=== PATIENT | male | born 1975 | race Two or more races ===

== ENCOUNTER 2021-02-21 12:30 | Inpatient (IN) | payer SELFPAY ==
[~2021-02-21] VITALS: Ht 165.1 cm; Wt 80.8 kg
--- NOTE | 2021-02-21 13:19 | PHYS DOC ---
Past Medical History Past Surgical History: No Surgical History General Adult EDM: Chief Complaint: COUGH HPI: HPI: Patient is a 46-year-old male presenting via POV for shortness of breath. States he has had generalized upper respiratory symptoms for past 15 days witho ut any known inciting event, trauma, ingestion, exposure or recent travel. Patient has taken Tylenol and other NSAIDs intermittently with minimal relief in symptoms, physical exertion and laying down makes coughing worse otherwise no obvious exacerbating factors. Patient denies any pain, just ongoing nasal congestion, rhinorrhea, postnasal drip and a dry nonproductive cough with inability to take deep breaths. Denies any diagnosed medical conditions or other immunocompromising issues, takes no medications on a daily basis, he is not vaccinated against COVID-19 Review of Systems: Review of Systems: Fourteen body systems of review of systems have been reviewed. See HPI for pertinent positives and negative responses, other macias all other systems are negative, non-pertinent or non-contributory Heart Score: C/O Chest Pain: No HEART Score for Chest Pain: HEART Score for Chest Pain Response (Comments) Value History Slighlty/Non-Suspicious 0 ECG Normal 0 Age >45 - < 65 1 Risk Factors No Risk Factors 0 Troponin < Normal Limit 0 Total 1 Risk Factors: Risk Factors: DM, Current or recent (<one month) smoker, HTN, HLP, family history of CAD, obesity. Risk Scores: Score 0 - 3: 2.5% MACE over next 6 weeks - Discharge Home Score 4 - 6: 20.3% MACE over next 6 weeks - Admit for Clinical Observation Score 7 - 10: 72.7% MACE over next 6 weeks - Early Invasive Strategies Physical Exam: PE: Constitutional: Well developed, well nourished, no acute distress, non-toxic appearance. HENT: Normocephalic, atraumatic, bilateral external ears normal, oropharynx moist with postnasal drip present, no oral exudates, boggy bilateral nasal turbinates with moderate amount of anterior rhinorrhea present, tolerating secretions without any phonation changes Eyes: PERRLA, EOMI, conjunctiva normal, no discharge. Neck: Normal range of motion, no tenderness, supple, no stridor. Cardiovascular: Heart rate regular, sinus rhythm, no murmurs rubs or gallops Lungs & Thorax: Tachypneic and hypoxic without any obvious accessory muscle use, speaking in full sentences without any obvious distress, crackles and wheezing most notable during expiratory phases of respiration Abdomen: Bowel sounds normal, soft, no tenderness, no masses, no pulsatile masses. Nonsurgical abdomen, no peritoneal signs Skin: Warm, dry, no erythema, no rash. Back: No tenderness, no CVA tenderness. Extremities: No tenderness, no cyanosis, no clubbing, ROM intact, no edema. Neurologic: Alert and oriented X 3, grossly normal motor & sensory function, no focal deficits noted. Psychologic: Affect normal, judgement normal, mood normal. Current Patient Data: Labs: Laboratory Tests Test 02/21/21 13:10 02/21/21 13:25 02/21/21 14:10 White Blood Count 8.3 x10^3/uL Red Blood Count 4.69 x10^6/uL Hemoglobin 14.8 g/dL Hematocrit 43.2 % Mean Corpuscular Volume 92 fL Mean Corpuscular Hemoglobin 32 pg Mean Corpuscular Hemoglobin Concent 34 g/dL Red Cell Distribution Width 13.9 % Platelet Count 225 x10^3/uL Neutrophils (%) (Auto) 87 % Lymphocytes (%) (Auto) 9 % Monocytes (%) (Auto) 4 % Eosinophils (%) (Auto) 0 % Basophils (%) (Auto) 0 % Neutrophils # (Auto) 7.2 x10^3/uL Lymphocytes # (Auto) 0.8 x10^3/uL Monocytes # (Auto) 0.3 x10^3/uL Eosinophils # (Auto) 0.0 x10^3/uL Basophils # (Auto) 0.0 x10^3/uL Prothrombin Time 13.3 SEC Prothromb Time International Ratio 1.0 Activated Partial Thromboplast Time 33 SEC Sodium Level 134 mmol/L Potassium Level 3.4 mmol/L Chloride Level 96 mmol/L Carbon Dioxide Level 24 mmol/L Anion Gap 14 Blood Urea Nitrogen 17 mg/dL Creatinine 1.2 mg/dL Estimated GFR (Cockcroft-Gault) 64.9 Glucose Level 202 mg/dL Lactic Acid Level 3.4 mmol/L Calcium Level 8.4 mg/dL Troponin I High Sensitivity 8 ng/L NG-Edp-S-Type Natriuretic Peptide 36 pg/mL Influenza Type A Antigen Negative Influenza Type B Antigen Negative SARS-CoV-2 Antigen (Rapid) Negative O2 Saturation 90 % Arterial Blood pH 7.53 Arterial Blood pCO2 at Patient Temp 31 mmHg Arterial Blood pO2 at Patient Temp 54 mmHg Arterial Blood HCO3 25 mmol/L Arterial Blood Base Excess 3 mmol/L Oxyhemoglobin 89.1 % Methemoglobin 0.2 % Carbon Monoxide, Quantitative 0.2 % FiO2 44 Current Medications Medications (Trade) Dose Ordered Sig/Kalina Route PRN Reason Start Time Stop Time Status Last Admin Dose Admin Iohexol (Omnipaque 350 Mg/ml) 100 ml 1X ONCE IV 02/21/21 13:30 02/21/21 13:32 DC 02/21/21 14:35 Info (CONTRAST GIVEN -- Rx MONITORING) 1 each PRN DAILY PRN MC SEE COMMENTS 02/21/21 13:45 02/23/21 13:44 Sodium Chloride 1,000 ml @ 1,000 mls/hr 1X ONCE IV 02/21/21 14:00 02/21/21 14:59 02/21/21 14:00 Iohexol (Omnipaque 350 Mg/ml) 100 ml 1X ONCE IV 02/21/21 14:15 02/21/21 14:16 DC Sterile Water (WATER for RESP) 2,000 ml CONT PRN INH VIA VAPOTHERM DEVICE 02/21/21 14:30 Vital Signs: Vital Signs Date Time Temp Pulse Resp B/P (MAP) Pulse Ox O2 Delivery O2 Flow Rate FiO2 02/21/21 13:00 99.4 103 14 128/81 (97) 74 Room Air 99.4 EKG: EKG: EKG ordered and interpreted by myself 1310 hrs. as sinus rhythm at 98 bpm, unremarkable intervals, no axis deviation, no obvious ischemic findings, no STEMI Radiology/Procedures: Radiology/Procedures: XR CHEST 1V Clinical Indication: Shortness of breath. Comparison: None. Findings: The cardiomediastinal silhouette is normal. There are moderate bilateral patchy airspace opacities. There are low lung volumes. There is no pneumothorax. No pleural effusion is appreciated. No acute bone abnormality. IMPRESSION: There are moderate bilateral patchy airspace opacities suggestive of atypical pneumonia. Electronically signed by: Perry Armstrong MD (02/21/2021 2:20 PM) [id number] ////////////////// CTA CHEST History: Short of breath. Rule out PE. Comparison: None. Technique: CTA of the pulmonary arteries with intravenous contrast. 3-D postprocessing was performed. Findings: Pulmonary arteries: No pulmonary embolism. Aorta and great vessels: No aneurysm or dissection of the aortic arch or thoracic aorta. Thyroid: Prominent size without focal abnormality. Mediastinum and josafat: Enlarged mediastinal lymph nodes, likely reactive. Esophagus: The visualized esophagus is normal. Heart: The heart is normal in size. There is no pericardial effusion. Airways, Lungs, Pleura: Airways are patent. Diffuse bilateral groundglass airspace opacification. No pleural effusion or pneumothorax. Upper abdomen: Limited evaluation of the upper abdomen is unremarkable. Osseous structures and soft tissues: Within normal limits for age. Impression: 1. No pulmonary embolism, aortic aneurysm or aortic dissection. 2. Diffuse bilateral airspace opacification likely represent multifocal infection or alternatively pulmonary edema/ARDS. Course & Med Decision Making: Course & Med Decision Making Airway patent, breathing unlabored, IV access and vitals obtained concerning for tachycardia and hypoxia on room air which is not his normal HPI physical exam and comprehensive ER work-up obtained concerning for bilateral pneumonia/infectious respiratory process in an unvaccinated individual. Rapid COVID-19 negative with PCR pending, I have great concern for this Nasal cannula and subsequent high flow nasal cannula applied with improvement in O2 saturations.. Antibiotics administered. I discussed need for hospitalization with Dr. Pérez who ultimately accepted patient for admission I have updated patient on entirety of ER visit and proposed plan of care that includes hospitalization for which she was amenable, all questions and concerns addressed prior to hospital admission [place] Disclaimer: Praveena Disclaimer: This electronic medical record was generated, in whole or in part, using a voice recognition dictation system. Departure Departure Impression: Primary Impression: Sepsis due to pneumonia Additional Impression: Acute respiratory failure with hypoxia Disposition: ADMITTED INPATIENT Admitting Physician: FRANKY (dr pérez) Condition: STABLE Referrals: NO PCP (PCP) CHAES MONTAÑO DO Feb 21, 2021 13:19
[2021-02-21 13:26] LABS: BASO % 0 % (0-3); EOS % 0 % (0-3); HEMATOCRIT 43.2 % (39.0-53.0); HEMOGLOBIN 14.8 g/dL (13.0-17.5); LYMPH # 0.8 x10^3/uL (1.0-4.8); LYMPH % 9 % (24-48); MEAN CORPUSCULAR HEMOGLOBIN 32 pg (25-35); MEAN CORPUSCULAR HGB CONC 34 g/dL (31-37); MEAN CORPUSCULAR VOLUME 92 fL (79-100); MONO # 0.3 x10^3/uL (0.0-1.1); MONO % 4 % (0-9); NEUT # 7.2 x10^3/uL (1.8-7.7); NEUT % 87 % (31-73); PLATELET COUNT 225 x10^3/uL (140-400); RED BLOOD COUNT 4.69 x10^6/uL (4.30-5.70); RED CELL DISTRIBUTION WIDTH 13.9 % (11.5-14.5); WHITE BLOOD COUNT 8.3 x10^3/uL (4.0-11.0)
[2021-02-21] MEDS ORDERED: IOHEXOL 350 MG/ML 100 ML VIAL. IV ONE ×2 (13:30→14:15)
[2021-02-21 13:37] LABS: CALCIUM 8.4 mg/dL (8.5-10.1); CREATININE 1.2 mg/dL (0.7-1.3); GFR 64.9; POTASSIUM 3.4 mmol/L (3.5-5.1)
[2021-02-21] MEDS ORDERED: CONTRAST GIVEN. MC PRN (13:45)
[2021-02-21] MEDS ORDERED: IV NORMAL SALINE 1000ML BAG 1,000 ML IV ONE ×2 (14:00→15:00)
[2021-02-21 14:07] LABS: INFLUENZA A PATIENT NEGATIVE (NEGATIVE); INFLUENZA B PATIENT NEGATIVE (NEGATIVE)
[2021-02-21 14:15] LABS: BASE EXCESS COOX 3 mmol/L (-3-3); HCO3 COOX 25 mmol/L (21-28); METHEMOGLOBIN 0.2 % (0.0-1.9); OXYHEMOGLOBIN 89.1 %; PCO2 COOX 31 mmHg (35-46); PO2 COOX 54 mmHg (75-108); SAT O2 COOX 90 % (92-99)
--- NOTE | 2021-02-21 14:22 | RAD ---
XR CHEST 1V Clinical Indication: Shortness of breath. Comparison: None. Findings: The cardiomediastinal silhouette is normal. There are moderate bilateral patchy airspace opacities. T here are low lung volumes. There is no pneumothorax. No pleural effusion is appreciated. No acute bon e abnormality. IMPRESSION: There are moderate bilateral patchy airspace opacities suggestive of atypical pneumonia. Electronically signed by: Perry Armstrong MD (02/21/2021 2:20 PM) [id number]
[2021-02-21 14:27] LABS: PROTHROMBIN TIME PATIENT 13.3 SEC (11.7-14.0)
[2021-02-21] MEDS: STERILE WATER for RESP 2,000 ML BAG. INH PRN (14:40)
--- NOTE | 2021-02-21 14:50 | RAD ---
CTA CHEST History: Short of breath. Rule out PE. Comparison: None. Technique: CTA of the pulmonary arteries with intravenous contrast. 3-D postprocessing was performed. Findings: Pulmonary arteries: No pulmonary embolism. Aorta and great vessels: No aneurysm or dissection of the aortic arch or thoracic aorta. Thyroid: Prominent size without focal abnormality. Mediastinum and josafat: Enlarged mediastinal lymph nodes, likely reactive. Esophagus: The visualized esophagus is normal. Heart: The heart is normal in size. There is no pericardial effusion. Airways, Lungs, Pleura: Airways are patent. Diffuse bilateral groundglass airspace opacification. No pleural effusion or pneumothorax. Upper abdomen: Limited evaluation of the upper abdomen is unremarkable. Osseous structures and soft tissues: Within normal limits for age. Impression: 1. No pulmonary embolism, aortic aneurysm or aortic dissection. 2. Diffuse bilateral airspace opacification likely represent multifocal infection or alternatively p ulmonary edema/ARDS. ------ Exposure: One or more of the following individualized dose reduction techniques were utilized for thi s examination: 1. Automated exposure control 2. Adjustment of the mA and/or kV according to patient size 3. Use of iterative reconstruction technique. Electronically signed by: Zain Jones MD (02/21/2021 2:48 PM) [facility]
[2021-02-21] MEDS ORDERED: cefTRIAXone IV Push 1 GM VIAL. IVP ONE (15:00)
[2021-02-21] MEDS ORDERED: AZITHRMYCN 500MG IVPB FOR OMNI 250 ML IV ONE (15:00)
[2021-02-21] MEDS ORDERED: NITROGLYCERIN SUBLINGUAL 0.4 MG BOTTLE OF 25. SL PRN (16:00)
[2021-02-21] MEDS ORDERED: ACETAMINOPHEN 325 MG TABLET. PO PRN (16:00)
--- NOTE | 2021-02-21 16:49 | EKG ---
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
[2021-02-21 19:35] VITALS: BP 129/87
--- NOTE | 2021-02-21 20:07 | HP ---
DATE OF SERVICE: 02/21/2021 ADMIT DATE: 02/21/2021 CHIEF COMPLAINT: Shortness of breath and cough. HISTORY OF PRESENT ILLNESS: The patient is a pleasant 46-year-old healthy male who has been at home with respiratory symptoms for about 10-15 days. His girlfriend also has the same symptoms. They are short of breath. They are coughing. They are not vaccinated. Surprisingly, his COVID testing is negative, but clinically he seems to have COVID-19. We are awaiting the PCR test. His chest x-ray does show atypical pneumonia. I discussed the case with ER physician. We are going to start the patient on COVID protocol. PAST MEDICAL HISTORY: Benign. ALLERGIES: None. FAMILY HISTORY: Diabetes. SOCIAL HISTORY: Does not drink, smoke or take drugs. MEDICATIONS: Reviewed, please refer to the MRAD. REVIEW OF SYSTEMS: GENERAL: No history of weight change, weakness or fevers. SKIN: No bruising, hair changes or rashes. EYES: No blurred, double or loss of vision. NOSE AND THROAT: No history of nosebleeds, hoarseness or sore throat. HEART: No history of palpitations, chest pain or shortness of breath on exertion. LUNGS: He complains of shortness of breath and cough. GASTROINTESTINAL: Denies changes in appetite, nausea, vomiting, diarrhea or constipation. GENITOURINARY: No history of frequency, urgency, hesitancy or nocturia. NEUROLOGIC: Denies history of numbness, tingling, tremor or weakness. PSYCHIATRIC: No history of panic, anxiety or depression. ENDOCRINE: No history of heat or cold intolerance, polyuria or polydipsia. EXTREMITIES: Denies muscle weakness, joint pain, pain on walking or stiffness. PHYSICAL EXAMINATION: VITALS: Within normal limits and are stable. GENERAL: No apparent distress. Alert and oriented. HEENT: Normal cephalic atraumatic, external auditory canals are patent. EYES: Extraocular muscles are intact, pupils are equally round and reactive to light and accommodation. MUSCULOSKELETAL: Well developed, well nourished, good range of motion. ENDOCRINE: No thyromegaly was palpated. LYMPHATICS: No cervical chain or axillary nodes were noted. HEMATOPOIETIC: No bruising. NECK: Supple, no JVD, no thyromegaly was noted. LUNGS: He has bibasilar crackles. HEART: RRR, S1, S2 present. Peripheral pulses intact, no obvious murmurs were noted. ABDOMEN: Soft, nontender. Positive bowel sounds no organomegaly, normal bowel sounds. EXTREMITIES: Without any cyanosis, clubbing, or edema. Pedal pulses intact, Homans sign is negative. NEUROLOGIC: Normal speech, normal tone. A and O x3, moves all extremities, no obvious focal deficits. PSYCHIATRIC: Normal affect, normal mood. Stable. SKIN: No ulcerations or rashes, good skin turgor, no jaundice. VASCULAR: Good capillary refill, neurovascular bundle appears to be intact. LABORATORY DATA: White count is 8. Sodium is 134. Lactic acid 3.4. INR is 1. ABG shows a pH of 7.53, pCO2 of 31, pO2 of 54, bicarbonate 25 with 90% saturation that was on 44% FiO2. Chest x-ray shows pneumonia. ASSESSMENT AND PLAN: Respiratory failure, suspect probable COVID-19. As previously stated, the COVID-19 testing so far is negative, but we are awaiting the PCR. I am going to go and start the rest of the protocol other than remdesivir including Solu-Medrol, IV antibiotics, vitamins and minerals and beta agonist, oxygen, codeine cough syrup, aspirin, Lovenox, home meds. DVT prophylaxis. Full code. Prognosis guarded. Respiratory isolation. DAVID DR: CHARLES/nelida TID: [id number]
[2021-02-21] MEDS: methylPREDNISolone SOD SUCC PF 40 MG/ML VIAL. IV SCH (20:46)
[2021-02-21] MEDS: ENOXAPARIN 40 MG/0.4 ML SYRINGE. SQ SCH (20:47)
[2021-02-21] MEDS: cefTRIAXone IV Push 1 GM VIAL. IVP SCH (20:47)
[2021-02-21] MEDS: DOXYCYCLINE HYCLATE 100 MG in IV DEXTROSE 5% 100ML 100 ML IV SCH (20:48)
[2021-02-21 23:12] VITALS: BP 163/94
[2021-02-21] MEDS ORDERED: no home meds (23:52)
[2021-02-22 03:17] VITALS: BP 131/96
[2021-02-22 05:14] LABS: BASO % 1 % (0-3); EOS % 0 % (0-3); HEMOGLOBIN 14.1 g/dL (13.0-17.5); LYMPH # 0.6 x10^3/uL (1.0-4.8); LYMPH % 8 % (24-48); MEAN CORPUSCULAR HEMOGLOBIN 31 pg (25-35); MEAN CORPUSCULAR HGB CONC 34 g/dL (31-37); MEAN CORPUSCULAR VOLUME 93 fL (79-100); MONO # 0.3 x10^3/uL (0.0-1.1); MONO % 4 % (0-9); NEUT # 6.7 x10^3/uL (1.8-7.7); NEUT % 87 % (31-73); PLATELET COUNT 230 x10^3/uL (140-400); RED BLOOD COUNT 4.53 x10^6/uL (4.30-5.70); RED CELL DISTRIBUTION WIDTH 13.9 % (11.5-14.5); WHITE BLOOD COUNT 7.7 x10^3/uL (4.0-11.0)
[2021-02-22 05:32] LABS: CALCIUM 8.1 mg/dL (8.5-10.1); CREATININE 0.9 mg/dL (0.7-1.3); GFR 90.4; POTASSIUM 3.9 mmol/L (3.5-5.1)
[2021-02-22 07:00] VITALS: BP 142/97
[2021-02-22] MEDS: methylPREDNISolone SOD SUCC PF 40 MG/ML VIAL. IV SCH ×2 (08:47→21:28)
[2021-02-22] MEDS: ASPIRIN CHEWABLE 81 MG TABLET. PO SCH (08:47)
[2021-02-22] MEDS: DOXYCYCLINE HYCLATE 100 MG in IV DEXTROSE 5% 100ML 100 ML IV SCH ×2 (08:47→21:29)
[2021-02-22] MEDS: guaiFENesin/CODEINE 100mg/10mg 5 ML LIQUID PO PRN (08:47)
[2021-02-22] MEDS: MULTIVITAMIN with MINERAL TABLET. PO SCH (08:48)
[2021-02-22 11:00] VITALS: BP 134/87
--- NOTE | 2021-02-22 11:27 | PDOC ---
[employer] PROGRESS NOTE Date of Service DOS: DATE: 02/22/21 TIME: 11:25 Chief Complaint Chief Complaint Respiratory failure Atypical pneumonia noted on chest x-ray (Covid testing negative) History of Present Illness History of Present Illness 02/22/2021 Patient seen and examined He is on Vapotherm 40 L with 100% FiO2 plus nonrebreather Discussed with RN Chart reviewed His Covid testing by PCR is surprisingly negative Vitals/I&O Vitals/I&O: Vital Signs Date Time Temp Pulse Resp B/P (MAP) Pulse Ox O2 Delivery O2 Flow Rate FiO2 02/22/21 07:29 94 Vapotherm 35.0 02/22/21 07:00 97.5 80 22 142/97 (112) 97.5 I & O 02/21/21 02/21/21 02/22/21 15:00 23:00 07:00 Intake Total 50 ml 100 ml Output Total 300 ml 400 ml Balance -250 ml -300 ml Physical Exam General: Alert, Oriented X3, Cooperative Heart: Regular rate Lungs: Crackles Abdomen: Normal bowel sounds Extremities: No clubbing Skin: No rashes Labs Labs: Laboratory Tests Test 02/21/21 13:10 02/21/21 13:25 02/21/21 14:10 02/21/21 18:00 White Blood Count 8.3 x10^3/uL (4.0-11.0) Red Blood Count 4.69 x10^6/uL (4.30-5.70) Hemoglobin 14.8 g/dL (13.0-17.5) Hematocrit 43.2 % (39.0-53.0) Mean Corpuscular Volume 92 fL (79-100) Mean Corpuscular Hemoglobin 32 pg (25-35) Mean Corpuscular Hemoglobin Concent 34 g/dL (31-37) Red Cell Distribution Width 13.9 % (11.5-14.5) Platelet Count 225 x10^3/uL (140-400) Neutrophils (%) (Auto) 87 % (31-73) Lymphocytes (%) (Auto) 9 % (24-48) Monocytes (%) (Auto) 4 % (0-9) Eosinophils (%) (Auto) 0 % (0-3) Basophils (%) (Auto) 0 % (0-3) Neutrophils # (Auto) 7.2 x10^3/uL (1.8-7.7) Lymphocytes # (Auto) 0.8 x10^3/uL (1.0-4.8) Monocytes # (Auto) 0.3 x10^3/uL (0.0-1.1) Eosinophils # (Auto) 0.0 x10^3/uL (0.0-0.7) Basophils # (Auto) 0.0 x10^3/uL (0.0-0.2) Prothrombin Time 13.3 SEC (11.7-14.0) Prothromb Time International Ratio 1.0 (0.8-1.1) Activated Partial Thromboplast Time 33 SEC (24-38) Sodium Level 134 mmol/L (136-145) Potassium Level 3.4 mmol/L (3.5-5.1) Chloride Level 96 mmol/L (98-107) Carbon Dioxide Level 24 mmol/L (21-32) Anion Gap 14 (6-14) Blood Urea Nitrogen 17 mg/dL (8-26) Creatinine 1.2 mg/dL (0.7-1.3) Estimated GFR (Cockcroft-Gault) 64.9 Glucose Level 202 mg/dL (70-99) Lactic Acid Level 3.4 mmol/L (0.4-2.0) < 0.3 mmol/L (0.4-2.0) Calcium Level 8.4 mg/dL (8.5-10.1) Troponin I High Sensitivity 8 ng/L (4-75) IN-Mcy-D-Type Natriuretic Peptide 36 pg/mL (0-124) Influenza Type A Antigen Negative (NEGATIVE) Influenza Type B Antigen Negative (NEGATIVE) SARS-CoV-2 RNA (JYOTI) Negative (Negative) SARS-CoV-2 Antigen (Rapid) Negative (NEGATIVE) O2 Saturation 90 % (92-99) Arterial Blood pH 7.53 (7.35-7.45) Arterial Blood pCO2 at Patient Temp 31 mmHg (35-46) Arterial Blood pO2 at Patient Temp 54 mmHg (75-108) Arterial Blood HCO3 25 mmol/L (21-28) Arterial Blood Base Excess 3 mmol/L (-3-3) Oxyhemoglobin 89.1 % Methemoglobin 0.2 % (0.0-1.9) Carbon Monoxide, Quantitative 0.2 % (0.0-1.9) FiO2 44 Test 02/22/21 04:30 White Blood Count 7.7 x10^3/uL (4.0-11.0) Red Blood Count 4.53 x10^6/uL (4.30-5.70) Hemoglobin 14.1 g/dL (13.0-17.5) Hematocrit 42.0 % (39.0-53.0) Mean Corpuscular Volume 93 fL (79-100) Mean Corpuscular Hemoglobin 31 pg (25-35) Mean Corpuscular Hemoglobin Concent 34 g/dL (31-37) Red Cell Distribution Width 13.9 % (11.5-14.5) Platelet Count 230 x10^3/uL (140-400) Neutrophils (%) (Auto) 87 % (31-73) Lymphocytes (%) (Auto) 8 % (24-48) Monocytes (%) (Auto) 4 % (0-9) Eosinophils (%) (Auto) 0 % (0-3) Basophils (%) (Auto) 1 % (0-3) Neutrophils # (Auto) 6.7 x10^3/uL (1.8-7.7) Lymphocytes # (Auto) 0.6 x10^3/uL (1.0-4.8) Monocytes # (Auto) 0.3 x10^3/uL (0.0-1.1) Eosinophils # (Auto) 0.0 x10^3/uL (0.0-0.7) Basophils # (Auto) 0.0 x10^3/uL (0.0-0.2) Sodium Level 136 mmol/L (136-145) Potassium Level 3.9 mmol/L (3.5-5.1) Chloride Level 99 mmol/L (98-107) Carbon Dioxide Level 26 mmol/L (21-32) Anion Gap 11 (6-14) Blood Urea Nitrogen 15 mg/dL (8-26) Creatinine 0.9 mg/dL (0.7-1.3) Estimated GFR (Cockcroft-Gault) 90.4 Glucose Level 171 mg/dL (70-99) Calcium Level 8.1 mg/dL (8.5-10.1) Assessment and Plan Assessmemt and Plan Problems Medical Problems: (1) Acute respiratory failure with hypoxia Status: Acute (2) Sepsis due to pneumonia Status: Acute Respiratory failure Atypical pneumonia noted on chest x-ray (Covid testing negative) Plan Continue antibiotics Beta agonist IV steroids Beta agonist O2 Codeine cough syrup Aspirin Lovenox Vitamins and minerals Home meds DVT prophylaxis Full code Comment Review of Relevant I have reviewed the following items elmer (where applicable) has been applied. Medications: Current Medications Medications (Trade) Dose Ordered Sig/Kalina Route PRN Reason Start Time Stop Time Status Last Admin Dose Admin Iohexol (Omnipaque 350 Mg/ml) 100 ml 1X ONCE IV 02/21/21 13:30 02/21/21 13:32 DC 02/21/21 14:35 Sodium Chloride 1,000 ml @ 1,000 mls/hr 1X ONCE IV 02/21/21 14:00 02/21/21 14:59 DC 02/21/21 14:00 Sterile Water (WATER for RESP) 2,000 ml CONT PRN INH VIA VAPOTHERM DEVICE 02/21/21 14:30 02/21/21 14:40 Sodium Chloride 1,000 ml @ 1,000 mls/hr 1X ONCE IV 02/21/21 15:00 02/21/21 15:59 DC 02/21/21 15:00 Ceftriaxone Sodium (Rocephin) 1 gm 1X ONCE IVP 02/21/21 15:00 02/21/21 15:01 DC 02/21/21 15:00 Azithromycin 250 ml @ 250 mls/hr 1X ONCE IV 02/21/21 15:00 02/21/21 15:59 DC 02/21/21 15:00 Acetaminophen (Tylenol) 650 mg PRN Q4HRS PRN PO FEVER > 100.3'F 02/21/21 16:00 02/22/21 15:59 02/21/21 23:00 Ceftriaxone Sodium (Rocephin) 1 gm Q24H IVP 02/21/21 20:00 02/21/21 20:47 Doxycycline Hyclate 100 mg/ Dextrose 100 ml @ 50 mls/hr Q12HR IV 02/21/21 20:00 02/22/21 08:47 Methylprednisolone Sodium Succinate (SOLU-Medrol 40MG VIAL) 40 mg BID IV 02/21/21 20:00 02/22/21 08:47 Multivitamins (Thera M Plus) 1 tab DAILY PO 02/22/21 09:00 02/22/21 08:48 Guaifenesin/ Codeine Phosphate (Robitussin Ac) 5 ml PRN Q6HRS PRN PO COUGH 02/21/21 19:45 02/22/21 08:47 Aspirin (Aspirin Chewable) 81 mg [id number] PO 02/22/21 08:00 02/22/21 08:47 Enoxaparin Sodium (Lovenox 40mg Syringe) 40 mg Q24H SQ 02/21/21 20:00 02/21/21 20:47 Justifications for Admission Other Justification LILA RODRIGUEZ III DO Feb 22, 2021 11:27
[2021-02-22 15:00] VITALS: BP 134/89
[2021-02-22 19:00] VITALS: BP 131/81
[2021-02-22] MEDS: LACTOBACILLUS RHAMNOSUS GG 1 CAPSULE. PO SCH (21:26)
[2021-02-22] MEDS: cefTRIAXone IV Push 1 GM VIAL. IVP SCH (21:28)
[2021-02-22] MEDS: ENOXAPARIN 40 MG/0.4 ML SYRINGE. SQ SCH (21:28)
[2021-02-22 23:00] VITALS: BP 134/88
[2021-02-23 03:00] VITALS: BP 126/85
[2021-02-23 07:00] VITALS: BP 127/81
[2021-02-23] MEDS: guaiFENesin/CODEINE 100mg/10mg 5 ML LIQUID PO PRN (08:51)
[2021-02-23] MEDS: LACTOBACILLUS RHAMNOSUS GG 1 CAPSULE. PO SCH ×2 (08:51→21:16)
[2021-02-23] MEDS: methylPREDNISolone SOD SUCC PF 40 MG/ML VIAL. IV SCH ×2 (08:51→21:17)
[2021-02-23] MEDS: ASPIRIN CHEWABLE 81 MG TABLET. PO SCH (08:51)
[2021-02-23] MEDS: MULTIVITAMIN with MINERAL TABLET. PO SCH (08:51)
[2021-02-23] MEDS: DOXYCYCLINE HYCLATE 100 MG in IV DEXTROSE 5% 100ML 100 ML IV SCH ×2 (08:52→21:17)
[2021-02-23 11:00] VITALS: BP 145/83
--- NOTE | 2021-02-23 12:53 | PDOC ---
[employer] PROGRESS NOTE Date of Service DOS: DATE: 02/23/21 TIME: 12:51 Chief Complaint Chief Complaint Respiratory failure Atypical pneumonia noted on chest x-ray (Covid testing negative) History of Present Illness History of Present Illness 02/23/2021 Patient seen and examined He is still on Vapotherm 40 L and 100% nonrebreather His third Covid test finally came back positive I spoke with pharmacy he is still not a candidate for remdesivir because he has had the disease for more than 10 days I do have him on full Covid protocol other than remdesivir Chart reviewed Discussed with RN 02/22/2021 Patient seen and examined He is on Vapotherm 40 L with 100% FiO2 plus nonrebreather Discussed with RN Chart reviewed His Covid testing by PCR is surprisingly negative Vitals/I&O Vitals/I&O: Vital Signs Date Time Temp Pulse Resp B/P (MAP) Pulse Ox O2 Delivery O2 Flow Rate FiO2 02/23/21 11:28 93 Vapotherm 35.0 02/23/21 11:00 97.3 71 26 145/83 (103) 97.3 I & O 02/22/21 02/22/21 02/23/21 15:00 23:00 07:00 Intake Total 280 ml 168 ml 100 ml Output Total 600 ml 400 ml Balance 280 ml -432 ml -300 ml Physical Exam General: Alert, Oriented X3, Cooperative Heart: Regular rate Lungs: Wheezing, Crackles Abdomen: Normal bowel sounds Extremities: No clubbing Skin: No rashes Assessment and Plan Assessmemt and Plan Problems Medical Problems: (1) Acute respiratory failure with hypoxia Status: Acute (2) Sepsis due to pneumonia Status: Acu Covid-19 respiratory failure Pneumonia Hypoxia Plan He is not a candidate for remdesivir as he is out of the 10-day window For now continue the following; IV antibiotics Beta agonist IV steroids O2 Cardiac monitoring Codeine cough syrup Aspirin Lovenox Vitamins and minerals Home meds Encourage p.o. intake Trend labs DVT prophylaxis Full code Prognosis extremely guarded Comment Review of Relevant I have reviewed the following items elmer (where applicable) has been applied. Medications: Current Medications Medications (Trade) Dose Ordered Sig/Kalina Route PRN Reason Start Time Stop Time Status Last Admin Dose Admin Lactobacillus Rhamnosus (Culturelle) 1 cap BID PO 02/22/21 21:00 02/23/21 08:51 Justifications for Admission Other Justification LILA RODRIGUEZ III DO Feb 23, 2021 12:53
[2021-02-23 15:00] VITALS: BP 119/88
[2021-02-23 19:47] VITALS: BP 138/91
[2021-02-23] MEDS: ENOXAPARIN 40 MG/0.4 ML SYRINGE. SQ SCH (21:16)
[2021-02-23] MEDS: cefTRIAXone IV Push 1 GM VIAL. IVP SCH (21:16)
[2021-02-23 22:33] VITALS: BP 131/83
[2021-02-24 03:52] VITALS: BP 117/78
[2021-02-24 06:22] LABS: BASO % 0 % (0-3); EOS % 0 % (0-3); HEMATOCRIT 40.7 % (39.0-53.0); HEMOGLOBIN 13.9 g/dL (13.0-17.5); LYMPH # 0.7 x10^3/uL (1.0-4.8); LYMPH % 7 % (24-48); MEAN CORPUSCULAR HEMOGLOBIN 32 pg (25-35); MEAN CORPUSCULAR HGB CONC 34 g/dL (31-37); MEAN CORPUSCULAR VOLUME 93 fL (79-100); MONO # 0.8 x10^3/uL (0.0-1.1); MONO % 7 % (0-9); NEUT # 9.3 x10^3/uL (1.8-7.7); NEUT % 86 % (31-73); PLATELET COUNT 380 x10^3/uL (140-400); RED BLOOD COUNT 4.38 x10^6/uL (4.30-5.70); RED CELL DISTRIBUTION WIDTH 14.1 % (11.5-14.5); WHITE BLOOD COUNT 10.9 x10^3/uL (4.0-11.0)
[2021-02-24 06:28] LABS: CALCIUM 8.3 mg/dL (8.5-10.1); CREATININE 0.9 mg/dL (0.7-1.3); GFR 90.4; POTASSIUM 4.1 mmol/L (3.5-5.1)
[2021-02-24 07:00] VITALS: BP 116/74
[2021-02-24] MEDS: MULTIVITAMIN with MINERAL TABLET. PO SCH (10:28)
[2021-02-24] MEDS: LACTOBACILLUS RHAMNOSUS GG 1 CAPSULE. PO SCH ×2 (10:28→20:51)
[2021-02-24] MEDS: ASPIRIN CHEWABLE 81 MG TABLET. PO SCH (10:28)
[2021-02-24] MEDS: methylPREDNISolone SOD SUCC PF 40 MG/ML VIAL. IV SCH ×2 (10:29→20:51)
[2021-02-24] MEDS: DOXYCYCLINE HYCLATE 100 MG in IV DEXTROSE 5% 100ML 100 ML IV SCH ×2 (10:32→20:52)
[2021-02-24 11:00] VITALS: BP 130/86
--- NOTE | 2021-02-24 13:12 | PDOC ---
[facility] PROGRESS NOTE Date of Service DOS: DATE: 02/24/21 TIME: 13:10 Chief Complaint Chief Complaint Respiratory failure Atypical pneumonia noted on chest x-ray (Covid testing negative) History of Present Illness History of Present Illness 02/24/21 No acute events overnight. Patient seen examined bedside. Patient saturating 93 to 95% on Vapotherm at 40 L. Not dyspneic at this time. Patient's chart, labs, images were reviewed and discussed with RN 02/23/2021 Patient seen and examined He is still on Vapotherm 40 L and 100% nonrebreather His third Covid test finally came back positive I spoke with pharmacy he is still not a candidate for remdesivir because he has had the disease for more than 10 days I do have him on full Covid protocol other than remdesivir Chart reviewed Discussed with RN 02/22/2021 Patient seen and examined He is on Vapotherm 40 L with 100% FiO2 plus nonrebreather Discussed with RN Chart reviewed His Covid testing by PCR is surprisingly negative Vitals/I&O Vitals/I&O: Vital Signs Date Time Temp Pulse Resp B/P (MAP) Pulse Ox O2 Delivery O2 Flow Rate FiO2 02/24/21 12:04 96 Vapotherm 40.0 02/24/21 11:00 97.1 56 20 130/86 (101) 97.1 I & O 02/23/21 02/23/21 02/24/21 15:00 23:00 07:00 Intake Total 540 ml 100 ml 150 ml Output Total 500 ml 600 ml 500 ml Balance 40 ml -500 ml -350 ml Physical Exam General: Alert, Oriented X3, Cooperative Heart: Regular rate Lungs: Wheezing, Crackles Abdomen: Normal bowel sounds Extremities: No clubbing Skin: No rashes Labs Labs: Laboratory Tests Test 02/24/21 06:00 White Blood Count 10.9 x10^3/uL (4.0-11.0) Red Blood Count 4.38 x10^6/uL (4.30-5.70) Hemoglobin 13.9 g/dL (13.0-17.5) Hematocrit 40.7 % (39.0-53.0) Mean Corpuscular Volume 93 fL (79-100) Mean Corpuscular Hemoglobin 32 pg (25-35) Mean Corpuscular Hemoglobin Concent 34 g/dL (31-37) Red Cell Distribution Width 14.1 % (11.5-14.5) Platelet Count 380 x10^3/uL (140-400) Neutrophils (%) (Auto) 86 % (31-73) Lymphocytes (%) (Auto) 7 % (24-48) Monocytes (%) (Auto) 7 % (0-9) Eosinophils (%) (Auto) 0 % (0-3) Basophils (%) (Auto) 0 % (0-3) Neutrophils # (Auto) 9.3 x10^3/uL (1.8-7.7) Lymphocytes # (Auto) 0.7 x10^3/uL (1.0-4.8) Monocytes # (Auto) 0.8 x10^3/uL (0.0-1.1) Eosinophils # (Auto) 0.0 x10^3/uL (0.0-0.7) Basophils # (Auto) 0.0 x10^3/uL (0.0-0.2) Sodium Level 138 mmol/L (136-145) Potassium Level 4.1 mmol/L (3.5-5.1) Chloride Level 102 mmol/L (98-107) Carbon Dioxide Level 27 mmol/L (21-32) Anion Gap 9 (6-14) Blood Urea Nitrogen 29 mg/dL (8-26) Creatinine 0.9 mg/dL (0.7-1.3) Estimated GFR (Cockcroft-Gault) 90.4 Glucose Level 199 mg/dL (70-99) Calcium Level 8.3 mg/dL (8.5-10.1) Assessment and Plan Assessmemt and Plan Problems Medical Problems: (1) Acute respiratory failure with hypoxia Status: Acute (2) Sepsis due to pneumonia Status: Acute Comment Review of Relevant I have reviewed the following items elmer (where applicable) has been applied. Justifications for Admission Other Justification KRISTI JOLLEY MD Feb 24, 2021 13:12
--- NOTE | 2021-02-24 13:34 | NUR ---
SS following for discharge planning. SS reviewed pt chart and discussed with pt RN. Pt is from home and is currently on Vapotherm and Non-Rebreather at 100%. COVID19 positive. Pt on IV Solu-Medrol, IV Doxycycline, and IV Rocephin. Self pay. Med Assist following. Not ready. SS will continue to follow for discharge planning.
[2021-02-24 15:00] VITALS: BP 117/75
[2021-02-24 19:42] VITALS: BP 109/71
[2021-02-24] MEDS: ENOXAPARIN 40 MG/0.4 ML SYRINGE. SQ SCH (20:51)
[2021-02-24] MEDS: cefTRIAXone IV Push 1 GM VIAL. IVP SCH (20:52)
[2021-02-24 23:03] VITALS: BP 111/80
[2021-02-25] MEDS: guaiFENesin/CODEINE 100mg/10mg 5 ML LIQUID PO PRN (00:54)
[2021-02-25 02:47] VITALS: BP 114/74
[2021-02-25 06:30] LABS: BASO % 0 % (0-3); EOS % 0 % (0-3); HEMATOCRIT 43.5 % (39.0-53.0); HEMOGLOBIN 14.6 g/dL (13.0-17.5); LYMPH # 0.5 x10^3/uL (1.0-4.8); LYMPH % 5 % (24-48); MEAN CORPUSCULAR HEMOGLOBIN 31 pg (25-35); MEAN CORPUSCULAR HGB CONC 34 g/dL (31-37); MEAN CORPUSCULAR VOLUME 93 fL (79-100); MONO # 0.6 x10^3/uL (0.0-1.1); MONO % 7 % (0-9); NEUT # 8.6 x10^3/uL (1.8-7.7); NEUT % 88 % (31-73); PLATELET COUNT 438 x10^3/uL (140-400); RED BLOOD COUNT 4.66 x10^6/uL (4.30-5.70); RED CELL DISTRIBUTION WIDTH 14.3 % (11.5-14.5); WHITE BLOOD COUNT 9.8 x10^3/uL (4.0-11.0)
[2021-02-25 06:45] LABS: CALCIUM 8.6 mg/dL (8.5-10.1); CREATININE 0.9 mg/dL (0.7-1.3); GFR 90.4; POTASSIUM 4.4 mmol/L (3.5-5.1)
[2021-02-25 07:00] VITALS: BP 119/80
[2021-02-25] MEDS: MULTIVITAMIN with MINERAL TABLET. PO SCH (10:19)
[2021-02-25] MEDS: ASPIRIN CHEWABLE 81 MG TABLET. PO SCH (10:19)
[2021-02-25] MEDS: LACTOBACILLUS RHAMNOSUS GG 1 CAPSULE. PO SCH ×2 (10:19→21:14)
[2021-02-25] MEDS: DOXYCYCLINE HYCLATE 100 MG in IV DEXTROSE 5% 100ML 100 ML IV SCH ×2 (10:20→21:14)
[2021-02-25] MEDS: methylPREDNISolone SOD SUCC PF 40 MG/ML VIAL. IV SCH ×2 (10:20→21:14)
--- NOTE | 2021-02-25 10:50 | NUR ---
SS following up with discharge planning. SS reviewed pt chart and discussed with pt RN. Pt is currently on Vapotherm and Non-Rebreather at 100%. COVID19 positive. Pt on IV Solu-Medrol, IV Doxycycline, and IV Rocephin. Not ready. Self pay. Med Assist following. SS will continue to follow for discharge planning.
[2021-02-25 11:00] VITALS: BP 126/72
--- NOTE | 2021-02-25 14:16 | PDOC ---
[facility] PROGRESS NOTE Date of Service DOS: DATE: 02/25/21 TIME: 14:14 Chief Complaint Chief Complaint Acute hypoxic respiratory failure secondary to Covid pneumonia History of Present Illness History of Present Illness 02/25/2021 No acute events overnight. Patient seen examined bedside. Patient saturating 91% on 4 L Vapotherm. Continue with IV steroids and IV antibiotics. Patient's chart, labs, images were reviewed and discussed with RN 02/24/21 No acute events overnight. Patient seen examined bedside. Patient saturating 93 to 95% on Vapotherm at 40 L. Not dyspneic at this time. Patient's chart, labs, images were reviewed and discussed with RN 02/23/2021 Patient seen and examined He is still on Vapotherm 40 L and 100% nonrebreather His third Covid test finally came back positive I spoke with pharmacy he is still not a candidate for remdesivir because he has had the disease for more than 10 days I do have him on full Covid protocol other than remdesivir Chart reviewed Discussed with RN 02/22/2021 Patient seen and examined He is on Vapotherm 40 L with 100% FiO2 plus nonrebreather Discussed with RN Chart reviewed His Covid testing by PCR is surprisingly negative Vitals/I&O Vitals/I&O: Vital Signs Date Time Temp Pulse Resp B/P (MAP) Pulse Ox O2 Delivery O2 Flow Rate FiO2 02/25/21 11:35 93 Vapotherm 40.0 02/25/21 11:00 97.1 70 19 126/72 (90) 97.1 I & O 02/24/21 02/24/21 02/25/21 15:00 23:00 07:00 Intake Total 298 ml 298 ml 0 ml Output Total 750 ml 600 ml Balance 298 ml -452 ml -600 ml Physical Exam General: Alert, Oriented X3, Cooperative Heart: Regular rate Lungs: Wheezing, Crackles Abdomen: Normal bowel sounds Extremities: No clubbing Skin: No rashes Labs Labs: Laboratory Tests Test 02/25/21 05:25 White Blood Count 9.8 x10^3/uL (4.0-11.0) Red Blood Count 4.66 x10^6/uL (4.30-5.70) Hemoglobin 14.6 g/dL (13.0-17.5) Hematocrit 43.5 % (39.0-53.0) Mean Corpuscular Volume 93 fL (79-100) Mean Corpuscular Hemoglobin 31 pg (25-35) Mean Corpuscular Hemoglobin Concent 34 g/dL (31-37) Red Cell Distribution Width 14.3 % (11.5-14.5) Platelet Count 438 x10^3/uL (140-400) Neutrophils (%) (Auto) 88 % (31-73) Lymphocytes (%) (Auto) 5 % (24-48) Monocytes (%) (Auto) 7 % (0-9) Eosinophils (%) (Auto) 0 % (0-3) Basophils (%) (Auto) 0 % (0-3) Neutrophils # (Auto) 8.6 x10^3/uL (1.8-7.7) Lymphocytes # (Auto) 0.5 x10^3/uL (1.0-4.8) Monocytes # (Auto) 0.6 x10^3/uL (0.0-1.1) Eosinophils # (Auto) 0.0 x10^3/uL (0.0-0.7) Basophils # (Auto) 0.0 x10^3/uL (0.0-0.2) Sodium Level 139 mmol/L (136-145) Potassium Level 4.4 mmol/L (3.5-5.1) Chloride Level 103 mmol/L (98-107) Carbon Dioxide Level 28 mmol/L (21-32) Anion Gap 8 (6-14) Blood Urea Nitrogen 26 mg/dL (8-26) Creatinine 0.9 mg/dL (0.7-1.3) Estimated GFR (Cockcroft-Gault) 90.4 Glucose Level 197 mg/dL (70-99) Calcium Level 8.6 mg/dL (8.5-10.1) Assessment and Plan Assessmemt and Plan Problems Medical Problems: (1) Acute respiratory failure with hypoxia Status: Acute (2) Sepsis due to pneumonia Status: Acute Comment Review of Relevant I have reviewed the following items elmer (where applicable) has been applied. Justifications for Admission Other Justification KRISTI JOLLEY MD Feb 25, 2021 14:16
[2021-02-25 15:00] VITALS: BP 132/82
[2021-02-25] MEDS ORDERED: DEXTROSE 50% 25 GM / 50ML DISP.SYRIN. IV PRN (15:30)
[2021-02-25] MEDS: INSULIN LISPRO 300 UNITS/3 ML VIAL. SQ SCH (18:00)
[2021-02-25 19:58] VITALS: BP 129/85
[2021-02-25] MEDS: cefTRIAXone IV Push 1 GM VIAL. IVP SCH (21:13)
[2021-02-25] MEDS: ENOXAPARIN 40 MG/0.4 ML SYRINGE. SQ SCH (21:13)
[2021-02-25 23:45] VITALS: BP 127/87
[2021-02-26 03:43] VITALS: BP 123/83
[2021-02-26 04:43] LABS: BASO % 0 % (0-3); EOS % 0 % (0-3); HEMATOCRIT 42.9 % (39.0-53.0); HEMOGLOBIN 14.4 g/dL (13.0-17.5); LYMPH # 0.8 x10^3/uL (1.0-4.8); LYMPH % 7 % (24-48); MEAN CORPUSCULAR HEMOGLOBIN 31 pg (25-35); MEAN CORPUSCULAR HGB CONC 34 g/dL (31-37); MEAN CORPUSCULAR VOLUME 93 fL (79-100); MONO # 0.7 x10^3/uL (0.0-1.1); MONO % 6 % (0-9); NEUT # 10.5 x10^3/uL (1.8-7.7); NEUT % 87 % (31-73); PLATELET COUNT 481 x10^3/uL (140-400); RED BLOOD COUNT 4.64 x10^6/uL (4.30-5.70); RED CELL DISTRIBUTION WIDTH 13.7 % (11.5-14.5)
[2021-02-26 05:03] LABS: CALCIUM 8.2 mg/dL (8.5-10.1); CREATININE 0.8 mg/dL (0.7-1.3); GFR 103.6
[2021-02-26 05:16] LABS: POTASSIUM 5.2 mmol/L (3.5-5.1)
[2021-02-26 07:31] VITALS: BP 123/88
[2021-02-26] MEDS: LACTOBACILLUS RHAMNOSUS GG 1 CAPSULE. PO SCH ×2 (07:58→19:51)
[2021-02-26] MEDS: MULTIVITAMIN with MINERAL TABLET. PO SCH (07:58)
[2021-02-26] MEDS: methylPREDNISolone SOD SUCC PF 40 MG/ML VIAL. IV SCH ×2 (07:58→19:50)
[2021-02-26] MEDS: ASPIRIN CHEWABLE 81 MG TABLET. PO SCH (07:58)
[2021-02-26] MEDS: DOXYCYCLINE HYCLATE 100 MG in IV DEXTROSE 5% 100ML 100 ML IV SCH ×2 (07:59→19:50)
[2021-02-26] MEDS: INSULIN LISPRO 300 UNITS/3 ML VIAL. SQ SCH ×3 (08:00→16:46)
[2021-02-26 11:00] VITALS: BP 123/65
[2021-02-26 15:00] VITALS: BP 141/82
--- NOTE | 2021-02-26 15:00 | PDOC ---
[facility] PROGRESS NOTE Date of Service DOS: DATE: 02/26/21 TIME: 14:58 Chief Complaint Chief Complaint Acute hypoxic respiratory failure secondary to Covid pneumonia History of diabetes mellitus type 2 Continued IV steroids and O2 supplementation Continue with empiric IV antibiotics Pending pro calcitonin History of Present Illness History of Present Illness 02/26/2021 Patient seen and examined bedside. Saturating 89% on Vapotherm and 15 L nonrebreather. Continue with IV steroids and IV antibiotics. Patient's chart, labs, images were reviewed and discussed with RN 02/25/2021 No acute events overnight. Patient seen examined bedside. Patient saturating 91% on 4 L Vapotherm. Continue with IV steroids and IV antibiotics. Patient's chart, labs, images were reviewed and discussed with RN 02/24/21 No acute events overnight. Patient seen examined bedside. Patient saturating 93 to 95% on Vapotherm at 40 L. Not dyspneic at this time. Patient's chart, labs, images were reviewed and discussed with RN 02/23/2021 Patient seen and examined He is still on Vapotherm 40 L and 100% nonrebreather His third Covid test finally came back positive I spoke with pharmacy he is still not a candidate for remdesivir because he has had the disease for more than 10 days I do have him on full Covid protocol other than remdesivir Chart reviewed Discussed with RN 02/22/2021 Patient seen and examined He is on Vapotherm 40 L with 100% FiO2 plus nonrebreather Discussed with RN Chart reviewed His Covid testing by PCR is surprisingly negative Vitals/I&O Vitals/I&O: Vital Signs Date Time Temp Pulse Resp B/P (MAP) Pulse Ox O2 Delivery O2 Flow Rate FiO2 02/26/21 11:55 88 Vapotherm 40.0 02/26/21 11:00 98.0 90 18 123/65 (84) 98.0 I & O 02/25/21 02/25/21 02/26/21 15:00 23:00 07:00 Intake Total 240 ml 100 ml 50 ml Output Total 900 ml 750 ml Balance 240 ml -800 ml -700 ml Physical Exam General: Alert, Oriented X3, Cooperative Heart: Regular rate Lungs: Wheezing, Crackles Abdomen: Normal bowel sounds Extremities: No clubbing Skin: No rashes Labs Labs: Laboratory Tests Test 02/25/21 17:49 02/25/21 20:44 02/26/21 03:50 02/26/21 07:29 Glucose (Fingerstick) 256 mg/dL (70-99) 241 mg/dL (70-99) 181 mg/dL (70-99) White Blood Count 12.0 x10^3/uL (4.0-11.0) Red Blood Count 4.64 x10^6/uL (4.30-5.70) Hemoglobin 14.4 g/dL (13.0-17.5) Hematocrit 42.9 % (39.0-53.0) Mean Corpuscular Volume 93 fL (79-100) Mean Corpuscular Hemoglobin 31 pg (25-35) Mean Corpuscular Hemoglobin Concent 34 g/dL (31-37) Red Cell Distribution Width 13.7 % (11.5-14.5) Platelet Count 481 x10^3/uL (140-400) Neutrophils (%) (Auto) 87 % (31-73) Lymphocytes (%) (Auto) 7 % (24-48) Monocytes (%) (Auto) 6 % (0-9) Eosinophils (%) (Auto) 0 % (0-3) Basophils (%) (Auto) 0 % (0-3) Neutrophils # (Auto) 10.5 x10^3/uL (1.8-7.7) Lymphocytes # (Auto) 0.8 x10^3/uL (1.0-4.8) Monocytes # (Auto) 0.7 x10^3/uL (0.0-1.1) Eosinophils # (Auto) 0.0 x10^3/uL (0.0-0.7) Basophils # (Auto) 0.0 x10^3/uL (0.0-0.2) Sodium Level 139 mmol/L (136-145) Potassium Level 5.2 mmol/L (3.5-5.1) Chloride Level 102 mmol/L (98-107) Carbon Dioxide Level 23 mmol/L (21-32) Anion Gap 14 (6-14) Blood Urea Nitrogen 24 mg/dL (8-26) Creatinine 0.8 mg/dL (0.7-1.3) Estimated GFR (Cockcroft-Gault) 103.6 Glucose Level 199 mg/dL (70-99) Calcium Level 8.2 mg/dL (8.5-10.1) Test 02/26/21 11:35 Glucose (Fingerstick) 196 mg/dL (70-99) Assessment and Plan Assessmemt and Plan Problems Medical Problems: (1) Acute respiratory failure with hypoxia Status: Acute (2) Sepsis due to pneumonia Status: Acute Comment Review of Relevant I have reviewed the following items elmer (where applicable) has been applied. Medications: Current Medications Medications (Trade) Dose Ordered Sig/Kalina Route PRN Reason Start Time Stop Time Status Last Admin Dose Admin Insulin Human Lispro (HumaLOG) 0-7 UNITS TIDWMEALS SQ 02/25/21 17:00 02/26/21 08:00 Justifications for Admission Other Justification RKISTI JOLLEY MD Feb 26, 2021 15:00
[2021-02-26 19:44] VITALS: BP 127/83
[2021-02-26] MEDS: ENOXAPARIN 40 MG/0.4 ML SYRINGE. SQ SCH (19:50)
[2021-02-26] MEDS: cefTRIAXone IV Push 1 GM VIAL. IVP SCH (19:50)
[2021-02-26] MEDS: STERILE WATER for RESP 2,000 ML BAG. INH PRN (19:54)
[2021-02-26 22:07] VITALS: BP 141/89
--- NOTE | 2021-02-26 22:52 | NUR ---
Dr. Velez notified of new consult and patients condition. OK to continue bipap and vapotherm. Continue to monitor.
--- NOTE | 2021-02-26 23:40 | NUR ---
Patient not tolerating bipap well. Ativan was given but patient still c/o trouble breathing and too much pressure from bipap. Patient placed back on nonrebreather with vapotherm at 2315. Patient more comfortable and no c/o trouble with breathing. Patients O2 sats staying between 85%-90%. Will continue to monitor.
[2021-02-27 03:42] VITALS: BP 113/82
[2021-02-27 05:38] LABS: BASO % 0 % (0-3); EOS % 0 % (0-3); HEMATOCRIT 43.5 % (39.0-53.0); HEMOGLOBIN 14.7 g/dL (13.0-17.5); LYMPH # 0.8 x10^3/uL (1.0-4.8); LYMPH % 7 % (24-48); MEAN CORPUSCULAR HEMOGLOBIN 31 pg (25-35); MEAN CORPUSCULAR HGB CONC 34 g/dL (31-37); MEAN CORPUSCULAR VOLUME 92 fL (79-100); MONO # 0.5 x10^3/uL (0.0-1.1); MONO % 5 % (0-9); NEUT # 10.2 x10^3/uL (1.8-7.7); NEUT % 88 % (31-73); PLATELET COUNT 565 x10^3/uL (140-400); RED BLOOD COUNT 4.71 x10^6/uL (4.30-5.70); RED CELL DISTRIBUTION WIDTH 13.9 % (11.5-14.5); WHITE BLOOD COUNT 11.5 x10^3/uL (4.0-11.0)
[2021-02-27 06:05] LABS: CALCIUM 8.3 mg/dL (8.5-10.1); CREATININE 0.8 mg/dL (0.7-1.3); GFR 103.6; POTASSIUM 4.8 mmol/L (3.5-5.1)
[2021-02-27 07:00] VITALS: BP 133/80
[2021-02-27] MEDS: LACTOBACILLUS RHAMNOSUS GG 1 CAPSULE. PO SCH ×2 (08:46→20:37)
[2021-02-27] MEDS: ASPIRIN CHEWABLE 81 MG TABLET. PO SCH (08:46)
[2021-02-27] MEDS: methylPREDNISolone SOD SUCC PF 40 MG/ML VIAL. IV SCH ×2 (08:46→20:38)
[2021-02-27] MEDS: MULTIVITAMIN with MINERAL TABLET. PO SCH (08:46)
[2021-02-27] MEDS: DOXYCYCLINE HYCLATE 100 MG in IV DEXTROSE 5% 100ML 100 ML IV SCH ×2 (08:47→20:56)
[2021-02-27] MEDS: INSULIN GLARGINE SYRINGE. SQ SCH ×2 (08:48→20:56)
[2021-02-27] MEDS: INSULIN LISPRO 300 UNITS/3 ML VIAL. SQ SCH ×3 (08:49→17:08)
--- NOTE | 2021-02-27 09:50 | RAD ---
EXAM: Chest, single view. HISTORY: Covid 19. COMPARISON: 02/21/2021 FINDINGS: A frontal view of the chest is obtained. There has been slight interval increase in diffuse lower lobe predominant interstitial infiltrate. No pleural effusion or pneumothorax is seen. There i s a stable cardiac silhouette. IMPRESSION: Increase in diffuse lower lobe predominant interstitial infiltrate. Electronically signed by: Jacklyn Maciel MD (02/27/2021 9:48 AM) [id number]
[2021-02-27 11:00] VITALS: BP 116/83
[2021-02-27 15:00] VITALS: BP 126/83
--- NOTE | 2021-02-27 15:07 | PDOC ---
[facility] PROGRESS NOTE Date of Service DOS: DATE: 02/27/21 TIME: 15:05 Chief Complaint Chief Complaint Acute hypoxic respiratory failure secondary to Covid pneumonia History of diabetes mellitus type 2 Continued IV steroids and O2 supplementation Continue with empiric IV antibiotics Pending pro calcitonin History of Present Illness History of Present Illness 02/27/21 Pt seen and examined bedside. Saturating 86% on Vapotherm and required BiPAP overnight. Pulmonology consulted and to continue with current managmenet for COVID. Pending ICU transfer when possible 02/26/2021 Patient seen and examined bedside. Saturating 89% on Vapotherm and 15 L nonrebreather. Continue with IV steroids and IV antibiotics. Patient's chart, labs, images were reviewed and discussed with RN 02/25/2021 No acute events overnight. Patient seen examined bedside. Patient saturating 91% on 4 L Vapotherm. Continue with IV steroids and IV antibiotics. Patient's chart, labs, images were reviewed and discussed with RN 02/24/21 No acute events overnight. Patient seen examined bedside. Patient saturating 93 to 95% on Vapotherm at 40 L. Not dyspneic at this time. Patient's chart, labs, images were reviewed and discussed with RN 02/23/2021 Patient seen and examined He is still on Vapotherm 40 L and 100% nonrebreather His third Covid test finally came back positive I spoke with pharmacy he is still not a candidate for remdesivir because he has had the disease for more than 10 days I do have him on full Covid protocol other than remdesivir Chart reviewed Discussed with RN 02/22/2021 Patient seen and examined He is on Vapotherm 40 L with 100% FiO2 plus nonrebreather Discussed with RN Chart reviewed His Covid testing by PCR is surprisingly negative Vitals/I&O Vitals/I&O: Vital Signs Date Time Temp Pulse Resp B/P (MAP) Pulse Ox O2 Delivery O2 Flow Rate FiO2 02/27/21 12:39 86 Vapotherm 40.0 02/27/21 11:00 97.0 91 30 116/83 (94) 97.0 I & O 02/26/21 02/26/21 02/27/21 15:00 23:00 07:00 Intake Total 200 ml 240 ml 0 ml Output Total 600 ml 725 ml Balance 200 ml -360 ml -725 ml Physical Exam General: Alert, Oriented X3, Cooperative Heart: Regular rate Lungs: Wheezing, Crackles Abdomen: Normal bowel sounds Extremities: No clubbing Skin: No rashes Labs Labs: Laboratory Tests Test 02/26/21 16:25 02/26/21 20:12 02/27/21 04:50 02/27/21 08:08 Glucose (Fingerstick) 203 mg/dL (70-99) 164 mg/dL (70-99) 155 mg/dL (70-99) White Blood Count 11.5 x10^3/uL (4.0-11.0) Red Blood Count 4.71 x10^6/uL (4.30-5.70) Hemoglobin 14.7 g/dL (13.0-17.5) Hematocrit 43.5 % (39.0-53.0) Mean Corpuscular Volume 92 fL (79-100) Mean Corpuscular Hemoglobin 31 pg (25-35) Mean Corpuscular Hemoglobin Concent 34 g/dL (31-37) Red Cell Distribution Width 13.9 % (11.5-14.5) Platelet Count 565 x10^3/uL (140-400) Neutrophils (%) (Auto) 88 % (31-73) Lymphocytes (%) (Auto) 7 % (24-48) Monocytes (%) (Auto) 5 % (0-9) Eosinophils (%) (Auto) 0 % (0-3) Basophils (%) (Auto) 0 % (0-3) Neutrophils # (Auto) 10.2 x10^3/uL (1.8-7.7) Lymphocytes # (Auto) 0.8 x10^3/uL (1.0-4.8) Monocytes # (Auto) 0.5 x10^3/uL (0.0-1.1) Eosinophils # (Auto) 0.0 x10^3/uL (0.0-0.7) Basophils # (Auto) 0.0 x10^3/uL (0.0-0.2) Sodium Level 137 mmol/L (136-145) Potassium Level 4.8 mmol/L (3.5-5.1) Chloride Level 101 mmol/L (98-107) Carbon Dioxide Level 22 mmol/L (21-32) Anion Gap 14 (6-14) Blood Urea Nitrogen 24 mg/dL (8-26) Creatinine 0.8 mg/dL (0.7-1.3) Estimated GFR (Cockcroft-Gault) 103.6 Glucose Level 183 mg/dL (70-99) Calcium Level 8.3 mg/dL (8.5-10.1) Test 02/27/21 11:54 Glucose (Fingerstick) 156 mg/dL (70-99) Assessment and Plan Assessmemt and Plan Problems Medical Problems: (1) Acute respiratory failure with hypoxia Status: Acute (2) Sepsis due to pneumonia Status: Acute Comment Review of Relevant I have reviewed the following items elmer (where applicable) has been applied. Medications: Current Medications Medications (Trade) Dose Ordered Sig/Kalina Route PRN Reason Start Time Stop Time Status Last Admin Dose Admin Lorazepam (Ativan Inj) 0.25 mg PRN Q6HRS PRN IVP ANXIETY / AGITATION 02/26/21 22:15 02/26/21 22:11 Insulin Glargine (Lantus Syringe) 5 unit BID SQ 02/27/21 09:00 02/27/21 08:48 Justifications for Admission Other Justification KRISTI JOLLEY MD Feb 27, 2021 15:07
--- NOTE | 2021-02-27 16:29 | PDOC ---
PULMONARY PROGRESS NOTES DATE: 02/27/21 TIME: 16:28 Vitals Vital Signs Date Time Temp Pulse Resp B/P (MAP) Pulse Ox O2 Delivery O2 Flow Rate FiO2 02/27/21 16:26 88 Vapotherm 40.0 02/27/21 11:00 97.0 91 30 116/83 (94) 97.0 Lungs: Wheezing, Crackles Labs Laboratory Tests Test 02/25/21 17:49 02/25/21 20:44 02/26/21 03:50 02/26/21 07:29 Glucose (Fingerstick) 256 mg/dL (70-99) 241 mg/dL (70-99) 181 mg/dL (70-99) White Blood Count 12.0 x10^3/uL (4.0-11.0) Red Blood Count 4.64 x10^6/uL (4.30-5.70) Hemoglobin 14.4 g/dL (13.0-17.5) Hematocrit 42.9 % (39.0-53.0) Mean Corpuscular Volume 93 fL (79-100) Mean Corpuscular Hemoglobin 31 pg (25-35) Mean Corpuscular Hemoglobin Concent 34 g/dL (31-37) Red Cell Distribution Width 13.7 % (11.5-14.5) Platelet Count 481 x10^3/uL (140-400) Neutrophils (%) (Auto) 87 % (31-73) Lymphocytes (%) (Auto) 7 % (24-48) Monocytes (%) (Auto) 6 % (0-9) Eosinophils (%) (Auto) 0 % (0-3) Basophils (%) (Auto) 0 % (0-3) Neutrophils # (Auto) 10.5 x10^3/uL (1.8-7.7) Lymphocytes # (Auto) 0.8 x10^3/uL (1.0-4.8) Monocytes # (Auto) 0.7 x10^3/uL (0.0-1.1) Eosinophils # (Auto) 0.0 x10^3/uL (0.0-0.7) Basophils # (Auto) 0.0 x10^3/uL (0.0-0.2) Sodium Level 139 mmol/L (136-145) Potassium Level 5.2 mmol/L (3.5-5.1) Chloride Level 102 mmol/L (98-107) Carbon Dioxide Level 23 mmol/L (21-32) Anion Gap 14 (6-14) Blood Urea Nitrogen 24 mg/dL (8-26) Creatinine 0.8 mg/dL (0.7-1.3) Estimated GFR (Cockcroft-Gault) 103.6 Glucose Level 199 mg/dL (70-99) Calcium Level 8.2 mg/dL (8.5-10.1) Procalcitonin < 0.10 ng/mL (0.00-0.10) Test 02/26/21 11:35 02/26/21 16:25 02/26/21 20:12 02/27/21 04:50 Glucose (Fingerstick) 196 mg/dL (70-99) 203 mg/dL (70-99) 164 mg/dL (70-99) White Blood Count 11.5 x10^3/uL (4.0-11.0) Red Blood Count 4.71 x10^6/uL (4.30-5.70) Hemoglobin 14.7 g/dL (13.0-17.5) Hematocrit 43.5 % (39.0-53.0) Mean Corpuscular Volume 92 fL (79-100) Mean Corpuscular Hemoglobin 31 pg (25-35) Mean Corpuscular Hemoglobin Concent 34 g/dL (31-37) Red Cell Distribution Width 13.9 % (11.5-14.5) Platelet Count 565 x10^3/uL (140-400) Neutrophils (%) (Auto) 88 % (31-73) Lymphocytes (%) (Auto) 7 % (24-48) Monocytes (%) (Auto) 5 % (0-9) Eosinophils (%) (Auto) 0 % (0-3) Basophils (%) (Auto) 0 % (0-3) Neutrophils # (Auto) 10.2 x10^3/uL (1.8-7.7) Lymphocytes # (Auto) 0.8 x10^3/uL (1.0-4.8) Monocytes # (Auto) 0.5 x10^3/uL (0.0-1.1) Eosinophils # (Auto) 0.0 x10^3/uL (0.0-0.7) Basophils # (Auto) 0.0 x10^3/uL (0.0-0.2) Sodium Level 137 mmol/L (136-145) Potassium Level 4.8 mmol/L (3.5-5.1) Chloride Level 101 mmol/L (98-107) Carbon Dioxide Level 22 mmol/L (21-32) Anion Gap 14 (6-14) Blood Urea Nitrogen 24 mg/dL (8-26) Creatinine 0.8 mg/dL (0.7-1.3) Estimated GFR (Cockcroft-Gault) 103.6 Glucose Level 183 mg/dL (70-99) Calcium Level 8.3 mg/dL (8.5-10.1) Test 02/27/21 08:08 02/27/21 11:54 Glucose (Fingerstick) 155 mg/dL (70-99) 156 mg/dL (70-99) Laboratory Tests Test 02/26/21 20:12 02/27/21 04:50 02/27/21 08:08 02/27/21 11:54 Glucose (Fingerstick) 164 mg/dL (70-99) 155 mg/dL (70-99) 156 mg/dL (70-99) White Blood Count 11.5 x10^3/uL (4.0-11.0) Red Blood Count 4.71 x10^6/uL (4.30-5.70) Hemoglobin 14.7 g/dL (13.0-17.5) Hematocrit 43.5 % (39.0-53.0) Mean Corpuscular Volume 92 fL (79-100) Mean Corpuscular Hemoglobin 31 pg (25-35) Mean Corpuscular Hemoglobin Concent 34 g/dL (31-37) Red Cell Distribution Width 13.9 % (11.5-14.5) Platelet Count 565 x10^3/uL (140-400) Neutrophils (%) (Auto) 88 % (31-73) Lymphocytes (%) (Auto) 7 % (24-48) Monocytes (%) (Auto) 5 % (0-9) Eosinophils (%) (Auto) 0 % (0-3) Basophils (%) (Auto) 0 % (0-3) Neutrophils # (Auto) 10.2 x10^3/uL (1.8-7.7) Lymphocytes # (Auto) 0.8 x10^3/uL (1.0-4.8) Monocytes # (Auto) 0.5 x10^3/uL (0.0-1.1) Eosinophils # (Auto) 0.0 x10^3/uL (0.0-0.7) Basophils # (Auto) 0.0 x10^3/uL (0.0-0.2) Sodium Level 137 mmol/L (136-145) Potassium Level 4.8 mmol/L (3.5-5.1) Chloride Level 101 mmol/L (98-107) Carbon Dioxide Level 22 mmol/L (21-32) Anion Gap 14 (6-14) Blood Urea Nitrogen 24 mg/dL (8-26) Creatinine 0.8 mg/dL (0.7-1.3) Estimated GFR (Cockcroft-Gault) 103.6 Glucose Level 183 mg/dL (70-99) Calcium Level 8.3 mg/dL (8.5-10.1) Medications Active Scripts Medications Dose Route/Sig Max Daily Dose Days Date Category [no home meds] 02/21/21 Reported Impression . Full consult dictated Progressive respiratory failure related to COVID-19 viral pneumonia TAYLOR LEACH MD Feb 27, 2021 16:29
[2021-02-27 19:20] VITALS: BP 129/76
[2021-02-27] MEDS: cefTRIAXone IV Push 1 GM VIAL. IVP SCH (20:00)
--- NOTE | 2021-02-27 20:20 | CONS ---
DATE OF CONSULTATION: 02/27/2021 REASON FOR CONSULTATION: The patient is seen in pulmonary consultation at the request of Dr. Sykes for progressive oxygen requirement, COVID-19 positivity. HISTORY OF PRESENT ILLNESS: The patient is a 46-year-old male, unvaccinated, presented on the with symptoms of 10-15 days prior to admission of shortness of breath. His COVID-19 was negative. Rapid test was negative. He then underwent a PCR test, which was positive. The patient has been more short of breath for the last several days. He is currently on BiPAP and intermittently with Vapotherm. I was asked to see him in consultation. PAST MEDICAL HISTORY: Otherwise, unremarkable. ALLERGIES: No known drug allergies. FAMILY HISTORY: Diabetes. SOCIAL HISTORY: He denies any alcohol. REVIEW OF SYSTEMS: Unobtainable secondary to patient's condition. CURRENT MEDICATIONS: List was reviewed. He is currently on doxycycline, ceftriaxone, enoxaparin, insulin, Solu-Medrol, multivitamin. PHYSICAL EXAMINATION: GENERAL: The patient was on 40 liters flow Vapotherm on 100% saturation, greater than 92%. HEENT: Eyes: The sclerae were nonicteric. NECK: Jugular venous distention was not elevated. No lymphadenopathy. CHEST: Full expansion. LUNGS: Rales throughout both lung reddy. CARDIOVASCULAR: Regular rate and rhythm with S1, S2, no S3. ABDOMEN: Soft. EXTREMITIES: No clubbing, cyanosis or edema. LABORATORY DATA: Reviewed as indicated above. Chest x-ray reviewed. Arterial blood gas as indicated above, pH 7.53, PaCO2 of 31, pO2 of 54. IMPRESSION: 1. Acute on chronic hypoxemic respiratory failure. 2. COVID-19 viral pneumonia/acute respiratory distress syndrome. 3. Abnormal x-ray. 4. Possible bacterial pneumonia. PLAN: 1. Continue current support, if the patient deteriorates, he may require ICU transfer and intubation. We will avoid that as much as possible. 2. Continue steroids. 3. Continue antibiotics. 4. Deep venous thrombosis prophylaxis. I do appreciate the privilege in sharing the patient's care. YUE WHALEY: Nelly TID: [id number]
[2021-02-27] MEDS: ENOXAPARIN 40 MG/0.4 ML SYRINGE. SQ SCH (20:37)
[2021-02-27] MEDS: STERILE WATER for RESP 2,000 ML BAG. INH PRN (20:51)
[2021-02-27 22:14] VITALS: BP 117/72
[2021-02-28 02:44] VITALS: BP 119/82
[2021-02-28 05:24] LABS: BASO % 0 % (0-3); EOS % 0 % (0-3); HEMATOCRIT 44.8 % (39.0-53.0); HEMOGLOBIN 14.6 g/dL (13.0-17.5); LYMPH # 0.6 x10^3/uL (1.0-4.8); LYMPH % 6 % (24-48); MEAN CORPUSCULAR HEMOGLOBIN 30 pg (25-35); MEAN CORPUSCULAR HGB CONC 33 g/dL (31-37); MEAN CORPUSCULAR VOLUME 93 fL (79-100); MONO # 0.4 x10^3/uL (0.0-1.1); MONO % 4 % (0-9); NEUT # 10.3 x10^3/uL (1.8-7.7); NEUT % 91 % (31-73); PLATELET COUNT 548 x10^3/uL (140-400); RED BLOOD COUNT 4.83 x10^6/uL (4.30-5.70); RED CELL DISTRIBUTION WIDTH 13.9 % (11.5-14.5); WHITE BLOOD COUNT 11.3 x10^3/uL (4.0-11.0)
[2021-02-28 05:58] LABS: CALCIUM 8.4 mg/dL (8.5-10.1); CREATININE 0.7 mg/dL (0.7-1.3); GFR 120.9
[2021-02-28 06:01] LABS: POTASSIUM 5.4 mmol/L (3.5-5.1)
[2021-02-28 07:00] VITALS: BP 116/76
--- NOTE | 2021-02-28 07:42 | PDOC ---
PULMONARY PROGRESS NOTES DATE: 02/28/21 TIME: 07:42 Subjective Still short of air, Vapotherm and BiPAP Vitals Vital Signs Date Time Temp Pulse Resp B/P (MAP) Pulse Ox O2 Delivery O2 Flow Rate FiO2 02/28/21 07:00 96.1 72 40 116/76 (89) 96 vaportherm 40.0 96.1 Lungs: Wheezing, Crackles Cardiovascular: S1, S2 Abdomen: Soft Neuro Exam: Alert Extremities: No Edema Skin: Warm Labs Laboratory Tests Test 02/26/21 11:35 02/26/21 16:25 02/26/21 20:12 02/27/21 04:50 Glucose (Fingerstick) 196 mg/dL (70-99) 203 mg/dL (70-99) 164 mg/dL (70-99) White Blood Count 11.5 x10^3/uL (4.0-11.0) Red Blood Count 4.71 x10^6/uL (4.30-5.70) Hemoglobin 14.7 g/dL (13.0-17.5) Hematocrit 43.5 % (39.0-53.0) Mean Corpuscular Volume 92 fL (79-100) Mean Corpuscular Hemoglobin 31 pg (25-35) Mean Corpuscular Hemoglobin Concent 34 g/dL (31-37) Red Cell Distribution Width 13.9 % (11.5-14.5) Platelet Count 565 x10^3/uL (140-400) Neutrophils (%) (Auto) 88 % (31-73) Lymphocytes (%) (Auto) 7 % (24-48) Monocytes (%) (Auto) 5 % (0-9) Eosinophils (%) (Auto) 0 % (0-3) Basophils (%) (Auto) 0 % (0-3) Neutrophils # (Auto) 10.2 x10^3/uL (1.8-7.7) Lymphocytes # (Auto) 0.8 x10^3/uL (1.0-4.8) Monocytes # (Auto) 0.5 x10^3/uL (0.0-1.1) Eosinophils # (Auto) 0.0 x10^3/uL (0.0-0.7) Basophils # (Auto) 0.0 x10^3/uL (0.0-0.2) Sodium Level 137 mmol/L (136-145) Potassium Level 4.8 mmol/L (3.5-5.1) Chloride Level 101 mmol/L (98-107) Carbon Dioxide Level 22 mmol/L (21-32) Anion Gap 14 (6-14) Blood Urea Nitrogen 24 mg/dL (8-26) Creatinine 0.8 mg/dL (0.7-1.3) Estimated GFR (Cockcroft-Gault) 103.6 Glucose Level 183 mg/dL (70-99) Calcium Level 8.3 mg/dL (8.5-10.1) Test 02/27/21 08:08 02/27/21 11:54 02/27/21 17:02 02/27/21 20:42 Glucose (Fingerstick) 155 mg/dL (70-99) 156 mg/dL (70-99) 174 mg/dL (70-99) 151 mg/dL (70-99) Test 02/28/21 04:30 02/28/21 07:01 White Blood Count 11.3 x10^3/uL (4.0-11.0) Red Blood Count 4.83 x10^6/uL (4.30-5.70) Hemoglobin 14.6 g/dL (13.0-17.5) Hematocrit 44.8 % (39.0-53.0) Mean Corpuscular Volume 93 fL (79-100) Mean Corpuscular Hemoglobin 30 pg (25-35) Mean Corpuscular Hemoglobin Concent 33 g/dL (31-37) Red Cell Distribution Width 13.9 % (11.5-14.5) Platelet Count 548 x10^3/uL (140-400) Neutrophils (%) (Auto) 91 % (31-73) Lymphocytes (%) (Auto) 6 % (24-48) Monocytes (%) (Auto) 4 % (0-9) Eosinophils (%) (Auto) 0 % (0-3) Basophils (%) (Auto) 0 % (0-3) Neutrophils # (Auto) 10.3 x10^3/uL (1.8-7.7) Lymphocytes # (Auto) 0.6 x10^3/uL (1.0-4.8) Monocytes # (Auto) 0.4 x10^3/uL (0.0-1.1) Eosinophils # (Auto) 0.0 x10^3/uL (0.0-0.7) Basophils # (Auto) 0.0 x10^3/uL (0.0-0.2) Sodium Level 135 mmol/L (136-145) Potassium Level 5.4 mmol/L (3.5-5.1) Chloride Level 101 mmol/L (98-107) Carbon Dioxide Level 24 mmol/L (21-32) Anion Gap 10 (6-14) Blood Urea Nitrogen 24 mg/dL (8-26) Creatinine 0.7 mg/dL (0.7-1.3) Estimated GFR (Cockcroft-Gault) 120.9 Glucose Level 225 mg/dL (70-99) Calcium Level 8.4 mg/dL (8.5-10.1) Glucose (Fingerstick) 182 mg/dL (70-99) Laboratory Tests Test 02/27/21 08:08 02/27/21 11:54 02/27/21 17:02 02/27/21 20:42 Glucose (Fingerstick) 155 mg/dL (70-99) 156 mg/dL (70-99) 174 mg/dL (70-99) 151 mg/dL (70-99) Test 02/28/21 04:30 02/28/21 07:01 White Blood Count 11.3 x10^3/uL (4.0-11.0) Red Blood Count 4.83 x10^6/uL (4.30-5.70) Hemoglobin 14.6 g/dL (13.0-17.5) Hematocrit 44.8 % (39.0-53.0) Mean Corpuscular Volume 93 fL (79-100) Mean Corpuscular Hemoglobin 30 pg (25-35) Mean Corpuscular Hemoglobin Concent 33 g/dL (31-37) Red Cell Distribution Width 13.9 % (11.5-14.5) Platelet Count 548 x10^3/uL (140-400) Neutrophils (%) (Auto) 91 % (31-73) Lymphocytes (%) (Auto) 6 % (24-48) Monocytes (%) (Auto) 4 % (0-9) Eosinophils (%) (Auto) 0 % (0-3) Basophils (%) (Auto) 0 % (0-3) Neutrophils # (Auto) 10.3 x10^3/uL (1.8-7.7) Lymphocytes # (Auto) 0.6 x10^3/uL (1.0-4.8) Monocytes # (Auto) 0.4 x10^3/uL (0.0-1.1) Eosinophils # (Auto) 0.0 x10^3/uL (0.0-0.7) Basophils # (Auto) 0.0 x10^3/uL (0.0-0.2) Sodium Level 135 mmol/L (136-145) Potassium Level 5.4 mmol/L (3.5-5.1) Chloride Level 101 mmol/L (98-107) Carbon Dioxide Level 24 mmol/L (21-32) Anion Gap 10 (6-14) Blood Urea Nitrogen 24 mg/dL (8-26) Creatinine 0.7 mg/dL (0.7-1.3) Estimated GFR (Cockcroft-Gault) 120.9 Glucose Level 225 mg/dL (70-99) Calcium Level 8.4 mg/dL (8.5-10.1) Glucose (Fingerstick) 182 mg/dL (70-99) Medications Active Scripts Medications Dose Route/Sig Max Daily Dose Days Date Category [no home meds] 02/21/21 Reported Impression . IMPRESSION: 1. Acute on chronic hypoxemic respiratory failure. 2. COVID-19 viral pneumonia/acute respiratory distress syndrome. 3. Abnormal x-ray. 4. Possible bacterial pneumonia. Plan . Updated 02/[address] Sykes Continue current support Steroids Antibiotics 02/27 PLAN: 1. Continue current support, if the patient deteriorates, he may require ICU transfer and intubation. We will avoid that as much as possible. 2. Continue steroids. 3. Continue antibiotics. 4. Deep venous thrombosis prophylaxis. I do appreciate the privilege in sharing the patient's care. TAYLOR LEACH MD Feb 28, 2021 07:42
[2021-02-28] MEDS: MULTIVITAMIN with MINERAL TABLET. PO SCH (09:05)
[2021-02-28] MEDS: methylPREDNISolone SOD SUCC PF 40 MG/ML VIAL. IV SCH ×2 (09:05→21:25)
[2021-02-28] MEDS: ASPIRIN CHEWABLE 81 MG TABLET. PO SCH (09:05)
[2021-02-28] MEDS: LACTOBACILLUS RHAMNOSUS GG 1 CAPSULE. PO SCH ×2 (09:05→21:25)
[2021-02-28] MEDS: DOXYCYCLINE HYCLATE 100 MG in IV DEXTROSE 5% 100ML 100 ML IV SCH ×2 (09:06→21:25)
[2021-02-28] MEDS: INSULIN LISPRO 300 UNITS/3 ML VIAL. SQ SCH ×3 (09:08→18:07)
[2021-02-28] MEDS: INSULIN GLARGINE SYRINGE. SQ SCH ×2 (09:09→21:26)
[2021-02-28 11:00] VITALS: BP 121/79
--- NOTE | 2021-02-28 12:03 | PDOC ---
[facility] PROGRESS NOTE Date of Service DOS: DATE: 02/28/21 TIME: 12:02 Chief Complaint Chief Complaint Acute hypoxic respiratory failure secondary to Covid pneumonia History of diabetes mellitus type 2 Continued IV steroids and O2 supplementation Continue with empiric IV antibiotics Pending pro calcitonin History of Present Illness History of Present Illness 02/28/2021 Patient seen and examined bedside. Still on Vapotherm 40 L and saturating 96%. Not more short of breath than usual. Feels actually better today. Speaking full sentences. Given nystatin due to some white buildup in the oral cavity. Likely due to steroids. Patient's chart, labs, images were reviewed and discussed with RN 02/27/21 Pt seen and examined bedside. Saturating 86% on Vapotherm and required BiPAP overnight. Pulmonology consulted and to continue with current managmenet for COVID. Pending ICU transfer when possible 02/26/2021 Patient seen and examined bedside. Saturating 89% on Vapotherm and 15 L nonrebreather. Continue with IV steroids and IV antibiotics. Patient's chart, labs, images were reviewed and discussed with RN 02/25/2021 No acute events overnight. Patient seen examined bedside. Patient saturating 91% on 4 L Vapotherm. Continue with IV steroids and IV antibiotics. Patient's chart, labs, images were reviewed and discussed with RN 02/24/21 No acute events overnight. Patient seen examined bedside. Patient saturating 93 to 95% on Vapotherm at 40 L. Not dyspneic at this time. Patient's chart, labs, images were reviewed and discussed with RN 02/23/2021 Patient seen and examined He is still on Vapotherm 40 L and 100% nonrebreather His third Covid test finally came back positive I spoke with pharmacy he is still not a candidate for remdesivir because he has had the disease for more than 10 days I do have him on full Covid protocol other than remdesivir Chart reviewed Discussed with RN 02/22/2021 Patient seen and examined He is on Vapotherm 40 L with 100% FiO2 plus nonrebreather Discussed with RN Chart reviewed His Covid testing by PCR is surprisingly negative Vitals/I&O Vitals/I&O: Vital Signs Date Time Temp Pulse Resp B/P (MAP) Pulse Ox O2 Delivery O2 Flow Rate FiO2 02/28/21 08:00 Vapotherm 40.0 02/28/21 07:00 96.1 72 40 116/76 (65) 96 96.1 I & O 02/27/21 02/27/21 02/28/21 15:00 23:00 07:00 Intake Total 280 ml 0 ml 120 ml Output Total 525 ml Balance 280 ml 0 ml -405 ml Physical Exam General: Alert, Oriented X3, Cooperative Heart: Regular rate Lungs: Wheezing, Crackles Abdomen: Normal bowel sounds Extremities: No clubbing Skin: No rashes Labs Labs: Laboratory Tests Test 02/27/21 17:02 02/27/21 20:42 02/28/21 04:30 02/28/21 07:01 Glucose (Fingerstick) 174 mg/dL (70-99) 151 mg/dL (70-99) 182 mg/dL (70-99) White Blood Count 11.3 x10^3/uL (4.0-11.0) Red Blood Count 4.83 x10^6/uL (4.30-5.70) Hemoglobin 14.6 g/dL (13.0-17.5) Hematocrit 44.8 % (39.0-53.0) Mean Corpuscular Volume 93 fL (79-100) Mean Corpuscular Hemoglobin 30 pg (25-35) Mean Corpuscular Hemoglobin Concent 33 g/dL (31-37) Red Cell Distribution Width 13.9 % (11.5-14.5) Platelet Count 548 x10^3/uL (140-400) Neutrophils (%) (Auto) 91 % (31-73) Lymphocytes (%) (Auto) 6 % (24-48) Monocytes (%) (Auto) 4 % (0-9) Eosinophils (%) (Auto) 0 % (0-3) Basophils (%) (Auto) 0 % (0-3) Neutrophils # (Auto) 10.3 x10^3/uL (1.8-7.7) Lymphocytes # (Auto) 0.6 x10^3/uL (1.0-4.8) Monocytes # (Auto) 0.4 x10^3/uL (0.0-1.1) Eosinophils # (Auto) 0.0 x10^3/uL (0.0-0.7) Basophils # (Auto) 0.0 x10^3/uL (0.0-0.2) Sodium Level 135 mmol/L (136-145) Potassium Level 5.4 mmol/L (3.5-5.1) Chloride Level 101 mmol/L (98-107) Carbon Dioxide Level 24 mmol/L (21-32) Anion Gap 10 (6-14) Blood Urea Nitrogen 24 mg/dL (8-26) Creatinine 0.7 mg/dL (0.7-1.3) Estimated GFR (Cockcroft-Gault) 120.9 Glucose Level 225 mg/dL (70-99) Calcium Level 8.4 mg/dL (8.5-10.1) Assessment and Plan Assessmemt and Plan Problems Medical Problems: (1) Acute respiratory failure with hypoxia Status: Acute (2) Sepsis due to pneumonia Status: Acute Comment Review of Relevant I have reviewed the following items elmer (where applicable) has been applied. Justifications for Admission Other Justification KRISTI JOLLEY MD Feb 28, 2021 12:03
[2021-02-28] MEDS: NYSTATIN 100,000 UNITS/ML 5 ML ORAL.SUSP. SWSW SCH ×3 (12:44→21:25)
[2021-02-28 15:00] VITALS: BP 128/84
[2021-02-28 19:40] VITALS: BP 113/80
[2021-02-28] MEDS: ENOXAPARIN 40 MG/0.4 ML SYRINGE. SQ SCH (21:24)
[2021-02-28] MEDS: cefTRIAXone IV Push 1 GM VIAL. IVP SCH (21:24)
[2021-02-28 22:55] VITALS: BP 149/92
[2021-03-01 03:20] VITALS: BP 139/86
[2021-03-01 05:02] LABS: BASO % 0 % (0-3); EOS % 0 % (0-3); HEMATOCRIT 44.9 % (39.0-53.0); HEMOGLOBIN 14.9 g/dL (13.0-17.5); LYMPH # 0.4 x10^3/uL (1.0-4.8); LYMPH % 3 % (24-48); MEAN CORPUSCULAR HEMOGLOBIN 31 pg (25-35); MEAN CORPUSCULAR HGB CONC 33 g/dL (31-37); MEAN CORPUSCULAR VOLUME 93 fL (79-100); MONO # 0.5 x10^3/uL (0.0-1.1); MONO % 4 % (0-9); NEUT # 12.5 x10^3/uL (1.8-7.7); NEUT % 93 % (31-73); PLATELET COUNT 517 x10^3/uL (140-400); RED BLOOD COUNT 4.83 x10^6/uL (4.30-5.70); RED CELL DISTRIBUTION WIDTH 13.7 % (11.5-14.5); WHITE BLOOD COUNT 13.5 x10^3/uL (4.0-11.0)
[2021-03-01 05:22] LABS: CALCIUM 8.5 mg/dL (8.5-10.1); CREATININE 0.8 mg/dL (0.7-1.3); GFR 103.6; POTASSIUM 5.3 mmol/L (3.5-5.1)
[2021-03-01 07:00] VITALS: BP 121/83
[2021-03-01] MEDS: INSULIN LISPRO 300 UNITS/3 ML VIAL. SQ SCH ×3 (08:00→17:11)
[2021-03-01] MEDS: NYSTATIN 100,000 UNITS/ML 5 ML ORAL.SUSP. SWSW SCH ×4 (08:40→20:55)
[2021-03-01] MEDS: LACTOBACILLUS RHAMNOSUS GG 1 CAPSULE. PO SCH ×2 (08:40→20:54)
[2021-03-01] MEDS: DOXYCYCLINE HYCLATE 100 MG TABLET PO SCH ×2 (08:40→20:54)
[2021-03-01] MEDS: MULTIVITAMIN with MINERAL TABLET. PO SCH (08:40)
[2021-03-01] MEDS: ASPIRIN CHEWABLE 81 MG TABLET. PO SCH (08:40)
[2021-03-01] MEDS: methylPREDNISolone SOD SUCC PF 40 MG/ML VIAL. IV SCH ×2 (08:41→20:54)
[2021-03-01] MEDS: INSULIN GLARGINE SYRINGE. SQ SCH ×2 (08:41→20:55)
--- NOTE | 2021-03-01 08:46 | PDOC ---
PULMONARY PROGRESS NOTES DATE: 03/01/21 TIME: 08:45 Subjective Not worse today, still short of air, Vapotherm and BiPAP Vitals Vital Signs Date Time Temp Pulse Resp B/P (MAP) Pulse Ox O2 Delivery O2 Flow Rate FiO2 03/01/21 07:18 96 Vapotherm 40.0 03/01/21 03:20 99.0 73 24 139/86 (103) 99.0 Lungs: Wheezing, Crackles Cardiovascular: S1, S2 Abdomen: Soft Neuro Exam: Alert Extremities: No Edema Skin: Warm Labs Laboratory Tests Test 02/27/21 11:54 02/27/21 17:02 02/27/21 20:42 02/28/21 04:30 Glucose (Fingerstick) 156 mg/dL (70-99) 174 mg/dL (70-99) 151 mg/dL (70-99) White Blood Count 11.3 x10^3/uL (4.0-11.0) Red Blood Count 4.83 x10^6/uL (4.30-5.70) Hemoglobin 14.6 g/dL (13.0-17.5) Hematocrit 44.8 % (39.0-53.0) Mean Corpuscular Volume 93 fL (79-100) Mean Corpuscular Hemoglobin 30 pg (25-35) Mean Corpuscular Hemoglobin Concent 33 g/dL (31-37) Red Cell Distribution Width 13.9 % (11.5-14.5) Platelet Count 548 x10^3/uL (140-400) Neutrophils (%) (Auto) 91 % (31-73) Lymphocytes (%) (Auto) 6 % (24-48) Monocytes (%) (Auto) 4 % (0-9) Eosinophils (%) (Auto) 0 % (0-3) Basophils (%) (Auto) 0 % (0-3) Neutrophils # (Auto) 10.3 x10^3/uL (1.8-7.7) Lymphocytes # (Auto) 0.6 x10^3/uL (1.0-4.8) Monocytes # (Auto) 0.4 x10^3/uL (0.0-1.1) Eosinophils # (Auto) 0.0 x10^3/uL (0.0-0.7) Basophils # (Auto) 0.0 x10^3/uL (0.0-0.2) Sodium Level 135 mmol/L (136-145) Potassium Level 5.4 mmol/L (3.5-5.1) Chloride Level 101 mmol/L (98-107) Carbon Dioxide Level 24 mmol/L (21-32) Anion Gap 10 (6-14) Blood Urea Nitrogen 24 mg/dL (8-26) Creatinine 0.7 mg/dL (0.7-1.3) Estimated GFR (Cockcroft-Gault) 120.9 Glucose Level 225 mg/dL (70-99) Calcium Level 8.4 mg/dL (8.5-10.1) Test 02/28/21 07:01 02/28/21 12:13 02/28/21 17:16 02/28/21 21:07 Glucose (Fingerstick) 182 mg/dL (70-99) 260 mg/dL (70-99) 242 mg/dL (70-99) 185 mg/dL (70-99) Test 03/01/21 04:00 03/01/21 07:51 White Blood Count 13.5 x10^3/uL (4.0-11.0) Red Blood Count 4.83 x10^6/uL (4.30-5.70) Hemoglobin 14.9 g/dL (13.0-17.5) Hematocrit 44.9 % (39.0-53.0) Mean Corpuscular Volume 93 fL (79-100) Mean Corpuscular Hemoglobin 31 pg (25-35) Mean Corpuscular Hemoglobin Concent 33 g/dL (31-37) Red Cell Distribution Width 13.7 % (11.5-14.5) Platelet Count 517 x10^3/uL (140-400) Neutrophils (%) (Auto) 93 % (31-73) Lymphocytes (%) (Auto) 3 % (24-48) Monocytes (%) (Auto) 4 % (0-9) Eosinophils (%) (Auto) 0 % (0-3) Basophils (%) (Auto) 0 % (0-3) Neutrophils # (Auto) 12.5 x10^3/uL (1.8-7.7) Lymphocytes # (Auto) 0.4 x10^3/uL (1.0-4.8) Monocytes # (Auto) 0.5 x10^3/uL (0.0-1.1) Eosinophils # (Auto) 0.0 x10^3/uL (0.0-0.7) Basophils # (Auto) 0.0 x10^3/uL (0.0-0.2) Sodium Level 134 mmol/L (136-145) Potassium Level 5.3 mmol/L (3.5-5.1) Chloride Level 100 mmol/L (98-107) Carbon Dioxide Level 24 mmol/L (21-32) Anion Gap 10 (6-14) Blood Urea Nitrogen 22 mg/dL (8-26) Creatinine 0.8 mg/dL (0.7-1.3) Estimated GFR (Cockcroft-Gault) 103.6 Glucose Level 218 mg/dL (70-99) Calcium Level 8.5 mg/dL (8.5-10.1) Glucose (Fingerstick) 143 mg/dL (70-99) Laboratory Tests Test 02/28/21 12:13 02/28/21 17:16 02/28/21 21:07 03/01/21 04:00 Glucose (Fingerstick) 260 mg/dL (70-99) 242 mg/dL (70-99) 185 mg/dL (70-99) White Blood Count 13.5 x10^3/uL (4.0-11.0) Red Blood Count 4.83 x10^6/uL (4.30-5.70) Hemoglobin 14.9 g/dL (13.0-17.5) Hematocrit 44.9 % (39.0-53.0) Mean Corpuscular Volume 93 fL (79-100) Mean Corpuscular Hemoglobin 31 pg (25-35) Mean Corpuscular Hemoglobin Concent 33 g/dL (31-37) Red Cell Distribution Width 13.7 % (11.5-14.5) Platelet Count 517 x10^3/uL (140-400) Neutrophils (%) (Auto) 93 % (31-73) Lymphocytes (%) (Auto) 3 % (24-48) Monocytes (%) (Auto) 4 % (0-9) Eosinophils (%) (Auto) 0 % (0-3) Basophils (%) (Auto) 0 % (0-3) Neutrophils # (Auto) 12.5 x10^3/uL (1.8-7.7) Lymphocytes # (Auto) 0.4 x10^3/uL (1.0-4.8) Monocytes # (Auto) 0.5 x10^3/uL (0.0-1.1) Eosinophils # (Auto) 0.0 x10^3/uL (0.0-0.7) Basophils # (Auto) 0.0 x10^3/uL (0.0-0.2) Sodium Level 134 mmol/L (136-145) Potassium Level 5.3 mmol/L (3.5-5.1) Chloride Level 100 mmol/L (98-107) Carbon Dioxide Level 24 mmol/L (21-32) Anion Gap 10 (6-14) Blood Urea Nitrogen 22 mg/dL (8-26) Creatinine 0.8 mg/dL (0.7-1.3) Estimated GFR (Cockcroft-Gault) 103.6 Glucose Level 218 mg/dL (70-99) Calcium Level 8.5 mg/dL (8.5-10.1) Test 03/01/21 07:51 Glucose (Fingerstick) 143 mg/dL (70-99) Medications Active Scripts Medications Dose Route/Sig Max Daily Dose Days Date Category [no home meds] 02/21/21 Reported Impression . IMPRESSION: 1. Acute on chronic hypoxemic respiratory failure. 2. COVID-19 viral pneumonia/acute respiratory distress syndrome. 3. Abnormal x-ray. 4. Possible bacterial pneumonia. Plan . Updated 03/01 Continue Vapotherm 40 L flow 100% FiO2 Steroids Empiric antibiotics DVT prophylaxis updated 02/[address] Sykes Continue current support Steroids Antibiotics TAYLOR LEACH MD Mar 01, 2021 08:46
[2021-03-01 11:00] VITALS: BP_SYST 104; BP_SYST 125; BP_DIAS 79; BP_DIAS 88
--- NOTE | 2021-03-01 14:01 | PDOC ---
[facility] [facility] PROGRESS NOTE Date of Service DOS: DATE: 03/01/21 TIME: 14:00 Chief Complaint Chief Complaint Acute hypoxic respiratory failure secondary to Covid pneumonia History of diabetes mellitus type 2 Continued IV steroids and O2 supplementation Continue with empiric IV antibiotics A total of 32 minutes of critical care time was spent in reviewing chart, labs, and images. Discussed with RN and SW. History of Present Illness History of Present Illness 02/28/2021 Patient seen and examined bedside. Still on Vapotherm 40 L and saturating 96%. Not more short of breath than usual. Feels actually better today. Speaking full sentences. Given nystatin due to some white buildup in the oral cavity. Likely due to steroids. Patient's chart, labs, images were reviewed and discussed with RN 02/27/21 Pt seen and examined bedside. Saturating 86% on Vapotherm and required BiPAP overnight. Pulmonology consulted and to continue with current managmenet for COVID. Pending ICU transfer when possible 02/26/2021 Patient seen and examined bedside. Saturating 89% on Vapotherm and 15 L nonrebreather. Continue with IV steroids and IV antibiotics. Patient's chart, labs, images were reviewed and discussed with RN 02/25/2021 No acute events overnight. Patient seen examined bedside. Patient saturating 91% on 4 L Vapotherm. Continue with IV steroids and IV antibiotics. Patient's chart, labs, images were reviewed and discussed with RN 02/24/21 No acute events overnight. Patient seen examined bedside. Patient saturating 93 to 95% on Vapotherm at 40 L. Not dyspneic at this time. Patient's chart, labs, images were reviewed and discussed with RN 02/23/2021 Patient seen and examined He is still on Vapotherm 40 L and 100% nonrebreather His third Covid test finally came back positive I spoke with pharmacy he is still not a candidate for remdesivir because he has had the disease for more than 10 days I do have him on full Covid protocol other than remdesivir Chart reviewed Discussed with RN 02/22/2021 Patient seen and examined He is on Vapotherm 40 L with 100% FiO2 plus nonrebreather Discussed with RN Chart reviewed His Covid testing by PCR is surprisingly negative Vitals/I&O Vitals/I&O: Vital Signs Date Time Temp Pulse Resp B/P (MAP) Pulse Ox O2 Delivery O2 Flow Rate FiO2 1/1/22 10:43 97 Vapotherm 40.0 03/01/21 07:00 95.2 82 20 121/83 (96) 95.2 I & O 02/28/21 02/28/21 03/01/21 15:00 23:00 07:00 Intake Total 400 ml Output Total 425 ml 400 ml 650 ml Balance -25 ml -400 ml -650 ml Physical Exam General: Alert, Oriented X3, Cooperative Heart: Regular rate Lungs: Wheezing, Crackles Abdomen: Normal bowel sounds Extremities: No clubbing Skin: No rashes Labs Labs: Laboratory Tests Test 02/28/21 17:16 02/28/21 21:07 03/01/21 04:00 03/01/21 07:51 Glucose (Fingerstick) 242 mg/dL (70-99) 185 mg/dL (70-99) 143 mg/dL (70-99) White Blood Count 13.5 x10^3/uL (4.0-11.0) Red Blood Count 4.83 x10^6/uL (4.30-5.70) Hemoglobin 14.9 g/dL (13.0-17.5) Hematocrit 44.9 % (39.0-53.0) Mean Corpuscular Volume 93 fL (79-100) Mean Corpuscular Hemoglobin 31 pg (25-35) Mean Corpuscular Hemoglobin Concent 33 g/dL (31-37) Red Cell Distribution Width 13.7 % (11.5-14.5) Platelet Count 517 x10^3/uL (140-400) Neutrophils (%) (Auto) 93 % (31-73) Lymphocytes (%) (Auto) 3 % (24-48) Monocytes (%) (Auto) 4 % (0-9) Eosinophils (%) (Auto) 0 % (0-3) Basophils (%) (Auto) 0 % (0-3) Neutrophils # (Auto) 12.5 x10^3/uL (1.8-7.7) Lymphocytes # (Auto) 0.4 x10^3/uL (1.0-4.8) Monocytes # (Auto) 0.5 x10^3/uL (0.0-1.1) Eosinophils # (Auto) 0.0 x10^3/uL (0.0-0.7) Basophils # (Auto) 0.0 x10^3/uL (0.0-0.2) Sodium Level 134 mmol/L (136-145) Potassium Level 5.3 mmol/L (3.5-5.1) Chloride Level 100 mmol/L (98-107) Carbon Dioxide Level 24 mmol/L (21-32) Anion Gap 10 (6-14) Blood Urea Nitrogen 22 mg/dL (8-26) Creatinine 0.8 mg/dL (0.7-1.3) Estimated GFR (Cockcroft-Gault) 103.6 Glucose Level 218 mg/dL (70-99) Calcium Level 8.5 mg/dL (8.5-10.1) Test 03/01/21 12:13 Glucose (Fingerstick) 108 mg/dL (70-99) Assessment and Plan Assessmemt and Plan Problems Medical Problems: (1) Acute respiratory failure with hypoxia Status: Acute (2) Sepsis due to pneumonia Status: Acute Comment Review of Relevant I have reviewed the following items elmer (where applicable) has been applied. Medications: Current Medications Medications (Trade) Dose Ordered Sig/Kalina Route PRN Reason Start Time Stop Time Status Last Admin Dose Admin Doxycycline Hyclate (Vibra-Tab) 100 mg BID PO 03/01/21 09:00 03/01/21 08:40 Justifications for Admission Other Justification KRISTI JOLLEY MD Mar 01, 2021 14:01
[2021-03-01] MEDS: STERILE WATER for RESP 2,000 ML BAG. INH PRN (14:57)
[2021-03-01 15:00] VITALS: BP 125/88
[2021-03-01 19:25] VITALS: BP 118/86
[2021-03-01] MEDS: cefTRIAXone IV Push 1 GM VIAL. IVP SCH (20:54)
[2021-03-01] MEDS: ENOXAPARIN 40 MG/0.4 ML SYRINGE. SQ SCH (20:54)
[2021-03-01 23:15] VITALS: BP 114/84
[2021-03-02 03:25] VITALS: BP 112/68
[2021-03-02 05:05] LABS: BASO % 0 % (0-3); EOS % 0 % (0-3); LYMPH # 0.5 x10^3/uL (1.0-4.8); LYMPH % 5 % (24-48); MEAN CORPUSCULAR HEMOGLOBIN 31 pg (25-35); MEAN CORPUSCULAR HGB CONC 34 g/dL (31-37); MEAN CORPUSCULAR VOLUME 92 fL (79-100); MONO # 0.6 x10^3/uL (0.0-1.1); MONO % 5 % (0-9); NEUT # 10.4 x10^3/uL (1.8-7.7); NEUT % 90 % (31-73); PLATELET COUNT 461 x10^3/uL (140-400); RED CELL DISTRIBUTION WIDTH 13.6 % (11.5-14.5); WHITE BLOOD COUNT 11.5 x10^3/uL (4.0-11.0)
[2021-03-02 05:52] LABS: CALCIUM 8.2 mg/dL (8.5-10.1); CREATININE 0.7 mg/dL (0.7-1.3); GFR 120.9; POTASSIUM 5.3 mmol/L (3.5-5.1)
[2021-03-02 07:00] VITALS: BP 140/94
[2021-03-02] MEDS: INSULIN LISPRO 300 UNITS/3 ML VIAL. SQ SCH ×3 (08:00→18:09)
[2021-03-02] MEDS: NYSTATIN 100,000 UNITS/ML 5 ML ORAL.SUSP. SWSW SCH ×4 (10:00→21:24)
[2021-03-02] MEDS: DOXYCYCLINE HYCLATE 100 MG TABLET PO SCH ×2 (10:00→21:24)
[2021-03-02] MEDS: methylPREDNISolone SOD SUCC PF 40 MG/ML VIAL. IV SCH ×2 (10:00→21:25)
[2021-03-02] MEDS: LACTOBACILLUS RHAMNOSUS GG 1 CAPSULE. PO SCH ×2 (10:00→21:25)
[2021-03-02] MEDS: ASPIRIN CHEWABLE 81 MG TABLET. PO SCH (10:00)
[2021-03-02] MEDS: MULTIVITAMIN with MINERAL TABLET. PO SCH (10:00)
[2021-03-02] MEDS: INSULIN GLARGINE SYRINGE. SQ SCH ×2 (10:01→21:28)
[2021-03-02 11:00] VITALS: BP 136/83
--- NOTE | 2021-03-02 11:37 | PDOC ---
PULMONARY PROGRESS NOTES DATE: 03/02/21 TIME: 11:37 Subjective Not worse today, still short of air, Vapotherm and BiPAP Vitals Vital Signs Date Time Temp Pulse Resp B/P (MAP) Pulse Ox O2 Delivery O2 Flow Rate FiO2 03/02/21 07:00 96.6 82 40 140/94 (109) 94 vapotherm and nrb 40.0 96.6 Lungs: Wheezing, Crackles Cardiovascular: S1, S2 Abdomen: Soft Neuro Exam: Alert Extremities: No Edema Skin: Warm Labs Laboratory Tests Test 02/28/21 12:13 02/28/21 17:16 02/28/21 21:07 03/01/21 04:00 Glucose (Fingerstick) 260 mg/dL (70-99) 242 mg/dL (70-99) 185 mg/dL (70-99) White Blood Count 13.5 x10^3/uL (4.0-11.0) Red Blood Count 4.83 x10^6/uL (4.30-5.70) Hemoglobin 14.9 g/dL (13.0-17.5) Hematocrit 44.9 % (39.0-53.0) Mean Corpuscular Volume 93 fL (79-100) Mean Corpuscular Hemoglobin 31 pg (25-35) Mean Corpuscular Hemoglobin Concent 33 g/dL (31-37) Red Cell Distribution Width 13.7 % (11.5-14.5) Platelet Count 517 x10^3/uL (140-400) Neutrophils (%) (Auto) 93 % (31-73) Lymphocytes (%) (Auto) 3 % (24-48) Monocytes (%) (Auto) 4 % (0-9) Eosinophils (%) (Auto) 0 % (0-3) Basophils (%) (Auto) 0 % (0-3) Neutrophils # (Auto) 12.5 x10^3/uL (1.8-7.7) Lymphocytes # (Auto) 0.4 x10^3/uL (1.0-4.8) Monocytes # (Auto) 0.5 x10^3/uL (0.0-1.1) Eosinophils # (Auto) 0.0 x10^3/uL (0.0-0.7) Basophils # (Auto) 0.0 x10^3/uL (0.0-0.2) Sodium Level 134 mmol/L (136-145) Potassium Level 5.3 mmol/L (3.5-5.1) Chloride Level 100 mmol/L (98-107) Carbon Dioxide Level 24 mmol/L (21-32) Anion Gap 10 (6-14) Blood Urea Nitrogen 22 mg/dL (8-26) Creatinine 0.8 mg/dL (0.7-1.3) Estimated GFR (Cockcroft-Gault) 103.6 Glucose Level 218 mg/dL (70-99) Calcium Level 8.5 mg/dL (8.5-10.1) Test 03/01/21 07:51 03/01/21 12:13 03/01/21 17:08 03/01/21 20:42 Glucose (Fingerstick) 143 mg/dL (70-99) 108 mg/dL (70-99) 174 mg/dL (70-99) 193 mg/dL (70-99) Test 03/02/21 04:15 03/02/21 08:11 White Blood Count 11.5 x10^3/uL (4.0-11.0) Red Blood Count 4.80 x10^6/uL (4.30-5.70) Hemoglobin 15.0 g/dL (13.0-17.5) Hematocrit 44.0 % (39.0-53.0) Mean Corpuscular Volume 92 fL (79-100) Mean Corpuscular Hemoglobin 31 pg (25-35) Mean Corpuscular Hemoglobin Concent 34 g/dL (31-37) Red Cell Distribution Width 13.6 % (11.5-14.5) Platelet Count 461 x10^3/uL (140-400) Neutrophils (%) (Auto) 90 % (31-73) Lymphocytes (%) (Auto) 5 % (24-48) Monocytes (%) (Auto) 5 % (0-9) Eosinophils (%) (Auto) 0 % (0-3) Basophils (%) (Auto) 0 % (0-3) Neutrophils # (Auto) 10.4 x10^3/uL (1.8-7.7) Lymphocytes # (Auto) 0.5 x10^3/uL (1.0-4.8) Monocytes # (Auto) 0.6 x10^3/uL (0.0-1.1) Eosinophils # (Auto) 0.0 x10^3/uL (0.0-0.7) Basophils # (Auto) 0.0 x10^3/uL (0.0-0.2) Sodium Level 136 mmol/L (136-145) Potassium Level 5.3 mmol/L (3.5-5.1) Chloride Level 100 mmol/L (98-107) Carbon Dioxide Level 24 mmol/L (21-32) Anion Gap 12 (6-14) Blood Urea Nitrogen 23 mg/dL (8-26) Creatinine 0.7 mg/dL (0.7-1.3) Estimated GFR (Cockcroft-Gault) 120.9 Glucose Level 165 mg/dL (70-99) Calcium Level 8.2 mg/dL (8.5-10.1) Glucose (Fingerstick) 128 mg/dL (70-99) Laboratory Tests Test 03/01/21 12:13 03/01/21 17:08 03/01/21 20:42 03/02/21 04:15 Glucose (Fingerstick) 108 mg/dL (70-99) 174 mg/dL (70-99) 193 mg/dL (70-99) White Blood Count 11.5 x10^3/uL (4.0-11.0) Red Blood Count 4.80 x10^6/uL (4.30-5.70) Hemoglobin 15.0 g/dL (13.0-17.5) Hematocrit 44.0 % (39.0-53.0) Mean Corpuscular Volume 92 fL (79-100) Mean Corpuscular Hemoglobin 31 pg (25-35) Mean Corpuscular Hemoglobin Concent 34 g/dL (31-37) Red Cell Distribution Width 13.6 % (11.5-14.5) Platelet Count 461 x10^3/uL (140-400) Neutrophils (%) (Auto) 90 % (31-73) Lymphocytes (%) (Auto) 5 % (24-48) Monocytes (%) (Auto) 5 % (0-9) Eosinophils (%) (Auto) 0 % (0-3) Basophils (%) (Auto) 0 % (0-3) Neutrophils # (Auto) 10.4 x10^3/uL (1.8-7.7) Lymphocytes # (Auto) 0.5 x10^3/uL (1.0-4.8) Monocytes # (Auto) 0.6 x10^3/uL (0.0-1.1) Eosinophils # (Auto) 0.0 x10^3/uL (0.0-0.7) Basophils # (Auto) 0.0 x10^3/uL (0.0-0.2) Sodium Level 136 mmol/L (136-145) Potassium Level 5.3 mmol/L (3.5-5.1) Chloride Level 100 mmol/L (98-107) Carbon Dioxide Level 24 mmol/L (21-32) Anion Gap 12 (6-14) Blood Urea Nitrogen 23 mg/dL (8-26) Creatinine 0.7 mg/dL (0.7-1.3) Estimated GFR (Cockcroft-Gault) 120.9 Glucose Level 165 mg/dL (70-99) Calcium Level 8.2 mg/dL (8.5-10.1) Test 03/02/21 08:11 Glucose (Fingerstick) 128 mg/dL (70-99) Medications Active Scripts Medications Dose Route/Sig Max Daily Dose Days Date Category [no home meds] 02/21/21 Reported Impression . IMPRESSION: 1. Acute on chronic hypoxemic respiratory failure. 2. COVID-19 viral pneumonia/acute respiratory distress syndrome. 3. Abnormal x-ray. 4. Possible bacterial pneumonia. Plan . Updated 03/02 No change continue the same Continue Vapotherm 40 L flow 100% FiO2 Steroids Empiric antibiotics DVT prophylaxis TAYLOR LEACH MD Mar 02, 2021 11:37
[2021-03-02] MEDS: STERILE WATER for RESP 2,000 ML BAG. INH PRN (11:43)
--- NOTE | 2021-03-02 11:57 | PDOC ---
[facility] [facility] PROGRESS NOTE Date of Service DOS: DATE: 03/02/21 TIME: 11:56 Chief Complaint Chief Complaint Acute hypoxic respiratory failure secondary to Covid pneumonia History of diabetes mellitus type 2 Continued IV steroids for total of 10 days and O2 supplementation Continue with empiric IV antibiotics A total of 31 minutes of critical care time was spent in reviewing chart, labs, and images. Discussed with RN and SW. History of Present Illness History of Present Illness 03/02/2021 No acute events overnight. Patient seen and examined bedside. Increased work of breathing. But still saturating 90% on 40 L Vapotherm. Patient's chart, labs, images were reviewed and discussed with RN 02/28/2021 Patient seen and examined bedside. Still on Vapotherm 40 L and saturating 96%. Not more short of breath than usual. Feels actually better today. Speaking full sentences. Given nystatin due to some white buildup in the oral cavity. Likely due to steroids. Patient's chart, labs, images were reviewed and discussed with RN 02/27/21 Pt seen and examined bedside. Saturating 86% on Vapotherm and required BiPAP overnight. Pulmonology consulted and to continue with current managmenet for COVID. Pending ICU transfer when possible 02/26/2021 Patient seen and examined bedside. Saturating 89% on Vapotherm and 15 L nonrebreather. Continue with IV steroids and IV antibiotics. Patient's chart, labs, images were reviewed and discussed with RN 02/25/2021 No acute events overnight. Patient seen examined bedside. Patient saturating 91% on 4 L Vapotherm. Continue with IV steroids and IV antibiotics. Patient's chart, labs, images were reviewed and discussed with RN 02/24/21 No acute events overnight. Patient seen examined bedside. Patient saturating 93 to 95% on Vapotherm at 40 L. Not dyspneic at this time. Patient's chart, labs, images were reviewed and discussed with RN 02/23/2021 Patient seen and examined He is still on Vapotherm 40 L and 100% nonrebreather His third Covid test finally came back positive I spoke with pharmacy he is still not a candidate for remdesivir because he has had the disease for more than 10 days I do have him on full Covid protocol other than remdesivir Chart reviewed Discussed with RN 02/22/2021 Patient seen and examined He is on Vapotherm 40 L with 100% FiO2 plus nonrebreather Discussed with RN Chart reviewed His Covid testing by PCR is surprisingly negative Vitals/I&O Vitals/I&O: Vital Signs Date Time Temp Pulse Resp B/P (MAP) Pulse Ox O2 Delivery O2 Flow Rate FiO2 03/02/21 11:42 92 Vapotherm 40.0 03/02/21 07:00 96.6 82 40 140/94 (109) 96.6 I & O 03/01/21 03/01/21 03/02/21 15:00 23:00 07:00 Intake Total 360 ml 100 ml 0 ml Output Total 450 ml Balance 360 ml 100 ml -450 ml Physical Exam General: Alert, Oriented X3, Cooperative Heart: Regular rate Lungs: Wheezing, Crackles Abdomen: Normal bowel sounds Extremities: No clubbing Skin: No rashes Labs Labs: Laboratory Tests Test 03/01/21 12:13 03/01/21 17:08 03/01/21 20:42 03/02/21 04:15 Glucose (Fingerstick) 108 mg/dL (70-99) 174 mg/dL (70-99) 193 mg/dL (70-99) White Blood Count 11.5 x10^3/uL (4.0-11.0) Red Blood Count 4.80 x10^6/uL (4.30-5.70) Hemoglobin 15.0 g/dL (13.0-17.5) Hematocrit 44.0 % (39.0-53.0) Mean Corpuscular Volume 92 fL (79-100) Mean Corpuscular Hemoglobin 31 pg (25-35) Mean Corpuscular Hemoglobin Concent 34 g/dL (31-37) Red Cell Distribution Width 13.6 % (11.5-14.5) Platelet Count 461 x10^3/uL (140-400) Neutrophils (%) (Auto) 90 % (31-73) Lymphocytes (%) (Auto) 5 % (24-48) Monocytes (%) (Auto) 5 % (0-9) Eosinophils (%) (Auto) 0 % (0-3) Basophils (%) (Auto) 0 % (0-3) Neutrophils # (Auto) 10.4 x10^3/uL (1.8-7.7) Lymphocytes # (Auto) 0.5 x10^3/uL (1.0-4.8) Monocytes # (Auto) 0.6 x10^3/uL (0.0-1.1) Eosinophils # (Auto) 0.0 x10^3/uL (0.0-0.7) Basophils # (Auto) 0.0 x10^3/uL (0.0-0.2) Sodium Level 136 mmol/L (136-145) Potassium Level 5.3 mmol/L (3.5-5.1) Chloride Level 100 mmol/L (98-107) Carbon Dioxide Level 24 mmol/L (21-32) Anion Gap 12 (6-14) Blood Urea Nitrogen 23 mg/dL (8-26) Creatinine 0.7 mg/dL (0.7-1.3) Estimated GFR (Cockcroft-Gault) 120.9 Glucose Level 165 mg/dL (70-99) Calcium Level 8.2 mg/dL (8.5-10.1) Test 03/02/21 08:11 Glucose (Fingerstick) 128 mg/dL (70-99) Assessment and Plan Assessmemt and Plan Problems Medical Problems: (1) Acute respiratory failure with hypoxia Status: Acute (2) Sepsis due to pneumonia Status: Acute Comment Review of Relevant I have reviewed the following items elmer (where applicable) has been applied. Justifications for Admission Other Justification KRISTI JOLLEY MD Mar 02, 2021 11:57
[2021-03-02 15:00] VITALS: BP 129/88
[2021-03-02 19:00] VITALS: BP 123/77
[2021-03-02] MEDS: cefTRIAXone IV Push 1 GM VIAL. IVP SCH (21:25)
[2021-03-02] MEDS: ENOXAPARIN 40 MG/0.4 ML SYRINGE. SQ SCH (21:25)
--- NOTE | 2021-03-02 22:50 | NUR ---
RECEIVED A CALL TO ASSESS PATIENT FOR HYPOXIA. UPON ARRIVING TO PT ROOM, PT IS 85% ON VAPOTHERM 40L AND 100% WELL 15L NRB. TURNED NRB FLOW HIGHER WITH NO RESPONSE. CHANGED THE NASAL CANNULA ON VAPOTHERM IT HAD SOMETHING THAT LOOKED LIKE FOOD CAKED ON IT. PT HAD APPARENTLY CHOCKED WHILE EATING AND O2 NEVER DID RECOVER. NONE OF MY INTERVENTIONS HELPED INCREASE SPO2. PT IS COMFORTABLE IN SEMI ARCE'S POSITION. WE WILL CONTINUE TO MOITOR SPO2 AND IF IT DOES GET WORSE OR PT GETS UNCOMFORTABLE, WILL PERFORM AN ABG AND FOLLOW DR'S ORDERS. I DID ASK PT TO REFRAIN FROM EATING FOR THE REMAINDER OF THE NIGHT UNTIL THE DOCTOR SEES HIM IN THE MORNING. I RECOMMENDED THAT RN CALL PHYSICIAN AND INFORM THEM OF THE CHOKING EPISODE THAT PRECIPITATED ALL THIS.
[2021-03-02 23:00] VITALS: BP 119/80
[2021-03-03] VITALS (11 sets, daily range): BP systolic 11–124; BP diastolic 73–91
[2021-03-03] MEDS: INSULIN LISPRO 300 UNITS/3 ML VIAL. SQ SCH ×3 (07:49→18:28)
--- NOTE | 2021-03-03 09:06 | PDOC ---
PULMONARY PROGRESS NOTES DATE: 03/03/21 TIME: 09:06 Subjective Patient started to desaturate last evening after eating, he had difficulty eating a grape. Continues to desaturate Continues to require Vapotherm and BiPAP saturations 85-90 Vitals Vital Signs Date Time Temp Pulse Resp B/P (MAP) Pulse Ox O2 Delivery O2 Flow Rate FiO2 03/03/21 08:34 88 Vapotherm 40.0 03/03/21 07:00 96.5 94 40 123/90 (101) 96.5 Lungs: Wheezing, Crackles Cardiovascular: S1, S2 Abdomen: Soft Neuro Exam: Alert Extremities: No Edema Skin: Warm Labs Laboratory Tests Test 03/01/21 12:13 03/01/21 17:08 03/01/21 20:42 03/02/21 04:15 Glucose (Fingerstick) 108 mg/dL (70-99) 174 mg/dL (70-99) 193 mg/dL (70-99) White Blood Count 11.5 x10^3/uL (4.0-11.0) Red Blood Count 4.80 x10^6/uL (4.30-5.70) Hemoglobin 15.0 g/dL (13.0-17.5) Hematocrit 44.0 % (39.0-53.0) Mean Corpuscular Volume 92 fL (79-100) Mean Corpuscular Hemoglobin 31 pg (25-35) Mean Corpuscular Hemoglobin Concent 34 g/dL (31-37) Red Cell Distribution Width 13.6 % (11.5-14.5) Platelet Count 461 x10^3/uL (140-400) Neutrophils (%) (Auto) 90 % (31-73) Lymphocytes (%) (Auto) 5 % (24-48) Monocytes (%) (Auto) 5 % (0-9) Eosinophils (%) (Auto) 0 % (0-3) Basophils (%) (Auto) 0 % (0-3) Neutrophils # (Auto) 10.4 x10^3/uL (1.8-7.7) Lymphocytes # (Auto) 0.5 x10^3/uL (1.0-4.8) Monocytes # (Auto) 0.6 x10^3/uL (0.0-1.1) Eosinophils # (Auto) 0.0 x10^3/uL (0.0-0.7) Basophils # (Auto) 0.0 x10^3/uL (0.0-0.2) Sodium Level 136 mmol/L (136-145) Potassium Level 5.3 mmol/L (3.5-5.1) Chloride Level 100 mmol/L (98-107) Carbon Dioxide Level 24 mmol/L (21-32) Anion Gap 12 (6-14) Blood Urea Nitrogen 23 mg/dL (8-26) Creatinine 0.7 mg/dL (0.7-1.3) Estimated GFR (Cockcroft-Gault) 120.9 Glucose Level 165 mg/dL (70-99) Calcium Level 8.2 mg/dL (8.5-10.1) Test 03/02/21 08:11 03/02/21 12:32 03/02/21 17:10 03/02/21 20:48 Glucose (Fingerstick) 128 mg/dL (70-99) 165 mg/dL (70-99) 258 mg/dL (70-99) 267 mg/dL (70-99) Test 03/03/21 07:42 Glucose (Fingerstick) 143 mg/dL (70-99) Laboratory Tests Test 03/02/21 12:32 03/02/21 17:10 03/02/21 20:48 03/03/21 07:42 Glucose (Fingerstick) 165 mg/dL (70-99) 258 mg/dL (70-99) 267 mg/dL (70-99) 143 mg/dL (70-99) Medications Active Scripts Medications Dose Route/Sig Max Daily Dose Days Date Category [no home meds] 02/21/21 Reported Impression . IMPRESSION: 1. Acute on chronic hypoxemic respiratory failure. 2. COVID-19 viral pneumonia/acute respiratory distress syndrome. 3. Abnormal x-ray. 4. Possible bacterial pneumonia. Plan . Updated 03/03 Patient clinical status worsen will transfer to ICU Continue Vapotherm and BiPAP Steroids Repeat chest x-ray DVT prophylaxis Discussed with RN, in ICU Updated 03/02 No change continue the same Continue Vapotherm 40 L flow 100% FiO2 Steroids Empiric antibiotics DVT prophylaxis TAYLOR LEACH MD Mar 03, 2021 09:06
[2021-03-03] MEDS: NYSTATIN 100,000 UNITS/ML 5 ML ORAL.SUSP. SWSW SCH ×4 (09:14→20:17)
[2021-03-03] MEDS: LACTOBACILLUS RHAMNOSUS GG 1 CAPSULE. PO SCH ×2 (09:14→20:17)
[2021-03-03] MEDS: MULTIVITAMIN with MINERAL TABLET. PO SCH (09:14)
[2021-03-03] MEDS: DOXYCYCLINE HYCLATE 100 MG TABLET PO SCH ×2 (09:15→20:16)
[2021-03-03] MEDS: ASPIRIN CHEWABLE 81 MG TABLET. PO SCH (09:15)
[2021-03-03] MEDS: methylPREDNISolone SOD SUCC PF 40 MG/ML VIAL. IV SCH ×2 (09:15→20:16)
[2021-03-03 09:16] LABS: CALCIUM 8.3 mg/dL (8.5-10.1); CREATININE 0.6 mg/dL (0.7-1.3); GFR 144.4; MAGNESIUM 2.4 mg/dL (1.8-2.4); POTASSIUM 5.2 mmol/L (3.5-5.1)
[2021-03-03] MEDS: INSULIN GLARGINE SYRINGE. SQ SCH ×2 (09:24→20:17)
--- NOTE | 2021-03-03 12:08 | PDOC ---
[facility] [facility] PROGRESS NOTE Date of Service DOS: DATE: 03/03/21 TIME: 12:06 Chief Complaint Chief Complaint Acute hypoxic respiratory failure secondary to Covid pneumonia History of diabetes mellitus type 2 Continued IV steroids for total of 10 days and O2 supplementation Continue with empiric IV antibiotics A total of 35 minutes of critical care time was spent in reviewing chart, labs, and images. Discussed with RN and SW. History of Present Illness History of Present Illness 03/03/21 No acute events overnight. Saturating 89-90% on Vapotherm and NRB 15L. Not dyspneic but doesnt feel better. Will DC chavez today and today will be his last day of steroids. Encouraged patient to get OOBTC ad pierre. 03/02/2021 No acute events overnight. Patient seen and examined bedside. Increased work of breathing. But still saturating 90% on 40 L Vapotherm. Patient's chart, labs, images were reviewed and discussed with RN 02/28/2021 Patient seen and examined bedside. Still on Vapotherm 40 L and saturating 96%. Not more short of breath than usual. Feels actually better today. Speaking full sentences. Given nystatin due to some white buildup in the oral cavity. Likely due to steroids. Patient's chart, labs, images were reviewed and discussed with RN 02/27/21 Pt seen and examined bedside. Saturating 86% on Vapotherm and required BiPAP overnight. Pulmonology consulted and to continue with current managmenet for COVID. Pending ICU transfer when possible 02/26/2021 Patient seen and examined bedside. Saturating 89% on Vapotherm and 15 L nonrebreather. Continue with IV steroids and IV antibiotics. Patient's chart, labs, images were reviewed and discussed with RN 02/25/2021 No acute events overnight. Patient seen examined bedside. Patient saturating 91% on 4 L Vapotherm. Continue with IV steroids and IV antibiotics. Patient's chart, labs, images were reviewed and discussed with RN 02/24/21 No acute events overnight. Patient seen examined bedside. Patient saturating 93 to 95% on Vapotherm at 40 L. Not dyspneic at this time. Patient's chart, labs, images were reviewed and discussed with RN 02/23/2021 Patient seen and examined He is still on Vapotherm 40 L and 100% nonrebreather His third Covid test finally came back positive I spoke with pharmacy he is still not a candidate for remdesivir because he has had the disease for more than 10 days I do have him on full Covid protocol other than remdesivir Chart reviewed Discussed with RN 02/22/2021 Patient seen and examined He is on Vapotherm 40 L with 100% FiO2 plus nonrebreather Discussed with RN Chart reviewed His Covid testing by PCR is surprisingly negative Vitals/I&O Vitals/I&O: Vital Signs Date Time Temp Pulse Resp B/P (MAP) Pulse Ox O2 Delivery O2 Flow Rate FiO2 03/03/21 10:05 89 Vapotherm 40.0 03/03/21 07:00 96.5 94 40 123/90 (101) 96.5 I & O 03/02/21 03/02/21 03/03/21 15:00 23:00 07:00 Intake Total 430 ml Output Total 750 ml Balance 430 ml -750 ml Physical Exam General: Alert, Oriented X3, Cooperative Heart: Regular rate Lungs: Wheezing, Crackles Abdomen: Normal bowel sounds Extremities: No clubbing Skin: No rashes Labs Labs: Laboratory Tests Test 03/02/21 12:32 03/02/21 17:10 03/02/21 20:48 03/03/21 07:42 Glucose (Fingerstick) 165 mg/dL (70-99) 258 mg/dL (70-99) 267 mg/dL (70-99) 143 mg/dL (70-99) Test 03/03/21 08:40 03/03/21 11:01 Sodium Level 136 mmol/L (136-145) Potassium Level 5.2 mmol/L (3.5-5.1) Chloride Level 101 mmol/L (98-107) Carbon Dioxide Level 24 mmol/L (21-32) Anion Gap 11 (6-14) Blood Urea Nitrogen 23 mg/dL (8-26) Creatinine 0.6 mg/dL (0.7-1.3) Estimated GFR (Cockcroft-Gault) 144.4 Glucose Level 118 mg/dL (70-99) Calcium Level 8.3 mg/dL (8.5-10.1) Magnesium Level 2.4 mg/dL (1.8-2.4) Glucose (Fingerstick) 177 mg/dL (70-99) Assessment and Plan Assessmemt and Plan Problems Medical Problems: (1) Acute respiratory failure with hypoxia Status: Acute (2) Sepsis due to pneumonia Status: Acute Comment Review of Relevant I have reviewed the following items elmer (where applicable) has been applied. Justifications for Admission Other Justification KRISTI JOLLEY MD Mar 03, 2021 12:08
--- NOTE | 2021-03-03 12:56 | NUR ---
SS following up with discharge planning. SS reviewed pt chart and discussed with pt RN. Pt is currently on Vapotherm and BIPAP at 100%. COVID19 positive. Pt on IV Solu-Medrol and IV Rocephin. Not stable. Per RN, will transfer to ICU. SS will continue to follow for discharge planning.
[2021-03-03] MEDS: STERILE WATER for RESP 2,000 ML BAG. INH PRN (14:00)
--- NOTE | 2021-03-03 14:37 | RAD ---
Single view of the chest. 03/03/2021 8:55 AM Indication: Reason: covid pna / Spl. Instructions: / History: Comparison: Chest radiograph February 27, 2021 Findings: Bilateral interstitial alveolar infiltrates, worse in the lung bases, similar to comparison study. No pneumothorax is identified. There is probable basilar atelectasis or small effusion. No ac sven osseous changes are identified. IMPRESSION: Overall similar radiographic appearance of the chest. Electronically signed by: Darek Woods MD (03/03/2021 2:34 PM) [id number]
--- NOTE | 2021-03-03 16:14 | NUR ---
Pt transferred to room 106 from 671. Pt transferred on NRB, sats in the low 70's upon arrival to ICU. Pt quickly placed on vapotherm and bipap per RT. Oxygen saturations slowly climbed to the low 90's. Pt resting in bed
[2021-03-03] MEDS: cefTRIAXone IV Push 1 GM VIAL. IVP SCH (20:16)
[2021-03-03] MEDS: ENOXAPARIN 40 MG/0.4 ML SYRINGE. SQ SCH (20:17)
[2021-03-04] VITALS (24 sets, daily range): BP systolic 89–134; BP diastolic 52–88
[2021-03-04] MEDS ORDERED: ATROPINE 0.5 MG/5 ML DISP.SYRINGE. IV PRN (03:45)
[2021-03-04] MEDS ORDERED: IV NORMAL SALINE 500ML BAG 500 ML IV PRN (03:45)
[2021-03-04] MEDS: DEXMEDETOMIDINE 400 MCG in IV NORMAL SALINE 100ML 96 ML IV PRN ×2 (04:14→08:50)
--- NOTE | 2021-03-04 04:35 | NUR ---
Pt with episode of anxiety this morning, ripping everything off, pulling mask off. 02 sat dropped to 60s, pt yelling. I went in room and explained to him the need for BIPAP mask to be worn, using vp purchasing he nodded that he agreed. Precedex gtt started for anxiety with improvement. Pt currently in room with precedex running, on BIPAP 100% with all VSS, resting peacefully.
[2021-03-04] MEDS: STERILE WATER for RESP 2,000 ML BAG. INH PRN (05:31)
[2021-03-04] MEDS: NYSTATIN 100,000 UNITS/ML 5 ML ORAL.SUSP. SWSW SCH ×4 (08:45→20:40)
[2021-03-04] MEDS: LACTOBACILLUS RHAMNOSUS GG 1 CAPSULE. PO SCH ×2 (08:45→20:40)
[2021-03-04] MEDS: ASPIRIN CHEWABLE 81 MG TABLET. PO SCH (08:46)
[2021-03-04] MEDS: methylPREDNISolone SOD SUCC PF 40 MG/ML VIAL. IV SCH ×2 (08:46→20:40)
[2021-03-04] MEDS: MULTIVITAMIN with MINERAL TABLET. PO SCH (08:46)
[2021-03-04] MEDS: INSULIN GLARGINE SYRINGE. SQ SCH ×2 (08:48→20:51)
[2021-03-04] MEDS: DOXYCYCLINE HYCLATE 100 MG TABLET PO SCH (08:59)
[2021-03-04] MEDS ORDERED: guaiFENesin DM 200MG/20MG 10 ML SYRUP PO PRN (09:15)
--- NOTE | 2021-03-04 09:18 | PDOC ---
[facility] [facility] PROGRESS NOTE Date of Service DOS: DATE: 03/04/21 TIME: 09:06 Chief Complaint Chief Complaint Acute hypoxic respiratory failure secondary to Covid pneumonia History of diabetes mellitus type 2 Continued IV steroids for total of 10 days and O2 supplementation Continue with empiric IV antibiotics A total of 35 minutes of critical care time was spent in reviewing chart, labs, and images. Discussed with RN and SW. History of Present Illness History of Present Illness 03/04: Transfer to ICU overnight for worsening hypoxia. On BiPAP 16/10 with supplemental Vapotherm 40 L/min 100% FiO2. Significant desaturation with attempted to eat and drink. cc time 32 min 03/03/21 No acute events overnight. Saturating 89-90% on Vapotherm and NRB 15L. Not dyspneic but doesnt feel better. Will DC chavez today and today will be his last day of steroids. Encouraged patient to get OOBTC ad pierre. 03/02/2021 No acute events overnight. Patient seen and examined bedside. Increased work of breathing. But still saturating 90% on 40 L Vapotherm. Patient's chart, labs, images were reviewed and discussed with RN 02/28/2021 Patient seen and examined bedside. Still on Vapotherm 40 L and saturating 96%. Not more short of breath than usual. Feels actually better today. Speaking full sentences. Given nystatin due to some white buildup in the oral cavity. Likely due to steroids. Patient's chart, labs, images were reviewed and discussed with RN 02/27/21 Pt seen and examined bedside. Saturating 86% on Vapotherm and required BiPAP overnight. Pulmonology consulted and to continue with current management for COVID. Pending ICU transfer when possible 02/26/2021 Patient seen and examined bedside. Saturating 89% on Vapotherm and 15 L nonrebreather. Continue with IV steroids and IV antibiotics. Patient's chart, labs, images were reviewed and discussed with RN 02/25/2021 No acute events overnight. Patient seen examined bedside. Patient saturating 91% on 4 L Vapotherm. Continue with IV steroids and IV antibiotics. Patient's chart, labs, images were reviewed and discussed with RN 02/24/21 No acute events overnight. Patient seen examined bedside. Patient saturating 93 to 95% on Vapotherm at 40 L. Not dyspneic at this time. Patient's chart, labs, images were reviewed and discussed with RN 02/23/2021 Patient seen and examined He is still on Vapotherm 40 L and 100% nonrebreather His third Covid test finally came back positive I spoke with pharmacy he is still not a candidate for remdesivir because he has had the disease for more than 10 days I do have him on full Covid protocol other than remdesivir Chart reviewed Discussed with RN 02/22/2021 Patient seen and examined He is on Vapotherm 40 L with 100% FiO2 plus nonrebreather Discussed with RN Chart reviewed His Covid testing by PCR is surprisingly negative Vitals/I&O Vitals/I&O: Vital Signs Date Time Temp Pulse Resp B/P (MAP) Pulse Ox O2 Delivery O2 Flow Rate FiO2 03/04/21 08:25 92 Vapotherm 40.0 03/04/21 06:00 75 25 90/69 03/04/21 04:00 97.6 97.6 I & O 03/03/21 03/03/21 03/04/21 15:00 23:00 07:00 Intake Total 339.6 ml Output Total 270 ml 385 ml Balance -270 ml -45.4 ml Physical Exam General: Alert, Oriented X3, Cooperative Heart: Regular rate Lungs: Wheezing, Crackles Abdomen: Normal bowel sounds Extremities: No clubbing Skin: No rashes Labs Labs: Laboratory Tests Test 03/03/21 11:01 03/03/21 18:25 Glucose (Fingerstick) 177 mg/dL (70-99) 168 mg/dL (70-99) Assessment and Plan Assessmemt and Plan Problems Medical Problems: (1) Acute respiratory failure with hypoxia Status: Acute (2) Sepsis due to pneumonia Status: Acute Comment Review of Relevant I have reviewed the following items elmer (where applicable) has been applied. Medications: Current Medications Medications (Trade) Dose Ordered Sig/Kalina Route PRN Reason Start Time Stop Time Status Last Admin Dose Admin Dexmedetomidine HCl 400 mcg/ Sodium Chloride 100 ml @ 3.655 mls/ hr CONT PRN IV PER PROTOCOL 03/04/21 03:45 03/04/21 08:50 Justifications for Admission Other Justification WALDO CHAIDEZ MD Mar 04, 2021 09:18
[2021-03-04] MEDS: INSULIN LISPRO 300 UNITS/3 ML VIAL. SQ SCH ×3 (09:35→17:35)
[2021-03-04 11:09] LABS: ALBUMIN 1.8 g/dL (3.4-5.0); ALBUMIN/GLOBULIN RATIO 0.4 (1.0-1.7); CALCIUM 8.1 mg/dL (8.5-10.1); CREATININE 0.7 mg/dL (0.7-1.3); GFR 120.9; POTASSIUM 4.8 mmol/L (3.5-5.1); TOTAL BILIRUBIN 0.5 mg/dL (0.2-1.0); TOTAL PROTEIN 6.2 g/dL (6.4-8.2)
[2021-03-04 11:13] LABS: BASO % 0 % (0-3); EOS # 0.1 x10^3/uL (0.0-0.7); EOS % 1 % (0-3); HEMATOCRIT 43.1 % (39.0-53.0); HEMOGLOBIN 14.2 g/dL (13.0-17.5); LYMPH # 0.9 x10^3/uL (1.0-4.8); LYMPH % 7 % (24-48); MEAN CORPUSCULAR HEMOGLOBIN 30 pg (25-35); MEAN CORPUSCULAR HGB CONC 33 g/dL (31-37); MEAN CORPUSCULAR VOLUME 92 fL (79-100); MONO # 0.7 x10^3/uL (0.0-1.1); MONO % 6 % (0-9); NEUT # 11.2 x10^3/uL (1.8-7.7); NEUT % 87 % (31-73); PLATELET COUNT 335 x10^3/uL (140-400); RED BLOOD COUNT 4.71 x10^6/uL (4.30-5.70); RED CELL DISTRIBUTION WIDTH 13.9 % (11.5-14.5); WHITE BLOOD COUNT 12.9 x10^3/uL (4.0-11.0)
--- NOTE | 2021-03-04 11:54 | PDOC ---
PULMONARY PROGRESS NOTES DATE: 03/04/21 TIME: 11:51 Subjective Patient remains on 100% FiO2 via Vapotherm and a nonrebreather mask. Vitals Vital Signs Date Time Temp Pulse Resp B/P (MAP) Pulse Ox O2 Delivery O2 Flow Rate FiO2 03/04/21 09:28 86 Vapotherm 40.0 03/04/21 06:00 75 25 90/69 03/04/21 04:00 97.6 97.6 General: Alert, No acute distress Lungs: Crackles Cardiovascular: S1, S2 Abdomen: Soft Neuro Exam: Alert Extremities: No Edema Skin: Warm Labs Laboratory Tests Test 03/02/21 12:32 03/02/21 17:10 03/02/21 20:48 03/03/21 07:42 Glucose (Fingerstick) 165 mg/dL (70-99) 258 mg/dL (70-99) 267 mg/dL (70-99) 143 mg/dL (70-99) Test 03/03/21 08:40 03/03/21 11:01 03/03/21 18:25 03/04/21 09:03 Sodium Level 136 mmol/L (136-145) Potassium Level 5.2 mmol/L (3.5-5.1) Chloride Level 101 mmol/L (98-107) Carbon Dioxide Level 24 mmol/L (21-32) Anion Gap 11 (6-14) Blood Urea Nitrogen 23 mg/dL (8-26) Creatinine 0.6 mg/dL (0.7-1.3) Estimated GFR (Cockcroft-Gault) 144.4 Glucose Level 118 mg/dL (70-99) Calcium Level 8.3 mg/dL (8.5-10.1) Magnesium Level 2.4 mg/dL (1.8-2.4) Glucose (Fingerstick) 177 mg/dL (70-99) 168 mg/dL (70-99) 178 mg/dL (70-99) Test 03/04/21 10:30 White Blood Count 12.9 x10^3/uL (4.0-11.0) Red Blood Count 4.71 x10^6/uL (4.30-5.70) Hemoglobin 14.2 g/dL (13.0-17.5) Hematocrit 43.1 % (39.0-53.0) Mean Corpuscular Volume 92 fL (79-100) Mean Corpuscular Hemoglobin 30 pg (25-35) Mean Corpuscular Hemoglobin Concent 33 g/dL (31-37) Red Cell Distribution Width 13.9 % (11.5-14.5) Platelet Count 335 x10^3/uL (140-400) Neutrophils (%) (Auto) 87 % (31-73) Lymphocytes (%) (Auto) 7 % (24-48) Monocytes (%) (Auto) 6 % (0-9) Eosinophils (%) (Auto) 1 % (0-3) Basophils (%) (Auto) 0 % (0-3) Neutrophils # (Auto) 11.2 x10^3/uL (1.8-7.7) Lymphocytes # (Auto) 0.9 x10^3/uL (1.0-4.8) Monocytes # (Auto) 0.7 x10^3/uL (0.0-1.1) Eosinophils # (Auto) 0.1 x10^3/uL (0.0-0.7) Basophils # (Auto) 0.0 x10^3/uL (0.0-0.2) Sodium Level 136 mmol/L (136-145) Potassium Level 4.8 mmol/L (3.5-5.1) Chloride Level 101 mmol/L (98-107) Carbon Dioxide Level 24 mmol/L (21-32) Anion Gap 11 (6-14) Blood Urea Nitrogen 26 mg/dL (8-26) Creatinine 0.7 mg/dL (0.7-1.3) Estimated GFR (Cockcroft-Gault) 120.9 BUN/Creatinine Ratio 37 (6-20) Glucose Level 165 mg/dL (70-99) Calcium Level 8.1 mg/dL (8.5-10.1) Total Bilirubin 0.5 mg/dL (0.2-1.0) Aspartate Amino Transf (AST/SGOT) 16 U/L (15-37) Alanine Aminotransferase (ALT/SGPT) 36 U/L (16-63) Alkaline Phosphatase 103 U/L (46-116) Total Protein 6.2 g/dL (6.4-8.2) Albumin 1.8 g/dL (3.4-5.0) Albumin/Globulin Ratio 0.4 (1.0-1.7) Laboratory Tests Test 03/03/21 18:25 03/04/21 09:03 03/04/21 10:30 Glucose (Fingerstick) 168 mg/dL (70-99) 178 mg/dL (70-99) White Blood Count 12.9 x10^3/uL (4.0-11.0) Red Blood Count 4.71 x10^6/uL (4.30-5.70) Hemoglobin 14.2 g/dL (13.0-17.5) Hematocrit 43.1 % (39.0-53.0) Mean Corpuscular Volume 92 fL (79-100) Mean Corpuscular Hemoglobin 30 pg (25-35) Mean Corpuscular Hemoglobin Concent 33 g/dL (31-37) Red Cell Distribution Width 13.9 % (11.5-14.5) Platelet Count 335 x10^3/uL (140-400) Neutrophils (%) (Auto) 87 % (31-73) Lymphocytes (%) (Auto) 7 % (24-48) Monocytes (%) (Auto) 6 % (0-9) Eosinophils (%) (Auto) 1 % (0-3) Basophils (%) (Auto) 0 % (0-3) Neutrophils # (Auto) 11.2 x10^3/uL (1.8-7.7) Lymphocytes # (Auto) 0.9 x10^3/uL (1.0-4.8) Monocytes # (Auto) 0.7 x10^3/uL (0.0-1.1) Eosinophils # (Auto) 0.1 x10^3/uL (0.0-0.7) Basophils # (Auto) 0.0 x10^3/uL (0.0-0.2) Sodium Level 136 mmol/L (136-145) Potassium Level 4.8 mmol/L (3.5-5.1) Chloride Level 101 mmol/L (98-107) Carbon Dioxide Level 24 mmol/L (21-32) Anion Gap 11 (6-14) Blood Urea Nitrogen 26 mg/dL (8-26) Creatinine 0.7 mg/dL (0.7-1.3) Estimated GFR (Cockcroft-Gault) 120.9 BUN/Creatinine Ratio 37 (6-20) Glucose Level 165 mg/dL (70-99) Calcium Level 8.1 mg/dL (8.5-10.1) Total Bilirubin 0.5 mg/dL (0.2-1.0) Aspartate Amino Transf (AST/SGOT) 16 U/L (15-37) Alanine Aminotransferase (ALT/SGPT) 36 U/L (16-63) Alkaline Phosphatase 103 U/L (46-116) Total Protein 6.2 g/dL (6.4-8.2) Albumin 1.8 g/dL (3.4-5.0) Albumin/Globulin Ratio 0.4 (1.0-1.7) Medications Active Scripts Medications Dose Route/Sig Max Daily Dose Days Date Category [no home meds] 02/21/21 Reported Impression . IMPRESSION: 1. Acute on chronic hypoxemic respiratory failure. 2. COVID-19 viral pneumonia/acute respiratory distress syndrome. 3. Abnormal x-ray. 4. Possible bacterial pneumonia. Plan . Updated 03/04 Remains critically ill. Currently now in ICU. Continue Vapotherm and BiPAP, 100% FiO2. Steroids Repeat chest x-ray 03/03/2021 reviewed. Bilateral diffuse interstitial infiltrate DVT prophylaxis Discussed with RN, Updated 03/03 Patient clinical status worsen will transfer to ICU Continue Vapotherm and BiPAP Steroids Repeat chest x-ray DVT prophylaxis Discussed with RN, in ICU FRANCES CONDE MD Mar 04, 2021 11:54
[2021-03-04] MEDS: ENOXAPARIN 40 MG/0.4 ML SYRINGE. SQ SCH (20:40)
[2021-03-04] MEDS: DOXYCYCLINE HYCLATE 100 MG in IV DEXTROSE 5% 100ML 100 ML IV SCH (20:40)
[2021-03-04] MEDS: cefTRIAXone IV Push 1 GM VIAL. IVP SCH (20:41)
[2021-03-05] VITALS (23 sets, daily range): BP systolic 80–116; BP diastolic 53–85
[2021-03-05] MEDS: STERILE WATER for RESP 2,000 ML BAG. INH PRN (00:39)
[2021-03-05] MEDS: DEXMEDETOMIDINE 400 MCG in IV NORMAL SALINE 100ML 96 ML IV PRN ×3 (01:33→20:05)
[2021-03-05] MEDS: NYSTATIN 100,000 UNITS/ML 5 ML ORAL.SUSP. SWSW SCH ×4 (07:37→21:23)
[2021-03-05] MEDS: MULTIVITAMIN with MINERAL TABLET. PO SCH (07:37)
[2021-03-05] MEDS: LACTOBACILLUS RHAMNOSUS GG 1 CAPSULE. PO SCH ×2 (07:37→21:23)
[2021-03-05] MEDS: ASPIRIN CHEWABLE 81 MG TABLET. PO SCH (07:38)
[2021-03-05] MEDS: methylPREDNISolone SOD SUCC PF 40 MG/ML VIAL. IV SCH ×2 (07:38→21:23)
[2021-03-05] MEDS: DOXYCYCLINE HYCLATE 100 MG in IV DEXTROSE 5% 100ML 100 ML IV SCH ×2 (07:39→21:24)
[2021-03-05] MEDS: INSULIN LISPRO 300 UNITS/3 ML VIAL. SQ SCH ×3 (08:00→15:34)
--- NOTE | 2021-03-05 10:11 | NUR ---
Allergies and reactions nkda INR 1.0 BUN 26 Cr 0.7 Platelets 335 Blood culture done 02-21-21 blood culture results no growth Order Verified yes Consent signed yes Previous PICC placement no Past Medical/Surgical history and current diagnosis reviewed yes Patient Medical /Surgical History Related to PICC line placement Diabetes Problems breathing lying flat Special considerations for PICC line placement Infections PICC placement indication Caustic medication class drug usage, care home antibiotic usage, Multiple/ Frequent blood draws, Poor peripheral intravenous access Aniya Willsno RN PICC Nurse Addendum: 03/05/21 at 1017 by ANIYA WILLSON RN Amended: Links added.
--- NOTE | 2021-03-05 10:15 | NUR ---
Procedure: Following complete explanation of the PICC procedure including the indications, risks, and potential complications, informed consent was obtained. The possibility for infection was discussed along with signs, symptoms, and prevention. All the questions were answered.yes Written and verbal patient education was provided. yes Hand hygiene performed. yes Standardized central line checklist was utilized. yes The patient was placed in the supine position, the arm was prepped with chlorhexidine and patient draped with maximum sterile barrier. 3 mL 1% lidocaine was infiltrated into the skin to provide local anesthesia. A thorough assessment of right upper extremity completed. Using real-time ultrasound guidance and standardized micro puncture set, the Basilic vein was punctured and a peel away sheath was placed using the modified Seldinger technique. A tip location device was used to ensure adequate catheter placement. The catheter was secured using a securement device and an antimicrobial patch was applied directly on the insertion site followed by a transparent dressing. All ports withdraw blood and flush without resistance. Patient tolerated the procedure without apparent complication(s). triple Lumen Power PICC placement successful and uncomplicated. Placement verified by EKG tip confirmation system and/or chest x-ray. Tip located in the CAJ Complications:none Addendum: 03/05/21 at 1017 by JAMEE MALDONADO RN Amended: Links added.
--- NOTE | 2021-03-05 10:51 | PDOC ---
PULMONARY PROGRESS NOTES DATE: 03/05/21 TIME: 10:49 Subjective Patient remains on 100% FiO2 via Vapotherm and BiPAP at 100% FiO2 as well. Patient appears to be comfortable. Vitals Vital Signs Date Time Temp Pulse Resp B/P (MAP) Pulse Ox O2 Delivery O2 Flow Rate FiO2 03/05/21 10:00 67 18 111/74 93 BiPAP/CPAP 40.0 03/05/21 08:00 97.3 97.3 General: Alert, No acute distress Lungs: Crackles Cardiovascular: S1, S2 Abdomen: Soft Neuro Exam: Alert Extremities: No Edema Skin: Warm Labs Laboratory Tests Test 03/03/21 11:01 03/03/21 18:25 03/04/21 09:03 03/04/21 10:30 Glucose (Fingerstick) 177 mg/dL (70-99) 168 mg/dL (70-99) 178 mg/dL (70-99) White Blood Count 12.9 x10^3/uL (4.0-11.0) Red Blood Count 4.71 x10^6/uL (4.30-5.70) Hemoglobin 14.2 g/dL (13.0-17.5) Hematocrit 43.1 % (39.0-53.0) Mean Corpuscular Volume 92 fL (79-100) Mean Corpuscular Hemoglobin 30 pg (25-35) Mean Corpuscular Hemoglobin Concent 33 g/dL (31-37) Red Cell Distribution Width 13.9 % (11.5-14.5) Platelet Count 335 x10^3/uL (140-400) Neutrophils (%) (Auto) 87 % (31-73) Lymphocytes (%) (Auto) 7 % (24-48) Monocytes (%) (Auto) 6 % (0-9) Eosinophils (%) (Auto) 1 % (0-3) Basophils (%) (Auto) 0 % (0-3) Neutrophils # (Auto) 11.2 x10^3/uL (1.8-7.7) Lymphocytes # (Auto) 0.9 x10^3/uL (1.0-4.8) Monocytes # (Auto) 0.7 x10^3/uL (0.0-1.1) Eosinophils # (Auto) 0.1 x10^3/uL (0.0-0.7) Basophils # (Auto) 0.0 x10^3/uL (0.0-0.2) Sodium Level 136 mmol/L (136-145) Potassium Level 4.8 mmol/L (3.5-5.1) Chloride Level 101 mmol/L (98-107) Carbon Dioxide Level 24 mmol/L (21-32) Anion Gap 11 (6-14) Blood Urea Nitrogen 26 mg/dL (8-26) Creatinine 0.7 mg/dL (0.7-1.3) Estimated GFR (Cockcroft-Gault) 120.9 BUN/Creatinine Ratio 37 (6-20) Glucose Level 165 mg/dL (70-99) Calcium Level 8.1 mg/dL (8.5-10.1) Total Bilirubin 0.5 mg/dL (0.2-1.0) Aspartate Amino Transf (AST/SGOT) 16 U/L (15-37) Alanine Aminotransferase (ALT/SGPT) 36 U/L (16-63) Alkaline Phosphatase 103 U/L (46-116) Total Protein 6.2 g/dL (6.4-8.2) Albumin 1.8 g/dL (3.4-5.0) Albumin/Globulin Ratio 0.4 (1.0-1.7) Test 03/04/21 12:57 03/04/21 16:54 03/05/21 08:13 Glucose (Fingerstick) 147 mg/dL (70-99) 263 mg/dL (70-99) 130 mg/dL (70-99) Laboratory Tests Test 03/04/21 12:57 03/04/21 16:54 03/05/21 08:13 Glucose (Fingerstick) 147 mg/dL (70-99) 263 mg/dL (70-99) 130 mg/dL (70-99) Medications Active Scripts Medications Dose Route/Sig Max Daily Dose Days Date Category [no home meds] 02/21/21 Reported Impression . IMPRESSION: 1. Acute on chronic hypoxemic respiratory failure. 2. COVID-19 viral pneumonia/acute respiratory distress syndrome. 3. Abnormal x-ray. 4. Possible bacterial pneumonia. Plan . Updated 03/05 Remains critically ill. Continue Vapotherm and BiPAP, 100% FiO2. Steroids Repeat chest x-ray 03/03/2021 reviewed. Bilateral diffuse interstitial infiltrate DVT prophylaxis Discussed with RN, Continue aggressive supportive care. Patient is full code. Updated 03/04 Remains critically ill. Currently now in ICU. Continue Vapotherm and BiPAP, 100% FiO2. Steroids Repeat chest x-ray 03/03/2021 reviewed. Bilateral diffuse interstitial infiltrate DVT prophylaxis Discussed with RN, FRANCES CONDE MD Mar 05, 2021 10:51
--- NOTE | 2021-03-05 14:06 | PDOC ---
[facility] PROGRESS NOTE Date of Service DOS: DATE: 03/05/21 TIME: 14:04 Chief Complaint Chief Complaint Acute hypoxic respiratory failure secondary to Covid pneumonia History of diabetes mellitus type 2 COVID-19 acute respiratory distress syndrome. Possible bacterial pneumonia - likely gram negative FEN - NPO PPX - lovenox FULL CODE Dispo - ICU, overall poor prognosis History of Present Illness History of Present Illness 03/05: In ICU. PICC placed. Requiring BiPAP 18/8 with supplemental Vapotherm 40 L/min 100% FiO2 significant saturations with removal of BiPAP unable to take p.o. CC time 31-minute start TPN tonight 03/04: Transfer to ICU overnight for worsening hypoxia. On BiPAP 18/8 with supplemental Vapotherm 40 L/min 100% FiO2. Significant desaturation with attempted to eat and drink. cc time 32 min 03/03/21 No acute events overnight. Saturating 89-90% on Vapotherm and NRB 15L. Not dyspneic but doesnt feel better. Will DC chavez today and today will be his last day of steroids. Encouraged patient to get OOBTC ad pierre. 03/02/2021 No acute events overnight. Patient seen and examined bedside. Increased work of breathing. But still saturating 90% on 40 L Vapotherm. Patient's chart, labs, images were reviewed and discussed with RN 02/28/2021 Patient seen and examined bedside. Still on Vapotherm 40 L and saturating 96%. Not more short of breath than usual. Feels actually better today. Speaking full sentences. Given nystatin due to some white buildup in the oral cavity. Likely due to steroids. Patient's chart, labs, images were reviewed and discussed with RN 02/27/21 Pt seen and examined bedside. Saturating 86% on Vapotherm and required BiPAP overnight. Pulmonology consulted and to continue with current management for COVID. Pending ICU transfer when possible 02/26/2021 Patient seen and examined bedside. Saturating 89% on Vapotherm and 15 L nonrebreather. Continue with IV steroids and IV antibiotics. Patient's chart, labs, images were reviewed and discussed with RN 02/25/2021 No acute events overnight. Patient seen examined bedside. Patient saturating 91% on 4 L Vapotherm. Continue with IV steroids and IV antibiotics. Patient's chart, labs, images were reviewed and discussed with RN 02/24/21 No acute events overnight. Patient seen examined bedside. Patient saturating 93 to 95% on Vapotherm at 40 L. Not dyspneic at this time. Patient's chart, labs, images were reviewed and discussed with RN 02/23/2021 Patient seen and examined He is still on Vapotherm 40 L and 100% nonrebreather His third Covid test finally came back positive I spoke with pharmacy he is still not a candidate for remdesivir because he has had the disease for more than 10 days I do have him on full Covid protocol other than remdesivir Chart reviewed Discussed with RN 02/22/2021 Patient seen and examined He is on Vapotherm 40 L with 100% FiO2 plus nonrebreather Discussed with RN Chart reviewed His Covid testing by PCR is surprisingly negative Vitals/I&O Vitals/I&O: Vital Signs Date Time Temp Pulse Resp B/P (MAP) Pulse Ox O2 Delivery O2 Flow Rate FiO2 03/05/21 13:50 95 VAPOTHERM 40.0 03/05/21 13:00 75 29 116/84 03/05/21 12:00 97.6 97.6 I & O 03/04/21 03/04/21 03/05/21 15:00 23:00 07:00 Intake Total 943 ml 200 ml Output Total 300 ml 300 ml 500 ml Balance -300 ml 643 ml -300 ml Physical Exam General: Alert, Oriented X3, Cooperative Heart: Regular rate Lungs: Crackles Abdomen: Normal bowel sounds Extremities: No clubbing Skin: No rashes Labs Labs: Laboratory Tests Test 03/04/21 16:54 03/05/21 08:13 03/05/21 11:44 Glucose (Fingerstick) 263 mg/dL (70-99) 130 mg/dL (70-99) 153 mg/dL (70-99) Assessment and Plan Assessmemt and Plan Problems Medical Problems: (1) Acute respiratory failure with hypoxia Status: Acute (2) Sepsis due to pneumonia Status: Acute Comment Review of Relevant I have reviewed the following items elmer (where applicable) has been applied. Medications: Current Medications Medications (Trade) Dose Ordered Sig/Kalina Route PRN Reason Start Time Stop Time Status Last Admin Dose Admin Insulin Glargine (Lantus Syringe) 8 unit QHS SQ 03/04/21 21:00 03/04/21 20:51 Doxycycline Hyclate 100 mg/ Dextrose 100 ml @ 50 mls/hr Q12HR IV 03/04/21 21:00 03/07/21 22:59 03/05/21 07:39 Justifications for Admission Other Justification WALDO CHAIDEZ MD Mar 05, 2021 14:06
[2021-03-05] MEDS: TPN PER PHARMACY MC PRN (14:19)
[2021-03-05 15:18] LABS: PHOSPHORUS 3.4 mg/dL (2.6-4.7)
--- NOTE | 2021-03-05 16:21 | NUR ---
SS following up with discharge planning. SS reviewed pt chart and discussed with pt RN. Pt is currently on Vapotherm and BIPAP at 100%. COVID19 positive. Pt on Precedex. Pt on TPN, IV Doxycycline, IV Solu-Medrol, and IV Rocephin. Self pay. Med Assist following. Not stable. SS will continue to follow for discharge planning.
[2021-03-05] MEDS: cefTRIAXone IV Push 1 GM VIAL. IVP SCH (20:09)
[2021-03-05] MEDS: ENOXAPARIN 40 MG/0.4 ML SYRINGE. SQ SCH (20:10)
[2021-03-05] MEDS: INSULIN GLARGINE SYRINGE. SQ SCH (21:46)
[2021-03-05] MEDS ORDERED: [UNRECOGNIZED DRUG - OTHER] IV SCH (22:00)
[2021-03-05] MEDS ORDERED: AMINO ACID IV SCH (22:00)
[2021-03-05] MEDS ORDERED: DEXTROSE 70% IV SCH (22:00)
[2021-03-05] MEDS ORDERED: TOTAL PARENTERAL NUTRITION IV SCH (22:00)
[2021-03-06] VITALS (25 sets, daily range): BP systolic 95–166; BP diastolic 74–111
[2021-03-06] MEDS: DEXMEDETOMIDINE 400 MCG in IV NORMAL SALINE 100ML 96 ML IV PRN ×3 (06:25→22:14)
--- NOTE | 2021-03-06 06:25 | RAD ---
EXAM: AP View of the chest DATE: 03/06/2021 4:57 AM INDICATION: Reason: COVID, PICC placed 106 / Spl. Instructions: / History: COMPARISON: 03/03/2021 FINDINGS/ IMPRESSION: Right upper extremity PICC tip projects over the right atrium. Cardiomediastinal silhouette is stable . Bilateral parenchymal airspace opacities and trace pleural effusions are stable. No pneumothorax. Electronically signed by: Rey Yi MD (03/06/2021 6:23 AM) DELTA
[2021-03-06 06:46] LABS: BASO # 0.1 x10^3/uL (0.0-0.2); BASO % 1 % (0-3); EOS % 0 % (0-3); HEMATOCRIT 41.6 % (39.0-53.0); HEMOGLOBIN 13.9 g/dL (13.0-17.5); LYMPH # 0.7 x10^3/uL (1.0-4.8); LYMPH % 6 % (24-48); MEAN CORPUSCULAR HEMOGLOBIN 31 pg (25-35); MEAN CORPUSCULAR HGB CONC 33 g/dL (31-37); MEAN CORPUSCULAR VOLUME 93 fL (79-100); MONO # 0.5 x10^3/uL (0.0-1.1); MONO % 5 % (0-9); NEUT # 10.8 x10^3/uL (1.8-7.7); NEUT % 89 % (31-73); PLATELET COUNT 245 x10^3/uL (140-400); RED BLOOD COUNT 4.49 x10^6/uL (4.30-5.70); RED CELL DISTRIBUTION WIDTH 13.6 % (11.5-14.5); WHITE BLOOD COUNT 12.2 x10^3/uL (4.0-11.0)
[2021-03-06 07:10] LABS: ALBUMIN 1.5 g/dL (3.4-5.0); ALBUMIN/GLOBULIN RATIO 0.4 (1.0-1.7); CALCIUM 7.4 mg/dL (8.5-10.1); CREATININE 0.6 mg/dL (0.7-1.3); GFR 144.4; MAGNESIUM 2.1 mg/dL (1.8-2.4); PHOSPHORUS 3.3 mg/dL (2.6-4.7); POTASSIUM 4.6 mmol/L (3.5-5.1); TOTAL BILIRUBIN 0.4 mg/dL (0.2-1.0); TOTAL PROTEIN 5.7 g/dL (6.4-8.2)
[2021-03-06] MEDS: NYSTATIN 100,000 UNITS/ML 5 ML ORAL.SUSP. SWSW SCH ×4 (09:20→20:24)
[2021-03-06] MEDS: LACTOBACILLUS RHAMNOSUS GG 1 CAPSULE. PO SCH ×2 (09:20→20:25)
[2021-03-06] MEDS: MULTIVITAMIN with MINERAL TABLET. PO SCH (09:20)
[2021-03-06] MEDS: methylPREDNISolone SOD SUCC PF 40 MG/ML VIAL. IV SCH ×2 (09:20→20:24)
[2021-03-06] MEDS: ASPIRIN CHEWABLE 81 MG TABLET. PO SCH (09:20)
[2021-03-06] MEDS: INSULIN LISPRO 300 UNITS/3 ML VIAL. SQ SCH ×3 (09:42→18:09)
[2021-03-06] MEDS: TPN PER PHARMACY MC PRN (10:20)
--- NOTE | 2021-03-06 10:25 | NUR ---
Pharmacy TPN Dosing Note S: ROWDY LOVE is a 46 year old M Currently receiving Central Continuous TPN started 03/05/21 B:Pertinent PMH: Poor PO intake Height: 5 feet, 5 inches Weight: 74.1 kg Current diet: regular LABS: Sodium: 134 Potassium: 4.6 Chloride: 103 Calcium: 7.4 Corrected Calcium: 9.40 Magnesium: 2.1 CO2: 24 SCr: 0.6 Glucose: 133-239 Albumin: 1.5 AST: 19 ALT: 28 TPN FORMULA: TPN TYPE: Central Continuous AMINO ACIDS: 75 gm DEXTROSE: 210 gm LIPIDS: 30 gm(MWF) SODIUM CHLORIDE: 90 mEq POTASSIUM CHLORIDE: 50 mEq POTASSIUM PHOSPHATE: 13.6 mmol MAGNESIUM: 10 mEq CALCIUM: 10 mEq MULTIPLE VITAMIN: 10 ml TRACE ELEMENTS: 1 ml(s) TPN PLAN: Continue same; lipids removed to follow MWF schedule R: Continue TPN Will monitor electrolytes, glucose, and tolerance to TPN. Tanya Campbell RPH, 03/06/21 [id number]
[2021-03-06] MEDS: DOXYCYCLINE HYCLATE 100 MG in IV DEXTROSE 5% 100ML 100 ML IV SCH ×2 (10:47→20:24)
--- NOTE | 2021-03-06 11:13 | PDOC ---
[facility] PROGRESS NOTE Date of Service DOS: DATE: 03/06/21 TIME: 11:04 Chief Complaint Chief Complaint Acute hypoxic respiratory failure secondary to Covid pneumonia History of diabetes mellitus type 2 COVID-19 acute respiratory distress syndrome. Possible bacterial pneumonia - likely gram negative FEN - NPO PPX - lovenox FULL CODE Dispo - ICU, overall poor prognosis History of Present Illness History of Present Illness 03/06: Chest radiograph unchanged taking good position, WBC 12.2 glucose in 200s. Tolerating TPN well. O2 saturations 92% on BiPAP 18/8 with supplemental Vapotherm 40 L/min 100% FiO2. CC time 33 minutes 03/05: In ICU. PICC placed. Requiring BiPAP 18/8 with supplemental Vapotherm 40 L/min 100% FiO2 significant saturations with removal of BiPAP unable to take p.o. CC time 31-minute start TPN tonight 03/04: Transfer to ICU overnight for worsening hypoxia. On BiPAP 18/8 with supple mental Vapotherm 40 L/min 100% FiO2. Significant desaturation with attempted to eat and drink. cc time 32 min 03/03: No acute events overnight. Saturating 89-90% on Vapotherm and NRB 15L. Not dyspneic but doesnt feel better. Will DC chavez today and today will be his last day of steroids. Encouraged patient to get OOBTC ad pierre. 03/02: No acute events overnight. Patient seen and examined bedside. Increased work of breathing. But still saturating 90% on 40 L Vapotherm. Patient's chart, labs, images were reviewed and discussed with RN 02/28: Patient seen and examined bedside. Still on Vapotherm 40 L and saturating 96%. Not more short of breath than usual. Feels actually better today. Speaking full sentences. Given nystatin due to some white buildup in the oral cavity. Likely due to steroids. 02/27: Pt seen and examined bedside. Saturating 86% on Vapotherm and required BiPAP overnight. Pulmonology consulted and to continue with current management for COVID. Pending ICU transfer when possible 02/26: Patient seen and examined bedside. Saturating 89% on Vapotherm and 15 L nonrebreather. Continue with IV steroids and IV antibiotics. Patient's chart, labs, images were reviewed and discussed with RN 02/25: No acute events overnight. Patient seen examined bedside. Patient saturating 91% on 4 L Vapotherm. Continue with IV steroids and IV antibiotics. Patient's chart, labs, images were reviewed and discussed with RN 02/24: No acute events overnight. Patient seen examined bedside. Patient saturating 93 to 95% on Vapotherm at 40 L. Not dyspneic at this time. Patient's chart, labs, images were reviewed and discussed with RN 02/23: Patient seen and examined. He is still on Vapotherm 40 L and 100% nonrebreather. His third Covid test finally came back positive. I spoke with pharmacy he is still not a candidate for remdesivir because he has had the disease for more than 10 days 02/22: Patient seen and examined. He is on Vapotherm 40 L with 100% FiO2 plus nonrebreather. His Covid testing by PCR is surprisingly negative Vitals/I&O Vitals/I&O: Vital Signs Date Time Temp Pulse Resp B/P (MAP) Pulse Ox O2 Delivery O2 Flow Rate FiO2 03/06/21 09:22 89 VAPOTHERM 40.0 03/06/21 06:00 58 23 101/75 03/06/21 03:00 94.4 94.4 I & O 03/05/21 03/05/21 03/06/21 15:00 23:00 07:00 Intake Total 150 ml 540 ml 639 ml Output Total 150 ml 300 ml 850 ml Balance 0 ml 240 ml -211 ml Physical Exam General: Alert, Oriented X3, Cooperative Heart: Regular rate Lungs: Crackles Abdomen: Normal bowel sounds Extremities: No clubbing Skin: No rashes Labs Labs: Laboratory Tests Test 03/05/21 11:44 03/05/21 14:40 03/05/21 15:34 03/05/21 21:36 Glucose (Fingerstick) 153 mg/dL (70-99) 144 mg/dL (70-99) 133 mg/dL (70-99) Phosphorus Level 3.4 mg/dL (2.6-4.7) Magnesium Level 2.0 mg/dL (1.8-2.4) Test 03/06/21 06:30 03/06/21 09:24 White Blood Count 12.2 x10^3/uL (4.0-11.0) Red Blood Count 4.49 x10^6/uL (4.30-5.70) Hemoglobin 13.9 g/dL (13.0-17.5) Hematocrit 41.6 % (39.0-53.0) Mean Corpuscular Volume 93 fL (79-100) Mean Corpuscular Hemoglobin 31 pg (25-35) Mean Corpuscular Hemoglobin Concent 33 g/dL (31-37) Red Cell Distribution Width 13.6 % (11.5-14.5) Platelet Count 245 x10^3/uL (140-400) Neutrophils (%) (Auto) 89 % (31-73) Lymphocytes (%) (Auto) 6 % (24-48) Monocytes (%) (Auto) 5 % (0-9) Eosinophils (%) (Auto) 0 % (0-3) Basophils (%) (Auto) 1 % (0-3) Neutrophils # (Auto) 10.8 x10^3/uL (1.8-7.7) Lymphocytes # (Auto) 0.7 x10^3/uL (1.0-4.8) Monocytes # (Auto) 0.5 x10^3/uL (0.0-1.1) Eosinophils # (Auto) 0.0 x10^3/uL (0.0-0.7) Basophils # (Auto) 0.1 x10^3/uL (0.0-0.2) Sodium Level 134 mmol/L (136-145) Potassium Level 4.6 mmol/L (3.5-5.1) Chloride Level 103 mmol/L (98-107) Carbon Dioxide Level 24 mmol/L (21-32) Anion Gap 7 (6-14) Blood Urea Nitrogen 22 mg/dL (8-26) Creatinine 0.6 mg/dL (0.7-1.3) Estimated GFR (Cockcroft-Gault) 144.4 BUN/Creatinine Ratio 37 (6-20) Glucose Level 223 mg/dL (70-99) Calcium Level 7.4 mg/dL (8.5-10.1) Phosphorus Level 3.3 mg/dL (2.6-4.7) Magnesium Level 2.1 mg/dL (1.8-2.4) Total Bilirubin 0.4 mg/dL (0.2-1.0) Aspartate Amino Transf (AST/SGOT) 19 U/L (15-37) Alanine Aminotransferase (ALT/SGPT) 28 U/L (16-63) Alkaline Phosphatase 99 U/L (46-116) Total Protein 5.7 g/dL (6.4-8.2) Albumin 1.5 g/dL (3.4-5.0) Albumin/Globulin Ratio 0.4 (1.0-1.7) Triglycerides Level 198 mg/dL (0-150) Glucose (Fingerstick) 239 mg/dL (70-99) Assessment and Plan Assessmemt and Plan Problems Medical Problems: (1) Acute respiratory failure with hypoxia Status: Acute (2) Sepsis due to pneumonia Status: Acute Comment Review of Relevant I have reviewed the following items elmer (where applicable) has been applied. Medications: Current Medications Medications (Trade) Dose Ordered Sig/Kalina Route PRN Reason Start Time Stop Time Status Last Admin Dose Admin Info (Tpn Per Pharmacy) 1 each PRN DAILY PRN MC SEE COMMENTS 03/05/21 14:00 03/06/21 10:20 Sodium Chloride 90 meq/Potassium Chloride 50 meq/ Potassium Phosphate 13.6 mmol/Magnesium Sulfate 10 meq/ Calcium Gluconate 10 meq/ Multivitamins 10 ml/Zinc/Copper/ Manganese/ Selenium 1 ml/ Total Parenteral Nutrition/Amino Acids/Dextrose/ Fat Emulsion Intravenous 1,512 ml @ 63 mls/hr TPN CONT IV 03/05/21 22:00 03/06/21 21:59 03/05/21 21:35 Justifications for Admission Other Justification WALDO CHAIDEZ MD Mar 06, 2021 11:13
--- NOTE | 2021-03-06 11:27 | PDOC ---
PULMONARY PROGRESS NOTES DATE: 03/06/21 TIME: 11:27 Subjective Patient remains on 100% FiO2 via Vapotherm and BiPAP at 100% FiO2 as well. Patient appears to be comfortable. Vitals Vital Signs Date Time Temp Pulse Resp B/P (MAP) Pulse Ox O2 Delivery O2 Flow Rate FiO2 03/06/21 09:22 89 VAPOTHERM 40.0 03/06/21 06:00 58 23 101/75 03/06/21 03:00 94.4 94.4 General: Alert, No acute distress Lungs: Crackles Cardiovascular: S1, S2 Abdomen: Soft Neuro Exam: Alert Extremities: No Edema Skin: Warm Labs Laboratory Tests Test 03/04/21 12:57 03/04/21 16:54 03/05/21 08:13 03/05/21 11:44 Glucose (Fingerstick) 147 mg/dL (70-99) 263 mg/dL (70-99) 130 mg/dL (70-99) 153 mg/dL (70-99) Test 03/05/21 14:40 03/05/21 15:34 03/05/21 21:36 03/06/21 06:30 Phosphorus Level 3.4 mg/dL (2.6-4.7) 3.3 mg/dL (2.6-4.7) Magnesium Level 2.0 mg/dL (1.8-2.4) 2.1 mg/dL (1.8-2.4) Glucose (Fingerstick) 144 mg/dL (70-99) 133 mg/dL (70-99) White Blood Count 12.2 x10^3/uL (4.0-11.0) Red Blood Count 4.49 x10^6/uL (4.30-5.70) Hemoglobin 13.9 g/dL (13.0-17.5) Hematocrit 41.6 % (39.0-53.0) Mean Corpuscular Volume 93 fL (79-100) Mean Corpuscular Hemoglobin 31 pg (25-35) Mean Corpuscular Hemoglobin Concent 33 g/dL (31-37) Red Cell Distribution Width 13.6 % (11.5-14.5) Platelet Count 245 x10^3/uL (140-400) Neutrophils (%) (Auto) 89 % (31-73) Lymphocytes (%) (Auto) 6 % (24-48) Monocytes (%) (Auto) 5 % (0-9) Eosinophils (%) (Auto) 0 % (0-3) Basophils (%) (Auto) 1 % (0-3) Neutrophils # (Auto) 10.8 x10^3/uL (1.8-7.7) Lymphocytes # (Auto) 0.7 x10^3/uL (1.0-4.8) Monocytes # (Auto) 0.5 x10^3/uL (0.0-1.1) Eosinophils # (Auto) 0.0 x10^3/uL (0.0-0.7) Basophils # (Auto) 0.1 x10^3/uL (0.0-0.2) Sodium Level 134 mmol/L (136-145) Potassium Level 4.6 mmol/L (3.5-5.1) Chloride Level 103 mmol/L (98-107) Carbon Dioxide Level 24 mmol/L (21-32) Anion Gap 7 (6-14) Blood Urea Nitrogen 22 mg/dL (8-26) Creatinine 0.6 mg/dL (0.7-1.3) Estimated GFR (Cockcroft-Gault) 144.4 BUN/Creatinine Ratio 37 (6-20) Glucose Level 223 mg/dL (70-99) Calcium Level 7.4 mg/dL (8.5-10.1) Total Bilirubin 0.4 mg/dL (0.2-1.0) Aspartate Amino Transf (AST/SGOT) 19 U/L (15-37) Alanine Aminotransferase (ALT/SGPT) 28 U/L (16-63) Alkaline Phosphatase 99 U/L (46-116) Total Protein 5.7 g/dL (6.4-8.2) Albumin 1.5 g/dL (3.4-5.0) Albumin/Globulin Ratio 0.4 (1.0-1.7) Triglycerides Level 198 mg/dL (0-150) Test 03/06/21 09:24 Glucose (Fingerstick) 239 mg/dL (70-99) Laboratory Tests Test 03/05/21 11:44 03/05/21 14:40 03/05/21 15:34 03/05/21 21:36 Glucose (Fingerstick) 153 mg/dL (70-99) 144 mg/dL (70-99) 133 mg/dL (70-99) Phosphorus Level 3.4 mg/dL (2.6-4.7) Magnesium Level 2.0 mg/dL (1.8-2.4) Test 03/06/21 06:30 03/06/21 09:24 White Blood Count 12.2 x10^3/uL (4.0-11.0) Red Blood Count 4.49 x10^6/uL (4.30-5.70) Hemoglobin 13.9 g/dL (13.0-17.5) Hematocrit 41.6 % (39.0-53.0) Mean Corpuscular Volume 93 fL (79-100) Mean Corpuscular Hemoglobin 31 pg (25-35) Mean Corpuscular Hemoglobin Concent 33 g/dL (31-37) Red Cell Distribution Width 13.6 % (11.5-14.5) Platelet Count 245 x10^3/uL (140-400) Neutrophils (%) (Auto) 89 % (31-73) Lymphocytes (%) (Auto) 6 % (24-48) Monocytes (%) (Auto) 5 % (0-9) Eosinophils (%) (Auto) 0 % (0-3) Basophils (%) (Auto) 1 % (0-3) Neutrophils # (Auto) 10.8 x10^3/uL (1.8-7.7) Lymphocytes # (Auto) 0.7 x10^3/uL (1.0-4.8) Monocytes # (Auto) 0.5 x10^3/uL (0.0-1.1) Eosinophils # (Auto) 0.0 x10^3/uL (0.0-0.7) Basophils # (Auto) 0.1 x10^3/uL (0.0-0.2) Sodium Level 134 mmol/L (136-145) Potassium Level 4.6 mmol/L (3.5-5.1) Chloride Level 103 mmol/L (98-107) Carbon Dioxide Level 24 mmol/L (21-32) Anion Gap 7 (6-14) Blood Urea Nitrogen 22 mg/dL (8-26) Creatinine 0.6 mg/dL (0.7-1.3) Estimated GFR (Cockcroft-Gault) 144.4 BUN/Creatinine Ratio 37 (6-20) Glucose Level 223 mg/dL (70-99) Calcium Level 7.4 mg/dL (8.5-10.1) Phosphorus Level 3.3 mg/dL (2.6-4.7) Magnesium Level 2.1 mg/dL (1.8-2.4) Total Bilirubin 0.4 mg/dL (0.2-1.0) Aspartate Amino Transf (AST/SGOT) 19 U/L (15-37) Alanine Aminotransferase (ALT/SGPT) 28 U/L (16-63) Alkaline Phosphatase 99 U/L (46-116) Total Protein 5.7 g/dL (6.4-8.2) Albumin 1.5 g/dL (3.4-5.0) Albumin/Globulin Ratio 0.4 (1.0-1.7) Triglycerides Level 198 mg/dL (0-150) Glucose (Fingerstick) 239 mg/dL (70-99) Medications Active Scripts Medications Dose Route/Sig Max Daily Dose Days Date Category [no home meds] 02/21/21 Reported Impression . IMPRESSION: 1. Acute on chronic hypoxemic respiratory failure. 2. COVID-19 viral pneumonia/acute respiratory distress syndrome. 3. Abnormal x-ray. 4. Possible bacterial pneumonia. Plan . Updated 03/06 Remains critically ill. Continue Vapotherm and BiPAP, 100% FiO2. Steroids Repeat chest x-ray 03/03/2021 reviewed. Bilateral diffuse interstitial infiltrate DVT prophylaxis Discussed with RN, Continue aggressive supportive care. Patient is full code. Updated 03/05 Remains critically ill. Continue Vapotherm and BiPAP, 100% FiO2. Steroids Repeat chest x-ray 03/03/2021 reviewed. Bilateral diffuse interstitial infiltrate DVT prophylaxis Discussed with RN, Continue aggressive supportive care. Patient is full code. FRANCES CONDE MD Mar 06, 2021 11:27
[2021-03-06] MEDS: STERILE WATER for RESP 2,000 ML BAG. INH PRN (16:04)
[2021-03-06] MEDS: ENOXAPARIN 40 MG/0.4 ML SYRINGE. SQ SCH (20:23)
[2021-03-06] MEDS: cefTRIAXone IV Push 1 GM VIAL. IVP SCH (20:23)
[2021-03-06] MEDS: INSULIN GLARGINE SYRINGE. SQ SCH (20:25)
[2021-03-06] MEDS ORDERED: DEXTROSE 70% IV SCH (22:00)
[2021-03-06] MEDS ORDERED: AMINO ACID IV SCH (22:00)
[2021-03-06] MEDS ORDERED: TOTAL PARENTERAL NUTRITION IV SCH (22:00)
[2021-03-06] MEDS ORDERED: [UNRECOGNIZED DRUG - OTHER] IV SCH (22:00)
[2021-03-07] VITALS (24 sets, daily range): BP systolic 99–140; BP diastolic 75–95
[2021-03-07] MEDS: INSULIN LISPRO 300 UNITS/3 ML VIAL. SQ SCH ×4 (00:17→18:12)
[2021-03-07 05:52] LABS: ALBUMIN 1.7 g/dL (3.4-5.0); ALBUMIN/GLOBULIN RATIO 0.4 (1.0-1.7); CREATININE 0.6 mg/dL (0.7-1.3); GFR 144.4; POTASSIUM 4.6 mmol/L (3.5-5.1); TOTAL BILIRUBIN 0.3 mg/dL (0.2-1.0); TOTAL PROTEIN 6.2 g/dL (6.4-8.2)
[2021-03-07 05:57] LABS: MAGNESIUM 2.2 mg/dL (1.8-2.4)
[2021-03-07] MEDS: TPN PER PHARMACY MC PRN (08:42)
--- NOTE | 2021-03-07 08:46 | NUR ---
Pharmacy TPN Dosing Note S: ROWDY LOVE is a 46 year old M Currently receiving Central Continuous TPN started 03/05/21 B:Pertinent PMH: Poor PO intake Height: 5 feet, 5 inches Weight: 74.1 kg Current diet: regular LABS: Sodium: 135 Potassium: 4.6 Chloride: 103 Calcium: 8.0 Corrected Calcium: 9.84 Magnesium: 2.2 CO2: 24 SCr: 0.6 Glucose: 188-239 Albumin: 1.7 AST: 17 ALT: 27 TPN FORMULA: TPN TYPE: Central Continuous AMINO ACIDS: 75 gm DEXTROSE: 210 gm LIPIDS: 30 gm(MWF) SODIUM CHLORIDE: 90 mEq POTASSIUM CHLORIDE: 50 mEq POTASSIUM PHOSPHATE: 13.6 mmol MAGNESIUM: 10 mEq CALCIUM: 10 mEq MULTIPLE VITAMIN: 10 ml TRACE ELEMENTS: 1 ml ml(s) TPN PLAN: Lipids added per MWF schedule, rest same. R: Continue TPN per plan and ordered formula Will monitor electrolytes, glucose, and tolerance to TPN. Tanya Campbell RPH, 03/07/21 [id number]
[2021-03-07] MEDS: DEXMEDETOMIDINE 400 MCG in IV NORMAL SALINE 100ML 96 ML IV PRN ×2 (08:48→17:42)
[2021-03-07] MEDS: methylPREDNISolone SOD SUCC PF 40 MG/ML VIAL. IV SCH ×2 (09:57→20:50)
[2021-03-07] MEDS: NYSTATIN 100,000 UNITS/ML 5 ML ORAL.SUSP. SWSW SCH ×4 (09:57→20:49)
[2021-03-07] MEDS: LACTOBACILLUS RHAMNOSUS GG 1 CAPSULE. PO SCH (09:57)
[2021-03-07] MEDS: DOXYCYCLINE HYCLATE 100 MG in IV DEXTROSE 5% 100ML 100 ML IV SCH ×2 (09:57→21:00)
[2021-03-07] MEDS: ASPIRIN CHEWABLE 81 MG TABLET. PO SCH (09:57)
--- NOTE | 2021-03-07 10:39 | PDOC ---
PULMONARY PROGRESS NOTES DATE: 03/07/21 TIME: 10:36 Subjective Patient remains on 100% FiO2 via Vapotherm and BiPAP at 100% FiO2 as well. Patient appears to be comfortable. Vitals Vital Signs Date Time Temp Pulse Resp B/P (MAP) Pulse Ox O2 Delivery O2 Flow Rate FiO2 03/07/21 09:25 94 VAPOTHERM 40.0 03/07/21 07:00 57 23 118/81 03/07/21 04:00 95.4 95.4 General: Alert, No acute distress Lungs: Crackles Cardiovascular: S1, S2 Abdomen: Soft Neuro Exam: Alert Extremities: No Edema Skin: Warm Labs Laboratory Tests Test 03/05/21 11:44 03/05/21 14:40 03/05/21 15:34 03/05/21 21:36 Glucose (Fingerstick) 153 mg/dL (70-99) 144 mg/dL (70-99) 133 mg/dL (70-99) Phosphorus Level 3.4 mg/dL (2.6-4.7) Magnesium Level 2.0 mg/dL (1.8-2.4) Test 03/06/21 06:30 03/06/21 09:24 03/06/21 14:27 03/06/21 18:00 White Blood Count 12.2 x10^3/uL (4.0-11.0) Red Blood Count 4.49 x10^6/uL (4.30-5.70) Hemoglobin 13.9 g/dL (13.0-17.5) Hematocrit 41.6 % (39.0-53.0) Mean Corpuscular Volume 93 fL (79-100) Mean Corpuscular Hemoglobin 31 pg (25-35) Mean Corpuscular Hemoglobin Concent 33 g/dL (31-37) Red Cell Distribution Width 13.6 % (11.5-14.5) Platelet Count 245 x10^3/uL (140-400) Neutrophils (%) (Auto) 89 % (31-73) Lymphocytes (%) (Auto) 6 % (24-48) Monocytes (%) (Auto) 5 % (0-9) Eosinophils (%) (Auto) 0 % (0-3) Basophils (%) (Auto) 1 % (0-3) Neutrophils # (Auto) 10.8 x10^3/uL (1.8-7.7) Lymphocytes # (Auto) 0.7 x10^3/uL (1.0-4.8) Monocytes # (Auto) 0.5 x10^3/uL (0.0-1.1) Eosinophils # (Auto) 0.0 x10^3/uL (0.0-0.7) Basophils # (Auto) 0.1 x10^3/uL (0.0-0.2) Sodium Level 134 mmol/L (136-145) Potassium Level 4.6 mmol/L (3.5-5.1) Chloride Level 103 mmol/L (98-107) Carbon Dioxide Level 24 mmol/L (21-32) Anion Gap 7 (6-14) Blood Urea Nitrogen 22 mg/dL (8-26) Creatinine 0.6 mg/dL (0.7-1.3) Estimated GFR (Cockcroft-Gault) 144.4 BUN/Creatinine Ratio 37 (6-20) Glucose Level 223 mg/dL (70-99) Calcium Level 7.4 mg/dL (8.5-10.1) Phosphorus Level 3.3 mg/dL (2.6-4.7) Magnesium Level 2.1 mg/dL (1.8-2.4) Total Bilirubin 0.4 mg/dL (0.2-1.0) Aspartate Amino Transf (AST/SGOT) 19 U/L (15-37) Alanine Aminotransferase (ALT/SGPT) 28 U/L (16-63) Alkaline Phosphatase 99 U/L (46-116) Total Protein 5.7 g/dL (6.4-8.2) Albumin 1.5 g/dL (3.4-5.0) Albumin/Globulin Ratio 0.4 (1.0-1.7) Triglycerides Level 198 mg/dL (0-150) Glucose (Fingerstick) 239 mg/dL (70-99) 266 mg/dL (70-99) 239 mg/dL (70-99) Test 03/07/21 00:14 03/07/21 05:00 03/07/21 05:10 Glucose (Fingerstick) 210 mg/dL (70-99) 192 mg/dL (70-99) Sodium Level 135 mmol/L (136-145) Potassium Level 4.6 mmol/L (3.5-5.1) Chloride Level 103 mmol/L (98-107) Carbon Dioxide Level 24 mmol/L (21-32) Anion Gap 8 (6-14) Blood Urea Nitrogen 21 mg/dL (8-26) Creatinine 0.6 mg/dL (0.7-1.3) Estimated GFR (Cockcroft-Gault) 144.4 BUN/Creatinine Ratio 35 (6-20) Glucose Level 188 mg/dL (70-99) Calcium Level 8.0 mg/dL (8.5-10.1) Phosphorus Level 3.0 mg/dL (2.6-4.7) Magnesium Level 2.2 mg/dL (1.8-2.4) Total Bilirubin 0.3 mg/dL (0.2-1.0) Aspartate Amino Transf (AST/SGOT) 17 U/L (15-37) Alanine Aminotransferase (ALT/SGPT) 27 U/L (16-63) Alkaline Phosphatase 106 U/L (46-116) Total Protein 6.2 g/dL (6.4-8.2) Albumin 1.7 g/dL (3.4-5.0) Albumin/Globulin Ratio 0.4 (1.0-1.7) Laboratory Tests Test 03/06/21 14:27 03/06/21 18:00 03/07/21 00:14 03/07/21 05:00 Glucose (Fingerstick) 266 mg/dL (70-99) 239 mg/dL (70-99) 210 mg/dL (70-99) Sodium Level 135 mmol/L (136-145) Potassium Level 4.6 mmol/L (3.5-5.1) Chloride Level 103 mmol/L (98-107) Carbon Dioxide Level 24 mmol/L (21-32) Anion Gap 8 (6-14) Blood Urea Nitrogen 21 mg/dL (8-26) Creatinine 0.6 mg/dL (0.7-1.3) Estimated GFR (Cockcroft-Gault) 144.4 BUN/Creatinine Ratio 35 (6-20) Glucose Level 188 mg/dL (70-99) Calcium Level 8.0 mg/dL (8.5-10.1) Phosphorus Level 3.0 mg/dL (2.6-4.7) Magnesium Level 2.2 mg/dL (1.8-2.4) Total Bilirubin 0.3 mg/dL (0.2-1.0) Aspartate Amino Transf (AST/SGOT) 17 U/L (15-37) Alanine Aminotransferase (ALT/SGPT) 27 U/L (16-63) Alkaline Phosphatase 106 U/L (46-116) Total Protein 6.2 g/dL (6.4-8.2) Albumin 1.7 g/dL (3.4-5.0) Albumin/Globulin Ratio 0.4 (1.0-1.7) Test 03/07/21 05:10 Glucose (Fingerstick) 192 mg/dL (70-99) Medications Active Scripts Medications Dose Route/Sig Max Daily Dose Days Date Category [no home meds] 02/21/21 Reported Comments Chest x-ray reviewed 03/06/2021. Bilateral parenchymal opacities Impression . IMPRESSION: 1. Acute on chronic hypoxemic respiratory failure. 2. COVID-19 viral pneumonia/acute respiratory distress syndrome. 3. Abnormal x-ray. 4. Possible bacterial pneumonia. Plan . Updated 03/07 Remains critically ill. Continue Vapotherm and BiPAP, 100% FiO2. Steroids Repeat chest x-ray 03/06/2021 reviewed. Bilateral diffuse interstitial infiltrate DVT prophylaxis Discussed with RN, Continue aggressive supportive care. Patient is full code. Updated 03/06 Remains critically ill. Continue Vapotherm and BiPAP, 100% FiO2. Steroids Repeat chest x-ray 03/03/2021 reviewed. Bilateral diffuse interstitial infiltrate DVT prophylaxis Discussed with RN, Continue aggressive supportive care. Patient is full code. FRANCES CONDE MD Mar 07, 2021 10:39
--- NOTE | 2021-03-07 11:50 | PDOC ---
[employer] PROGRESS NOTE Date of Service DOS: DATE: 03/07/21 TIME: 11:40 Chief Complaint Chief Complaint Acute hypoxic respiratory failure secondary to Covid pneumonia History of diabetes mellitus type 2 COVID-19 acute respiratory distress syndrome. Possible bacterial pneumonia - likely gram negative FEN - NPO PPX - lovenox FULL CODE Dispo - ICU, overall poor prognosis History of Present Illness History of Present Illness 03/07: Seen in ICU BiPAP 18/8 with supplemental Vapotherm fluid 500% FiO2 saturations 93% to 96%. He is no complaints.CC time 31-minute 03/06: Chest radiograph unchanged taking good position, WBC 12.2 glucose in 200s. Tolerating TPN well. O2 saturations 92% on BiPAP 18/8 with supplemental Vapotherm 40 L/min 100% FiO2. 03/05: In ICU. PICC placed. Requiring BiPAP 18/8 with supplemental Vapotherm 40 L/min 100% FiO2 significant saturations with removal of BiPAP unable to take p.o. start TPN tonight 03/04: Transfer to ICU overnight for worsening hypoxia. On BiPAP 18/8 with supplemental Vapotherm 40 L/min 100% FiO2. Significant desaturation with attempted to eat and drink. cc time 32 min 03/03: No acute events overnight. Saturating 89-90% on Vapotherm and NRB 15L. Not dyspneic but doesnt feel better. Will DC chavez today and today will be his last day of steroids. Encouraged patient to get OOBTC ad pierre. 03/02: No acute events overnight. Patient seen and examined bedside. Increased w ork of breathing. But still saturating 90% on 40 L Vapotherm. Patient's chart, labs, images were reviewed and discussed with RN 02/28: Patient seen and examined bedside. Still on Vapotherm 40 L and saturating 96%. Not more short of breath than usual. Feels actually better today. Speaking full sentences. Given nystatin due to some white buildup in the oral cavity. Likely due to steroids. 02/27: Pt seen and examined bedside. Saturating 86% on Vapotherm and required BiPAP overnight. Pulmonology consulted and to continue with current management for COVID. Pending ICU transfer when possible 02/26: Patient seen and examined bedside. Saturating 89% on Vapotherm and 15 L nonrebreather. Continue with IV steroids and IV antibiotics. Patient's chart, labs, images were reviewed and discussed with RN 02/25: No acute events overnight. Patient seen examined bedside. Patient saturating 91% on 4 L Vapotherm. Continue with IV steroids and IV antibiotics. Patient's chart, labs, images were reviewed and discussed with RN 02/24: No acute events overnight. Patient seen examined bedside. Patient saturating 93 to 95% on Vapotherm at 40 L. Not dyspneic at this time. Patient's chart, labs, images were reviewed and discussed with RN 02/23: Patient seen and examined. He is still on Vapotherm 40 L and 100% nonrebreather. His third Covid test finally came back positive. I spoke with pharmacy he is still not a candidate for remdesivir because he has had the disease for more than 10 days 02/22: Patient seen and examined. He is on Vapotherm 40 L with 100% FiO2 plus nonrebreather. His Covid testing by PCR is surprisingly negative Vitals/I&O Vitals/I&O: Vital Signs Date Time Temp Pulse Resp B/P (MAP) Pulse Ox O2 Delivery O2 Flow Rate FiO2 03/07/21 10:00 58 26 120/87 95 Vapotherm/BIPAP 40.0 03/07/21 08:00 97.1 97.1 I & O 03/06/21 03/06/21 03/07/21 15:00 23:00 07:00 Intake Total 1895 ml 945 ml Output Total 750 ml 575 ml 475 ml Balance -750 ml 1320 ml 470 ml Physical Exam General: Alert, Oriented X3, Cooperative Heart: Regular rate Lungs: Crackles Abdomen: Normal bowel sounds Extremities: No clubbing Skin: No rashes Labs Labs: Laboratory Tests Test 03/06/21 14:27 03/06/21 18:00 03/07/21 00:14 03/07/21 05:00 Glucose (Fingerstick) 266 mg/dL (70-99) 239 mg/dL (70-99) 210 mg/dL (70-99) Sodium Level 135 mmol/L (136-145) Potassium Level 4.6 mmol/L (3.5-5.1) Chloride Level 103 mmol/L (98-107) Carbon Dioxide Level 24 mmol/L (21-32) Anion Gap 8 (6-14) Blood Urea Nitrogen 21 mg/dL (8-26) Creatinine 0.6 mg/dL (0.7-1.3) Estimated GFR (Cockcroft-Gault) 144.4 BUN/Creatinine Ratio 35 (6-20) Glucose Level 188 mg/dL (70-99) Calcium Level 8.0 mg/dL (8.5-10.1) Phosphorus Level 3.0 mg/dL (2.6-4.7) Magnesium Level 2.2 mg/dL (1.8-2.4) Total Bilirubin 0.3 mg/dL (0.2-1.0) Aspartate Amino Transf (AST/SGOT) 17 U/L (15-37) Alanine Aminotransferase (ALT/SGPT) 27 U/L (16-63) Alkaline Phosphatase 106 U/L (46-116) Total Protein 6.2 g/dL (6.4-8.2) Albumin 1.7 g/dL (3.4-5.0) Albumin/Globulin Ratio 0.4 (1.0-1.7) Test 03/07/21 05:10 Glucose (Fingerstick) 192 mg/dL (70-99) Assessment and Plan Assessmemt and Plan Problems Medical Problems: (1) Acute respiratory failure with hypoxia Status: Acute (2) Sepsis due to pneumonia Status: Acute Comment Review of Relevant I have reviewed the following items elmer (where applicable) has been applied. Medications: Current Medications Medications (Trade) Dose Ordered Sig/Kalina Route PRN Reason Start Time Stop Time Status Last Admin Dose Admin Sodium Chloride 90 meq/Potassium Chloride 50 meq/ Potassium Phosphate 13.6 mmol/Magnesium Sulfate 10 meq/ Calcium Gluconate 10 meq/ Multivitamins 10 ml/Zinc/Copper/ Manganese/ Selenium 1 ml/ Total Parenteral Nutrition/Amino Acids/Dextrose/ Fat Emulsion Intravenous 1,512 ml @ 63 mls/hr TPN CONT IV 03/06/21 22:00 03/07/21 21:59 03/06/21 22:15 Insulin Glargine (Lantus Syringe) 15 unit QHS SQ 03/06/21 21:00 03/06/21 20:25 Insulin Human Lispro (HumaLOG) 0-7 UNITS Q6HRS SQ 03/06/21 18:00 03/07/21 05:12 Justifications for Admission Other Justification WALDO CHAIDEZ MD Mar 07, 2021 11:49
[2021-03-07] MEDS: STERILE WATER for RESP 2,000 ML BAG. INH PRN (17:39)
[2021-03-07] MEDS: cefTRIAXone IV Push 1 GM VIAL. IVP SCH (19:58)
[2021-03-07] MEDS: ENOXAPARIN 40 MG/0.4 ML SYRINGE. SQ SCH (19:59)
[2021-03-07] MEDS: INSULIN GLARGINE SYRINGE. SQ SCH (20:50)
[2021-03-07] MEDS ORDERED: DEXTROSE 70% IV SCH (22:00)
[2021-03-07] MEDS ORDERED: AMINO ACID IV SCH (22:00)
[2021-03-07] MEDS ORDERED: [UNRECOGNIZED DRUG - OTHER] IV SCH (22:00)
[2021-03-07] MEDS ORDERED: TOTAL PARENTERAL NUTRITION IV SCH (22:00)
[2021-03-08] VITALS (24 sets, daily range): BP systolic 102–138; BP diastolic 73–95
[2021-03-08] MEDS: INSULIN LISPRO 300 UNITS/3 ML VIAL. SQ SCH ×4 (00:21→18:32)
[2021-03-08] MEDS: DEXMEDETOMIDINE 400 MCG in IV NORMAL SALINE 100ML 96 ML IV PRN ×3 (02:00→20:16)
--- NOTE | 2021-03-08 05:51 | PDOC ---
PULMONARY PROGRESS NOTES DATE: 03/08/21 TIME: 05:50 Subjective Patient remains on 100% FiO2 via Vapotherm and BiPAP 16/10 at 100% FiO2 as well. on precedex Patient appears to be comfortable. Vitals Vital Signs Date Time Temp Pulse Resp B/P (MAP) Pulse Ox O2 Delivery O2 Flow Rate FiO2 03/08/21 04:16 97 VAPOTHERM 40.0 03/08/21 03:00 59 24 115/80 03/07/21 23:59 97.6 97.6 General: No acute distress HEENT: Other (nc at ) Lungs: Crackles Cardiovascular: S1, S2 Abdomen: Soft Extremities: No Edema Skin: Warm Labs Laboratory Tests Test 03/06/21 06:30 03/06/21 09:24 03/06/21 14:27 03/06/21 18:00 White Blood Count 12.2 x10^3/uL (4.0-11.0) Red Blood Count 4.49 x10^6/uL (4.30-5.70) Hemoglobin 13.9 g/dL (13.0-17.5) Hematocrit 41.6 % (39.0-53.0) Mean Corpuscular Volume 93 fL (79-100) Mean Corpuscular Hemoglobin 31 pg (25-35) Mean Corpuscular Hemoglobin Concent 33 g/dL (31-37) Red Cell Distribution Width 13.6 % (11.5-14.5) Platelet Count 245 x10^3/uL (140-400) Neutrophils (%) (Auto) 89 % (31-73) Lymphocytes (%) (Auto) 6 % (24-48) Monocytes (%) (Auto) 5 % (0-9) Eosinophils (%) (Auto) 0 % (0-3) Basophils (%) (Auto) 1 % (0-3) Neutrophils # (Auto) 10.8 x10^3/uL (1.8-7.7) Lymphocytes # (Auto) 0.7 x10^3/uL (1.0-4.8) Monocytes # (Auto) 0.5 x10^3/uL (0.0-1.1) Eosinophils # (Auto) 0.0 x10^3/uL (0.0-0.7) Basophils # (Auto) 0.1 x10^3/uL (0.0-0.2) Sodium Level 134 mmol/L (136-145) Potassium Level 4.6 mmol/L (3.5-5.1) Chloride Level 103 mmol/L (98-107) Carbon Dioxide Level 24 mmol/L (21-32) Anion Gap 7 (6-14) Blood Urea Nitrogen 22 mg/dL (8-26) Creatinine 0.6 mg/dL (0.7-1.3) Estimated GFR (Cockcroft-Gault) 144.4 BUN/Creatinine Ratio 37 (6-20) Glucose Level 223 mg/dL (70-99) Calcium Level 7.4 mg/dL (8.5-10.1) Phosphorus Level 3.3 mg/dL (2.6-4.7) Magnesium Level 2.1 mg/dL (1.8-2.4) Total Bilirubin 0.4 mg/dL (0.2-1.0) Aspartate Amino Transf (AST/SGOT) 19 U/L (15-37) Alanine Aminotransferase (ALT/SGPT) 28 U/L (16-63) Alkaline Phosphatase 99 U/L (46-116) Total Protein 5.7 g/dL (6.4-8.2) Albumin 1.5 g/dL (3.4-5.0) Albumin/Globulin Ratio 0.4 (1.0-1.7) Triglycerides Level 198 mg/dL (0-150) Glucose (Fingerstick) 239 mg/dL (70-99) 266 mg/dL (70-99) 239 mg/dL (70-99) Test 03/07/21 00:14 03/07/21 05:00 03/07/21 05:10 03/07/21 12:57 Glucose (Fingerstick) 210 mg/dL (70-99) 192 mg/dL (70-99) 179 mg/dL (70-99) Sodium Level 135 mmol/L (136-145) Potassium Level 4.6 mmol/L (3.5-5.1) Chloride Level 103 mmol/L (98-107) Carbon Dioxide Level 24 mmol/L (21-32) Anion Gap 8 (6-14) Blood Urea Nitrogen 21 mg/dL (8-26) Creatinine 0.6 mg/dL (0.7-1.3) Estimated GFR (Cockcroft-Gault) 144.4 BUN/Creatinine Ratio 35 (6-20) Glucose Level 188 mg/dL (70-99) Calcium Level 8.0 mg/dL (8.5-10.1) Phosphorus Level 3.0 mg/dL (2.6-4.7) Magnesium Level 2.2 mg/dL (1.8-2.4) Total Bilirubin 0.3 mg/dL (0.2-1.0) Aspartate Amino Transf (AST/SGOT) 17 U/L (15-37) Alanine Aminotransferase (ALT/SGPT) 27 U/L (16-63) Alkaline Phosphatase 106 U/L (46-116) Total Protein 6.2 g/dL (6.4-8.2) Albumin 1.7 g/dL (3.4-5.0) Albumin/Globulin Ratio 0.4 (1.0-1.7) Test 03/07/21 18:02 03/08/21 00:19 Glucose (Fingerstick) 212 mg/dL (70-99) 212 mg/dL (70-99) Laboratory Tests Test 03/07/21 12:57 03/07/21 18:02 03/08/21 00:19 Glucose (Fingerstick) 179 mg/dL (70-99) 212 mg/dL (70-99) 212 mg/dL (70-99) Medications Active Scripts Medications Dose Route/Sig Max Daily Dose Days Date Category [no home meds] 02/21/21 Reported Comments Chest x-ray reviewed 03/06/2021. Bilateral parenchymal opacities Impression . IMPRESSION: 1. Acute on chronic hypoxemic respiratory failure. 2. COVID-19 viral pneumonia/acute respiratory distress syndrome. 3. Abnormal x-ray. 4. Possible bacterial pneumonia. Plan . Updated 03/08 titrate fio2 to keep sat 90% on precedex avoid oversedation Continue Vapotherm and BiPAP, 100% FiO2. Steroids Repeat chest x-ray 03/06/2021 reviewed. Bilateral diffuse interstitial infiltrate DVT prophylaxis Discussed with RN, rt Continue aggressive supportive care. Patient is full code. Updated 03/07 Remains critically ill. Continue Vapotherm and BiPAP, 100% FiO2. Steroids Repeat chest x-ray 03/06/2021 reviewed. Bilateral diffuse interstitial infiltrate DVT prophylaxis Discussed with RN, Continue aggressive supportive care. Patient is full code. Updated 03/06 Remains critically ill. Continue Vapotherm and BiPAP, 100% FiO2. Steroids Repeat chest x-ray 03/03/2021 reviewed. Bilateral diffuse interstitial infiltrate DVT prophylaxis Discussed with RN, Continue aggressive supportive care. Patient is full code. ROSA ROLLINS MD Mar 08, 2021 05:51
[2021-03-08 07:00] LABS: BASO # 0.1 x10^3/uL (0.0-0.2); BASO % 1 % (0-3); EOS % 0 % (0-3); HEMATOCRIT 41.8 % (39.0-53.0); LYMPH # 0.8 x10^3/uL (1.0-4.8); LYMPH % 6 % (24-48); MEAN CORPUSCULAR HEMOGLOBIN 31 pg (25-35); MEAN CORPUSCULAR HGB CONC 34 g/dL (31-37); MEAN CORPUSCULAR VOLUME 92 fL (79-100); MONO # 0.6 x10^3/uL (0.0-1.1); MONO % 5 % (0-9); NEUT # 11.4 x10^3/uL (1.8-7.7); NEUT % 88 % (31-73); PLATELET COUNT 217 x10^3/uL (140-400); RED BLOOD COUNT 4.54 x10^6/uL (4.30-5.70); RED CELL DISTRIBUTION WIDTH 13.7 % (11.5-14.5); WHITE BLOOD COUNT 12.9 x10^3/uL (4.0-11.0)
[2021-03-08 07:13] LABS: ALBUMIN 1.6 g/dL (3.4-5.0); ALBUMIN/GLOBULIN RATIO 0.3 (1.0-1.7); CALCIUM 7.9 mg/dL (8.5-10.1); CREATININE 0.6 mg/dL (0.7-1.3); GFR 144.4; POTASSIUM 4.5 mmol/L (3.5-5.1); TOTAL BILIRUBIN 0.4 mg/dL (0.2-1.0); TOTAL PROTEIN 6.2 g/dL (6.4-8.2)
[2021-03-08 07:14] LABS: MAGNESIUM 2.2 mg/dL (1.8-2.4); PHOSPHORUS 3.3 mg/dL (2.6-4.7)
[2021-03-08] MEDS: methylPREDNISolone SOD SUCC PF 40 MG/ML VIAL. IV SCH ×2 (08:46→20:32)
[2021-03-08] MEDS: NYSTATIN 100,000 UNITS/ML 5 ML ORAL.SUSP. SWSW SCH ×4 (08:46→20:43)
[2021-03-08] MEDS: ASPIRIN CHEWABLE 81 MG TABLET. PO SCH (08:46)
[2021-03-08] MEDS: STERILE WATER for RESP 2,000 ML BAG. INH PRN (08:48)
--- NOTE | 2021-03-08 11:08 | PDOC ---
[employer] PROGRESS NOTE Date of Service DOS: DATE: 03/08/21 TIME: 11:06 Chief Complaint Chief Complaint Acute hypoxic respiratory failure secondary to Covid pneumonia History of diabetes mellitus type 2 COVID-19 acute respiratory distress syndrome. Possible bacterial pneumonia - likely gram negative FEN - NPO PPX - lovenox FULL CODE Dispo - ICU, overall poor prognosis History of Present Illness History of Present Illness 03/08: Seen in ICU on BiPAP continue vent support on Vapotherm 100% FiO2 40 L/min. Saturations 94%. When BiPAP is removed desaturates to 84% despite Vapotherm. He prefers to avoid intubation. O2 sats improved with BiPAP. Glucose in the 200s. He has no complaints. He gives a thumbs up. CC time 31-minute 03/07: Seen in ICU BiPAP 18/8 with supplemental Vapotherm saturations 93% to 96%. He has no complaints. 03/06: Chest radiograph unchanged taking good position, WBC 12.2 glucose in 200s. Tolerating TPN well. O2 saturations 92% on BiPAP 18/8 with supplemental Vapotherm 40 L/min 100% FiO2. 03/05: In ICU. PICC placed. Requiring BiPAP 18/8 with supplemental Vapotherm 40 L/min 100% FiO2 significant saturations with removal of BiPAP unable to take p.o. start TPN tonight 03/04: Transfer to ICU overnight for worsening hypoxia. On BiPAP 18/8 with supplemental Vapotherm 40 L/min 100% FiO2. Significant desaturation with attempted to eat and drink. cc time 32 min 03/03: No acute events overnight. Saturating 89-90% on Vapotherm and NRB 15L. Not dyspneic but doesnt feel better. Will DC chavez today and today will be his last day of steroids. Encouraged patient to get OOBTC ad pierre. 03/02: No acute events overnight. Patient seen and examined bedside. Increased work of breathing. But still saturating 90% on 40 L Vapotherm. Patient's chart, labs, images were reviewed and discussed with RN 02/28: Patient seen and examined bedside. Still on Vapotherm 40 L and saturating 96%. Not more short of breath than usual. Feels actually better today. Speaking full sentences. Given nystatin due to some white buildup in the oral cavity. Likely due to steroids. 02/27: Pt seen and examined bedside. Saturating 86% on Vapotherm and required BiPAP overnight. Pulmonology consulted and to continue with current management for COVID. Pending ICU transfer when possible 02/26: Patient seen and examined bedside. Saturating 89% on Vapotherm and 15 L nonrebreather. Continue with IV steroids and IV antibiotics. Patient's chart, labs, images were reviewed and discussed with RN 02/25: No acute events overnight. Patient seen examined bedside. Patient saturating 91% on 4 L Vapotherm. Continue with IV steroids and IV antibiotics. Patient's chart, labs, images were reviewed and discussed with RN 02/24: No acute events overnight. Patient seen examined bedside. Patient saturating 93 to 95% on Vapotherm at 40 L. Not dyspneic at this time. Patient's chart, labs, images were reviewed and discussed with RN 02/23: Patient seen and examined. He is still on Vapotherm 40 L and 100% nonrebreather. His third Covid test finally came back positive. I spoke with pharmacy he is still not a candidate for remdesivir because he has had the disease for more than 10 days 02/22: Patient seen and examined. He is on Vapotherm 40 L with 100% FiO2 plus nonrebreather. His Covid testing by PCR is surprisingly negative Vitals/I&O Vitals/I&O: Vital Signs Date Time Temp Pulse Resp B/P (MAP) Pulse Ox O2 Delivery O2 Flow Rate FiO2 03/08/21 08:00 98 VAPOTHERM 40.0 03/08/21 07:00 55 21 105/73 03/08/21 04:00 97.6 97.6 I & O 03/07/21 03/07/21 03/08/21 15:00 23:00 07:00 Intake Total 100 ml 1029 ml 100 ml Output Total 575 ml 1000 ml 900 ml Balance -475 ml 29 ml -800 ml Physical Exam General: Alert, Oriented X3, Cooperative Heart: Regular rate Lungs: Crackles Abdomen: Normal bowel sounds Extremities: No clubbing Skin: No rashes Labs Labs: Laboratory Tests Test 03/07/21 12:57 03/07/21 18:02 03/08/21 00:19 03/08/21 05:45 Glucose (Fingerstick) 179 mg/dL (70-99) 212 mg/dL (70-99) 212 mg/dL (70-99) White Blood Count 12.9 x10^3/uL (4.0-11.0) Red Blood Count 4.54 x10^6/uL (4.30-5.70) Hemoglobin 14.0 g/dL (13.0-17.5) Hematocrit 41.8 % (39.0-53.0) Mean Corpuscular Volume 92 fL (79-100) Mean Corpuscular Hemoglobin 31 pg (25-35) Mean Corpuscular Hemoglobin Concent 34 g/dL (31-37) Red Cell Distribution Width 13.7 % (11.5-14.5) Platelet Count 217 x10^3/uL (140-400) Neutrophils (%) (Auto) 88 % (31-73) Lymphocytes (%) (Auto) 6 % (24-48) Monocytes (%) (Auto) 5 % (0-9) Eosinophils (%) (Auto) 0 % (0-3) Basophils (%) (Auto) 1 % (0-3) Neutrophils # (Auto) 11.4 x10^3/uL (1.8-7.7) Lymphocytes # (Auto) 0.8 x10^3/uL (1.0-4.8) Monocytes # (Auto) 0.6 x10^3/uL (0.0-1.1) Eosinophils # (Auto) 0.0 x10^3/uL (0.0-0.7) Basophils # (Auto) 0.1 x10^3/uL (0.0-0.2) Sodium Level 134 mmol/L (136-145) Potassium Level 4.5 mmol/L (3.5-5.1) Chloride Level 101 mmol/L (98-107) Carbon Dioxide Level 25 mmol/L (21-32) Anion Gap 8 (6-14) Blood Urea Nitrogen 19 mg/dL (8-26) Creatinine 0.6 mg/dL (0.7-1.3) Estimated GFR (Cockcroft-Gault) 144.4 BUN/Creatinine Ratio 32 (6-20) Glucose Level 213 mg/dL (70-99) Calcium Level 7.9 mg/dL (8.5-10.1) Phosphorus Level 3.3 mg/dL (2.6-4.7) Magnesium Level 2.2 mg/dL (1.8-2.4) Total Bilirubin 0.4 mg/dL (0.2-1.0) Aspartate Amino Transf (AST/SGOT) 22 U/L (15-37) Alanine Aminotransferase (ALT/SGPT) 31 U/L (16-63) Alkaline Phosphatase 111 U/L (46-116) Total Protein 6.2 g/dL (6.4-8.2) Albumin 1.6 g/dL (3.4-5.0) Albumin/Globulin Ratio 0.3 (1.0-1.7) Test 03/08/21 05:54 Glucose (Fingerstick) 227 mg/dL (70-99) Assessment and Plan Assessmemt and Plan Problems Medical Problems: (1) Acute respiratory failure with hypoxia Status: Acute (2) Sepsis due to pneumonia Status: Acute Comment Review of Relevant I have reviewed the following items elmer (where applicable) has been applied. Medications: Current Medications Medications (Trade) Dose Ordered Sig/Kalina Route PRN Reason Start Time Stop Time Status Last Admin Dose Admin Sodium Chloride 90 meq/Potassium Chloride 50 meq/ Potassium Phosphate 13.6 mmol/Magnesium Sulfate 10 meq/ Calcium Gluconate 10 meq/ Multivitamins 10 ml/Zinc/Copper/ Manganese/ Selenium 1 ml/ Total Parenteral Nutrition/Amino Acids/Dextrose/ Fat Emulsion Intravenous 1,512 ml @ 63 mls/hr TPN CONT IV 03/07/21 22:00 03/08/21 21:59 03/07/21 22:23 Justifications for Admission Other Justification WALDO CHAIDEZ MD Mar 08, 2021 11:08
[2021-03-08] MEDS: TPN PER PHARMACY MC PRN (11:21)
--- NOTE | 2021-03-08 11:21 | NUR ---
Pharmacy TPN Dosing Note S: ROWDY LOVE is a 46 year old M Currently receiving Central Continuous TPN started 03/05/21 B:Pertinent PMH: Poor PO intake Height: 5 feet, 5 inches Weight: 70.1 kg Current diet: NPO LABS: Sodium: 134 Potassium: 4.5 Chloride: 101 Calcium: 7.9 Corrected Calcium: 9.82 Magnesium: 2.2 CO2: 25 SCr: 0.6 Glucose: 212-227 Albumin: 1.6 AST: 22 ALT: 31 TPN FORMULA: TPN TYPE: Central Continuous AMINO ACIDS: 75 gm DEXTROSE: 210 gm SODIUM CHLORIDE: 90 mEq POTASSIUM CHLORIDE: 50 mEq POTASSIUM PHOSPHATE: 13.6 mmol MAGNESIUM: 10 mEq CALCIUM: 10 mEq MULTIPLE VITAMIN: 10 ml TRACE ELEMENTS: 1 ml ml(s) TPN PLAN: Remove lipids, dosing MWF d/t national shortage. Cont the rest the same. -CMP tomorrow per hospitalist R: Change TPN as noted above. Will monitor electrolytes, glucose, and tolerance to TPN. VERONICA TONEY [facility], 03/08/21 1120
[2021-03-08] MEDS: cefTRIAXone IV Push 1 GM VIAL. IVP SCH (20:30)
[2021-03-08] MEDS: ENOXAPARIN 40 MG/0.4 ML SYRINGE. SQ SCH (20:31)
[2021-03-08] MEDS: INSULIN GLARGINE SYRINGE. SQ SCH (20:32)
[2021-03-08] MEDS ORDERED: TOTAL PARENTERAL NUTRITION IV SCH (22:00)
[2021-03-08] MEDS ORDERED: DEXTROSE 70% IV SCH (22:00)
[2021-03-08] MEDS ORDERED: AMINO ACID IV SCH (22:00)
[2021-03-08] MEDS ORDERED: [UNRECOGNIZED DRUG - OTHER] IV SCH (22:00)
[2021-03-09] VITALS (24 sets, daily range): BP systolic 99–125; BP diastolic 69–93
[2021-03-09] MEDS: INSULIN LISPRO 300 UNITS/3 ML VIAL. SQ SCH ×6 (00:28→19:40)
--- NOTE | 2021-03-09 05:21 | PDOC ---
PULMONARY PROGRESS NOTES DATE: 03/09/21 TIME: 05:20 Subjective Patient remains on 100% FiO2 via Vapotherm and BiPAP 16/10 at 100% FiO2 as well. on precedex Patient appears to be comfortable. Vitals Vital Signs Date Time Temp Pulse Resp B/P (MAP) Pulse Ox O2 Delivery O2 Flow Rate FiO2 03/09/21 02:00 59 26 112/85 95 Vapotherm/BIPAP 40.0 03/08/21 23:59 97.4 97.4 General: No acute distress HEENT: Other (nc at ) Lungs: Crackles Cardiovascular: S1, S2 Abdomen: Soft Extremities: No Edema Skin: Warm Labs Laboratory Tests Test 03/07/21 12:57 03/07/21 18:02 03/08/21 00:19 03/08/21 05:45 Glucose (Fingerstick) 179 mg/dL (70-99) 212 mg/dL (70-99) 212 mg/dL (70-99) White Blood Count 12.9 x10^3/uL (4.0-11.0) Red Blood Count 4.54 x10^6/uL (4.30-5.70) Hemoglobin 14.0 g/dL (13.0-17.5) Hematocrit 41.8 % (39.0-53.0) Mean Corpuscular Volume 92 fL (79-100) Mean Corpuscular Hemoglobin 31 pg (25-35) Mean Corpuscular Hemoglobin Concent 34 g/dL (31-37) Red Cell Distribution Width 13.7 % (11.5-14.5) Platelet Count 217 x10^3/uL (140-400) Neutrophils (%) (Auto) 88 % (31-73) Lymphocytes (%) (Auto) 6 % (24-48) Monocytes (%) (Auto) 5 % (0-9) Eosinophils (%) (Auto) 0 % (0-3) Basophils (%) (Auto) 1 % (0-3) Neutrophils # (Auto) 11.4 x10^3/uL (1.8-7.7) Lymphocytes # (Auto) 0.8 x10^3/uL (1.0-4.8) Monocytes # (Auto) 0.6 x10^3/uL (0.0-1.1) Eosinophils # (Auto) 0.0 x10^3/uL (0.0-0.7) Basophils # (Auto) 0.1 x10^3/uL (0.0-0.2) Sodium Level 134 mmol/L (136-145) Potassium Level 4.5 mmol/L (3.5-5.1) Chloride Level 101 mmol/L (98-107) Carbon Dioxide Level 25 mmol/L (21-32) Anion Gap 8 (6-14) Blood Urea Nitrogen 19 mg/dL (8-26) Creatinine 0.6 mg/dL (0.7-1.3) Estimated GFR (Cockcroft-Gault) 144.4 BUN/Creatinine Ratio 32 (6-20) Glucose Level 213 mg/dL (70-99) Calcium Level 7.9 mg/dL (8.5-10.1) Phosphorus Level 3.3 mg/dL (2.6-4.7) Magnesium Level 2.2 mg/dL (1.8-2.4) Total Bilirubin 0.4 mg/dL (0.2-1.0) Aspartate Amino Transf (AST/SGOT) 22 U/L (15-37) Alanine Aminotransferase (ALT/SGPT) 31 U/L (16-63) Alkaline Phosphatase 111 U/L (46-116) Total Protein 6.2 g/dL (6.4-8.2) Albumin 1.6 g/dL (3.4-5.0) Albumin/Globulin Ratio 0.3 (1.0-1.7) Test 03/08/21 05:54 03/08/21 12:15 03/08/21 18:28 03/09/21 00:21 Glucose (Fingerstick) 227 mg/dL (70-99) 220 mg/dL (70-99) 268 mg/dL (70-99) 200 mg/dL (70-99) Laboratory Tests Test 03/08/21 05:45 03/08/21 05:54 03/08/21 12:15 03/08/21 18:28 White Blood Count 12.9 x10^3/uL (4.0-11.0) Red Blood Count 4.54 x10^6/uL (4.30-5.70) Hemoglobin 14.0 g/dL (13.0-17.5) Hematocrit 41.8 % (39.0-53.0) Mean Corpuscular Volume 92 fL (79-100) Mean Corpuscular Hemoglobin 31 pg (25-35) Mean Corpuscular Hemoglobin Concent 34 g/dL (31-37) Red Cell Distribution Width 13.7 % (11.5-14.5) Platelet Count 217 x10^3/uL (140-400) Neutrophils (%) (Auto) 88 % (31-73) Lymphocytes (%) (Auto) 6 % (24-48) Monocytes (%) (Auto) 5 % (0-9) Eosinophils (%) (Auto) 0 % (0-3) Basophils (%) (Auto) 1 % (0-3) Neutrophils # (Auto) 11.4 x10^3/uL (1.8-7.7) Lymphocytes # (Auto) 0.8 x10^3/uL (1.0-4.8) Monocytes # (Auto) 0.6 x10^3/uL (0.0-1.1) Eosinophils # (Auto) 0.0 x10^3/uL (0.0-0.7) Basophils # (Auto) 0.1 x10^3/uL (0.0-0.2) Sodium Level 134 mmol/L (136-145) Potassium Level 4.5 mmol/L (3.5-5.1) Chloride Level 101 mmol/L (98-107) Carbon Dioxide Level 25 mmol/L (21-32) Anion Gap 8 (6-14) Blood Urea Nitrogen 19 mg/dL (8-26) Creatinine 0.6 mg/dL (0.7-1.3) Estimated GFR (Cockcroft-Gault) 144.4 BUN/Creatinine Ratio 32 (6-20) Glucose Level 213 mg/dL (70-99) Calcium Level 7.9 mg/dL (8.5-10.1) Phosphorus Level 3.3 mg/dL (2.6-4.7) Magnesium Level 2.2 mg/dL (1.8-2.4) Total Bilirubin 0.4 mg/dL (0.2-1.0) Aspartate Amino Transf (AST/SGOT) 22 U/L (15-37) Alanine Aminotransferase (ALT/SGPT) 31 U/L (16-63) Alkaline Phosphatase 111 U/L (46-116) Total Protein 6.2 g/dL (6.4-8.2) Albumin 1.6 g/dL (3.4-5.0) Albumin/Globulin Ratio 0.3 (1.0-1.7) Glucose (Fingerstick) 227 mg/dL (70-99) 220 mg/dL (70-99) 268 mg/dL (70-99) Test 03/09/21 00:21 Glucose (Fingerstick) 200 mg/dL (70-99) Medications Active Scripts Medications Dose Route/Sig Max Daily Dose Days Date Category [no home meds] 02/21/21 Reported Comments Chest x-ray reviewed 03/06/2021. Bilateral parenchymal opacities Impression . IMPRESSION: 1. Acute on chronic hypoxemic respiratory failure. 2. COVID-19 viral pneumonia/acute respiratory distress syndrome. 3. Abnormal x-ray. 4. Possible bacterial pneumonia. Plan . Updated 03/09 titrate fio2 to keep sat 90% on precedex avoid oversedation Continue Vapotherm and BiPAP, 100% FiO2. Steroids Repeat chest x-ray 03/06/2021 reviewed. Bilateral diffuse interstitial infiltrate DVT prophylaxis Discussed with RN, rt Continue aggressive supportive care. Patient is full code. Updated 03/08 titrate fio2 to keep sat 90% on precedex avoid oversedation Continue Vapotherm and BiPAP, 100% FiO2. Steroids Repeat chest x-ray 03/06/2021 reviewed. Bilateral diffuse interstitial infiltrate DVT prophylaxis Discussed with RN, rt Continue aggressive supportive care. Patient is full code. Updated 03/07 Remains critically ill. Continue Vapotherm and BiPAP, 100% FiO2. Steroids Repeat chest x-ray 03/06/2021 reviewed. Bilateral diffuse interstitial infiltrate DVT prophylaxis Discussed with RN, Continue aggressive supportive care. Patient is full code. Updated 03/06 Remains critically ill. Continue Vapotherm and BiPAP, 100% FiO2. Steroids Repeat chest x-ray 03/03/2021 reviewed. Bilateral diffuse interstitial infiltrate DVT prophylaxis Discussed with RN, Continue aggressive supportive care. Patient is full code. ROSA ROLLINS MD Mar 09, 2021 05:21
[2021-03-09 06:53] LABS: ALBUMIN 1.7 g/dL (3.4-5.0); ALBUMIN/GLOBULIN RATIO 0.4 (1.0-1.7); CALCIUM 8.1 mg/dL (8.5-10.1); CREATININE 0.5 mg/dL (0.7-1.3); GFR 178.2; POTASSIUM 4.8 mmol/L (3.5-5.1); TOTAL BILIRUBIN 0.4 mg/dL (0.2-1.0); TOTAL PROTEIN 6.4 g/dL (6.4-8.2)
--- NOTE | 2021-03-09 10:34 | PDOC ---
[facility] PROGRESS NOTE Date of Service DOS: DATE: 03/09/21 TIME: 10:33 Chief Complaint Chief Complaint Acute hypoxic respiratory failure secondary to Covid pneumonia History of diabetes mellitus type 2 COVID-19 acute respiratory distress syndrome. Possible bacterial pneumonia - likely gram negative FEN - NPO PPX - lovenox FULL CODE Dispo - ICU, overall poor prognosis History of Present Illness History of Present Illness 03/09: In ICU on BiPAP with Vapotherm 100% FiO2 40 L/min with saturations 93%. Still tolerating removal of BiPAP without desaturations into the 80s. Glucose minimally improved will increase schedule. He has no complaints. CC time 31- minute 03/08: Seen in ICU on BiPAP continue vent support on Vapotherm 100% FiO2 40 L/min. Saturations 94%. When BiPAP is removed desaturates to 84% despite Vapotherm. He prefers to avoid intubation. O2 sats improved with BiPAP. Glucose in the 200s. D/w family and friend over the phone. 03/07: Seen in ICU BiPAP 18/8 with supplemental Vapotherm saturations 93% to 96%. He has no complaints. 03/06: Chest radiograph unchanged taking good position, WBC 12.2 glucose in 200s. Tolerating TPN well. O2 saturations 92% on BiPAP 18/8 with supplemental Vapotherm 40 L/min 100% FiO2. 03/05: In ICU. PICC placed. Requiring BiPAP 18/8 with supplemental Vapotherm 40 L/min 100% FiO2 significant saturations with removal of BiPAP unable to take p.o. start TPN tonight 03/04: Transfer to ICU overnight for worsening hypoxia. On BiPAP 18/8 with supplemental Vapotherm 40 L/min 100% FiO2. Significant desaturation with attempted to eat and drink. cc time 32 min 03/03: No acute events overnight. Saturating 89-90% on Vapotherm and NRB 15L. Not dyspneic but doesnt feel better. Will DC chavez today and today will be his last day of steroids. Encouraged patient to get OOBTC ad pierre. 03/02: No acute events overnight. Patient seen and examined bedside. Increased work of breathing. But still saturating 90% on 40 L Vapotherm. Patient's chart, labs, images were reviewed and discussed with RN 02/28: Patient seen and examined bedside. Still on Vapotherm 40 L and saturating 96%. Not more short of breath than usual. Feels actually better today. Speaking full sentences. Given nystatin due to some white buildup in the oral cavity. Likely due to steroids. 02/27: Pt seen and examined bedside. Saturating 86% on Vapotherm and required BiPAP overnight. Pulmonology consulted and to continue with current management for COVID. Pending ICU transfer when possible 02/26: Patient seen and examined bedside. Saturating 89% on Vapotherm and 15 L nonrebreather. Continue with IV steroids and IV antibiotics. Patient's chart, labs, images were reviewed and discussed with RN 02/25: No acute events overnight. Patient seen examined bedside. Patient saturating 91% on 4 L Vapotherm. Continue with IV steroids and IV antibiotics. Patient's chart, labs, images were reviewed and discussed with RN 02/24: No acute events overnight. Patient seen examined bedside. Patient saturating 93 to 95% on Vapotherm at 40 L. Not dyspneic at this time. Patient's chart, labs, images were reviewed and discussed with RN 02/23: Patient seen and examined. He is still on Vapotherm 40 L and 100% nonrebreather. His third Covid test finally came back positive. I spoke with pharmacy he is still not a candidate for remdesivir because he has had the disease for more than 10 days 02/22: Patient seen and examined. He is on Vapotherm 40 L with 100% FiO2 plus nonrebreather. His Covid testing by PCR is surprisingly negative Vitals/I&O Vitals/I&O: Vital Signs Date Time Temp Pulse Resp B/P (MAP) Pulse Ox O2 Delivery O2 Flow Rate FiO2 03/09/21 08:27 96 VAPOTHERM 40.0 03/09/21 06:00 59 26 105/74 03/09/21 04:00 97.6 97.6 I & O 03/08/21 03/08/21 03/09/21 15:00 23:00 07:00 Intake Total 30 ml 1256 ml 801 ml Output Total 600 ml 850 ml 600 ml Balance -570 ml 406 ml 201 ml Physical Exam General: Alert, Oriented X3, Cooperative Heart: Regular rate Lungs: Crackles Abdomen: Normal bowel sounds Extremities: No clubbing Skin: No rashes Labs Labs: Laboratory Tests Test 03/08/21 12:15 03/08/21 18:28 03/09/21 00:21 03/09/21 05:48 Glucose (Fingerstick) 220 mg/dL (70-99) 268 mg/dL (70-99) 200 mg/dL (70-99) 234 mg/dL (70-99) Test 03/09/21 05:50 Sodium Level 134 mmol/L (136-145) Potassium Level 4.8 mmol/L (3.5-5.1) Chloride Level 101 mmol/L (98-107) Carbon Dioxide Level 25 mmol/L (21-32) Anion Gap 8 (6-14) Blood Urea Nitrogen 20 mg/dL (8-26) Creatinine 0.5 mg/dL (0.7-1.3) Estimated GFR (Cockcroft-Gault) 178.2 BUN/Creatinine Ratio 40 (6-20) Glucose Level 219 mg/dL (70-99) Calcium Level 8.1 mg/dL (8.5-10.1) Total Bilirubin 0.4 mg/dL (0.2-1.0) Aspartate Amino Transf (AST/SGOT) 24 U/L (15-37) Alanine Aminotransferase (ALT/SGPT) 41 U/L (16-63) Alkaline Phosphatase 117 U/L (46-116) Total Protein 6.4 g/dL (6.4-8.2) Albumin 1.7 g/dL (3.4-5.0) Albumin/Globulin Ratio 0.4 (1.0-1.7) Assessment and Plan Assessmemt and Plan Problems Medical Problems: (1) Acute respiratory failure with hypoxia Status: Acute (2) Sepsis due to pneumonia Status: Acute Comment Review of Relevant I have reviewed the following items elmer (where applicable) has been applied. Medications: Current Medications Medications (Trade) Dose Ordered Sig/Kalina Route PRN Reason Start Time Stop Time Status Last Admin Dose Admin Insulin Glargine (Lantus Syringe) 20 unit QHS SQ 03/08/21 21:00 03/08/21 20:32 Sodium Chloride 90 meq/Potassium Chloride 50 meq/ Potassium Phosphate 13.6 mmol/Magnesium Sulfate 10 meq/ Calcium Gluconate 10 meq/ Multivitamins 10 ml/Zinc/Copper/ Manganese/ Selenium 1 ml/ Total Parenteral Nutrition/Amino Acids/Dextrose/ Fat Emulsion Intravenous 1,512 ml @ 63 mls/hr TPN CONT IV 03/08/21 22:00 03/09/21 21:59 03/08/21 22:07 Lorazepam (Ativan Inj) 0.5 mg PRN Q6HRS PRN IVP ANXIETY / AGITATION 03/08/21 16:30 03/08/21 17:23 Justifications for Admission Other Justification WALDO CHAIDEZ MD Mar 09, 2021 10:34
[2021-03-09] MEDS: ASPIRIN CHEWABLE 81 MG TABLET. PO SCH (11:36)
[2021-03-09] MEDS: NYSTATIN 100,000 UNITS/ML 5 ML ORAL.SUSP. SWSW SCH ×4 (11:36→20:32)
[2021-03-09] MEDS: methylPREDNISolone SOD SUCC PF 40 MG/ML VIAL. IV SCH ×2 (11:37→20:30)
[2021-03-09] MEDS: DEXMEDETOMIDINE 400 MCG in IV NORMAL SALINE 100ML 96 ML IV PRN ×2 (11:37→20:35)
[2021-03-09] MEDS: TPN PER PHARMACY MC PRN (11:44)
--- NOTE | 2021-03-09 11:45 | NUR ---
Pharmacy TPN Dosing Note S: ROWDY LOVE is a 46 year old M Currently receiving Central Continuous TPN started 03/05/21 B:Pertinent PMH: Poor PO intake Height: 5 feet, 5 inches Weight: 69.3 kg Current diet: NPO LABS: Sodium: 134 Potassium: 4.8 Chloride: 101 Calcium: 8.1 Corrected Calcium: 9.94 Magnesium: 2.2 CO2: 25 SCr: 0.5 Glucose: 200-219 Albumin: 1.7 AST: 24 ALT: 41 TPN FORMULA: TPN TYPE: Central Continuous AMINO ACIDS: 75 gm DEXTROSE: 210 gm SODIUM CHLORIDE: 90 mEq POTASSIUM CHLORIDE: 50 mEq POTASSIUM PHOSPHATE: 13.6 mmol MAGNESIUM: 10 mEq CALCIUM: 10 mEq MULTIPLE VITAMIN: 10 ml TRACE ELEMENTS: 1 ml ml(s) TPN PLAN: Cont current TPN, electrolytes WNL. -BMP, Mag, Phos in AM R: Continue same TPN formula. Will monitor electrolytes, glucose, and tolerance to TPN. VERONICA TONEY [facility], 03/09/21 [id number]
[2021-03-09] MEDS: STERILE WATER for RESP 2,000 ML BAG. INH PRN (15:59)
[2021-03-09] MEDS: cefTRIAXone IV Push 1 GM VIAL. IVP SCH (20:24)
[2021-03-09] MEDS: ENOXAPARIN 40 MG/0.4 ML SYRINGE. SQ SCH (20:25)
[2021-03-09] MEDS: INSULIN GLARGINE SYRINGE. SQ SCH (20:31)
[2021-03-09] MEDS ORDERED: TOTAL PARENTERAL NUTRITION IV SCH (22:00)
[2021-03-09] MEDS ORDERED: [UNRECOGNIZED DRUG - OTHER] IV SCH (22:00)
[2021-03-09] MEDS ORDERED: AMINO ACID IV SCH (22:00)
[2021-03-09] MEDS ORDERED: DEXTROSE 70% IV SCH (22:00)
[2021-03-10] VITALS (23 sets, daily range): BP systolic 92–129; BP diastolic 50–88
[2021-03-10] MEDS: INSULIN LISPRO 300 UNITS/3 ML VIAL. SQ SCH ×8 (00:30→18:00)
[2021-03-10] MEDS: DEXMEDETOMIDINE 400 MCG in IV NORMAL SALINE 100ML 96 ML IV PRN ×2 (04:37→12:31)
[2021-03-10 06:49] LABS: BASO % 0 % (0-3); EOS % 0 % (0-3); HEMATOCRIT 41.6 % (39.0-53.0); HEMOGLOBIN 14.1 g/dL (13.0-17.5); LYMPH # 0.8 x10^3/uL (1.0-4.8); LYMPH % 8 % (24-48); MEAN CORPUSCULAR HEMOGLOBIN 31 pg (25-35); MEAN CORPUSCULAR HGB CONC 34 g/dL (31-37); MEAN CORPUSCULAR VOLUME 92 fL (79-100); MONO # 0.6 x10^3/uL (0.0-1.1); MONO % 6 % (0-9); NEUT % 86 % (31-73); PLATELET COUNT 177 x10^3/uL (140-400); RED BLOOD COUNT 4.53 x10^6/uL (4.30-5.70); RED CELL DISTRIBUTION WIDTH 13.9 % (11.5-14.5); WHITE BLOOD COUNT 10.5 x10^3/uL (4.0-11.0)
[2021-03-10 06:56] LABS: CALCIUM 7.6 mg/dL (8.5-10.1); CREATININE 0.7 mg/dL (0.7-1.3); GFR 120.9; PHOSPHORUS 3.1 mg/dL (2.6-4.7); POTASSIUM 4.2 mmol/L (3.5-5.1)
--- NOTE | 2021-03-10 08:09 | PDOC ---
PULMONARY PROGRESS NOTES DATE: 03/10/21 TIME: 08:09 Subjective Patient remains on Vapotherm 100%, BiPAP 100%. Awake alert following commands No increasing shortness of breath Vitals Vital Signs Date Time Temp Pulse Resp B/P (MAP) Pulse Ox O2 Delivery O2 Flow Rate FiO2 03/10/21 04:10 99 VAPOTHERM 40.0 03/10/21 03:00 59 24 114/81 03/09/21 23:59 97.6 97.6 General: No acute distress HEENT: Other (nc at ) Lungs: Crackles Cardiovascular: S1, S2 Abdomen: Soft Extremities: No Edema Skin: Warm Labs Laboratory Tests Test 03/08/21 12:15 03/08/21 18:28 03/09/21 00:21 03/09/21 05:48 Glucose (Fingerstick) 220 mg/dL (70-99) 268 mg/dL (70-99) 200 mg/dL (70-99) 234 mg/dL (70-99) Test 03/09/21 05:50 03/09/21 12:46 03/09/21 18:59 03/10/21 00:28 Sodium Level 134 mmol/L (136-145) Potassium Level 4.8 mmol/L (3.5-5.1) Chloride Level 101 mmol/L (98-107) Carbon Dioxide Level 25 mmol/L (21-32) Anion Gap 8 (6-14) Blood Urea Nitrogen 20 mg/dL (8-26) Creatinine 0.5 mg/dL (0.7-1.3) Estimated GFR (Cockcroft-Gault) 178.2 BUN/Creatinine Ratio 40 (6-20) Glucose Level 219 mg/dL (70-99) Calcium Level 8.1 mg/dL (8.5-10.1) Total Bilirubin 0.4 mg/dL (0.2-1.0) Aspartate Amino Transf (AST/SGOT) 24 U/L (15-37) Alanine Aminotransferase (ALT/SGPT) 41 U/L (16-63) Alkaline Phosphatase 117 U/L (46-116) Total Protein 6.4 g/dL (6.4-8.2) Albumin 1.7 g/dL (3.4-5.0) Albumin/Globulin Ratio 0.4 (1.0-1.7) Glucose (Fingerstick) 189 mg/dL (70-99) 248 mg/dL (70-99) 329 mg/dL (70-99) Test 03/10/21 06:14 03/10/21 06:15 Glucose (Fingerstick) 236 mg/dL (70-99) White Blood Count 10.5 x10^3/uL (4.0-11.0) Red Blood Count 4.53 x10^6/uL (4.30-5.70) Hemoglobin 14.1 g/dL (13.0-17.5) Hematocrit 41.6 % (39.0-53.0) Mean Corpuscular Volume 92 fL (79-100) Mean Corpuscular Hemoglobin 31 pg (25-35) Mean Corpuscular Hemoglobin Concent 34 g/dL (31-37) Red Cell Distribution Width 13.9 % (11.5-14.5) Platelet Count 177 x10^3/uL (140-400) Neutrophils (%) (Auto) 86 % (31-73) Lymphocytes (%) (Auto) 8 % (24-48) Monocytes (%) (Auto) 6 % (0-9) Eosinophils (%) (Auto) 0 % (0-3) Basophils (%) (Auto) 0 % (0-3) Neutrophils # (Auto) 9.0 x10^3/uL (1.8-7.7) Lymphocytes # (Auto) 0.8 x10^3/uL (1.0-4.8) Monocytes # (Auto) 0.6 x10^3/uL (0.0-1.1) Eosinophils # (Auto) 0.0 x10^3/uL (0.0-0.7) Basophils # (Auto) 0.0 x10^3/uL (0.0-0.2) Sodium Level 133 mmol/L (136-145) Potassium Level 4.2 mmol/L (3.5-5.1) Chloride Level 101 mmol/L (98-107) Carbon Dioxide Level 24 mmol/L (21-32) Anion Gap 8 (6-14) Blood Urea Nitrogen 22 mg/dL (8-26) Creatinine 0.7 mg/dL (0.7-1.3) Estimated GFR (Cockcroft-Gault) 120.9 Glucose Level 243 mg/dL (70-99) Calcium Level 7.6 mg/dL (8.5-10.1) Phosphorus Level 3.1 mg/dL (2.6-4.7) Magnesium Level 2.0 mg/dL (1.8-2.4) Laboratory Tests Test 03/09/21 12:46 03/09/21 18:59 03/10/21 00:28 03/10/21 06:14 Glucose (Fingerstick) 189 mg/dL (70-99) 248 mg/dL (70-99) 329 mg/dL (70-99) 236 mg/dL (70-99) Test 03/10/21 06:15 White Blood Count 10.5 x10^3/uL (4.0-11.0) Red Blood Count 4.53 x10^6/uL (4.30-5.70) Hemoglobin 14.1 g/dL (13.0-17.5) Hematocrit 41.6 % (39.0-53.0) Mean Corpuscular Volume 92 fL (79-100) Mean Corpuscular Hemoglobin 31 pg (25-35) Mean Corpuscular Hemoglobin Concent 34 g/dL (31-37) Red Cell Distribution Width 13.9 % (11.5-14.5) Platelet Count 177 x10^3/uL (140-400) Neutrophils (%) (Auto) 86 % (31-73) Lymphocytes (%) (Auto) 8 % (24-48) Monocytes (%) (Auto) 6 % (0-9) Eosinophils (%) (Auto) 0 % (0-3) Basophils (%) (Auto) 0 % (0-3) Neutrophils # (Auto) 9.0 x10^3/uL (1.8-7.7) Lymphocytes # (Auto) 0.8 x10^3/uL (1.0-4.8) Monocytes # (Auto) 0.6 x10^3/uL (0.0-1.1) Eosinophils # (Auto) 0.0 x10^3/uL (0.0-0.7) Basophils # (Auto) 0.0 x10^3/uL (0.0-0.2) Sodium Level 133 mmol/L (136-145) Potassium Level 4.2 mmol/L (3.5-5.1) Chloride Level 101 mmol/L (98-107) Carbon Dioxide Level 24 mmol/L (21-32) Anion Gap 8 (6-14) Blood Urea Nitrogen 22 mg/dL (8-26) Creatinine 0.7 mg/dL (0.7-1.3) Estimated GFR (Cockcroft-Gault) 120.9 Glucose Level 243 mg/dL (70-99) Calcium Level 7.6 mg/dL (8.5-10.1) Phosphorus Level 3.1 mg/dL (2.6-4.7) Magnesium Level 2.0 mg/dL (1.8-2.4) Medications Active Scripts Medications Dose Route/Sig Max Daily Dose Days Date Category [no home meds] 02/21/21 Reported Impression . IMPRESSION: 1. Acute on chronic hypoxemic respiratory failure. 2. COVID-19 viral pneumonia/acute respiratory distress syndrome. 3. Abnormal x-ray. 4. Possible bacterial pneumonia. Plan . Updated 03/10 Continue Vapotherm and BiPAP Nutritional support DVT prophylaxis Precedex Patient full code, will avoid intubation as much as possible. Updated 03/09 titrate fio2 to keep sat 90% on precedex avoid oversedation Continue Vapotherm and BiPAP, 100% FiO2. Steroids Repeat chest x-ray 03/06/2021 reviewed. Bilateral diffuse interstitial infiltrate DVT prophylaxis Discussed with RN, rt Continue aggressive supportive care. Patient is full code. TAYLOR LEACH MD Mar 10, 2021 08:09
[2021-03-10] MEDS: methylPREDNISolone SOD SUCC PF 40 MG/ML VIAL. IV SCH (08:59)
[2021-03-10] MEDS: NYSTATIN 100,000 UNITS/ML 5 ML ORAL.SUSP. SWSW SCH ×3 (09:00→17:00)
[2021-03-10] MEDS: ASPIRIN CHEWABLE 81 MG TABLET. PO SCH (09:00)
[2021-03-10] MEDS: TPN PER PHARMACY MC PRN (09:32)
--- NOTE | 2021-03-10 09:58 | NUR ---
Pharmacy TPN Dosing Note S: ROWDY LOVE is a 46 year old M Currently receiving Central Continuous TPN started 03/05/21 B:Pertinent PMH: Poor PO intake Height: 5 feet, 5 inches Weight: 69.3 kg Current diet: NPO LABS: Sodium: 133 Potassium: 4.2 Chloride: 101 Calcium: 7.6 Corrected Calcium: 9.44 Magnesium: 2 CO2: 24 SCr: 0.7 Glucose: 189-329 Albumin: 1.7 AST: 24 ALT: 41 TPN FORMULA: TPN TYPE: Central Continuous AMINO ACIDS: 75 gm DEXTROSE: 210 gm LIPIDS: 30 (MWF) gm SODIUM CHLORIDE: 90 mEq POTASSIUM CHLORIDE: 50 mEq POTASSIUM PHOSPHATE: 13.6 mmol MAGNESIUM: 10 mEq CALCIUM: 10 mEq MULTIPLE VITAMIN: 10 ml TRACE ELEMENTS: 1 ml TPN PLAN: -Sodium increased to 120mEq -Lipids added per MWF schedule R: Continue TPN with lipids Will monitor electrolytes, glucose, and tolerance to TPN. Tanya Campbell Fabio, 03/10/21 [id number]
--- NOTE | 2021-03-10 10:57 | NUR ---
SS following up with discharge planning. SS reviewed pt chart and discussed with pt RN. Pt is currently on Vapotherm and BIPAP at 100%. COVID19 positive. Pt on Precedex. Pt on TPN, IV Solu-Medrol, and IV Rocephin. Self pay. Med Assist following. Not stable. SS will continue to follow for discharge planning.
--- NOTE | 2021-03-10 12:58 | PDOC ---
[facility] PROGRESS NOTE Date of Service DOS: DATE: 03/10/21 TIME: 12:55 Chief Complaint Chief Complaint Acute hypoxic respiratory failure secondary to Covid pneumonia History of diabetes mellitus type 2 COVID-19 acute respiratory distress syndrome. Possible bacterial pneumonia - likely gram negative History of Present Illness History of Present Illness 03/10/2021 Patient seen and examined in the [place] [id number] ICU Discussed with RN Chart reviewed He remains on Vapotherm 40 L 100% FiO2 plus BiPAP with 100% FiO2 Has TPN hanging Sedated with Dex Remains extremely critically ill 03/09: In ICU on BiPAP with Vapotherm 100% FiO2 40 L/min with saturations 93%. Still tolerating removal of BiPAP without desaturations into the 80s. Glucose minimally improved will increase schedule. He has no complaints. CC time 31- minute 03/08: Seen in ICU on BiPAP continue vent support on Vapotherm 100% FiO2 40 L/min. Saturations 94%. When BiPAP is removed desaturates to 84% despite Vapotherm. He prefers to avoid intubation. O2 sats improved with BiPAP. Glucose in the 200s. D/w family and friend over the phone. 03/07: Seen in ICU BiPAP 18/8 with supplemental Vapotherm saturations 93% to 96%. He has no complaints. 03/06: Chest radiograph unchanged taking good position, WBC 12.2 glucose in 200s. Tolerating TPN well. O2 saturations 92% on BiPAP 18/8 with supplemental Vapotherm 40 L/min 100% FiO2. 03/05: In ICU. PICC placed. Requiring BiPAP 18/8 with supplemental Vapotherm 40 L/min 100% FiO2 significant saturations with removal of BiPAP unable to take p.o. start TPN tonight 03/04: Transfer to ICU overnight for worsening hypoxia. On BiPAP 18/8 with supplemental Vapotherm 40 L/min 100% FiO2. Significant desaturation with attempted to eat and drink. cc time 32 min 03/03: No acute events overnight. Saturating 89-90% on Vapotherm and NRB 15L. Not dyspneic but doesnt feel better. Will DC chavez today and today will be his last day of steroids. Encouraged patient to get OOBTC ad pierre. 03/02: No acute events overnight. Patient seen and examined bedside. Increased work of breathing. But still saturating 90% on 40 L Vapotherm. Patient's chart, labs, images were reviewed and discussed with RN 02/28: Patient seen and examined bedside. Still on Vapotherm 40 L and saturating 96%. Not more short of breath than usual. Feels actually better today. Speaking full sentences. Given nystatin due to some white buildup in the oral cavity. Likely due to steroids. 02/27: Pt seen and examined bedside. Saturating 86% on Vapotherm and required BiPAP overnight. Pulmonology consulted and to continue with current management for COVID. Pending ICU transfer when possible 02/26: Patient seen and examined bedside. Saturating 89% on Vapotherm and 15 L nonrebreather. Continue with IV steroids and IV antibiotics. Patient's chart, labs, images were reviewed and discussed with RN 02/25: No acute events overnight. Patient seen examined bedside. Patient saturating 91% on 4 L Vapotherm. Continue with IV steroids and IV antibiotics. Patient's chart, labs, images were reviewed and discussed with RN 02/24: No acute events overnight. Patient seen examined bedside. Patient saturating 93 to 95% on Vapotherm at 40 L. Not dyspneic at this time. Patient's chart, labs, images were reviewed and discussed with RN 02/23: Patient seen and examined. He is still on Vapotherm 40 L and 100% nonrebreather. His third Covid test finally came back positive. I spoke with pharmacy he is still not a candidate for remdesivir because he has had the disease for more than 10 days 02/22: Patient seen and examined. He is on Vapotherm 40 L with 100% FiO2 plus nonrebreather. His Covid testing by PCR is surprisingly negative Vitals/I&O Vitals/I&O: Vital Signs Date Time Temp Pulse Resp B/P (MAP) Pulse Ox O2 Delivery O2 Flow Rate FiO2 03/10/21 12:15 89 VAPOTHERM 40.0 03/10/21 12:00 77 30 115/86 03/10/21 09:00 98.2 98.2 I & O 03/09/21 03/09/21 03/10/21 15:00 23:00 07:00 Intake Total 600 ml 1632 ml 943 ml Output Total 900 ml 1280 ml 920 ml Balance -300 ml 352 ml 23 ml Physical Exam General: mild distress, Other (Resting on Vapotherm) Heart: Regular rate Lungs: Crackles Abdomen: Normal bowel sounds Extremities: No clubbing Skin: No rashes Labs Labs: Laboratory Tests Test 03/09/21 18:59 03/10/21 00:28 03/10/21 06:14 03/10/21 06:15 Glucose (Fingerstick) 248 mg/dL (70-99) 329 mg/dL (70-99) 236 mg/dL (70-99) White Blood Count 10.5 x10^3/uL (4.0-11.0) Red Blood Count 4.53 x10^6/uL (4.30-5.70) Hemoglobin 14.1 g/dL (13.0-17.5) Hematocrit 41.6 % (39.0-53.0) Mean Corpuscular Volume 92 fL (79-100) Mean Corpuscular Hemoglobin 31 pg (25-35) Mean Corpuscular Hemoglobin Concent 34 g/dL (31-37) Red Cell Distribution Width 13.9 % (11.5-14.5) Platelet Count 177 x10^3/uL (140-400) Neutrophils (%) (Auto) 86 % (31-73) Lymphocytes (%) (Auto) 8 % (24-48) Monocytes (%) (Auto) 6 % (0-9) Eosinophils (%) (Auto) 0 % (0-3) Basophils (%) (Auto) 0 % (0-3) Neutrophils # (Auto) 9.0 x10^3/uL (1.8-7.7) Lymphocytes # (Auto) 0.8 x10^3/uL (1.0-4.8) Monocytes # (Auto) 0.6 x10^3/uL (0.0-1.1) Eosinophils # (Auto) 0.0 x10^3/uL (0.0-0.7) Basophils # (Auto) 0.0 x10^3/uL (0.0-0.2) Sodium Level 133 mmol/L (136-145) Potassium Level 4.2 mmol/L (3.5-5.1) Chloride Level 101 mmol/L (98-107) Carbon Dioxide Level 24 mmol/L (21-32) Anion Gap 8 (6-14) Blood Urea Nitrogen 22 mg/dL (8-26) Creatinine 0.7 mg/dL (0.7-1.3) Estimated GFR (Cockcroft-Gault) 120.9 Glucose Level 243 mg/dL (70-99) Calcium Level 7.6 mg/dL (8.5-10.1) Phosphorus Level 3.1 mg/dL (2.6-4.7) Magnesium Level 2.0 mg/dL (1.8-2.4) Test 03/10/21 12:44 Glucose (Fingerstick) 217 mg/dL (70-99) Assessment and Plan Assessmemt and Plan Problems Medical Problems: (1) Acute respiratory failure with hypoxia Status: Acute (2) Sepsis due to pneumonia Status: Acute Severe respiratory failure secondary to COVID-19 Diabetes Possible bacterial pneumonia likely gram-negative Plan ICU monitoring Trying to wean down his O2 requirements continue Vapotherm and BiPAP for now COVID protocol Home meds DVT prophylaxis Full code Appreciate subspecialist input Prognosis extremely guarded at best CC time 31 Comment Review of Relevant I have reviewed the following items elmer (where applicable) has been applied. Medications: Current Medications Medications (Trade) Dose Ordered Sig/Kalina Route PRN Reason Start Time Stop Time Status Last Admin Dose Admin Sodium Chloride 90 meq/Potassium Chloride 50 meq/ Potassium Phosphate 13.6 mmol/Magnesium Sulfate 10 meq/ Calcium Gluconate 10 meq/ Multivitamins 10 ml/Zinc/Copper/ Manganese/ Selenium 1 ml/ Total Parenteral Nutrition/Amino Acids/Dextrose/ Fat Emulsion Intravenous 1,512 ml @ 63 mls/hr TPN CONT IV 03/09/21 22:00 03/10/21 21:59 03/09/21 21:59 Justifications for Admission Other Justification LILA RODRIGUEZ III DO Mar 10, 2021 12:58
[2021-03-10] MEDS: cefTRIAXone IV Push 1 GM VIAL. IVP SCH (20:26)
[2021-03-10] MEDS: INSULIN GLARGINE SYRINGE. SQ SCH (20:26)
[2021-03-10] MEDS: ENOXAPARIN 40 MG/0.4 ML SYRINGE. SQ SCH (20:27)
[2021-03-10] MEDS ORDERED: DEXTROSE 70% IV SCH (22:00)
[2021-03-10] MEDS ORDERED: AMINO ACID IV SCH (22:00)
[2021-03-10] MEDS ORDERED: TOTAL PARENTERAL NUTRITION IV SCH (22:00)
[2021-03-10] MEDS ORDERED: [UNRECOGNIZED DRUG - OTHER] IV SCH (22:00)
[2021-03-11] VITALS (24 sets, daily range): BP systolic 84–105; BP diastolic 62–75
[2021-03-11] MEDS: INSULIN LISPRO 300 UNITS/3 ML VIAL. SQ SCH ×10 (00:06→23:44)
[2021-03-11 07:12] LABS: CALCIUM 7.8 mg/dL (8.5-10.1); CREATININE 0.6 mg/dL (0.7-1.3); GFR 144.4; PHOSPHORUS 3.4 mg/dL (2.6-4.7); POTASSIUM 4.3 mmol/L (3.5-5.1)
[2021-03-11] MEDS: DEXMEDETOMIDINE 400 MCG in IV NORMAL SALINE 100ML 96 ML IV PRN ×3 (07:13→23:45)
[2021-03-11] MEDS: ASPIRIN CHEWABLE 81 MG TABLET. PO SCH (08:52)
--- NOTE | 2021-03-11 09:10 | PDOC ---
PULMONARY PROGRESS NOTES DATE: 03/11/21 TIME: 09:10 Subjective Patient remains on Vapotherm 100%, BiPAP 100%. Awake alert following commands No increasing shortness of breath Vitals Vital Signs Date Time Temp Pulse Resp B/P (MAP) Pulse Ox O2 Delivery O2 Flow Rate FiO2 03/11/21 08:23 96 BiPAP/CPAP 40.0 03/11/21 08:00 82 27 93/67 03/11/21 04:00 98.4 98.4 General: No acute distress HEENT: Other (nc at ) Lungs: Crackles Cardiovascular: S1, S2 Abdomen: Soft Extremities: No Edema Skin: Warm Labs Laboratory Tests Test 03/09/21 12:46 03/09/21 18:59 03/10/21 00:28 03/10/21 06:14 Glucose (Fingerstick) 189 mg/dL (70-99) 248 mg/dL (70-99) 329 mg/dL (70-99) 236 mg/dL (70-99) Test 03/10/21 06:15 03/10/21 12:44 03/10/21 17:57 03/11/21 06:20 White Blood Count 10.5 x10^3/uL (4.0-11.0) Red Blood Count 4.53 x10^6/uL (4.30-5.70) Hemoglobin 14.1 g/dL (13.0-17.5) Hematocrit 41.6 % (39.0-53.0) Mean Corpuscular Volume 92 fL (79-100) Mean Corpuscular Hemoglobin 31 pg (25-35) Mean Corpuscular Hemoglobin Concent 34 g/dL (31-37) Red Cell Distribution Width 13.9 % (11.5-14.5) Platelet Count 177 x10^3/uL (140-400) Neutrophils (%) (Auto) 86 % (31-73) Lymphocytes (%) (Auto) 8 % (24-48) Monocytes (%) (Auto) 6 % (0-9) Eosinophils (%) (Auto) 0 % (0-3) Basophils (%) (Auto) 0 % (0-3) Neutrophils # (Auto) 9.0 x10^3/uL (1.8-7.7) Lymphocytes # (Auto) 0.8 x10^3/uL (1.0-4.8) Monocytes # (Auto) 0.6 x10^3/uL (0.0-1.1) Eosinophils # (Auto) 0.0 x10^3/uL (0.0-0.7) Basophils # (Auto) 0.0 x10^3/uL (0.0-0.2) Sodium Level 133 mmol/L (136-145) 135 mmol/L (136-145) Potassium Level 4.2 mmol/L (3.5-5.1) 4.3 mmol/L (3.5-5.1) Chloride Level 101 mmol/L (98-107) 102 mmol/L (98-107) Carbon Dioxide Level 24 mmol/L (21-32) 29 mmol/L (21-32) Anion Gap 8 (6-14) 4 (6-14) Blood Urea Nitrogen 22 mg/dL (8-26) 20 mg/dL (8-26) Creatinine 0.7 mg/dL (0.7-1.3) 0.6 mg/dL (0.7-1.3) Estimated GFR (Cockcroft-Gault) 120.9 144.4 Glucose Level 243 mg/dL (70-99) 133 mg/dL (70-99) Calcium Level 7.6 mg/dL (8.5-10.1) 7.8 mg/dL (8.5-10.1) Phosphorus Level 3.1 mg/dL (2.6-4.7) 3.4 mg/dL (2.6-4.7) Magnesium Level 2.0 mg/dL (1.8-2.4) 2.0 mg/dL (1.8-2.4) Glucose (Fingerstick) 217 mg/dL (70-99) 245 mg/dL (70-99) Test 03/11/21 06:21 Glucose (Fingerstick) 145 mg/dL (70-99) Laboratory Tests Test 03/10/21 12:44 03/10/21 17:57 03/11/21 06:20 03/11/21 06:21 Glucose (Fingerstick) 217 mg/dL (70-99) 245 mg/dL (70-99) 145 mg/dL (70-99) Sodium Level 135 mmol/L (136-145) Potassium Level 4.3 mmol/L (3.5-5.1) Chloride Level 102 mmol/L (98-107) Carbon Dioxide Level 29 mmol/L (21-32) Anion Gap 4 (6-14) Blood Urea Nitrogen 20 mg/dL (8-26) Creatinine 0.6 mg/dL (0.7-1.3) Estimated GFR (Cockcroft-Gault) 144.4 Glucose Level 133 mg/dL (70-99) Calcium Level 7.8 mg/dL (8.5-10.1) Phosphorus Level 3.4 mg/dL (2.6-4.7) Magnesium Level 2.0 mg/dL (1.8-2.4) Medications Active Scripts Medications Dose Route/Sig Max Daily Dose Days Date Category [no home meds] 02/21/21 Reported Impression . IMPRESSION: 1. Acute on chronic hypoxemic respiratory failure./ARDS 2. COVID-19 viral pneumonia/acute respiratory distress syndrome. 3. Abnormal x-ray. 4. Possible bacterial pneumonia. Plan . Update 03/11 Patient continues to continue with Vapotherm and BiPAP No need for intubation at this time Awake alert follows commands Nutritional support Precedex Labs and chest x-ray reviewed updated 03/10 Continue Vapotherm and BiPAP Nutritional support DVT prophylaxis Precedex Patient full code, will avoid intubation as much as possible. TAYLOR LEACH MD Mar 11, 2021 09:10
[2021-03-11] MEDS: TPN PER PHARMACY MC PRN (12:06)
--- NOTE | 2021-03-11 12:08 | NUR ---
Pharmacy TPN Dosing Note S: ROWDY LOVE is a 46 year old M Currently receiving Central Continuous TPN started 03/05/21 B:Pertinent PMH: Poor PO intake Current diet: NPO LABS: Sodium: 133 Potassium: 4.2 Chloride: 101 Calcium: 7.6 Corrected Calcium: 9.44 Magnesium: 2 CO2: 24 SCr: 0.7 Glucose: 189-329 Albumin: 1.7 AST: 24 ALT: 41 TPN FORMULA: TPN TYPE: Central Continuous AMINO ACIDS: 75 gm DEXTROSE: 210 gm LIPIDS: 0 gm SODIUM CHLORIDE: 120 mEq SODIUM ACETATE: -- mEq SODIUM PHOSPHATE: -- mmol POTASSIUM CHLORIDE: 50 mEq POTASSIUM ACETATE: -- mEq POTASSIUM PHOSPHATE: 13.6 mmol MAGNESIUM: 10 mEq CALCIUM: 10 mEq INSULIN: -- units MULTIPLE VITAMIN: 10 ml TRACE ELEMENTS: 1 ml ml(s) TPN PLAN: 03/12 CONT SAME TPN, NO LIPIDS PER CAPS RESTRICTION R: Continue TPN Will monitor electrolytes, glucose, and tolerance to TPN. DEEP ARCOS RP, 03/11/21 [id number]
--- NOTE | 2021-03-11 12:12 | PDOC ---
[employer] PROGRESS NOTE Date of Service DOS: DATE: 03/11/21 TIME: 12:11 Chief Complaint Chief Complaint Acute hypoxic respiratory failure secondary to Covid pneumonia History of diabetes mellitus type 2 COVID-19 acute respiratory distress syndrome. Possible bacterial pneumonia - likely gram negative History of Present Illness History of Present Illness 03/11/2021 Patient seen and examined in the [place] [address] ICU Discussed with RN Chart reviewed He is currently on BiPAP 100% FiO2 and Vapotherm 40 L with 1 high percent FiO2 Sedated with Dex Has TPN pain Remains very critically ill 03/10/2021 Patient seen and examined in the [place] [address] ICU Discussed with RN Chart reviewed He remains on Vapotherm 40 L 100% FiO2 plus BiPAP with 100% FiO2 Has TPN hanging Sedated with Dex Remains extremely critically ill 03/09: In ICU on BiPAP with Vapotherm 100% FiO2 40 L/min with saturations 93%. Still tolerating removal of BiPAP without desaturations into the 80s. Glucose minimally improved will increase schedule. He has no complaints. CC time 31-m inute 03/08: Seen in ICU on BiPAP continue vent support on Vapotherm 100% FiO2 40 L/min. Saturations 94%. When BiPAP is removed desaturates to 84% despite Vapotherm. He prefers to avoid intubation. O2 sats improved with BiPAP. Glucose in the 200s. D/w family and friend over the phone. 03/07: Seen in ICU BiPAP 18/8 with supplemental Vapotherm saturations 93% to 96%. He has no complaints. 03/06: Chest radiograph unchanged taking good position, WBC 12.2 glucose in 200s. Tolerating TPN well. O2 saturations 92% on BiPAP 18/8 with supplemental Vapotherm 40 L/min 100% FiO2. 03/05: In ICU. PICC placed. Requiring BiPAP 18/8 with supplemental Vapotherm 40 L/min 100% FiO2 significant saturations with removal of BiPAP unable to take p.o. start TPN tonight 03/04: Transfer to ICU overnight for worsening hypoxia. On BiPAP 18/8 with supplemental Vapotherm 40 L/min 100% FiO2. Significant desaturation with attempted to eat and drink. cc time 32 min 03/03: No acute events overnight. Saturating 89-90% on Vapotherm and NRB 15L. Not dyspneic but doesnt feel better. Will DC chavez today and today will be his last day of steroids. Encouraged patient to get OOBTC ad pierre. 03/02: No acute events overnight. Patient seen and examined bedside. Increased work of breathing. But still saturating 90% on 40 L Vapotherm. Patient's chart, labs, images were reviewed and discussed with RN 02/28: Patient seen and examined bedside. Still on Vapotherm 40 L and saturating 96%. Not more short of breath than usual. Feels actually better today. Speaking full sentences. Given nystatin due to some white buildup in the oral cavity. Likely due to steroids. 02/27: Pt seen and examined bedside. Saturating 86% on Vapotherm and required BiPAP overnight. Pulmonology consulted and to continue with current management for COVID. Pending ICU transfer when possible 02/26: Patient seen and examined bedside. Saturating 89% on Vapotherm and 15 L nonrebreather. Continue with IV steroids and IV antibiotics. Patient's chart, labs, images were reviewed and discussed with RN 02/25: No acute events overnight. Patient seen examined bedside. Patient saturating 91% on 4 L Vapotherm. Continue with IV steroids and IV antibiotics. Patient's chart, labs, images were reviewed and discussed with RN 02/24: No acute events overnight. Patient seen examined bedside. Patient saturating 93 to 95% on Vapotherm at 40 L. Not dyspneic at this time. Patient's chart, labs, images were reviewed and discussed with RN 02/23: Patient seen and examined. He is still on Vapotherm 40 L and 100% nonrebreather. His third Covid test finally came back positive. I spoke with pharmacy he is still not a candidate for remdesivir because he has had the disease for more than 10 days 02/22: Patient seen and examined. He is on Vapotherm 40 L with 100% FiO2 plus nonrebreather. His Covid testing by PCR is surprisingly negative Vitals/I&O Vitals/I&O: Vital Signs Date Time Temp Pulse Resp B/P (MAP) Pulse Ox O2 Delivery O2 Flow Rate FiO2 03/11/21 11:53 93 BiPAP/CPAP 40.0 03/11/21 11:00 79 28 100/63 03/11/21 04:00 98.4 98.4 I & O 03/10/21 03/10/21 03/11/21 14:59 22:59 06:59 Intake Total 944 ml Output Total 450 ml 550 ml 425 ml Balance -450 ml 394 ml -425 ml Physical Exam General: mild distress, Other (Resting on Vapotherm) Heart: Regular rate Lungs: Crackles Abdomen: Normal bowel sounds Extremities: No clubbing Skin: No rashes Labs Labs: Laboratory Tests Test 03/10/21 12:44 03/10/21 17:57 03/11/21 06:20 03/11/21 06:21 Glucose (Fingerstick) 217 mg/dL (70-99) 245 mg/dL (70-99) 145 mg/dL (70-99) Sodium Level 135 mmol/L (136-145) Potassium Level 4.3 mmol/L (3.5-5.1) Chloride Level 102 mmol/L (98-107) Carbon Dioxide Level 29 mmol/L (21-32) Anion Gap 4 (6-14) Blood Urea Nitrogen 20 mg/dL (8-26) Creatinine 0.6 mg/dL (0.7-1.3) Estimated GFR (Cockcroft-Gault) 144.4 Glucose Level 133 mg/dL (70-99) Calcium Level 7.8 mg/dL (8.5-10.1) Phosphorus Level 3.4 mg/dL (2.6-4.7) Magnesium Level 2.0 mg/dL (1.8-2.4) Test 03/11/21 12:08 Glucose (Fingerstick) 188 mg/dL (70-99) Assessment and Plan Assessmemt and Plan Problems Medical Problems: (1) Acute respiratory failure with hypoxia Status: Acute (2) Sepsis due to pneumonia Status: Acute Severe respiratory failure secondary to COVID-19 Diabetes Possible bacterial pneumonia likely gram-negative Plan ICU monitoring Trying to wean down his O2 requirements continue Vapotherm and BiPAP for now COVID protocol Home meds DVT prophylaxis Trend labs Continue TPN Full code Appreciate subspecialist input Prognosis extremely guarded at best CC time 32 Comment Review of Relevant I have reviewed the following items elmer (where applicable) has been applied. Medications: Current Medications Medications (Trade) Dose Ordered Sig/Kalina Route PRN Reason Start Time Stop Time Status Last Admin Dose Admin Sodium Chloride 120 meq/Potassium Chloride 50 meq/ Potassium Phosphate 13.6 mmol/Magnesium Sulfate 10 meq/ Calcium Gluconate 10 meq/ Multivitamins 10 ml/Zinc/Copper/ Manganese/ Selenium 1 ml/ Total Parenteral Nutrition/Amino Acids/Dextrose/ Fat Emulsion Intravenous 1,512 ml @ 63 mls/hr TPN CONT IV 03/10/21 22:00 03/11/21 21:59 03/10/21 22:23 Justifications for Admission Other Justification LILA RODRIGUEZ III DO Mar 11, 2021 12:12
--- NOTE | 2021-03-11 15:35 | NUR ---
SS following up with discharge planning. SS reviewed pt chart and discussed with pt RN. Pt is currently on Vapotherm and BIPAP at 100%. COVID19 positive. Pt on Precedex. Pt on TPN and IV Rocephin. Self pay. Med Assist following. Not stable. SS will continue to follow for discharge planning.
[2021-03-11] MEDS: STERILE WATER for RESP 2,000 ML BAG. INH PRN (17:25)
[2021-03-11] MEDS: cefTRIAXone IV Push 1 GM VIAL. IVP SCH (20:16)
[2021-03-11] MEDS: ENOXAPARIN 40 MG/0.4 ML SYRINGE. SQ SCH (20:16)
[2021-03-11] MEDS: INSULIN GLARGINE SYRINGE. SQ SCH (20:41)
[2021-03-11] MEDS ORDERED: [UNRECOGNIZED DRUG - OTHER] IV SCH (22:00)
[2021-03-11] MEDS ORDERED: AMINO ACID IV SCH (22:00)
[2021-03-11] MEDS ORDERED: TOTAL PARENTERAL NUTRITION IV SCH (22:00)
[2021-03-11] MEDS ORDERED: DEXTROSE 70% IV SCH (22:00)
[2021-03-12] VITALS (25 sets, daily range): BP systolic 81–140; BP diastolic 54–93
[2021-03-12] MEDS: INSULIN LISPRO 300 UNITS/3 ML VIAL. SQ SCH ×4 (06:00→18:00)
[2021-03-12 06:46] LABS: CALCIUM 7.4 mg/dL (8.5-10.1); CREATININE 0.6 mg/dL (0.7-1.3); GFR 144.4; MAGNESIUM 1.9 mg/dL (1.8-2.4); PHOSPHORUS 3.7 mg/dL (2.6-4.7)
--- NOTE | 2021-03-12 07:22 | PDOC ---
[employer] PROGRESS NOTE Date of Service DOS: DATE: 03/12/21 TIME: 07:21 Chief Complaint Chief Complaint Acute hypoxic respiratory failure secondary to Covid pneumonia History of diabetes mellitus type 2 [facility] [place] acute respiratory distress syndrome. Possible bacterial pneumonia - likely gram negative History of Present Illness History of Present Illness 03/12/2021 Patient seen and examined in the [place] [address] ICU Discussed with RN Chart reviewed He remains on the BiPAP and Vapotherm Has TPN hanging Sedated with Dex Has Chavez to bedside drain Remains critically ill 03/11/2021 Patient seen and examined in the [place] [address] ICU Discussed with RN Chart reviewed He is currently on BiPAP 100% FiO2 and Vapotherm 40 L with 1 high percent FiO2 Sedated with Dex Has TPN pain Remains very critically ill 03/10/2021 Patient seen and examined in the [place] [address] ICU Discussed with RN Chart reviewed He remains on Vapotherm 40 L 100% FiO2 plus BiPAP with 100% FiO2 Has TPN hanging Sedated with Dex Remains extremely critically ill 03/09: In ICU on BiPAP with Vapotherm 100% FiO2 40 L/min with saturations 93%. Still tolerating removal of BiPAP without desaturations into the 80s. Glucose minimally improved will increase schedule. He has no complaints. CC time 31- minute 03/08: Seen in ICU on BiPAP continue vent support on Vapotherm 100% FiO2 40 L/min. Saturations 94%. When BiPAP is removed desaturates to 84% despite Vapotherm. He prefers to avoid intubation. O2 sats improved with BiPAP. Glucose in the 200s. D/w family and friend over the phone. 03/07: Seen in ICU BiPAP 18/8 with supplemental Vapotherm saturations 93% to 96%. He has no complaints. 03/06: Chest radiograph unchanged taking good position, WBC 12.2 glucose in 200s. Tolerating TPN well. O2 saturations 92% on BiPAP 18/8 with supplemental Vapotherm 40 L/min 100% FiO2. 03/05: In ICU. PICC placed. Requiring BiPAP 18/8 with supplemental Vapotherm 40 L/min 100% FiO2 significant saturations with removal of BiPAP unable to take p.o. start TPN tonight 03/04: Transfer to ICU overnight for worsening hypoxia. On BiPAP 18/8 with supplemental Vapotherm 40 L/min 100% FiO2. Significant desaturation with attempted to eat and drink. cc time 32 min 03/03: No acute events overnight. Saturating 89-90% on Vapotherm and NRB 15L. Not dyspneic but doesnt feel better. Will DC chavez today and today will be his last day of steroids. Encouraged patient to get OOBTC ad pierre. 03/02: No acute events overnight. Patient seen and examined bedside. Increased work of breathing. But still saturating 90% on 40 L Vapotherm. Patient's chart, labs, images were reviewed and discussed with RN 02/28: Patient seen and examined bedside. Still on Vapotherm 40 L and saturating 96%. Not more short of breath than usual. Feels actually better today. Speaking full sentences. Given nystatin due to some white buildup in the oral cavity. Likely due to steroids. 02/27: Pt seen and examined bedside. Saturating 86% on Vapotherm and required BiPAP overnight. Pulmonology consulted and to continue with current management for COVID. Pending ICU transfer when possible 02/26: Patient seen and examined bedside. Saturating 89% on Vapotherm and 15 L nonrebreather. Continue with IV steroids and IV antibiotics. Patient's chart, labs, images were reviewed and discussed with RN 02/25: No acute events overnight. Patient seen examined bedside. Patient saturating 91% on 4 L Vapotherm. Continue with IV steroids and IV antibiotics. Patient's chart, labs, images were reviewed and discussed with RN 02/24: No acute events overnight. Patient seen examined bedside. Patient saturating 93 to 95% on Vapotherm at 40 L. Not dyspneic at this time. Patient's chart, labs, images were reviewed and discussed with RN 02/23: Patient seen and examined. He is still on Vapotherm 40 L and 100% nonrebreather. His third Covid test finally came back positive. I spoke with pharmacy he is still not a candidate for remdesivir because he has had the dise ase for more than 10 days 02/22: Patient seen and examined. He is on Vapotherm 40 L with 100% FiO2 plus nonrebreather. His Covid testing by PCR is surprisingly negative Vitals/I&O Vitals/I&O: Vital Signs Date Time Temp Pulse Resp B/P (MAP) Pulse Ox O2 Delivery O2 Flow Rate FiO2 1/12/22 07:00 99 26 90/66 91 Vapotherm/BIPAP 40.0 03/12/21 04:00 98.1 98.1 I & O 03/11/21 03/11/21 03/12/21 15:00 23:00 07:00 Intake Total 1741 ml 971 ml Output Total 500 ml 550 ml 250 ml Balance -500 ml 1191 ml 721 ml Physical Exam General: mild distress, Other (Resting on Vapotherm) Heart: Regular rate Lungs: Crackles Abdomen: Normal bowel sounds Extremities: No clubbing Skin: No rashes Labs Labs: Laboratory Tests Test 03/11/21 12:08 03/11/21 18:25 03/11/21 23:42 03/12/21 06:11 Glucose (Fingerstick) 188 mg/dL (70-99) 135 mg/dL (70-99) 157 mg/dL (70-99) 69 mg/dL (70-99) Test 03/12/21 06:15 Sodium Level 134 mmol/L (136-145) Potassium Level 4.0 mmol/L (3.5-5.1) Chloride Level 102 mmol/L (98-107) Carbon Dioxide Level 26 mmol/L (21-32) Anion Gap 6 (6-14) Blood Urea Nitrogen 19 mg/dL (8-26) Creatinine 0.6 mg/dL (0.7-1.3) Estimated GFR (Cockcroft-Gault) 144.4 Glucose Level 107 mg/dL (70-99) Calcium Level 7.4 mg/dL (8.5-10.1) Phosphorus Level 3.7 mg/dL (2.6-4.7) Magnesium Level 1.9 mg/dL (1.8-2.4) Assessment and Plan Assessmemt and Plan Problems Medical Problems: (1) Acute respiratory failure with hypoxia Status: Acute (2) Sepsis due to pneumonia Status: Acute Severe respiratory failure secondary to COVID-19 Diabetes Possible bacterial pneumonia likely gram-negative Plan ICU monitoring Trying to wean down his O2 requirements continue Vapotherm and BiPAP for now COVID protocol Home meds DVT prophylaxis Trend labs Continue TPN Full code Appreciate subspecialist input Prognosis extremely guarded at best CC time 31 Comment Review of Relevant I have reviewed the following items elmer (where applicable) has been applied. Medications: Current Medications Medications (Trade) Dose Ordered Sig/Kalina Route PRN Reason Start Time Stop Time Status Last Admin Dose Admin Sodium Chloride 120 meq/Potassium Chloride 50 meq/ Potassium Phosphate 13.6 mmol/Magnesium Sulfate 10 meq/ Calcium Gluconate 10 meq/ Multivitamins 10 ml/Zinc/Copper/ Manganese/ Selenium 1 ml/ Total Parenteral Nutrition/Amino Acids/Dextrose/ Fat Emulsion Intravenous 1,512 ml @ 63 mls/hr TPN CONT IV 03/11/21 22:00 03/12/21 21:59 03/11/21 21:42 Justifications for Admission Other Justification LILA RODRIGUEZ III DO Mar 12, 2021 07:22
[2021-03-12] MEDS: ASPIRIN CHEWABLE 81 MG TABLET. PO SCH (08:00)
--- NOTE | 2021-03-12 08:19 | PDOC ---
PULMONARY PROGRESS NOTES DATE: 03/12/21 TIME: 08:19 Subjective Patient remains on Vapotherm 100%, BiPAP 100%. Awake alert following commands No increasing shortness of breath Vitals Vital Signs Date Time Temp Pulse Resp B/P (MAP) Pulse Ox O2 Delivery O2 Flow Rate FiO2 03/12/21 08:00 Bi-pap 03/12/21 08:00 98.4 98 27 105/74 90 40.0 98.4 General: No acute distress HEENT: Other (nc at ) Lungs: Crackles Cardiovascular: S1, S2 Abdomen: Soft Extremities: No Edema Skin: Warm Labs Laboratory Tests Test 03/10/21 12:44 03/10/21 17:57 03/11/21 06:20 03/11/21 06:21 Glucose (Fingerstick) 217 mg/dL (70-99) 245 mg/dL (70-99) 145 mg/dL (70-99) Sodium Level 135 mmol/L (136-145) Potassium Level 4.3 mmol/L (3.5-5.1) Chloride Level 102 mmol/L (98-107) Carbon Dioxide Level 29 mmol/L (21-32) Anion Gap 4 (6-14) Blood Urea Nitrogen 20 mg/dL (8-26) Creatinine 0.6 mg/dL (0.7-1.3) Estimated GFR (Cockcroft-Gault) 144.4 Glucose Level 133 mg/dL (70-99) Calcium Level 7.8 mg/dL (8.5-10.1) Phosphorus Level 3.4 mg/dL (2.6-4.7) Magnesium Level 2.0 mg/dL (1.8-2.4) Test 03/11/21 12:08 03/11/21 18:25 03/11/21 23:42 03/12/21 06:11 Glucose (Fingerstick) 188 mg/dL (70-99) 135 mg/dL (70-99) 157 mg/dL (70-99) 69 mg/dL (70-99) Test 03/12/21 06:15 Sodium Level 134 mmol/L (136-145) Potassium Level 4.0 mmol/L (3.5-5.1) Chloride Level 102 mmol/L (98-107) Carbon Dioxide Level 26 mmol/L (21-32) Anion Gap 6 (6-14) Blood Urea Nitrogen 19 mg/dL (8-26) Creatinine 0.6 mg/dL (0.7-1.3) Estimated GFR (Cockcroft-Gault) 144.4 Glucose Level 107 mg/dL (70-99) Calcium Level 7.4 mg/dL (8.5-10.1) Phosphorus Level 3.7 mg/dL (2.6-4.7) Magnesium Level 1.9 mg/dL (1.8-2.4) Laboratory Tests Test 03/11/21 12:08 03/11/21 18:25 03/11/21 23:42 03/12/21 06:11 Glucose (Fingerstick) 188 mg/dL (70-99) 135 mg/dL (70-99) 157 mg/dL (70-99) 69 mg/dL (70-99) Test 03/12/21 06:15 Sodium Level 134 mmol/L (136-145) Potassium Level 4.0 mmol/L (3.5-5.1) Chloride Level 102 mmol/L (98-107) Carbon Dioxide Level 26 mmol/L (21-32) Anion Gap 6 (6-14) Blood Urea Nitrogen 19 mg/dL (8-26) Creatinine 0.6 mg/dL (0.7-1.3) Estimated GFR (Cockcroft-Gault) 144.4 Glucose Level 107 mg/dL (70-99) Calcium Level 7.4 mg/dL (8.5-10.1) Phosphorus Level 3.7 mg/dL (2.6-4.7) Magnesium Level 1.9 mg/dL (1.8-2.4) Medications Active Scripts Medications Dose Route/Sig Max Daily Dose Days Date Category [no home meds] 02/21/21 Reported Impression . IMPRESSION: 1. Acute on chronic hypoxemic respiratory failure./ARDS 2. COVID-19 viral pneumonia/acute respiratory distress syndrome. 3. Abnormal x-ray. 4. Possible bacterial pneumonia. Plan . Updated 03/12 Continue current supportive Patient continues to continue with Vapotherm and BiPAP No need for intubation at this time Awake alert follows commands Nutritional support Precedex Labs and chest x-ray reviewed TAYLOR LEACH MD Mar 12, 2021 08:19
[2021-03-12] MEDS: DEXMEDETOMIDINE 400 MCG in IV NORMAL SALINE 100ML 96 ML IV PRN ×2 (09:18→23:49)
[2021-03-12] MEDS: TPN PER PHARMACY MC PRN (12:14)
--- NOTE | 2021-03-12 12:15 | NUR ---
Pharmacy TPN Dosing Note S: ROWDY LOVE is a 46 year old M Currently receiving Central Continuous TPN started 03/05/21 B:Pertinent PMH: Poor PO intake Height: 5 feet, 5 inches Weight: 69.5 kg Current diet: NPO LABS: Sodium: 134 Potassium: 4 Chloride: 102 Calcium: 7.4 Corrected Calcium: 9.24 Magnesium: 1.9 CO2: 26 SCr: 0.6 Glucose: 69, 107 Albumin: 1.7 AST: 24 ALT: 41 TPN FORMULA: TPN TYPE: Central Continuous AMINO ACIDS: 75 gm DEXTROSE: 210 gm LIPIDS: 30 gm SODIUM CHLORIDE: 120 mEq POTASSIUM CHLORIDE: 50 mEq POTASSIUM PHOSPHATE: 13.6 mmol MAGNESIUM: 10 mEq CALCIUM: 10 mEq MULTIPLE VITAMIN: 10 ml TRACE ELEMENTS: 1 ml TPN PLAN: -Lipids added to TPN today, otherwise no changes. -Blood glucose levels on low end, Lantus insulin reduced. -BMP, mag, phos tomorrow. R: Continue TPN @ current rate and above formula. Will monitor electrolytes, glucose, and tolerance to TPN. TIFFANIE GRIER [facility], 03/12/21 [id number]
[2021-03-12] MEDS ORDERED: SUCCINYLCHOLINE 200 MG/10 ML VIAL. ONE ×2 (16:41→17:00)
[2021-03-12] MEDS ORDERED: ETOMIDATE 20 MG/10 ML VIAL. IV ONE ×2 (16:41→17:00)
[2021-03-12] MEDS ORDERED: PROPOFOL 100 ML IV PRN (17:00)
[2021-03-12] MEDS ORDERED: ATROPINE 0.5 MG/5 ML DISP.SYRINGE. IV PRN (17:00)
[2021-03-12] MEDS ORDERED: IV NORMAL SALINE 500ML BAG 500 ML IV PRN (17:00)
[2021-03-12] MEDS ORDERED: POLYVINYL ALCOHOL 1.4% OPHTH SOLUTION 15ML BOTTLE. OU PRN (17:00)
[2021-03-12] MEDS ORDERED: VECURONIUM BOLUS 10 MG VIAL. IV PRN (17:00)
[2021-03-12] MEDS ORDERED: MIDAZOLAM HCL/PF 5 MG/5 ML VIAL. IVP PRN (17:00)
[2021-03-12] MEDS ORDERED: DEXMEDETOMIDINE 400 MCG in IV NORMAL SALINE 100ML 96 ML IV PRN (17:00)
[2021-03-12] MEDS: MIDAZOLAM 100mg/100ml NS BAG 100 ML IV PRN ×2 (17:22→21:25)
--- NOTE | 2021-03-12 18:02 | RAD ---
XR CHEST 1V 03/12/2021 5:56 PM INDICATION: Intubation, hypoxia COMPARISON: 03/06/2021 TECHNIQUE: Portable frontal view of the chest is provided. FINDINGS: The cardiomediastinal silhouette is within normal limits. Right upper extremity PICC is in similar po sition. Nasogastric tube is identified with the side port projecting over the left upper quadrant abd omen in expected region of the stomach. Endotracheal tube terminates 2 similar level of the holden. Perihilar mixed interstitial and alveolar airspace disease is identified. Marked opacity noted at the lung bases. No significant pulmonary vascular congestion or pneumothorax. No suspicious osseous abnormality. IMPRESSION: Endotracheal tube and nasogastric tube are in satisfactory position. Moderate bilateral perihilar mixed interstitial and alveolar airspace disease without significant alaina nge. Electronically signed by: Capri Mix MD (03/12/2021 5:59 PM) [facility]
[2021-03-12 18:03] LABS: BASE EXCESS ABG -5 mmol/L (-3-3); HCO3 ABG 23 mmol/L (21-28); PCO2 ABG 51 mmHg (35-46); PO2 ABG 64 mmHg (75-108); SAT O2 ABG 89 % (92-99)
[2021-03-12 18:04] LABS: FIO2 ABG 100
[2021-03-12] MEDS: NORCURON - VECURONIUM 50 MG in IV NORMAL SALINE 50ML 50 ML IV PRN (19:36)
[2021-03-12] MEDS ORDERED: CHLORHEXIDINE 0.12% 15 ML MOUTHWASH. MM SCH (21:00)
[2021-03-12] MEDS: FAMOTIDINE 20 MG/2 ML VIAL IVP SCH (21:23)
[2021-03-12] MEDS: ENOXAPARIN 40 MG/0.4 ML SYRINGE. SQ SCH (21:23)
[2021-03-12] MEDS: INSULIN GLARGINE SYRINGE. SQ SCH (21:24)
[2021-03-12] MEDS ORDERED: TOTAL PARENTERAL NUTRITION IV SCH (22:00)
[2021-03-12] MEDS ORDERED: DEXTROSE 70% IV SCH (22:00)
[2021-03-12] MEDS ORDERED: AMINO ACID IV SCH (22:00)
[2021-03-12] MEDS ORDERED: [UNRECOGNIZED DRUG - OTHER] IV SCH (22:00)
[2021-03-13] VITALS (31 sets, daily range): BP systolic 62–126; BP diastolic 42–82
[2021-03-13] MEDS: fentaNYL HIGH DOSE PCA 55 ML IV PRN
[2021-03-13] MEDS: NORCURON - VECURONIUM 50 MG in IV NORMAL SALINE 50ML 50 ML IV PRN ×2 (02:32→17:14)
--- NOTE | 2021-03-13 05:21 | RAD ---
XR CHEST 1V History: Reason: ET tube placement 106 / Spl. Instructions: / History: Comparison: March 12, 2021 Findings: Moderate diffuse pulmonary opacities, unchanged. No pleural effusion. Unchanged heart size. No pneumo thorax. Stable endotracheal tube, enteric tube and right PICC. Impression: 1. Stable appearance of the chest compared to prior. Electronically signed by: Anselmo Whitfield DO (03/13/2021 5:19 AM) [facility] [place]
[2021-03-13] MEDS: INSULIN LISPRO 300 UNITS/3 ML VIAL. SQ SCH ×4 (06:00→17:23)
[2021-03-13] MEDS: NOREPINEPHRINE VIAL 8 MG in IV DEXTROSE 5% 250 ML IV PRN ×2 (06:18→22:26)
[2021-03-13] MEDS: MIDAZOLAM 100mg/100ml NS BAG 100 ML IV PRN ×2 (06:19→17:13)
[2021-03-13 06:54] LABS: CALCIUM 7.7 mg/dL (8.5-10.1); CREATININE 1.2 mg/dL (0.7-1.3); GFR 64.9; MAGNESIUM 2.2 mg/dL (1.8-2.4); PHOSPHORUS 4.6 mg/dL (2.6-4.7)
[2021-03-13 07:01] LABS: POTASSIUM 5.9 mmol/L (3.5-5.1)
[2021-03-13 08:19] LABS: BASE EXCESS ABG -6 mmol/L (-3-3); HCO3 ABG 22 mmol/L (21-28); PCO2 ABG 53 mmHg (35-46); PO2 ABG 62 mmHg (75-108); SAT O2 ABG 90 % (92-99)
--- NOTE | 2021-03-13 08:19 | PDOC ---
PULMONARY PROGRESS NOTES DATE: 03/13/21 TIME: 08:19 Subjective Overnight deteriorated, intubated, Currently on 100% FiO2 6 of PEEP, 5-minute ventilation 2 1 ratio Vitals Vital Signs Date Time Temp Pulse Resp B/P (MAP) Pulse Ox O2 Delivery O2 Flow Rate FiO2 03/13/21 07:00 115 30 104/70 99 Ventilator 03/13/21 04:00 98.6 98.6 03/13/21 00:30 40.0 HEENT: Other (nc at ) Lungs: Crackles Cardiovascular: S1, S2 Abdomen: Soft Extremities: No Edema Skin: Warm Labs Laboratory Tests Test 03/11/21 12:08 03/11/21 18:25 03/11/21 23:42 03/12/21 06:11 Glucose (Fingerstick) 188 mg/dL (70-99) 135 mg/dL (70-99) 157 mg/dL (70-99) 69 mg/dL (70-99) Test 03/12/21 06:15 03/12/21 18:00 03/13/21 00:39 03/13/21 06:25 Sodium Level 134 mmol/L (136-145) 133 mmol/L (136-145) Potassium Level 4.0 mmol/L (3.5-5.1) 5.9 mmol/L (3.5-5.1) Chloride Level 102 mmol/L (98-107) 101 mmol/L (98-107) Carbon Dioxide Level 26 mmol/L (21-32) 27 mmol/L (21-32) Anion Gap 6 (6-14) 5 (6-14) Blood Urea Nitrogen 19 mg/dL (8-26) 29 mg/dL (8-26) Creatinine 0.6 mg/dL (0.7-1.3) 1.2 mg/dL (0.7-1.3) Estimated GFR (Cockcroft-Gault) 144.4 64.9 Glucose Level 107 mg/dL (70-99) 227 mg/dL (70-99) Calcium Level 7.4 mg/dL (8.5-10.1) 7.7 mg/dL (8.5-10.1) Phosphorus Level 3.7 mg/dL (2.6-4.7) 4.6 mg/dL (2.6-4.7) Magnesium Level 1.9 mg/dL (1.8-2.4) 2.2 mg/dL (1.8-2.4) O2 Saturation 89 % (92-99) Arterial Blood pH 7.26 (7.35-7.45) Arterial Blood pCO2 at Patient Temp 51 mmHg (35-46) Arterial Blood pO2 at Patient Temp 64 mmHg (75-108) Arterial Blood HCO3 23 mmol/L (21-28) Arterial Blood Base Excess -5 mmol/L (-3-3) FiO2 100 Glucose (Fingerstick) 213 mg/dL (70-99) 111 mg/dL (70-99) Laboratory Tests Test 03/12/21 18:00 03/13/21 00:39 03/13/21 06:25 O2 Saturation 89 % (92-99) Arterial Blood pH 7.26 (7.35-7.45) Arterial Blood pCO2 at Patient Temp 51 mmHg (35-46) Arterial Blood pO2 at Patient Temp 64 mmHg (75-108) Arterial Blood HCO3 23 mmol/L (21-28) Arterial Blood Base Excess -5 mmol/L (-3-3) FiO2 100 Glucose (Fingerstick) 213 mg/dL (70-99) 111 mg/dL (70-99) Sodium Level 133 mmol/L (136-145) Potassium Level 5.9 mmol/L (3.5-5.1) Chloride Level 101 mmol/L (98-107) Carbon Dioxide Level 27 mmol/L (21-32) Anion Gap 5 (6-14) Blood Urea Nitrogen 29 mg/dL (8-26) Creatinine 1.2 mg/dL (0.7-1.3) Estimated GFR (Cockcroft-Gault) 64.9 Glucose Level 227 mg/dL (70-99) Calcium Level 7.7 mg/dL (8.5-10.1) Phosphorus Level 4.6 mg/dL (2.6-4.7) Magnesium Level 2.2 mg/dL (1.8-2.4) Medications Active Scripts Medications Dose Route/Sig Max Daily Dose Days Date Category [no home meds] 02/21/21 Reported Impression . IMPRESSION: 1. Acute on chronic hypoxemic respiratory failure./ARDS intubated 03/13 2. COVID-19 viral pneumonia/acute respiratory distress syndrome. 3. Abnormal x-ray. 4. Possible bacterial pneumonia. 5. Protein malnutrition present upon admission Plan . Updated 03/13 Patient intubated on last evening, 113 Continue current supportive Avoid barotrauma by maintaining PEEP less than 10 ABG noted, PaO2 62 pH was 7.2 and 4 Chest x-ray reviewed Discussed with RN and RT CCT of 30 minutes Updated 03/12 Continue current supportive Patient continues to continue with Vapotherm and BiPAP No need for intubation at this time Awake alert follows commands Nutritional support Precedex Labs and chest x-ray reviewed TAYLOR LEACH MD Mar 13, 2021 08:19
[2021-03-13] MEDS: FAMOTIDINE 20 MG/2 ML VIAL IVP SCH ×2 (08:43→21:14)
[2021-03-13] MEDS: ASPIRIN CHEWABLE 81 MG TABLET. PO SCH (08:43)
[2021-03-13] MEDS: DEXMEDETOMIDINE 400 MCG in IV NORMAL SALINE 100ML 96 ML IV PRN ×2 (08:45→17:14)
[2021-03-13 09:12] LABS: FIO2 ABG 100
--- NOTE | 2021-03-13 09:40 | NUR ---
SS following up with discharge planning. SS reviewed pt chart and discussed with pt RN. Pt was intubated last night and is currently on the vent at 100%. COVID19 positive. Pt on Fentanyl, Vec, Versed, Levophed, and Precedex. Pt on TPN. Self pay. Med Assist following. Not stable. SS will continue to follow for discharge planning.
--- NOTE | 2021-03-13 12:26 | PDOC ---
[employer] PROGRESS NOTE Date of Service DOS: DATE: 03/13/21 TIME: 12:24 Chief Complaint Chief Complaint Acute hypoxic respiratory failure secondary to Covid pneumonia [facility] of [facility] mellitus type 2 [facility]. Possible bacterial pneumonia - likely gram negative History of Present Illness History of Present Illness 03/13/2021 Patient seen and examined in the [place] [address] ICU He had to be intubated last night Discussed with RN chart reviewed Current vent settings are AC/30/400 with 100% FiO2 and 6 of PEEP Discussed with RN Chart reviewed He is sedated with fentanyl and Versed Dex and vecuronium On IV Levophed drip OG feeds running Has Chavez to bedside drainage Extremely critically ill 03/12/2021 Patient seen and examined in the [place] [address] ICU Discussed with RN Chart reviewed He remains on the BiPAP and Vapotherm Has TPN hanging Sedated with Dex Has Chavez to bedside drain Remains critically ill 03/11/2021 Patient seen and examined in the [place] [address] ICU Discussed with RN Chart reviewed He is currently on BiPAP 100% FiO2 and Vapotherm 40 L with 1 high percent FiO2 Sedated with Dex Has TPN pain Remains very critically ill 03/10/2021 Patient seen and examined in the [place] [address] ICU Discussed with RN Chart reviewed He remains on Vapotherm 40 L 100% FiO2 plus BiPAP with 100% FiO2 Has TPN hanging Sedated with Dex Remains extremely critically ill 03/09: In ICU on BiPAP with Vapotherm 100% FiO2 40 L/min with saturations 93%. Still tolerating removal of BiPAP without desaturations into the 80s. Glucose minimally improved will increase schedule. He has no complaints. CC time 31- minute 03/08: Seen in ICU on BiPAP continue vent support on Vapotherm 100% FiO2 40 L/min. Saturations 94%. When BiPAP is removed desaturates to 84% despite Vapotherm. He prefers to avoid intubation. O2 sats improved with BiPAP. Glucose in the 200s. D/w family and friend over the phone. 03/07: Seen in ICU BiPAP /8 with supplemental Vapotherm saturations 93% to 96%. He has no complaints. 03/06: Chest radiograph unchanged taking good position, WBC 12.2 glucose in 200s. Tolerating TPN well. O2 saturations 92% on BiPAP /8 with supplemental Vapotherm 40 L/min 100% FiO2. 03/05: In ICU. PICC placed. Requiring BiPAP 18/8 with supplemental Vapotherm 40 L/min 100% FiO2 significant saturations with removal of BiPAP unable to take p.o. start TPN tonight 03/04: Transfer to ICU overnight for worsening hypoxia. On BiPAP 18/8 with supplemental Vapotherm 40 L/min 100% FiO2. Significant desaturation with attempted to eat and drink. cc time 32 min 03/03: No acute events overnight. Saturating 89-90% on Vapotherm and NRB 15L. Not dyspneic but doesnt feel better. Will DC chavez today and today will be his last day of steroids. Encouraged patient to get OOBTC ad pierre. 03/02: No acute events overnight. Patient seen and examined bedside. Increased work of breathing. But still saturating 90% on 40 L Vapotherm. Patient's chart, labs, images were reviewed and discussed with RN 02/28: Patient seen and examined bedside. Still on Vapotherm 40 L and saturat ing 96%. Not more short of breath than usual. Feels actually better today. Speaking full sentences. Given nystatin due to some white buildup in the oral cavity. Likely due to steroids. 02/27: Pt seen and examined bedside. Saturating 86% on Vapotherm and required BiPAP overnight. Pulmonology consulted and to continue with current management for COVID. Pending ICU transfer when possible 02/26: Patient seen and examined bedside. Saturating 89% on Vapotherm and 15 L nonrebreather. Continue with IV steroids and IV antibiotics. Patient's chart, labs, images were reviewed and discussed with RN 02/25: No acute events overnight. Patient seen examined bedside. Patient saturating 91% on 4 L Vapotherm. Continue with IV steroids and IV antibiotics. Patient's chart, labs, images were reviewed and discussed with RN 02/24: No acute events overnight. Patient seen examined bedside. Patient saturating 93 to 95% on Vapotherm at 40 L. Not dyspneic at this time. Patient's chart, labs, images were reviewed and discussed with RN 02/23: Patient seen and examined. He is still on Vapotherm 40 L and 100% nonrebreather. His third Covid test finally came back positive. I spoke with pharmacy he is still not a candidate for remdesivir because he has had the disease for more than 10 days 02/22: Patient seen and examined. He is on Vapotherm 40 L with 100% FiO2 plus nonrebreather. His Covid testing by PCR is surprisingly negative Vitals/I&O Vitals/I&O: Vital Signs Date Time Temp Pulse Resp B/P (MAP) Pulse Ox O2 Delivery O2 Flow Rate FiO2 03/13/21 12:07 99 Ventilator 03/13/21 11:00 104 30 94/73 03/13/21 08:00 100.3 100.3 03/13/21 00:30 40.0 I & O 03/12/21 03/12/21 03/13/21 15:00 23:00 07:00 Intake Total 1998 ml Output Total 655 ml 725 ml 475 ml Balance -655 ml -725 ml 1523 ml Physical Exam General: mild distress, Other (Resting on Vapotherm) Heart: Regular rate Lungs: Crackles Abdomen: Normal bowel sounds Extremities: No clubbing Skin: No rashes Labs Labs: Laboratory Tests Test 03/12/21 18:00 03/13/21 00:39 03/13/21 06:25 03/13/21 08:10 O2 Saturation 89 % (92-99) 90 % (92-99) Arterial Blood pH 7.26 (7.35-7.45) 7.24 (7.35-7.45) Arterial Blood pCO2 at Patient Temp 51 mmHg (35-46) 53 mmHg (35-46) Arterial Blood pO2 at Patient Temp 64 mmHg (75-108) 62 mmHg (75-108) Arterial Blood HCO3 23 mmol/L (21-28) 22 mmol/L (21-28) Arterial Blood Base Excess -5 mmol/L (-3-3) -6 mmol/L (-3-3) FiO2 100 100 Glucose (Fingerstick) 213 mg/dL (70-99) 111 mg/dL (70-99) Sodium Level 133 mmol/L (136-145) Potassium Level 5.9 mmol/L (3.5-5.1) Chloride Level 101 mmol/L (98-107) Carbon Dioxide Level 27 mmol/L (21-32) Anion Gap 5 (6-14) Blood Urea Nitrogen 29 mg/dL (8-26) Creatinine 1.2 mg/dL (0.7-1.3) Estimated GFR (Cockcroft-Gault) 64.9 Glucose Level 227 mg/dL (70-99) Calcium Level 7.7 mg/dL (8.5-10.1) Phosphorus Level 4.6 mg/dL (2.6-4.7) Magnesium Level 2.2 mg/dL (1.8-2.4) Test 03/13/21 12:08 Glucose (Fingerstick) 199 mg/dL (70-99) Assessment and Plan Assessmemt and Plan Problems Medical Problems: (1) Acute respiratory failure with hypoxia Status: Acute (2) Sepsis due to pneumonia Status: Acute Severe respiratory failure secondary to COVID-19 Diabetes Possible bacterial pneumonia likely gram-negative Plan ICU monitoring Vent weaning COVID protocol Continue OG feeds Continue Chavez to bedside drainage Home meds DVT prophylaxis Trend labs DC TPN Full code Appreciate subspecialist input Prognosis extremely guarded at best we are concerned he may not survive CC time 32 Comment Review of Relevant I have reviewed the following items elmer (where applicable) has been applied. Medications: Current Medications Medications (Trade) Dose Ordered Sig/Kalina Route PRN Reason Start Time Stop Time Status Last Admin Dose Admin Sodium Chloride 120 meq/Potassium Chloride 50 meq/ Potassium Phosphate 13.6 mmol/Magnesium Sulfate 10 meq/ Calcium Gluconate 10 meq/ Multivitamins 10 ml/Zinc/Copper/ Manganese/ Selenium 1 ml/ Total Parenteral Nutrition/Amino Acids/Dextrose/ Fat Emulsion Intravenous 1,512 ml @ 63 mls/hr TPN CONT IV 03/12/21 22:00 03/13/21 21:59 03/12/21 21:24 Insulin Glargine (Lantus Syringe) 15 unit QHS SQ 03/12/21 21:00 03/12/21 21:24 Fentanyl Citrate 30 ml @ 0 mls/hr CONT PRN IV SEE PROTOCOL 03/12/21 17:00 03/12/21 23:13 DC 03/12/21 20:25 Midazolam HCl 100 ml @ 1 mls/hr CONT PRN IV SEE PROTOCOL 03/12/21 17:00 03/13/21 06:19 Vecuronium Villalba (Norcuron Bolus) 6 mg PRN 1X PRN IV VENT INDUCTION 03/12/21 17:00 03/12/21 19:30 DC 03/12/21 19:30 Chlorhexidine Gluconate (Peridex) 15 ml BID MM 03/12/21 21:00 03/13/21 07:40 DC 03/12/21 21:23 Famotidine (Pepcid Vial) 20 mg BID IVP 03/12/21 21:00 03/13/21 08:43 Norepinephrine Bitartrate 8 mg/ Dextrose 258 ml @ 13.448 mls/ hr CONT PRN IV PER PROTOCOL 03/12/21 17:00 03/13/21 06:18 Vecuronium Villalba 50 mg/ Sodium Chloride 50 ml @ 3.336 mls/ hr CONT PRN IV PER PROTOCOL 03/12/21 17:00 03/13/21 02:32 Fentanyl Citrate 55 ml @ 0 mls/hr CONT PRN PRN IV PAIN 03/12/21 23:15 03/13/21 00:00 Justifications for Admission Other Justification LILA RODRIGUEZ III DO Mar 13, 2021 12:26
[2021-03-13 15:39] LABS: CALCIUM 6.9 mg/dL (8.5-10.1); CREATININE 1.2 mg/dL (0.7-1.3); GFR 64.9; POTASSIUM 5.4 mmol/L (3.5-5.1)
[2021-03-13] MEDS: ENOXAPARIN 40 MG/0.4 ML SYRINGE. SQ SCH (21:15)
[2021-03-13] MEDS: INSULIN GLARGINE SYRINGE. SQ SCH (21:49)
[2021-03-14] VITALS (24 sets, daily range): BP systolic 81–114; BP diastolic 57–82
[2021-03-14] MEDS: INSULIN LISPRO 300 UNITS/3 ML VIAL. SQ SCH ×4 (01:07→18:34)
[2021-03-14] MEDS: MIDAZOLAM 100mg/100ml NS BAG 100 ML IV PRN ×2 (04:19→14:46)
--- NOTE | 2021-03-14 04:50 | RAD ---
XR CHEST 1V History: Reason: ET tube placement 106 / Spl. Instructions: / History: Comparison: March 13, 2021 Findings: Diffuse pulmonary opacities most prominent within the lung bases, unchanged. No definite pleural effu soraya. Unchanged heart size. Stable endotracheal tube, enteric tube and right PICC. Impression: 1. Stable appearance of the chest compared to prior. Electronically signed by: Anselmo Whitfield DO (03/14/2021 4:48 AM) [facility] [place]
[2021-03-14] MEDS: fentaNYL HIGH DOSE PCA 55 ML IV PRN (05:49)
[2021-03-14 07:04] LABS: CALCIUM 8.1 mg/dL (8.5-10.1); CREATININE 1.6 mg/dL (0.7-1.3); GFR 46.6; MAGNESIUM 2.3 mg/dL (1.8-2.4); PHOSPHORUS 5.3 mg/dL (2.6-4.7); POTASSIUM 5.7 mmol/L (3.5-5.1)
[2021-03-14] MEDS: ASPIRIN CHEWABLE 81 MG TABLET. PO SCH (08:04)
[2021-03-14] MEDS: DEXMEDETOMIDINE 400 MCG in IV NORMAL SALINE 100ML 96 ML IV PRN ×2 (08:04→14:44)
[2021-03-14] MEDS: FAMOTIDINE 20 MG/2 ML VIAL IVP SCH ×2 (08:05→21:04)
[2021-03-14] MEDS: ACETAMINOPHEN 650 MG/20.3 ML SOLUTION. PEG PRN ×2 (08:05→15:37)
[2021-03-14 09:35] LABS: BASE EXCESS ABG -4 mmol/L (-3-3); HCO3 ABG 23 mmol/L (21-28); PCO2 ABG 48 mmHg (35-46); PO2 ABG 94 mmHg (75-108); SAT O2 ABG 97 % (92-99)
[2021-03-14] MEDS: NOREPINEPHRINE VIAL 8 MG in IV DEXTROSE 5% 250 ML IV PRN ×2 (10:07→23:01)
--- NOTE | 2021-03-14 10:19 | NUR ---
SS following up with discharge planning. SS reviewed pt chart and discussed with pt RN. Pt is currently on the vent at 100%. COVID19 positive. Pt on Fentanyl, Vec, Versed, Levophed, and Precedex. Tube feeding. Self pay. Med Assist following. Not stable. SS will continue to follow for discharge planning.
[2021-03-14 12:28] LABS: FIO2 ABG 100% VENT
--- NOTE | 2021-03-14 12:44 | PDOC ---
PULMONARY PROGRESS NOTES DATE: 03/14/21 TIME: 12:41 Subjective Patient remains on assist control mode. Sedated. Currently on 100% FiO2 6 of PEEP, Vitals Vital Signs Date Time Temp Pulse Resp B/P (MAP) Pulse Ox O2 Delivery O2 Flow Rate FiO2 03/14/21 12:00 99.1 101 30 92/64 100 Ventilator 99.1 Lungs: Crackles Cardiovascular: S1, S2 Abdomen: Soft Extremities: No Edema Skin: Warm Labs Laboratory Tests Test 03/12/21 18:00 03/13/21 00:39 03/13/21 06:25 03/13/21 08:10 O2 Saturation 89 % (92-99) 90 % (92-99) Arterial Blood pH 7.26 (7.35-7.45) 7.24 (7.35-7.45) Arterial Blood pCO2 at Patient Temp 51 mmHg (35-46) 53 mmHg (35-46) Arterial Blood pO2 at Patient Temp 64 mmHg (75-108) 62 mmHg (75-108) Arterial Blood HCO3 23 mmol/L (21-28) 22 mmol/L (21-28) Arterial Blood Base Excess -5 mmol/L (-3-3) -6 mmol/L (-3-3) FiO2 100 100 Glucose (Fingerstick) 213 mg/dL (70-99) 111 mg/dL (70-99) Sodium Level 133 mmol/L (136-145) Potassium Level 5.9 mmol/L (3.5-5.1) Chloride Level 101 mmol/L (98-107) Carbon Dioxide Level 27 mmol/L (21-32) Anion Gap 5 (6-14) Blood Urea Nitrogen 29 mg/dL (8-26) Creatinine 1.2 mg/dL (0.7-1.3) Estimated GFR (Cockcroft-Gault) 64.9 Glucose Level 227 mg/dL (70-99) Calcium Level 7.7 mg/dL (8.5-10.1) Phosphorus Level 4.6 mg/dL (2.6-4.7) Magnesium Level 2.2 mg/dL (1.8-2.4) Test 03/13/21 12:08 03/13/21 14:55 03/13/21 17:20 03/13/21 21:36 Glucose (Fingerstick) 199 mg/dL (70-99) 144 mg/dL (70-99) 141 mg/dL (70-99) Sodium Level 132 mmol/L (136-145) Potassium Level 5.4 mmol/L (3.5-5.1) Chloride Level 100 mmol/L (98-107) Carbon Dioxide Level 24 mmol/L (21-32) Anion Gap 8 (6-14) Blood Urea Nitrogen 34 mg/dL (8-26) Creatinine 1.2 mg/dL (0.7-1.3) Estimated GFR (Cockcroft-Gault) 64.9 Glucose Level 272 mg/dL (70-99) Calcium Level 6.9 mg/dL (8.5-10.1) Test 03/14/21 00:17 03/14/21 05:38 03/14/21 06:00 03/14/21 08:00 Glucose (Fingerstick) 151 mg/dL (70-99) 184 mg/dL (70-99) Sodium Level 134 mmol/L (136-145) Potassium Level 5.7 mmol/L (3.5-5.1) Chloride Level 101 mmol/L (98-107) Carbon Dioxide Level 25 mmol/L (21-32) Anion Gap 8 (6-14) Blood Urea Nitrogen 44 mg/dL (8-26) Creatinine 1.6 mg/dL (0.7-1.3) Estimated GFR (Cockcroft-Gault) 46.6 Glucose Level 174 mg/dL (70-99) Calcium Level 8.1 mg/dL (8.5-10.1) Phosphorus Level 5.3 mg/dL (2.6-4.7) Magnesium Level 2.3 mg/dL (1.8-2.4) Triglycerides Level 202 mg/dL (0-150) O2 Saturation 97 % (92-99) Arterial Blood pH 7.30 (7.35-7.45) Arterial Blood pCO2 at Patient Temp 48 mmHg (35-46) Arterial Blood pO2 at Patient Temp 94 mmHg (75-108) Arterial Blood HCO3 23 mmol/L (21-28) Arterial Blood Base Excess -4 mmol/L (-3-3) FiO2 100% vent Test 03/14/21 12:01 Glucose (Fingerstick) 174 mg/dL (70-99) Laboratory Tests Test 03/13/21 14:55 03/13/21 17:20 1/13/22 21:36 03/14/21 00:17 Sodium Level 132 mmol/L (136-145) Potassium Level 5.4 mmol/L (3.5-5.1) Chloride Level 100 mmol/L (98-107) Carbon Dioxide Level 24 mmol/L (21-32) Anion Gap 8 (6-14) Blood Urea Nitrogen 34 mg/dL (8-26) Creatinine 1.2 mg/dL (0.7-1.3) Estimated GFR (Cockcroft-Gault) 64.9 Glucose Level 272 mg/dL (70-99) Calcium Level 6.9 mg/dL (8.5-10.1) Glucose (Fingerstick) 144 mg/dL (70-99) 141 mg/dL (70-99) 151 mg/dL (70-99) Test 03/14/21 05:38 03/14/21 06:00 03/14/21 08:00 03/14/21 12:01 Glucose (Fingerstick) 184 mg/dL (70-99) 174 mg/dL (70-99) Sodium Level 134 mmol/L (136-145) Potassium Level 5.7 mmol/L (3.5-5.1) Chloride Level 101 mmol/L (98-107) Carbon Dioxide Level 25 mmol/L (21-32) Anion Gap 8 (6-14) Blood Urea Nitrogen 44 mg/dL (8-26) Creatinine 1.6 mg/dL (0.7-1.3) Estimated GFR (Cockcroft-Gault) 46.6 Glucose Level 174 mg/dL (70-99) Calcium Level 8.1 mg/dL (8.5-10.1) Phosphorus Level 5.3 mg/dL (2.6-4.7) Magnesium Level 2.3 mg/dL (1.8-2.4) Triglycerides Level 202 mg/dL (0-150) O2 Saturation 97 % (92-99) Arterial Blood pH 7.30 (7.35-7.45) Arterial Blood pCO2 at Patient Temp 48 mmHg (35-46) Arterial Blood pO2 at Patient Temp 94 mmHg (75-108) Arterial Blood HCO3 23 mmol/L (21-28) Arterial Blood Base Excess -4 mmol/L (-3-3) FiO2 100% vent Medications Active Scripts Medications Dose Route/Sig Max Daily Dose Days Date Category [no home meds] 02/21/21 Reported Comments Chest x-ray reviewed 03/14/2021. Bilateral faint interstitial infiltrates. Stable Impression . IMPRESSION: 1. Acute on chronic hypoxemic respiratory failure./ARDS intubated 03/13 2. COVID-19 viral pneumonia/acute respiratory distress syndrome. 3. Abnormal x-ray. 4. Possible bacterial pneumonia. 5. Protein malnutrition present upon admission Plan . Updated 03/14 Continue present assist-control mode. Wean FiO2. Keep saturations 92% and above. Continue current supportive Avoid barotrauma by maintaining PEEP less than 10, currently on six of PEEP. Chest x-ray reviewed Enteral nutrition DVT and stress ulcer prophylaxis. Discussed with RN and RT CCT of 30 minutes Updated 03/13 Patient intubated on last evening, 113 Continue current supportive Avoid barotrauma by maintaining PEEP less than 10 ABG noted, PaO2 62 pH was 7.2 and 4 Chest x-ray reviewed Discussed with RN and RT CCT of 30 minutes Updated 03/12 Continue current supportive Patient continues to continue with Vapotherm and BiPAP No need for intubation at this time Awake alert follows commands Nutritional support Precedex Labs and chest x-ray reviewed FRANCES CONDE MD Mar 14, 2021 12:44
--- NOTE | 2021-03-14 13:00 | PDOC ---
[employer] PROGRESS NOTE Date of Service DOS: DATE: 03/14/21 TIME: 12:56 Chief Complaint Chief Complaint Acute hypoxic respiratory failure secondary to Covid pneumonia History of diabetes mellitus type 2 [facility] [place] acute [place] distress syndrome. Possible bacterial pneumonia - likely gram negative History of Present Illness History of Present Illness 03/14/2021 Patient seen and examined in the [place] [address] ICU Discussed with RN Chart reviewed He remains on the ventilator AC/30/400/90 percent with 6 of PEEP His potassium still little high Creatinine running little high Patient is sedated with Dex fentanyl vecuronium and Versed Has IV Levophed hanging He remains very critically ill 03/13/2021 Patient seen and examined in the [place] [address] ICU He had to be intubated last night Discussed with RN chart reviewed Current vent settings are AC/30/400 with 100% FiO2 and 6 of PEEP Discussed with RN Chart reviewed He is sedated with fentanyl and Versed Dex and vecuronium On IV Levophed drip OG feeds running Has Chavez to bedside drainage Extremely critically ill 03/12/2021 Patient seen and examined in the [place] [address] ICU Discussed with RN Chart reviewed He remains on the BiPAP and Vapotherm Has TPN hanging Sedated with Dex Has Chavez to bedside drain Remains critically ill 03/11/2021 Patient seen and examined in the [place] [address] ICU Discussed with RN Chart reviewed He is currently on BiPAP 100% FiO2 and Vapotherm 40 L with 1 high percent FiO2 Sedated with Dex Has TPN pain Remains very critically ill 03/10/2021 Patient seen and examined in the [place] [address] ICU Discussed with RN Chart reviewed He remains on Vapotherm 40 L 100% FiO2 plus BiPAP with 100% FiO2 Has TPN hanging Sedated with Dex Remains extremely critically ill 03/09: In ICU on BiPAP with Vapotherm 100% FiO2 40 L/min with saturations 93%. Still tolerating removal of BiPAP without desaturations into the 80s. Glucose minimally improved will increase schedule. He has no complaints. CC time 31- minute 03/08: Seen in ICU on BiPAP continue vent support on Vapotherm 100% FiO2 40 L/min. Saturations 94%. When BiPAP is removed desaturates to 84% despite Vapotherm. He prefers to avoid intubation. O2 sats improved with BiPAP. Glucose in the 200s. D/w family and friend over the phone. 03/07: Seen in ICU BiPAP 18/8 with supplemental Vapotherm saturations 93% to 96%. He has no complaints. 03/06: Chest radiograph unchanged taking good position, WBC 12.2 glucose in 200s. Tolerating TPN well. O2 saturations 92% on BiPAP 18/8 with supplemental Vapotherm 40 L/min 100% FiO2. 03/05: In ICU. PICC placed. Requiring BiPAP 18/8 with supplemental Vapotherm 40 L/min 100% FiO2 significant saturations with removal of BiPAP unable to take p.o. start TPN tonight 03/04: Transfer to ICU overnight for worsening hypoxia. On BiPAP 18/8 with supplemental Vapotherm 40 L/min 100% FiO2. Significant desaturation with attempted to eat and drink. cc time 32 min 03/03: No acute events overnight. Saturating 89-90% on Vapotherm and NRB 15L. Not dyspneic but doesnt feel better. Will DC chavez today and today will be his last day of steroids. Encouraged patient to get OOBTC ad pierre. 03/02: No acute events overnight. Patient seen and examined bedside. Increased work of breathing. But still saturating 90% on 40 L Vapotherm. Patient's chart, labs, images were reviewed and discussed with RN 02/28: Patient seen and examined bedside. Still on Vapotherm 40 L and saturating 96%. Not more short of breath than usual. Feels actually better today. Speaking full sentences. Given nystatin due to some white buildup in the oral cavity. Likely due to steroids. 02/27: Pt seen and examined bedside. Saturating 86% on Vapotherm and required BiPAP overnight. Pulmonology consulted and to continue with current management for COVID. Pending ICU transfer when possible 02/26: Patient seen and examined bedside. Saturating 89% on Vapotherm and 15 L nonrebreather. Continue with IV steroids and IV antibiotics. Patient's chart, labs, images were reviewed and discussed with RN 02/25: No acute events overnight. Patient seen examined bedside. Patient saturating 91% on 4 L Vapotherm. Continue with IV steroids and IV antibiotics. Patient's chart, labs, images were reviewed and discussed with RN 02/24: No acute events overnight. Patient seen examined bedside. Patient saturating 93 to 95% on Vapotherm at 40 L. Not dyspneic at this time. Patient's chart, labs, images were reviewed and discussed with RN 02/23: Patient seen and examined. He is still on Vapotherm 40 L and 100% nonrebreather. His third Covid test finally came back positive. I spoke with pharmacy he is still not a candidate for remdesivir because he has had the disease for more than 10 days 02/22: Patient seen and examined. He is on Vapotherm 40 L with 100% FiO2 plus nonrebreather. His Covid testing by PCR is surprisingly negative Vitals/I&O Vitals/I&O: Vital Signs Date Time Temp Pulse Resp B/P (MAP) Pulse Ox O2 Delivery O2 Flow Rate FiO2 03/14/21 12:00 99.1 101 30 92/64 100 Ventilator 99.1 I & O 03/13/21 03/13/21 03/14/21 15:00 23:00 07:00 Intake Total 381 ml 853 ml 1201 ml Output Total 625 ml 325 ml 425 ml Balance -244 ml 528 ml 776 ml Physical Exam General: mild distress, Other (Resting on Vapotherm) Heart: Regular rate Lungs: Crackles Abdomen: Normal bowel sounds Extremities: No clubbing Skin: No rashes Labs Labs: Laboratory Tests Test 03/13/21 14:55 03/13/21 17:20 03/13/21 21:36 03/14/21 00:17 Sodium Level 132 mmol/L (136-145) Potassium Level 5.4 mmol/L (3.5-5.1) Chloride Level 100 mmol/L (98-107) Carbon Dioxide Level 24 mmol/L (21-32) Anion Gap 8 (6-14) Blood Urea Nitrogen 34 mg/dL (8-26) Creatinine 1.2 mg/dL (0.7-1.3) Estimated GFR (Cockcroft-Gault) 64.9 Glucose Level 272 mg/dL (70-99) Calcium Level 6.9 mg/dL (8.5-10.1) Glucose (Fingerstick) 144 mg/dL (70-99) 141 mg/dL (70-99) 151 mg/dL (70-99) Test 03/14/21 05:38 03/14/21 06:00 03/14/21 08:00 03/14/21 12:01 Glucose (Fingerstick) 184 mg/dL (70-99) 174 mg/dL (70-99) Sodium Level 134 mmol/L (136-145) Potassium Level 5.7 mmol/L (3.5-5.1) Chloride Level 101 mmol/L (98-107) Carbon Dioxide Level 25 mmol/L (21-32) Anion Gap 8 (6-14) Blood Urea Nitrogen 44 mg/dL (8-26) Creatinine 1.6 mg/dL (0.7-1.3) Estimated GFR (Cockcroft-Gault) 46.6 Glucose Level 174 mg/dL (70-99) Calcium Level 8.1 mg/dL (8.5-10.1) Phosphorus Level 5.3 mg/dL (2.6-4.7) Magnesium Level 2.3 mg/dL (1.8-2.4) Triglycerides Level 202 mg/dL (0-150) O2 Saturation 97 % (92-99) Arterial Blood pH 7.30 (7.35-7.45) Arterial Blood pCO2 at Patient Temp 48 mmHg (35-46) Arterial Blood pO2 at Patient Temp 94 mmHg (75-108) Arterial Blood HCO3 23 mmol/L (21-28) Arterial Blood Base Excess -4 mmol/L (-3-3) FiO2 100% vent Assessment and Plan Assessmemt and Plan Problems Medical Problems: (1) Acute respiratory failure with hypoxia Status: Acute (2) Sepsis due to pneumonia Status: Acute Severe respiratory failure secondary to COVID-19 Diabetes Possible bacterial pneumonia likely gram-negative Electrolyte disturbance Plan ICU monitoring Vent weaning Consult nephrology COVID protocol Continue OG feeds Continue Chavez to bedside drainage Home meds DVT prophylaxis Trend labs DC TPN Full code Appreciate subspecialist input Prognosis extremely guarded at best we are concerned he may not survive CC time 31 minutes Comment Review of Relevant I have reviewed the following items elmer (where applicable) has been applied. Medications: Current Medications Medications (Trade) Dose Ordered Sig/Kalina Route PRN Reason Start Time Stop Time Status Last Admin Dose Admin Acetaminophen (Tylenol) 650 mg PRN Q6HRS PRN PEG MILD PAIN / TEMP > 100.3'F 03/14/21 08:00 03/14/21 08:05 Justifications for Admission Other Justification LILA RODRIGUEZ III DO Mar 14, 2021 13:00
[2021-03-14] MEDS: NORCURON - VECURONIUM 50 MG in IV NORMAL SALINE 50ML 50 ML IV PRN (14:42)
[2021-03-14] MEDS ORDERED: PIP/TAZO PER PHARMACY MC PRN (16:45)
[2021-03-14] MEDS: VANCOMYCIN PER PHARMACY MC PRN (16:53)
--- NOTE | 2021-03-14 16:57 | NUR ---
Pharmacy Vancomycin Dosing Note S:Consulted to monitor and dose vancomycin started 03/14/21. O:ROWDY LOVE is a 46 year old M with Sepsis Height: 5 feet, 5 inches Weight: 69.0 kg [place] Body Weight: 61.50 Adjusted Body Weight: 64.50 Dosing Weight: Actual Other Antibiotics: zosyn LABS: Last BUN: 44 Last Creatinine: 1.6 Creatinine Clearance: 52 mL/min Last WBC: 10.5 Last Procalcitonin: Tmax (past 24 hours): 102.5 Microbiology: pending I/O: 2435/1375 Vancomycin Dosing: Loading Dose: 1500 mg x1 Dosing Weight: Actual Target Trough: 15-20 A: Based on: weight and renal function P: 1. Begin Vancomycin 1000 mg IV q24h 2. Follow up Trough level on 03/16/21 at 1730 3. Pharmacy will continue to monitor, follow and adjust therapy as needed. Tanya Campbell RPH, 03/14/21 [id number]
[2021-03-14] MEDS: PIPERACILLIN/TAZOBACTAM 4.5 GM in IV DEXTROSE 5% 100ML 100 ML IV SCH (17:24)
[2021-03-14] MEDS ORDERED: VANCOMYCIN 1.5 GM in IV NORMAL SALINE 500ML BAG 500 ML IV ONE (18:00)
[2021-03-14] MEDS ORDERED: VANCOMYCIN 1 GM in IV NORMAL SALINE 250ML 250 ML IV ONE (18:00)
[2021-03-14] MEDS: ENOXAPARIN 40 MG/0.4 ML SYRINGE. SQ SCH (21:03)
[2021-03-14] MEDS: INSULIN GLARGINE SYRINGE. SQ SCH (21:12)
[2021-03-15] VITALS (28 sets, daily range): BP systolic 65–98; BP diastolic 49–78
[2021-03-15] MEDS: INSULIN LISPRO 300 UNITS/3 ML VIAL. SQ SCH ×4 (00:13→17:08)
[2021-03-15] MEDS: ACETAMINOPHEN 650 MG/20.3 ML SOLUTION. PEG PRN ×3 (00:13→16:28)
[2021-03-15] MEDS: MIDAZOLAM 100mg/100ml NS BAG 100 ML IV PRN ×2 (03:01→11:20)
--- NOTE | 2021-03-15 05:37 | RAD ---
XR CHEST 1V History: Reason: ET tube placement / Spl. Instructions: / History: Comparison: March 14, 2021 Findings: Stable endotracheal tube, enteric tube and right PICC. Diffuse pulmonary opacities most prominent wit hin the lung bases, similar compared to prior. No pleural effusion. No pneumothorax. Impression: 1. Stable appearance of the chest compared to prior. Electronically signed by: Anselmo Whitfield DO (03/15/2021 5:35 AM) [facility] [place]
[2021-03-15 05:47] LABS: CALCIUM 7.6 mg/dL (8.5-10.1); CREATININE 1.7 mg/dL (0.7-1.3); GFR 43.4; POTASSIUM 4.5 mmol/L (3.5-5.1)
[2021-03-15] MEDS: PIPERACILLIN/TAZOBACTAM 4.5 GM in IV DEXTROSE 5% 100ML 100 ML IV SCH ×4 (06:04→17:08)
[2021-03-15] MEDS: DEXMEDETOMIDINE 400 MCG in IV NORMAL SALINE 100ML 96 ML IV PRN ×3 (06:06→20:11)
[2021-03-15 06:09] LABS: BASO # 0.2 x10^3/uL (0.0-0.2); BASO % 3 % (0-3); EOS # 0.3 x10^3/uL (0.0-0.7); EOS % 4 % (0-3); HEMATOCRIT 38.1 % (39.0-53.0); HEMOGLOBIN 12.7 g/dL (13.0-17.5); LYMPH # 2.1 x10^3/uL (1.0-4.8); LYMPH % 33 % (24-48); MEAN CORPUSCULAR HEMOGLOBIN 31 pg (25-35); MEAN CORPUSCULAR HGB CONC 33 g/dL (31-37); MEAN CORPUSCULAR VOLUME 92 fL (79-100); MONO % 15 % (0-9); NEUT # 2.9 x10^3/uL (1.8-7.7); NEUT % 45 % (31-73); PLATELET COUNT 121 x10^3/uL (140-400); RED BLOOD COUNT 4.15 x10^6/uL (4.30-5.70); RED CELL DISTRIBUTION WIDTH 14.1 % (11.5-14.5); WHITE BLOOD COUNT 6.4 x10^3/uL (4.0-11.0)
--- NOTE | 2021-03-15 06:19 | PDOC ---
PULMONARY PROGRESS NOTES DATE: 03/15/21 TIME: 06:17 Subjective Patient remains on assist control mode. Sedated fentanyl versed vec gtt levo Currently on 90% FiO2 6 of PEEP, Vitals Vital Signs Date Time Temp Pulse Resp B/P (MAP) Pulse Ox O2 Delivery O2 Flow Rate FiO2 03/15/21 05:07 98 Ventilator 03/15/21 05:00 126 30 92/54 03/15/21 04:00 100.8 100.8 Comments ros unable to obtain sedated on vent nc at no distress no accessory muscle use abd obese no rash Lungs: Crackles Cardiovascular: S1, S2 Extremities: No Edema Skin: No Rashes Labs Laboratory Tests Test 03/13/21 06:25 03/13/21 08:10 03/13/21 12:08 03/13/21 14:55 Sodium Level 133 mmol/L (136-145) 132 mmol/L (136-145) Potassium Level 5.9 mmol/L (3.5-5.1) 5.4 mmol/L (3.5-5.1) Chloride Level 101 mmol/L (98-107) 100 mmol/L (98-107) Carbon Dioxide Level 27 mmol/L (21-32) 24 mmol/L (21-32) Anion Gap 5 (6-14) 8 (6-14) Blood Urea Nitrogen 29 mg/dL (8-26) 34 mg/dL (8-26) Creatinine 1.2 mg/dL (0.7-1.3) 1.2 mg/dL (0.7-1.3) Estimated GFR (Cockcroft-Gault) 64.9 64.9 Glucose Level 227 mg/dL (70-99) 272 mg/dL (70-99) Glucose (Fingerstick) 111 mg/dL (70-99) 199 mg/dL (70-99) Calcium Level 7.7 mg/dL (8.5-10.1) 6.9 mg/dL (8.5-10.1) Phosphorus Level 4.6 mg/dL (2.6-4.7) Magnesium Level 2.2 mg/dL (1.8-2.4) O2 Saturation 90 % (92-99) Arterial Blood pH 7.24 (7.35-7.45) Arterial Blood pCO2 at Patient Temp 53 mmHg (35-46) Arterial Blood pO2 at Patient Temp 62 mmHg (75-108) Arterial Blood HCO3 22 mmol/L (21-28) Arterial Blood Base Excess -6 mmol/L (-3-3) FiO2 100 Test 03/13/21 17:20 03/13/21 21:36 03/14/21 00:17 03/14/21 05:38 Glucose (Fingerstick) 144 mg/dL (70-99) 141 mg/dL (70-99) 151 mg/dL (70-99) 184 mg/dL (70-99) Test 03/14/21 06:00 03/14/21 08:00 03/14/21 12:01 03/14/21 15:44 Sodium Level 134 mmol/L (136-145) Potassium Level 5.7 mmol/L (3.5-5.1) Chloride Level 101 mmol/L (98-107) Carbon Dioxide Level 25 mmol/L (21-32) Anion Gap 8 (6-14) Blood Urea Nitrogen 44 mg/dL (8-26) Creatinine 1.6 mg/dL (0.7-1.3) Estimated GFR (Cockcroft-Gault) 46.6 Glucose Level 174 mg/dL (70-99) Calcium Level 8.1 mg/dL (8.5-10.1) Phosphorus Level 5.3 mg/dL (2.6-4.7) Magnesium Level 2.3 mg/dL (1.8-2.4) Triglycerides Level 202 mg/dL (0-150) O2 Saturation 97 % (92-99) Arterial Blood pH 7.30 (7.35-7.45) Arterial Blood pCO2 at Patient Temp 48 mmHg (35-46) Arterial Blood pO2 at Patient Temp 94 mmHg (75-108) Arterial Blood HCO3 23 mmol/L (21-28) Arterial Blood Base Excess -4 mmol/L (-3-3) FiO2 100% vent Glucose (Fingerstick) 174 mg/dL (70-99) 167 mg/dL (70-99) Test 03/14/21 15:45 03/14/21 23:50 03/15/21 05:25 03/15/21 05:27 Lactic Acid Level 2.1 mmol/L (0.4-2.0) Glucose (Fingerstick) 160 mg/dL (70-99) 187 mg/dL (70-99) Sodium Level 134 mmol/L (136-145) Potassium Level 4.5 mmol/L (3.5-5.1) Chloride Level 102 mmol/L (98-107) Carbon Dioxide Level 27 mmol/L (21-32) Anion Gap 5 (6-14) Blood Urea Nitrogen 40 mg/dL (8-26) Creatinine 1.7 mg/dL (0.7-1.3) Estimated GFR (Cockcroft-Gault) 43.4 Glucose Level 191 mg/dL (70-99) Calcium Level 7.6 mg/dL (8.5-10.1) Laboratory Tests Test 03/14/21 08:00 03/14/21 12:01 03/14/21 15:44 03/14/21 15:45 O2 Saturation 97 % (92-99) Arterial Blood pH 7.30 (7.35-7.45) Arterial Blood pCO2 at Patient Temp 48 mmHg (35-46) Arterial Blood pO2 at Patient Temp 94 mmHg (75-108) Arterial Blood HCO3 23 mmol/L (21-28) Arterial Blood Base Excess -4 mmol/L (-3-3) FiO2 100% vent Glucose (Fingerstick) 174 mg/dL (70-99) 167 mg/dL (70-99) Lactic Acid Level 2.1 mmol/L (0.4-2.0) Test 03/14/21 23:50 03/15/21 05:25 03/15/21 05:27 Glucose (Fingerstick) 160 mg/dL (70-99) 187 mg/dL (70-99) Sodium Level 134 mmol/L (136-145) Potassium Level 4.5 mmol/L (3.5-5.1) Chloride Level 102 mmol/L (98-107) Carbon Dioxide Level 27 mmol/L (21-32) Anion Gap 5 (6-14) Blood Urea Nitrogen 40 mg/dL (8-26) Creatinine 1.7 mg/dL (0.7-1.3) Estimated GFR (Cockcroft-Gault) 43.4 Glucose Level 191 mg/dL (70-99) Calcium Level 7.6 mg/dL (8.5-10.1) Medications Active Scripts Medications Dose Route/Sig Max Daily Dose Days Date Category [no home meds] 02/21/21 Reported Comments Chest x-ray reviewed 03/14/2021. Bilateral faint interstitial infiltrates. Stable Impression . IMPRESSION: 1. Acute on chronic hypoxemic respiratory failure./ARDS intubated 03/13 2. COVID-19 viral pneumonia/acute respiratory distress syndrome. 3. Abnormal x-ray. 4. Possible bacterial pneumonia. 5. Protein malnutrition present upon admission Plan . 03/15 Continue present assist-control mode. setting reviewed Wean FiO2 peep as tolerated elevate hob Continue current supportive Avoid barotrauma by maintaining PEEP less than 10, currently on six of PEEP. Chest x-ray reviewed Enteral nutrition DVT and stress ulcer prophylaxis. Discussed with RN and RT Updated 03/14 Continue present assist-control mode. Wean FiO2. Keep saturations 92% and above. Continue current supportive Avoid barotrauma by maintaining PEEP less than 10, currently on six of PEEP. Chest x-ray reviewed Enteral nutrition DVT and stress ulcer prophylaxis. Discussed with RN and RT CCT of 30 minutes Updated 03/13 Patient intubated on last evening, 113 Continue current supportive Avoid barotrauma by maintaining PEEP less than 10 ABG noted, PaO2 62 pH was 7.2 and 4 Chest x-ray reviewed Discussed with RN and RT CCT of 30 minutes Updated 03/12 Continue current supportive Patient continues to continue with Vapotherm and BiPAP No need for intubation at this time Awake alert follows commands Nutritional support Precedex Labs and chest x-ray reviewed ROSA ROLLINS MD Mar 15, 2021 06:19
[2021-03-15] MEDS: ASPIRIN CHEWABLE 81 MG TABLET. PO SCH (07:41)
[2021-03-15] MEDS: FAMOTIDINE 20 MG/2 ML VIAL IVP SCH ×2 (07:41→20:56)
[2021-03-15] MEDS: NORCURON - VECURONIUM 50 MG in IV NORMAL SALINE 50ML 50 ML IV PRN (07:47)
[2021-03-15] MEDS: NOREPINEPHRINE VIAL 8 MG in IV DEXTROSE 5% 250 ML IV PRN ×2 (09:01→16:51)
[2021-03-15 09:20] LABS: BASE EXCESS ABG -4 mmol/L (-3-3); CORRECTED PCO2 ABG 68 mmHg; CORRECTED PH ABG 7.19; CORRECTED PO2 ABG 66 mmHg; HCO3 ABG 25 mmol/L (21-28); PO2 ABG 55 mmHg (75-108); SAT O2 ABG 87 % (92-99)
[2021-03-15] MEDS: DOCUSATE 100 MG/10 ML SOLUTION. PO PRN (09:38)
[2021-03-15 09:53] LABS: FIO2 ABG 90; PCO2 ABG 61 mmHg (35-46)
--- NOTE | 2021-03-15 13:18 | PDOC ---
[employer] PROGRESS NOTE Date of Service DOS: DATE: 03/15/21 TIME: 13:17 Chief Complaint Chief Complaint Acute hypoxic respiratory failure secondary to Covid pneumonia History of diabetes mellitus type 2 [facility]- acute respiratory distress syndrome. Possible bacterial pneumonia - likely gram negative History of Present Illness History of Present Illness 03/15/2021 Patient seen and examined in the [place] [address] ICU He remains on the vent AC/32/420/1 100% with 6 of PEEP Has Cantrell to bedside drainage On IV Levophed Sedated with Dex fentanyl Has IV Zosyn hanging Discussed with RN Chart reviewed He remains very critically ill 03/14/2021 Patient seen and examined in the [place] [address] ICU Discussed with RN Chart reviewed He remains on the ventilator AC/30/400/90 percent with 6 of PEEP His potassium still little high Creatinine running little high Patient is sedated with Dex fentanyl vecuronium and Versed Has IV Levophed hanging He remains very critically ill 03/13/2021 Patient seen and examined in the [place] [address] ICU He had to be intubated last night Discussed with RN chart reviewed Current vent settings are AC/30/400 with 100% FiO2 and 6 of PEEP Discussed with RN Chart reviewed He is sedated with fentanyl and Versed Dex and vecuronium On IV Levophed drip OG feeds running Has Cantrell to bedside drainage Extremely critically ill 03/12/2021 Patient seen and examined in the [place] [address] ICU Discussed with RN Chart reviewed He remains on the BiPAP and Vapotherm Has TPN hanging Sedated with Dex Has Cantrell to bedside drain Remains critically ill 03/11/2021 Patient seen and examined in the [place] [address] ICU Discussed with RN Chart reviewed He is currently on BiPAP 100% FiO2 and Vapotherm 40 L with 1 high percent FiO2 Sedated with Dex Has TPN pain Remains very critically ill 03/10/2021 Patient seen and examined in the [place] [address] ICU Discussed with RN Chart reviewed He remains on Vapotherm 40 L 100% FiO2 plus BiPAP with 100% FiO2 Has TPN hanging Sedated with Dex Remains extremely critically ill 03/09: In ICU on BiPAP with Vapotherm 100% FiO2 40 L/min with saturations 93%. Still tolerating removal of BiPAP without desaturations into the 80s. Glucose minimally improved will increase schedule. He has no complaints. CC time 31- minute 03/08: Seen in ICU on BiPAP continue vent support on Vapotherm 100% FiO2 40 L/min. Saturations 94%. When BiPAP is removed desaturates to 84% despite Vapotherm. He prefers to avoid intubation. O2 sats improved with BiPAP. Glucose in the 200s. D/w family and friend over the phone. 03/07: Seen in ICU BiPAP 18/8 with supplemental Vapotherm saturations 93% to 96%. He has no complaints. 03/06: Chest radiograph unchanged taking good position, WBC 12.2 glucose in 200s. Tolerating TPN well. O2 saturations 92% on BiPAP 18/8 with supplemental Vapotherm 40 L/min 100% FiO2. 03/05: In ICU. PICC placed. Requiring BiPAP 18/8 with supplemental Vapotherm 40 L/min 100% FiO2 significant saturations with removal of BiPAP unable to take p.o. start TPN tonight 03/04: Transfer to ICU overnight for worsening hypoxia. On BiPAP 18/8 with supplemental Vapotherm 40 L/min 100% FiO2. Significant desaturation with attempted to eat and drink. cc time 32 min 03/03: No acute events overnight. Saturating 89-90% on Vapotherm and NRB 15L. Not dyspneic but doesnt feel better. Will DC scott today and today will be his last day of steroids. Encouraged patient to get OOBTC ad pierre. 03/02: No acute events overnight. Patient seen and examined bedside. Increased work of breathing. But still saturating 90% on 40 L Vapotherm. Patient's chart, labs, images were reviewed and discussed with RN 02/28: Patient seen and examined bedside. Still on Vapotherm 40 L and saturating 96%. Not more short of breath than usual. Feels actually better today. Speaking full sentences. Given nystatin due to some white buildup in the oral cavity. Likely due to steroids. 02/27: Pt seen and examined bedside. Saturating 86% on Vapotherm and required BiPAP overnight. Pulmonology consulted and to continue with current management for COVID. Pending ICU transfer when possible 02/26: Patient seen and examined bedside. Saturating 89% on Vapotherm and 15 L nonrebreather. Continue with IV steroids and IV antibiotics. Patient's chart, labs, images were reviewed and discussed with RN 02/25: No acute events overnight. Patient seen examined bedside. Patient saturating 91% on 4 L Vapotherm. Continue with IV steroids and IV antibiotics. Patient's chart, labs, images were reviewed and discussed with RN 02/24: No acute events overnight. Patient seen examined bedside. Patient saturating 93 to 95% on Vapotherm at 40 L. Not dyspneic at this time. Patient's chart, labs, images were reviewed and discussed with RN 02/23: Patient seen and examined. He is still on Vapotherm 40 L and 100% nonrebreather. His third Covid test finally came back positive. I spoke with efren gallego he is still not a candidate for remdesivir because he has had the disease for more than 10 days 02/22: Patient seen and examined. He is on Vapotherm 40 L with 100% FiO2 plus nonrebreather. His Covid testing by PCR is surprisingly negative Vitals/I&O Vitals/I&O: Vital Signs Date Time Temp Pulse Resp B/P (MAP) Pulse Ox O2 Delivery O2 Flow Rate FiO2 03/15/21 13:00 116 30 82/65 100 Ventilator 03/15/21 12:00 102.3 102.3 I & O0 03/14/21 03/14/21 03/15/21 15:00 23:00 07:00 Intake Total 260 ml 260 ml 1836.49 ml Output Total 550 ml 250 ml 850 ml Balance -290 ml 10 ml 986.49 ml Physical Exam General: mild distress, Other (Resting on Vapotherm) Heart: Regular rate Lungs: Crackles Abdomen: Normal bowel sounds Extremities: No clubbing Skin: No rashes Labs Labs: Laboratory Tests Test 03/14/21 15:44 03/14/21 15:45 03/14/21 23:50 03/15/21 05:25 Glucose (Fingerstick) 167 mg/dL (70-99) 160 mg/dL (70-99) Lactic Acid Level 2.1 mmol/L (0.4-2.0) White Blood Count 6.4 x10^3/uL (4.0-11.0) Red Blood Count 4.15 x10^6/uL (4.30-5.70) Hemoglobin 12.7 g/dL (13.0-17.5) Hematocrit 38.1 % (39.0-53.0) Mean Corpuscular Volume 92 fL (79-100) Mean Corpuscular Hemoglobin 31 pg (25-35) Mean Corpuscular Hemoglobin Concent 33 g/dL (31-37) Red Cell Distribution Width 14.1 % (11.5-14.5) Platelet Count 121 x10^3/uL (140-400) Neutrophils (%) (Auto) 45 % (31-73) Lymphocytes (%) (Auto) 33 % (24-48) Monocytes (%) (Auto) 15 % (0-9) Eosinophils (%) (Auto) 4 % (0-3) Basophils (%) (Auto) 3 % (0-3) Neutrophils # (Auto) 2.9 x10^3/uL (1.8-7.7) Lymphocytes # (Auto) 2.1 x10^3/uL (1.0-4.8) Monocytes # (Auto) 1.0 x10^3/uL (0.0-1.1) Eosinophils # (Auto) 0.3 x10^3/uL (0.0-0.7) Basophils # (Auto) 0.2 x10^3/uL (0.0-0.2) Sodium Level 134 mmol/L (136-145) Potassium Level 4.5 mmol/L (3.5-5.1) Chloride Level 102 mmol/L (98-107) Carbon Dioxide Level 27 mmol/L (21-32) Anion Gap 5 (6-14) Blood Urea Nitrogen 40 mg/dL (8-26) Creatinine 1.7 mg/dL (0.7-1.3) Estimated GFR (Cockcroft-Gault) 43.4 Glucose Level 191 mg/dL (70-99) Calcium Level 7.6 mg/dL (8.5-10.1) Test 03/15/21 05:27 03/15/21 09:05 03/15/21 11:19 Glucose (Fingerstick) 187 mg/dL (70-99) 221 mg/dL (70-99) O2 Saturation 87 % (92-99) Arterial Blood pH 7.23 (7.35-7.45) Arterial Blood pH (Temp corrected) 7.19 Arterial Blood pCO2 at Patient Temp 61 mmHg (35-46) Arterial Blood pCO2 (Temp correct) 68 mmHg Arterial Blood pO2 at Patient Temp 55 mmHg (75-108) Arterial Blood pO2 (Temp corrected) 66 mmHg Arterial Blood HCO3 25 mmol/L (21-28) Arterial Blood Base Excess -4 mmol/L (-3-3) FiO2 90 Assessment and Plan Assessmemt and Plan Problems Medical Problems: (1) Acute respiratory failure with hypoxia Status: Acute (2) Sepsis due to pneumonia Status: Acute Severe respiratory failure secondary to COVID-19 Diabetes Possible bacterial pneumonia likely gram-negative Plan ICU monitoring Vent weaning COVID protocol Continue OG feeds Continue Cantrell to bedside drainage Home meds DVT prophylaxis Trend labs DC TPN Full code Appreciate subspecialist input Prognosis extremely guarded at best we are concerned he may not survive CC time 31 Comment Review of Relevant I have reviewed the following items elmer (where applicable) has been applied. Medications: Current Medications Medications (Trade) Dose Ordered Sig/Kalina Route PRN Reason Start Time Stop Time Status Last Admin Dose Admin Vancomycin HCl (Vanco Per Pharmacy) 1 each PRN DAILY PRN MC SEE COMMENTS 03/14/21 16:45 03/14/21 16:53 Piperacillin Sod/ Tazobactam Sod 4.5 gm/Dextrose 100 ml @ 200 mls/hr Q6HRS IV 03/14/21 17:30 03/15/21 11:21 Vancomycin HCl 1.5 gm/Sodium Chloride 500 ml @ 250 mls/hr 1X ONCE IV 03/14/21 18:00 03/14/21 19:59 DC 03/14/21 20:53 Docusate Sodium (Colace Solution) 100 mg PRN DAILY PRN PO HARD STOOLS 03/15/21 09:15 03/15/21 09:38 Justifications for Admission Other Justification LILA RODRIGUEZ III DO Mar 15, 2021 13:17
[2021-03-15] MEDS: SENNOSIDES 8.6 MG TABLET PO PRN (16:28)
[2021-03-15] MEDS: fentaNYL HIGH DOSE PCA 55 ML IV PRN (16:38)
[2021-03-15] MEDS ORDERED: VANCOMYCIN 1 GM in IV NORMAL SALINE 250ML 250 ML IV SCH (18:00)
--- NOTE | 2021-03-15 18:08 | CONS ---
DATE OF CONSULTATION: 03/15/2021 NEPHROLOGY CONSULTATION REQUESTING PHYSICIAN: Hospitalist. REASON FOR CONSULTATION: Renal failure. HISTORY OF PRESENT ILLNESS: This 46-year-old gentleman who is unvaccinated and presents to the hospital with 10-15 days of shortness of breath. He was found to be COVID-19 positive. Currently, has respiratory failure. In this setting, renal function has deteriorated and as such Nephrology evaluation requested. PAST MEDICAL HISTORY: Unremarkable. PAST SURGICAL HISTORY: None noted. ALLERGIES: None. MEDICATIONS PRIOR TO ADMISSION: None. FAMILY HISTORY: Diabetes mellitus. SOCIAL HISTORY: The patient resides independently. No alcohol use. REVIEW OF SYSTEMS: Unobtainable due to patient being intubated and sedated. PHYSICAL EXAMINATION: Due to COVID-19 positive status, bedside examination not pursued. LABORATORY DATA: Hemoglobin 12, hematocrit 38.1. White count is 6.4, platelets are 121. Initial BUN and creatinine 20 and 0.6 with GFR 144. Currently, BUN 40, creatinine 1.7, GFR is 43.4, potassium 4.5, CO2 of 27, calcium 7.6. ABG: pH 7.23, pCO2 of 61, pO2 of 55 on 90% FiO2. IMPRESSION: Renal failure, acute -- currently in the setting of COVID-19 related infectious pneumonitis. He continues to require intubation, mechanical ventilation and high flow oxygen delivery. Anticipate acute renal failure secondary to acute tubular necrosis in the setting of above. RECOMMENDATIONS: 1. Fluid balance is possible. 2. Maintain treatment of COVID-19, infectious pneumonitis and full support at this time. 3. Avoid nephrotoxic agents as possible. 4. We will follow with you and trend labs. YOMAIRA DR: Darshan TID: [id number]
[2021-03-15] MEDS: ENOXAPARIN 40 MG/0.4 ML SYRINGE. SQ SCH (20:11)
[2021-03-15] MEDS: INSULIN GLARGINE SYRINGE. SQ SCH (20:59)
[2021-03-16] VITALS (28 sets, daily range): BP systolic 70–91; BP diastolic 54–75
[2021-03-16] MEDS: PIPERACILLIN/TAZOBACTAM 4.5 GM in IV DEXTROSE 5% 100ML 100 ML IV SCH ×3 (00:01→11:34)
[2021-03-16] MEDS: MIDAZOLAM 100mg/100ml NS BAG 100 ML IV PRN ×3 (00:40→21:43)
[2021-03-16] MEDS: NORCURON - VECURONIUM 50 MG in IV NORMAL SALINE 50ML 50 ML IV PRN ×2 (00:41→09:59)
[2021-03-16] MEDS: NOREPINEPHRINE VIAL 8 MG in IV DEXTROSE 5% 250 ML IV PRN ×4 (03:02→23:26)
[2021-03-16] MEDS: DEXMEDETOMIDINE 400 MCG in IV NORMAL SALINE 100ML 96 ML IV PRN ×4 (03:03→23:31)
--- NOTE | 2021-03-16 04:43 | PDOC ---
PULMONARY PROGRESS NOTES DATE: 03/16/21 TIME: 04:43 Subjective Patient remains on assist control mode. Sedated fentanyl versed vec gtt on levo Currently on 100% FiO2 6 of PEEP, Vitals Vital Signs Date Time Temp Pulse Resp B/P (MAP) Pulse Ox O2 Delivery O2 Flow Rate FiO2 03/16/21 03:00 116 32 86/68 100 Ventilator 03/16/21 00:00 98.6 98.6 Comments ros unable to obtain sedated on vent nc at no distress no accessory muscle use abd obese no rash Lungs: Crackles Cardiovascular: S1, S2 Extremities: No Edema Skin: No Rashes Labs Laboratory Tests Test 03/14/21 05:38 03/14/21 06:00 03/14/21 08:00 03/14/21 12:01 Glucose (Fingerstick) 184 mg/dL (70-99) 174 mg/dL (70-99) Sodium Level 134 mmol/L (136-145) Potassium Level 5.7 mmol/L (3.5-5.1) Chloride Level 101 mmol/L (98-107) Carbon Dioxide Level 25 mmol/L (21-32) Anion Gap 8 (6-14) Blood Urea Nitrogen 44 mg/dL (8-26) Creatinine 1.6 mg/dL (0.7-1.3) Estimated GFR (Cockcroft-Gault) 46.6 Glucose Level 174 mg/dL (70-99) Calcium Level 8.1 mg/dL (8.5-10.1) Phosphorus Level 5.3 mg/dL (2.6-4.7) Magnesium Level 2.3 mg/dL (1.8-2.4) Triglycerides Level 202 mg/dL (0-150) O2 Saturation 97 % (92-99) Arterial Blood pH 7.30 (7.35-7.45) Arterial Blood pCO2 at Patient Temp 48 mmHg (35-46) Arterial Blood pO2 at Patient Temp 94 mmHg (75-108) Arterial Blood HCO3 23 mmol/L (21-28) Arterial Blood Base Excess -4 mmol/L (-3-3) FiO2 100% vent Test 03/14/21 15:44 03/14/21 15:45 03/14/21 23:50 03/15/21 05:25 Glucose (Fingerstick) 167 mg/dL (70-99) 160 mg/dL (70-99) Lactic Acid Level 2.1 mmol/L (0.4-2.0) White Blood Count 6.4 x10^3/uL (4.0-11.0) Red Blood Count 4.15 x10^6/uL (4.30-5.70) Hemoglobin 12.7 g/dL (13.0-17.5) Hematocrit 38.1 % (39.0-53.0) Mean Corpuscular Volume 92 fL (79-100) Mean Corpuscular Hemoglobin 31 pg (25-35) Mean Corpuscular Hemoglobin Concent 33 g/dL (31-37) Red Cell Distribution Width 14.1 % (11.5-14.5) Platelet Count 121 x10^3/uL (140-400) Neutrophils (%) (Auto) 45 % (31-73) Lymphocytes (%) (Auto) 33 % (24-48) Monocytes (%) (Auto) 15 % (0-9) Eosinophils (%) (Auto) 4 % (0-3) Basophils (%) (Auto) 3 % (0-3) Neutrophils # (Auto) 2.9 x10^3/uL (1.8-7.7) Lymphocytes # (Auto) 2.1 x10^3/uL (1.0-4.8) Monocytes # (Auto) 1.0 x10^3/uL (0.0-1.1) Eosinophils # (Auto) 0.3 x10^3/uL (0.0-0.7) Basophils # (Auto) 0.2 x10^3/uL (0.0-0.2) Sodium Level 134 mmol/L (136-145) Potassium Level 4.5 mmol/L (3.5-5.1) Chloride Level 102 mmol/L (98-107) Carbon Dioxide Level 27 mmol/L (21-32) Anion Gap 5 (6-14) Blood Urea Nitrogen 40 mg/dL (8-26) Creatinine 1.7 mg/dL (0.7-1.3) Estimated GFR (Cockcroft-Gault) 43.4 Glucose Level 191 mg/dL (70-99) Calcium Level 7.6 mg/dL (8.5-10.1) Test 03/15/21 05:27 03/15/21 09:05 03/15/21 11:19 03/15/21 17:07 Glucose (Fingerstick) 187 mg/dL (70-99) 221 mg/dL (70-99) 154 mg/dL (70-99) O2 Saturation 87 % (92-99) Arterial Blood pH 7.23 (7.35-7.45) Arterial Blood pH (Temp corrected) 7.19 Arterial Blood pCO2 at Patient Temp 61 mmHg (35-46) Arterial Blood pCO2 (Temp correct) 68 mmHg Arterial Blood pO2 at Patient Temp 55 mmHg (75-108) Arterial Blood pO2 (Temp corrected) 66 mmHg Arterial Blood HCO3 25 mmol/L (21-28) Arterial Blood Base Excess -4 mmol/L (-3-3) FiO2 90 Test 03/16/21 00:00 Glucose (Fingerstick) 119 mg/dL (70-99) Laboratory Tests Test 03/15/21 05:25 03/15/21 05:27 03/15/21 09:05 03/15/21 11:19 White Blood Count 6.4 x10^3/uL (4.0-11.0) Red Blood Count 4.15 x10^6/uL (4.30-5.70) Hemoglobin 12.7 g/dL (13.0-17.5) Hematocrit 38.1 % (39.0-53.0) Mean Corpuscular Volume 92 fL (79-100) Mean Corpuscular Hemoglobin 31 pg (25-35) Mean Corpuscular Hemoglobin Concent 33 g/dL (31-37) Red Cell Distribution Width 14.1 % (11.5-14.5) Platelet Count 121 x10^3/uL (140-400) Neutrophils (%) (Auto) 45 % (31-73) Lymphocytes (%) (Auto) 33 % (24-48) Monocytes (%) (Auto) 15 % (0-9) Eosinophils (%) (Auto) 4 % (0-3) Basophils (%) (Auto) 3 % (0-3) Neutrophils # (Auto) 2.9 x10^3/uL (1.8-7.7) Lymphocytes # (Auto) 2.1 x10^3/uL (1.0-4.8) Monocytes # (Auto) 1.0 x10^3/uL (0.0-1.1) Eosinophils # (Auto) 0.3 x10^3/uL (0.0-0.7) Basophils # (Auto) 0.2 x10^3/uL (0.0-0.2) Sodium Level 134 mmol/L (136-145) Potassium Level 4.5 mmol/L (3.5-5.1) Chloride Level 102 mmol/L (98-107) Carbon Dioxide Level 27 mmol/L (21-32) Anion Gap 5 (6-14) Blood Urea Nitrogen 40 mg/dL (8-26) Creatinine 1.7 mg/dL (0.7-1.3) Estimated GFR (Cockcroft-Gault) 43.4 Glucose Level 191 mg/dL (70-99) Calcium Level 7.6 mg/dL (8.5-10.1) Glucose (Fingerstick) 187 mg/dL (70-99) 221 mg/dL (70-99) O2 Saturation 87 % (92-99) Arterial Blood pH 7.23 (7.35-7.45) Arterial Blood pH (Temp corrected) 7.19 Arterial Blood pCO2 at Patient Temp 61 mmHg (35-46) Arterial Blood pCO2 (Temp correct) 68 mmHg Arterial Blood pO2 at Patient Temp 55 mmHg (75-108) Arterial Blood pO2 (Temp corrected) 66 mmHg Arterial Blood HCO3 25 mmol/L (21-28) Arterial Blood Base Excess -4 mmol/L (-3-3) FiO2 90 Test 03/15/21 17:07 03/16/21 00:00 Glucose (Fingerstick) 154 mg/dL (70-99) 119 mg/dL (70-99) Medications Active Scripts Medications Dose Route/Sig Max Daily Dose Days Date Category [no home meds] 02/21/21 Reported Comments Chest x-ray reviewed 03/14/2021. Bilateral faint interstitial infiltrates. Stable Impression . IMPRESSION: 1. Acute on chronic hypoxemic respiratory failure./ARDS intubated 03/13 2. COVID-19 viral pneumonia/acute respiratory distress syndrome. 3. Abnormal x-ray. 4. Possible bacterial pneumonia. 5. Protein malnutrition present upon admission Plan . 03/16 Continue present assist-control mode. setting reviewed Wean FiO2 peep as tolerated cont abx pepcid lovenox for DVT and stress ulcer prophylaxis. elevate hob Continue current supportive Avoid barotrauma by maintaining PEEP less than 10, currently on six of PEEP. Chest x-ray reviewed Enteral nutrition Discussed with RN and RT 03/15 Continue present assist-control mode. setting reviewed Wean FiO2 peep as tolerated elevate hob Continue current supportive Avoid barotrauma by maintaining PEEP less than 10, currently on six of PEEP. Chest x-ray reviewed Enteral nutrition DVT and stress ulcer prophylaxis. Discussed with RN and RT Updated 03/14 Continue present assist-control mode. Wean FiO2. Keep saturations 92% and above. Continue current supportive Avoid barotrauma by maintaining PEEP less than 10, currently on six of PEEP. Chest x-ray reviewed Enteral nutrition DVT and stress ulcer prophylaxis. Discussed with RN and RT CCT of 30 minutes Updated 03/13 Patient intubated on last evening, 113 Continue current supportive Avoid barotrauma by maintaining PEEP less than 10 ABG noted, PaO2 62 pH was 7.2 and 4 Chest x-ray reviewed Discussed with RN and RT CCT of 30 minutes Updated 03/12 Continue current supportive Patient continues to continue with Vapotherm and BiPAP No need for intubation at this time Awake alert follows commands Nutritional support Precedex Labs and chest x-ray reviewed ROSA ROLLINS MD Mar 16, 2021 04:43
[2021-03-16] MEDS: INSULIN LISPRO 300 UNITS/3 ML VIAL. SQ SCH ×5 (05:49→23:57)
[2021-03-16 06:45] LABS: CALCIUM 7.1 mg/dL (8.5-10.1); CREATININE 1.6 mg/dL (0.7-1.3); GFR 46.6; POTASSIUM 4.2 mmol/L (3.5-5.1)
[2021-03-16] MEDS: SENNOSIDES 8.6 MG TABLET PO PRN (07:44)
[2021-03-16] MEDS: ACETAMINOPHEN 650 MG/20.3 ML SOLUTION. PEG PRN (07:45)
[2021-03-16] MEDS: ASPIRIN CHEWABLE 81 MG TABLET. PO SCH (07:45)
[2021-03-16] MEDS: DOCUSATE 100 MG/10 ML SOLUTION. PO PRN (07:45)
[2021-03-16] MEDS: FAMOTIDINE 20 MG/2 ML VIAL IVP SCH ×2 (07:45→20:35)
[2021-03-16 09:32] LABS: BASE EXCESS ABG -5 mmol/L (-3-3); HCO3 ABG 22 mmol/L (21-28); PCO2 ABG 48 mmHg (35-46); PO2 ABG 59 mmHg (75-108); SAT O2 ABG 89 % (92-99)
[2021-03-16 09:34] LABS: FIO2 ABG 100
--- NOTE | 2021-03-16 13:04 | PDOC ---
PROGRESS NOTES Date of Service DATE: 03/16/21 TIME: 13:02 Subjective Subjective IN FOLLOW UP OF ARF WITH COVID 19 RESP FAILURE Objective Objective Vital Signs Date Time Temp Pulse Resp B/P (MAP) Pulse Ox O2 Delivery O2 Flow Rate FiO2 03/16/21 12:15 91/70 03/16/21 12:00 103.4 122 32 96 Ventilator 103.4 03/13/21 00:30 40.0 Intake and Output 03/16/21 07:00 Intake Total 3631.95 ml Output Total 1315 ml Balance 2316.95 ml IV Total 1929.95 ml Tube Feeding 1417 ml Other 285 ml Output Urine Total 1315 ml Gastric Drainage Total 0 ml Physical Exam Lungs: Other (ON VENT) Neuro: Other (SEDATED) Diagnosis RENAL FAILURE: Acute (Acute tubular necrosis) Assessment Assessment Problems Medical Problems: (1) Acute respiratory failure with hypoxia Status: Acute (2) Sepsis due to pneumonia Status: Acute Plan Plan of Care RENAL FUNCTION IS BETTER. REMAINS ON VENT WITH HIGH O2 DEMANDS. CONT FLUID BALANCE AND FOLLOW Comment Review of Relevant I have reviewed the following items elmer (where applicable) has been applied. Labs Laboratory Tests Test 03/14/21 15:44 03/14/21 15:45 03/14/21 23:50 03/15/21 05:25 Glucose (Fingerstick) 167 mg/dL (70-99) 160 mg/dL (70-99) Lactic Acid Level 2.1 mmol/L (0.4-2.0) White Blood Count 6.4 x10^3/uL (4.0-11.0) Red Blood Count 4.15 x10^6/uL (4.30-5.70) Hemoglobin 12.7 g/dL (13.0-17.5) Hematocrit 38.1 % (39.0-53.0) Mean Corpuscular Volume 92 fL (79-100) Mean Corpuscular Hemoglobin 31 pg (25-35) Mean Corpuscular Hemoglobin Concent 33 g/dL (31-37) Red Cell Distribution Width 14.1 % (11.5-14.5) Platelet Count 121 x10^3/uL (140-400) Neutrophils (%) (Auto) 45 % (31-73) Lymphocytes (%) (Auto) 33 % (24-48) Monocytes (%) (Auto) 15 % (0-9) Eosinophils (%) (Auto) 4 % (0-3) Basophils (%) (Auto) 3 % (0-3) Neutrophils # (Auto) 2.9 x10^3/uL (1.8-7.7) Lymphocytes # (Auto) 2.1 x10^3/uL (1.0-4.8) Monocytes # (Auto) 1.0 x10^3/uL (0.0-1.1) Eosinophils # (Auto) 0.3 x10^3/uL (0.0-0.7) Basophils # (Auto) 0.2 x10^3/uL (0.0-0.2) Sodium Level 134 mmol/L (136-145) Potassium Level 4.5 mmol/L (3.5-5.1) Chloride Level 102 mmol/L (98-107) Carbon Dioxide Level 27 mmol/L (21-32) Anion Gap 5 (6-14) Blood Urea Nitrogen 40 mg/dL (8-26) Creatinine 1.7 mg/dL (0.7-1.3) Estimated GFR (Cockcroft-Gault) 43.4 Glucose Level 191 mg/dL (70-99) Calcium Level 7.6 mg/dL (8.5-10.1) Test 03/15/21 05:27 03/15/21 09:05 03/15/21 11:19 03/15/21 17:07 Glucose (Fingerstick) 187 mg/dL (70-99) 221 mg/dL (70-99) 154 mg/dL (70-99) O2 Saturation 87 % (92-99) Arterial Blood pH 7.23 (7.35-7.45) Arterial Blood pH (Temp corrected) 7.19 Arterial Blood pCO2 at Patient Temp 61 mmHg (35-46) Arterial Blood pCO2 (Temp correct) 68 mmHg Arterial Blood pO2 at Patient Temp 55 mmHg (75-108) Arterial Blood pO2 (Temp corrected) 66 mmHg Arterial Blood HCO3 25 mmol/L (21-28) Arterial Blood Base Excess -4 mmol/L (-3-3) FiO2 90 Test 03/16/21 00:00 03/16/21 05:40 03/16/21 05:46 03/16/21 08:00 Glucose (Fingerstick) 119 mg/dL (70-99) 152 mg/dL (70-99) Sodium Level 132 mmol/L (136-145) Potassium Level 4.2 mmol/L (3.5-5.1) Chloride Level 99 mmol/L (98-107) Carbon Dioxide Level 26 mmol/L (21-32) Anion Gap 7 (6-14) Blood Urea Nitrogen 38 mg/dL (8-26) Creatinine 1.6 mg/dL (0.7-1.3) Estimated GFR (Cockcroft-Gault) 46.6 Glucose Level 153 mg/dL (70-99) Calcium Level 7.1 mg/dL (8.5-10.1) O2 Saturation 89 % (92-99) Arterial Blood pH 7.28 (7.35-7.45) Arterial Blood pCO2 at Patient Temp 48 mmHg (35-46) Arterial Blood pO2 at Patient Temp 59 mmHg (75-108) Arterial Blood HCO3 22 mmol/L (21-28) Arterial Blood Base Excess -5 mmol/L (-3-3) FiO2 100 Test 03/16/21 11:32 Glucose (Fingerstick) 148 mg/dL (70-99) Laboratory Tests Test 03/15/21 17:07 03/16/21 00:00 03/16/21 05:40 03/16/21 05:46 Glucose (Fingerstick) 154 mg/dL (70-99) 119 mg/dL (70-99) 152 mg/dL (70-99) Sodium Level 132 mmol/L (136-145) Potassium Level 4.2 mmol/L (3.5-5.1) Chloride Level 99 mmol/L (98-107) Carbon Dioxide Level 26 mmol/L (21-32) Anion Gap 7 (6-14) Blood Urea Nitrogen 38 mg/dL (8-26) Creatinine 1.6 mg/dL (0.7-1.3) Estimated GFR (Cockcroft-Gault) 46.6 Glucose Level 153 mg/dL (70-99) Calcium Level 7.1 mg/dL (8.5-10.1) Test 03/16/21 08:00 03/16/21 11:32 O2 Saturation 89 % (92-99) Arterial Blood pH 7.28 (7.35-7.45) Arterial Blood pCO2 at Patient Temp 48 mmHg (35-46) Arterial Blood pO2 at Patient Temp 59 mmHg (75-108) Arterial Blood HCO3 22 mmol/L (21-28) Arterial Blood Base Excess -5 mmol/L (-3-3) FiO2 100 Glucose (Fingerstick) 148 mg/dL (70-99) Microbiology 03/14/21 Blood Culture - Preliminary, Resulted NO GROWTH AFTER 1 DAY Medications Current Medications Iohexol (Omnipaque 350 Mg/ml) 100 ml 1X ONCE IV Last administered on 02/21/21at 14:35; Start 02/21/21 at 13:30; Stop 02/21/21 at 13:32; Status DC Info (CONTRAST GIVEN -- Rx MONITORING) 1 each PRN DAILY PRN MC SEE COMMENTS; Start 02/21/21 at 13:45; Stop 02/23/21 at 13:44; Status DC Sodium Chloride 1,000 ml @ 1,000 mls/hr 1X ONCE IV Last administered on at 14:00; Start 02/21/21 at 14:00; Stop 02/21/21 at 14:59; Status DC Iohexol (Omnipaque 350 Mg/ml) 100 ml 1X ONCE IV ; Start 02/21/21 at 14:15; Stop 02/21/21 at 14:16; Status DC Sterile Water (WATER for RESP) 2,000 ml CONT PRN INH VIA VAPOTHERM DEVICE Last administered on 03/11/21at 17:25; Start 02/21/21 at 14:30 Sodium Chloride 1,000 ml @ 1,000 mls/hr 1X ONCE IV Last administered on 02/21/21at 15:00; Start 02/21/21 at 15:00; Stop 02/21/21 at 15:59; Status DC Ceftriaxone Sodium (Rocephin) 1 gm 1X ONCE IVP Last administered on 02/21/21at 15:00; Start 02/21/21 at 15:00; Stop 02/21/21 at 15:01; Status DC Azithromycin 250 ml @ 250 mls/hr 1X ONCE IV Last administered on 02/21/21at 15:00; Start 02/21/21 at 15:00; Stop 02/21/21 at 15:59; Status DC Acetaminophen (Tylenol) 650 mg PRN Q4HRS PRN PO FEVER > 100.3'F Last administered on 02/21/21at 23:00; Start 02/21/21 at 16:00; Stop 02/22/21 at 15:59; Status DC Nitroglycerin (Nitrostat) 0.4 mg PRN Q5MIN PRN SL CHEST PAIN; Start 02/21/21 at 16:00; Stop 02/22/21 at 15:59; Status DC Ceftriaxone Sodium (Rocephin) 1 gm Q24H IVP Last administered on 03/11/21at 20: 16; Start 02/21/21 at 20:00; Stop 03/12/21 at 10:27; Status DC Doxycycline Hyclate 100 mg/ Dextrose 100 ml @ 50 mls/hr Q12HR IV Last administered on 02/28/21at 21:25; Start 02/21/21 at 20:00; Stop 03/01/21 at 03:59; Status DC Methylprednisolone Sodium Succinate (SOLU-Medrol 40MG VIAL) 40 mg BID IV Last administered on 03/10/21at 08:59; Start 02/21/21 at 20:00; Stop 03/10/21 at 12:23; Status DC Multivitamins (Thera M Plus) 1 tab DAILY PO Last administered on 03/06/21at 09:20; Start 02/22/21 at 09:00; Stop 03/07/21 at 08:44; Status DC Guaifenesin/ Codeine Phosphate (Robitussin Ac) 5 ml PRN Q6HRS PRN PO COUGH Last administered on 02/25/21at 00:54; Start 02/21/21 at 19:45; Stop 03/04/21 at 09:18; Status DC Aspirin (Aspirin Chewable) 81 mg [id number] PO Last administered on 03/16/21at 07:45; Start 02/22/21 at 08:00 Enoxaparin Sodium (Lovenox 40mg Syringe) 40 mg Q24H SQ Last administered on 03/15/21at 20:11; Start 02/21/21 at 20:00 Lactobacillus Rhamnosus (Culturelle) 1 cap BID PO Last administered on 03/07/21at 09:57; Start 02/22/21 at 21:00; Stop 03/07/21 at 10:29; Status DC Insulin Human Lispro (HumaLOG) 0-7 UNITS TIDWMEALS SQ Last administered on 03/06/21at 14:32; Start 02/25/21 at 17:00; Stop 03/06/21 at 17:57; Status DC Dextrose (Dextrose 50%-Water Syringe) 12.5 gm PRN Q15MIN PRN IV SEE COMMENTS; Start 02/25/21 at 15:30 Lorazepam (Ativan Inj) 0.25 mg PRN Q6HRS PRN IVP ANXIETY / AGITATION Last administered on 02/26/21at 22:11; Start 02/26/21 at 22:15; Stop 03/04/21 at 09:18; Status DC Insulin Glargine (Lantus Syringe) 5 unit BID SQ Last administered on 03/04/21at 08:48; Start 02/27/21 at 09:00; Stop 03/04/21 at 09:18; Status DC Nystatin (Nystatin Oral Susp) 5 ml [id number] Last administered on 03/09/21at 20:32; Start 02/28/21 at 13:00; Stop 03/10/21 at 17:40; Status DC Doxycycline Hyclate (Vibra-Tab) 100 mg BID PO Last administered on 03/04/21at 08:59; Start 03/01/21 at 09:00; Stop 03/04/21 at 09:18; Status DC Dexmedetomidine HCl 400 mcg/ Sodium Chloride 100 ml @ 3.655 mls/ hr CONT PRN IV PER PROTOCOL Last administered on 03/16/21at 10:00; Start 03/04/21 at 03:45 Sodium Chloride 500 ml @ 500 mls/hr 1X PRN PRN IV SEE COMMENTS; Start 03/04/21 at 03:45 Atropine Sulfate (ATROPINE 0.5mg SYRINGE) 0.5 mg PRN Q5MIN PRN IV SEE COMMENTS; Start 03/04/21 at 03:45 Insulin Glargine (Lantus Syringe) 8 unit QHS SQ Last administered on 03/05/21at 21:46; Start 03/04/21 at 21:00; Stop 03/06/21 at 11:19; Status DC Guaifenesin (Robitussin Dm) 10 ml PRN Q6HRS PRN PO COUGH; Start 03/04/21 at 09:15 Doxycycline Hyclate 100 mg/ Dextrose 100 ml @ 50 mls/hr Q12HR IV Last administered on 03/07/21at 21:00; Start 03/04/21 at 21:00; Stop 03/07/21 at 22:59; Status DC Info (Tpn Per Pharmacy) 1 each PRN DAILY PRN MC SEE COMMENTS Last administered on 03/12/21at 12:14; Start 03/05/21 at 14:00; Stop 03/13/21 at 11:35; Status DC Sodium Chloride 90 meq/Potassium Chloride 50 meq/ Potassium Phosphate 13.6 mmol/Magnesium Sulfate 10 meq/ Calcium Gluconate 10 meq/ Multivitamins 10 ml/Zinc/Copper/ Manganese/ Selenium 1 ml/ Total Parenteral Nutrition/Amino Acids/Dextrose/ Fat Emulsion Intravenous 1,512 ml @ 63 mls/hr TPN CONT IV Last administered on 03/05/21at 21:35; Start 03/05/21 at 22:00; Stop 03/06/21 at 21:59; Status DC Sodium Chloride 90 meq/Potassium Chloride 50 meq/ Potassium Phosphate 13.6 mm ol/Magnesium Sulfate 10 meq/ Calcium Gluconate 10 meq/ Multivitamins 10 ml/Zinc/Copper/ Manganese/ Selenium 1 ml/ Total Parenteral Nutrition/Amino Acids/Dextrose/ Fat Emulsion Intravenous 1,512 ml @ 63 mls/hr TPN CONT IV Last administered on 03/06/21at 22:15; Start 03/06/21 at 22:00; Stop 03/07/21 at 21:59; Status DC Insulin Glargine (Lantus Syringe) 15 unit QHS SQ Last administered on 03/07/21at 20:50; Start 03/06/21 at 21:00; Stop 03/08/21 at 11:09; Status DC Insulin Human Lispro (HumaLOG) 0-7 UNITS Q6HRS SQ Last administered on 03/16/21at 05:49; Start 03/06/21 at 18:00 Sodium Chloride 90 meq/Potassium Chloride 50 meq/ Potassium Phosphate 13.6 mmol/Magnesium Sulfate 10 meq/ Calcium Gluconate 10 meq/ Multivitamins 10 ml/Zinc/Copper/ Manganese/ Selenium 1 ml/ Total Parenteral Nutrition/Amino Acids/Dextrose/ Fat Emulsion Intravenous 1,512 ml @ 63 mls/hr TPN CONT IV Last administered on 03/07/21at 22:23; Start 03/07/21 at 22:00; Stop 03/08/21 at 21:59; Status DC Insulin Glargine (Lantus Syringe) 20 unit QHS SQ Last administered on 03/11/21at 20:41; Start 03/08/21 at 21:00; Stop 03/12/21 at 12:12; Status DC Sodium Chloride 90 meq/Potassium Chloride 50 meq/ Potassium Phosphate 13.6 mmol/Magnesium Sulfate 10 meq/ Calcium Gluconate 10 meq/ Multivitamins 10 ml/Zinc/Copper/ Manganese/ Selenium 1 ml/ Total Parenteral Nutrition/Amino Acids/Dextrose/ Fat Emulsion Intravenous 1,512 ml @ 63 mls/hr TPN CONT IV Last administered on 03/08/21at 22:07; Start 03/08/21 at 22:00; Stop 03/09/21 at 21:59; Status DC Lorazepam (Ativan Inj) 0.5 mg PRN Q6HRS PRN IVP ANXIETY / AGITATION Last administered on 03/12/21at 15:26; Start 03/08/21 at 16:30 Insulin Human Lispro (HumaLOG) 5 units Q6HRS SQ Last administered on 03/11/21at 23:44; Start 03/09/21 at 12:00; Stop 03/12/21 at 12:06; Status DC Sodium Chloride 90 meq/Potassium Chloride 50 meq/ Potassium Phosphate 13.6 mmol/Magnesium Sulfate 10 meq/ Calcium Gluconate 10 meq/ Multivitamins 10 ml/Zinc/Copper/ Manganese/ Selenium 1 ml/ Total Parenteral Nutrition/Amino Acids/Dextrose/ Fat Emulsion Intravenous 1,512 ml @ 63 mls/hr TPN CONT IV Last administered on 03/09/21at 21:59; Start 03/09/21 at 22:00; Stop 03/10/21 at 21:59; Status DC Sodium Chloride 120 meq/Potassium Chloride 50 meq/ Potassium Phosphate 13.6 mmol/Magnesium Sulfate 10 meq/ Calcium Gluconate 10 meq/ Multivitamins 10 ml/Zinc/Copper/ Manganese/ Selenium 1 ml/ Total Parenteral Nutrition/Amino Acids/Dextrose/ Fat Emulsion Intravenous 1,512 ml @ 63 mls/hr TPN CONT IV Last administered on 03/10/21at 22:23; Start 03/10/21 at 22:00; Stop 03/11/21 at 21:59; Status DC Sodium Chloride 120 meq/Potassium Chloride 50 meq/ Potassium Phosphate 13.6 mmol/Magnesium Sulfate 10 meq/ Calcium Gluconate 10 meq/ Multivitamins 10 ml/Zinc/Copper/ Manganese/ Selenium 1 ml/ Total Parenteral Nutrition/Amino Aci ds/Dextrose/ Fat Emulsion Intravenous 1,512 ml @ 63 mls/hr TPN CONT IV Last administered on 03/11/21at 21:42; Start 03/11/21 at 22:00; Stop 03/12/21 at 21:59; Status DC Sodium Chloride 120 meq/Potassium Chloride 50 meq/ Potassium Phosphate 13.6 mmol/Magnesium Sulfate 10 meq/ Calcium Gluconate 10 meq/ Multivitamins 10 ml/Zinc/Copper/ Manganese/ Selenium 1 ml/ Total Parenteral Nutrition/Amino Acids/Dextrose/ Fat Emulsion Intravenous 1,512 ml @ 63 mls/hr TPN CONT IV Last administered on 03/12/21at 21:24; Start 03/12/21 at 22:00; Stop 03/13/21 at 21:59; Status DC Insulin Glargine (Lantus Syringe) 15 unit QHS SQ Last administered on 03/15/21at 20:59; Start 03/12/21 at 21:00 Succinylcholine Chloride (Anectine) 200 mg STK-MED ONCE .ROUTE ; Start 03/12/21 at 16:41; Stop 03/12/21 at 16:41; Status DC Etomidate (Amidate) 20 mg STK-MED ONCE IV ; Start 03/12/21 at 16:41; Stop 03/12/21 at 16:41; Status DC Fentanyl Citrate 30 ml @ 0 mls/hr CONT PRN IV SEE PROTOCOL Last administered on 03/12/21at 20:25; Start 03/12/21 at 17:00; Stop 03/12/21 at 23:13; Status DC Midazolam HCl 100 ml @ 1 mls/hr CONT PRN IV SEE PROTOCOL Last administered on 03/16/21at 10:00; Start 03/12/21 at 17:00 Propofol 100 ml @ 2.085 mls/ hr CONT PRN IV PER PROTOCOL; Start 03/12/21 at 17:00 Vecuronium Wagoner (Norcuron Bolus) 6 mg PRN 1X PRN IV VENT INDUCTION Last administered on 03/12/21at 19:30; Start 03/12/21 at 17:00; Stop 03/12/21 at 19:30; Status DC Chlorhexidine Gluconate (Peridex) 15 ml BID MM Last administered on 03/12/21at 21:23; Start 03/12/21 at 21:00; Stop 03/13/21 at 07:40; Status DC Glycerin/ Hypromellose/ Polyethylene (Artificial Tears) 1 drop PRN Q1HR PRN OU DRY EYE; Start 03/12/21 at 17:00 Dexmedetomidine HCl 400 mcg/ Sodium Chloride 100 ml @ 0 mls/hr CONT PRN IV PER PROTOCOL; Start 03/12/21 at 17:00; Status UNV Midazolam HCl (Versed) 5 mg PRN 1X PRN IVP VENT INDUCTION; Start 03/12/21 at 17:00; Stop 03/13/21 at 16:59; Status DC Sodium Chloride 500 ml @ 500 mls/hr 1X PRN PRN IV SEE COMMENTS; Start 03/12/21 at 17:00; Status UNV Atropine Sulfate (ATROPINE 0.5mg SYRINGE) 0.5 mg PRN Q5MIN PRN IV SEE COMMENTS; Start 03/12/21 at 17:00; Status UNV Famotidine (Pepcid Vial) 20 mg BID IVP Last administered on 03/16/21at 07:45; Start 03/12/21 at 21:00 Norepinephrine Bitartrate 8 mg/ Dextrose 258 ml @ 13.448 mls/ hr CONT PRN IV PER PROTOCOL Last administered on 03/16/21at 10:00; Start 03/12/21 at 17:00 Vecuronium Wagoner 50 mg/ Sodium Chloride 50 ml @ 3.336 mls/ hr CONT PRN IV PER PROTOCOL Last administered on 03/16/21at 09:59; Start 03/12/21 at 17:00 Fentanyl Citrate 55 ml @ 0 mls/hr CONT PRN PRN IV PAIN Last administered on 03/15/21at 16:38; Start 03/12/21 at 23:15 Etomidate (Amidate) 20 mg STK-MED ONCE IV ; Start 03/12/21 at 17:00; Stop 03/13/21 at 08:58; Status DC Succinylcholine Chloride (Anectine) 200 mg STK-MED ONCE .ROUTE ; Start 03/12/21 at 17:00; Stop 03/13/21 at 08:58; Status DC Acetaminophen (Tylenol) 650 mg PRN Q6HRS PRN PEG MILD PAIN / TEMP > 100.3'F Last administered on 03/16/21at 07:45; Start 03/14/21 at 08:00 Piperacillin Sod/ Tazobactam Sod (Zosyn Per Pharmacy) 1 each PRN DAILY PRN MC SEE COMMENTS; Start 03/14/21 at 16:45 Vancomycin HCl (Vanco Per Pharmacy) 1 each PRN DAILY PRN MC SEE COMMENTS Last administered on 03/14/21at 16:53; Start 03/14/21 at 16:45 Piperacillin Sod/ Tazobactam Sod 4.5 gm/Dextrose 100 ml @ 200 mls/hr Q6HRS IV Last administered on 03/16/21at 11:34; Start 03/14/21 at 17:30 Vancomycin HCl 1.5 gm/Sodium Chloride 500 ml @ 250 mls/hr 1X ONCE IV Last administered on 03/14/21at 20:53; Start 03/14/21 at 18:00; Stop 03/14/21 at 19:59; Status DC Vancomycin HCl 1 gm/Sodium Chloride 250 ml @ 250 mls/hr Q24H ONCE IV ; Start 03/14/21 at 18:00; Stop 03/14/21 at 18:59; Status Cancel Vancomycin HCl (Vancomycin Trough Level) 1 each 1X ONCE MC ; Start 03/16/21 at 17:30; Stop 03/16/21 at 17:31 Vancomycin HCl 1 gm/Sodium Chloride 250 ml @ 250 mls/hr Q24H IV Last administered on 03/15/21at 17:40; Start 03/15/21 at 18:00 Docusate Sodium (Colace Solution) 100 mg PRN DAILY PRN PO HARD STOOLS Last administered on 03/16/21at 07:45; Start 03/15/21 at 09:15 Sennosides (Senna) 17.2 mg PRN BID PRN PO CONSTIPATION Last administered on 03/16/21at 07:44; Start 03/15/21 at 09:15 Active Scripts Active Reported [no home meds] Vitals/I & O Vital Sign - Last 24 Hours 03/15/21 03/15/21 03/15/21 03/15/21 14:00 15:00 16:00 16:21 Temp 102.1 102.1 Pulse 115 112 111 Resp 32 32 32 B/P (MAP) 97/64 97/76 89/73 Pulse Ox 100 100 100 100 O2 Delivery Ventilator Ventilator Ventilator Ventilator 03/15/21 03/15/21 03/15/21 03/15/21 17:00 17:15 17:51 18:00 Temp 99.8 99.8 Pulse 108 105 Resp 32 32 B/P (MAP) 97/78 91/74 87/71 Pulse Ox 100 100 100 O2 Delivery Ventilator Ventilator Ventilator 03/15/21 03/15/21 03/15/21 03/15/21 19:00 20:00 20:00 20:00 Temp 97.7 97.7 Pulse 107 108 Resp 32 32 B/P (MAP) 89/69 86/70 Pulse Ox 100 100 99 O2 Delivery Ventilator Mechanical Ventilator Ventilator Ventilator 03/15/21 03/15/21 03/15/21 03/15/21 21:00 22:00 22:55 23:00 Pulse 112 114 115 Resp 32 32 32 B/P (MAP) 86/71 85/69 83/68 Pulse Ox 99 99 98 98 O2 Delivery Ventilator Ventilator Ventilator Ventilator 03/16/21 03/16/21 03/16/21 03/16/21 00:00 01:00 02:00 02:00 Temp 98.6 98.6 Pulse 114 116 114 Resp 32 32 32 B/P (MAP) 83/72 83/67 85/67 Pulse Ox 98 100 100 100 O2 Delivery Ventilator Ventilator Ventilator Ventilator 03/16/21 03/16/21 03/16/21 03/16/21 03:00 04:00 05:00 05:00 Temp 98.8 98.8 Pulse 116 118 117 Resp 32 32 32 B/P (MAP) 86/68 83/68 85/67 Pulse Ox 100 100 98 99 O2 Delivery Ventilator Ventilator Ventilator Ventilator 03/16/21 03/16/21 03/16/21 03/16/21 06:00 07:00 08:00 08:00 Temp 101.7 101.7 Pulse 116 117 126 Resp 32 32 32 B/P (MAP) 83/64 83/69 84/75 Pulse Ox 99 100 100 O2 Delivery Ventilator Ventilator Mechanical Ventilator Ventilator 03/16/21 03/16/21 03/16/21 03/16/21 09:00 09:12 10:00 11:00 Temp 102.3 102.3 Pulse 128 128 127 Resp 32 32 32 B/P (MAP) 81/67 88/73 81/69 Pulse Ox 96 97 96 92 O2 Delivery Ventilator Ventilator Ventilator Ventilator 03/16/21 03/16/21 03/16/21 11:50 12:00 12:15 Temp 103.4 103.4 Pulse 122 Resp 32 B/P (MAP) 70/60 91/70 Pulse Ox 96 96 O2 Delivery Ventilator Ventilator Intake and Output 03/15/21 03/15/21 03/16/21 15:00 23:00 07:00 Intake Total 360 ml 1851 ml 1420.95 ml Output Total 450 ml 525 ml 340 ml Balance -90 ml 1326 ml 1080.95 ml Justifications for Admission Other Justification CAN VILLALPANDO MD Mar 16, 2021 13:04
--- NOTE | 2021-03-16 13:47 | PDOC ---
[employer] PROGRESS NOTE Date of Service DOS: DATE: 03/16/21 TIME: 13:45 Chief Complaint Chief Complaint Acute hypoxic respiratory failure secondary to Covid pneumonia History of diabetes mellitus type 2 [facility]- acute respiratory distress syndrome. Possible bacterial pneumonia - likely gram negative History of Present Illness History of Present Illness 03/16/2021 Patient seen and examined in the [place] [address] ICU He is still on the ventilator AC/32/420/1 her percent with 6 of PEEP Chavez bedside drainage SCDs in place Sedated with fentanyl and Versed and Dex Has IV Levophed hanging Discussed with RN Chart reviewed 03/15/2021 Patient seen and examined in the [place] [address] ICU He remains on the vent AC/32/420/1 100% with 6 of PEEP Has Chavez to bedside drainage On IV Levophed Sedated with Dex fentanyl Has IV Zosyn hanging Discussed with RN Chart reviewed He remains very critically ill 03/14/2021 Patient seen and examined in the [place] [address] ICU Discussed with RN Chart reviewed He remains on the ventilator AC/30/400/90 percent with 6 of PEEP His potassium still little high Creatinine running little high Patient is sedated with Dex fentanyl vecuronium and Versed Has IV Levophed hanging He remains very critically ill 03/13/2021 Patient seen and examined in the [place] [address] ICU He had to be intubated last night Discussed with RN chart reviewed Current vent settings are AC/30/400 with 100% FiO2 and 6 of PEEP Discussed with RN Chart reviewed He is sedated with fentanyl and Versed Dex and vecuronium On IV Levophed drip OG feeds running Has Chavez to bedside drainage Extremely critically ill 03/12/2021 Patient seen and examined in the [place] [address] ICU Discussed with RN Chart reviewed He remains on the BiPAP and Vapotherm Has TPN hanging Sedated with Dex Has Chavez to bedside drain Remains critically ill 03/11/2021 Patient seen and examined in the [place] [address] ICU Discussed with RN Chart reviewed He is currently on BiPAP 100% FiO2 and Vapotherm 40 L with 1 high percent FiO2 Sedated with Dex Has TPN pain Remains very critically ill 03/10/2021 Patient seen and examined in the [place] [address] ICU Discussed with RN Chart reviewed He remains on Vapotherm 40 L 100% FiO2 plus BiPAP with 100% FiO2 Has TPN hanging Sedated with Dex Remains extremely critically ill 03/09: In ICU on BiPAP with Vapotherm 100% FiO2 40 L/min with saturations 93%. Still tolerating removal of BiPAP without desaturations into the 80s. Glucose minimally improved will increase schedule. He has no complaints. CC time 31- minute 03/08: Seen in ICU on BiPAP continue vent support on Vapotherm 100% FiO2 40 L/min. Saturations 94%. When BiPAP is removed desaturates to 84% despite Vapotherm. He prefers to avoid intubation. O2 sats improved with BiPAP. Glucose in the 200s. D/w family and friend over the phone. 03/07: Seen in ICU BiPAP 18/8 with supplemental Vapotherm saturations 93% to 96%. He has no complaints. 03/06: Chest radiograph unchanged taking good position, WBC 12.2 glucose in 200s. Tolerating TPN well. O2 saturations 92% on BiPAP 18/8 with supplemental Vapotherm 40 L/min 100% FiO2. 03/05: In ICU. PICC placed. Requiring BiPAP 18/8 with supplemental Vapotherm 40 L/min 100% FiO2 significant saturations with removal of BiPAP unable to take p.o. start TPN tonight 03/04: Transfer to ICU overnight for worsening hypoxia. On BiPAP 18/8 with supplemental Vapotherm 40 L/min 100% FiO2. Significant desaturation with attempted to eat and drink. cc time 32 min 03/03: No acute events overnight. Saturating 89-90% on Vapotherm and NRB 15L. Not dyspneic but doesnt feel better. Will DC chavez today and today will be his last day of steroids. Encouraged patient to get OOBTC ad pierre. 03/02: No acute events overnight. Patient seen and examined bedside. Increased work of breathing. But still saturating 90% on 40 L Vapotherm. Patient's chart, labs, images were reviewed and discussed with RN 02/28: Patient seen and examined bedside. Still on Vapotherm 40 L and saturating 96%. Not more short of breath than usual. Feels actually better today. Speaking full sentences. Given nystatin due to some white buildup in the oral cavity. Likely due to steroids. 02/27: Pt seen and examined bedside. Saturating 86% on Vapotherm and required BiPAP overnight. Pulmonology consulted and to continue with current management for COVID. Pending ICU transfer when possible 02/26: Patient seen and examined bedside. Saturating 89% on Vapotherm and 15 L nonrebreather. Continue with IV steroids and IV antibiotics. Patient's chart, labs, images were reviewed and discussed with RN 02/25: No acute events overnight. Patient seen examined bedside. Patient saturating 91% on 4 L Vapotherm. Continue with IV steroids and IV antibiotics. Patient's chart, labs, images were reviewed and discussed with RN 02/24: No acute events overnight. Patient seen examined bedside. Patient saturating 93 to 95% on Vapotherm at 40 L. Not dyspneic at this time. Patient's chart, labs, images were reviewed and discussed with RN 02/23: Patient seen and examined. He is still on Vapotherm 40 L and 100% nonrebreather. His third Covid test finally came back positive. I spoke with pharmacy he is still not a candidate for remdesivir because he has had the disease for more than 10 days 02/22: Patient seen and examined. He is on Vapotherm 40 L with 100% FiO2 plus nonrebreather. His Covid testing by PCR is surprisingly negative Vitals/I&O Vitals/I&O: Vital Signs Date Time Temp Pulse Resp B/P (MAP) Pulse Ox O2 Delivery O2 Flow Rate FiO2 03/16/21 13:36 97 Ventilator 03/16/21 13:30 78/70 03/16/21 13:00 121 32 03/16/21 12:00 103.4 103.4 I & O 03/15/21 03/15/21 03/16/21 15:00 23:00 07:00 Intake Total 360 ml 1851 ml 1420.95 ml Output Total 450 ml 525 ml 340 ml Balance -90 ml 1326 ml 1080.95 ml Physical Exam General: mild distress, Other (Resting on Vapotherm) Heart: Regular rate Lungs: Crackles Abdomen: Other (Distended no bowel movements per RN) Extremities: No clubbing Skin: No rashes Labs Labs: Laboratory Tests Test 03/15/21 17:07 03/16/21 00:00 03/16/21 05:40 03/16/21 05:46 Glucose (Fingerstick) 154 mg/dL (70-99) 119 mg/dL (70-99) 152 mg/dL (70-99) Sodium Level 132 mmol/L (136-145) Potassium Level 4.2 mmol/L (3.5-5.1) Chloride Level 99 mmol/L (98-107) Carbon Dioxide Level 26 mmol/L (21-32) Anion Gap 7 (6-14) Blood Urea Nitrogen 38 mg/dL (8-26) Creatinine 1.6 mg/dL (0.7-1.3) Estimated GFR (Cockcroft-Gault) 46.6 Glucose Level 153 mg/dL (70-99) Calcium Level 7.1 mg/dL (8.5-10.1) Test 03/16/21 08:00 03/16/21 11:32 O2 Saturation 89 % (92-99) Arterial Blood pH 7.28 (7.35-7.45) Arterial Blood pCO2 at Patient Temp 48 mmHg (35-46) Arterial Blood pO2 at Patient Temp 59 mmHg (75-108) Arterial Blood HCO3 22 mmol/L (21-28) Arterial Blood Base Excess -5 mmol/L (-3-3) FiO2 100 Glucose (Fingerstick) 148 mg/dL (70-99) Assessment and Plan Assessmemt and Plan Problems Medical Problems: (1) Acute respiratory failure with hypoxia Status: Acute (2) Sepsis due to pneumonia Status: Acute Severe respiratory failure secondary to COVID-19 Diabetes Possible bacterial pneumonia likely gram-negative Abdominal distention Plan ICU monitoring Vent weaning COVID protocol Holding OG feeds due to distention and no BM Continue Chavez to bedside drainage Home meds DVT prophylaxis Trend labs DC TPN Full code Appreciate subspecialist input Prognosis extremely guarded at best we are concerned he will likely not survive CC time 33 Comment Review of Relevant I have reviewed the following items elmer (where applicable) has been applied. Medications: Current Medications Medications (Trade) Dose Ordered Sig/Kalina Route PRN Reason Start Time Stop Time Status Last Admin Dose Admin Vancomycin HCl 1 gm/Sodium Chloride 250 ml @ 250 mls/hr Q24H IV 03/15/21 18:00 03/15/21 17:40 Justifications for Admission Other Justification LIAL RODRIGUEZ III DO Mar 16, 2021 13:47
[2021-03-16] MEDS: PIPERACILLIN/TAZOBACTAM 4.5 GM in IV NORMAL SALINE 100ML 100 ML IV SCH (17:20)
[2021-03-16 17:22] LABS: VANC TR 9.5 mcg/mL (10.0-20.0)
[2021-03-16] MEDS: VANCOMYCIN PER PHARMACY MC PRN (17:47)
[2021-03-16] MEDS: VANCOMYCIN 1 GM in IV NORMAL SALINE 250ML 250 ML IV SCH (18:00)
[2021-03-16] MEDS: ENOXAPARIN 40 MG/0.4 ML SYRINGE. SQ SCH (20:35)
[2021-03-16] MEDS: INSULIN GLARGINE SYRINGE. SQ SCH (21:00)
[2021-03-17] VITALS (21 sets, daily range): BP systolic 60–146; BP diastolic 46–96
[2021-03-17] MEDS: PIPERACILLIN/TAZOBACTAM 4.5 GM in IV NORMAL SALINE 100ML 100 ML IV SCH ×2 (00:03→05:54)
[2021-03-17] MEDS: VASOPRESSIN - VASOSTRICT 20 UNIT in IV DEXTROSE 5% 100ML 100 ML IV PRN ×3 (03:02→16:48)
[2021-03-17] MEDS: NOREPINEPHRINE VIAL 32 MG in IV D5W 250ML IV PRN ×2 (03:18→11:55)
[2021-03-17] MEDS: NORCURON - VECURONIUM 50 MG in IV NORMAL SALINE 50ML 50 ML IV PRN ×3 (03:20→22:54)
[2021-03-17] MEDS: fentaNYL HIGH DOSE PCA 55 ML IV PRN (05:29)
[2021-03-17] MEDS: DEXMEDETOMIDINE 400 MCG in IV NORMAL SALINE 100ML 96 ML IV PRN ×3 (05:52→21:04)
[2021-03-17] MEDS: INSULIN LISPRO 300 UNITS/3 ML VIAL. SQ SCH ×3 (05:56→18:00)
[2021-03-17 06:29] LABS: CALCIUM 7.3 mg/dL (8.5-10.1); GFR 22.5
[2021-03-17 06:37] LABS: POTASSIUM 6.2 mmol/L (3.5-5.1)
[2021-03-17] MEDS: VANCOMYCIN 1 GM in IV NORMAL SALINE 250ML 250 ML IV SCH (06:43)
--- NOTE | 2021-03-17 08:06 | RAD ---
EXAMINATION: Chest radiograph. VIEWS: 1 COMPARISON: 03/15/2021 INDICATION:46 years, Male, respiratory failure. FINDINGS: Normal cardiomediastinal silhouette. Similar diffuse bilateral pulmonary infiltrates. No pleural effu soraya or pneumothorax. No acute osseous process. Endotracheal tube tip terminates 2.5 cm proximal to t he holden. Enteric tube sidehole and tip seen within the stomach. Right PICC line catheter remains un changed in position. IMPRESSION: Similar diffuse bilateral pulmonary infiltrates. Electronically signed by: Lesly Garcia MD (03/17/2021 8:03 AM) [facility]US[facility]
[2021-03-17] MEDS: FAMOTIDINE 20 MG/2 ML VIAL IVP SCH (08:43)
[2021-03-17] MEDS: ASPIRIN CHEWABLE 81 MG TABLET. PO SCH (08:43)
[2021-03-17] MEDS: MIDAZOLAM 100mg/100ml NS BAG 100 ML IV PRN ×2 (08:44→21:05)
[2021-03-17 09:01] LABS: BASE EXCESS ABG -17 mmol/L (-3-3); HCO3 ABG 13 mmol/L (21-28); PCO2 ABG 42 mmHg (35-46); PO2 ABG 65 mmHg (75-108); SAT O2 ABG 88 % (92-99)
[2021-03-17 09:06] LABS: FIO2 ABG 100% AC 32 420 6
[2021-03-17] MEDS ORDERED: SODIUM BICARB ADULT 8.4% 50 MEQ/50 ML DISP.SYRIN. IV ONE ×2 (09:15→09:30)
[2021-03-17] MEDS ORDERED: DEXTROSE 50% 25 GM / 50ML DISP.SYRIN. IV ONE (09:30)
[2021-03-17] MEDS ORDERED: INSULIN REGULAR 100 UNIT/ML 3ML VIAL. IV ONE (09:30)
[2021-03-17] MEDS ORDERED: CALCIUM GLUCONATE 1,000 MG in IV NORMAL SALINE 100ML 100 ML IV ONE (09:30)
--- NOTE | 2021-03-17 09:57 | PDOC ---
DATE OF SERVICE DATE: 03/17/21 TIME: 09:43 SUBJECTIVE ROS Remains Intubated /Sedated Currently on 2 Pressors , UOP declining OBJECTIVE Vital Signs Vital Signs Date Time Temp Pulse Resp B/P (MAP) Pulse Ox O2 Delivery O2 Flow Rate FiO2 03/17/21 08:46 91 Ventilator 03/17/21 06:00 120 32 03/17/21 04:00 97.8 97.8 I & 0 Intake and Output 03/17/21 07:00 Intake Total 2297.05 ml Output Total 855 ml Balance 1442.05 ml IV Total 2167.05 ml Tube Feeding 130 ml Output Urine Total 855 ml Gastric Drainage Total 0 ml PHYSICAL EXAM Physical Exam Gen sedated on vent Neck Supple Lungs Decreased BS Cardiovascular: S1, S2 Cantrell + Neuro Sedated, on MV DIAGNOSIS/ASSESSMENT Assessment & Plan Acute Renal failure - ATN , in the setting of COVID-19 , Now worsening renal function , UOP declining, currently NonOliguric , Hyperkalemia, Acidosis . On 2 pressors . Recommend CRRT , Temp Dialysis catheter . 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 HypoNatremia Acidosis- PH 7.0, IV Bicarb push, Recommend starting Bicarb gtt COVID-19, Pneumonia - Unvaccinated Acute on chronic hypoxemic respiratory failure./ARDS intubated 03/13 COMMENT/RELEVANT DATA Meds Current Medications Medications (Trade) Dose Ordered Sig/Kalina Start Time Stop Time Status Last Admin Dose Admin Acetaminophen (Tylenol) 650 mg PRN Q6HRS PRN 03/14/21 08:00 03/16/21 07:45 650 MG Aspirin (Aspirin Chewable) 81 mg [id number] 02/22/21 08:00 03/17/21 08:43 81 MG Atropine Sulfate (ATROPINE 0.5mg SYRINGE) 0.5 mg PRN Q5MIN PRN 03/12/21 17:00 UNV Azithromycin 250 ml @ 250 mls/hr 1X ONCE 02/21/21 15:00 02/21/21 15:59 DC 02/21/21 15:00 250 MLS/HR Calcium Gluconate 1000 mg/Sodium Chloride 110 ml @ 220 mls/hr 1X ONCE 03/17/21 09:30 03/17/21 09:59 03/17/21 09:27 220 MLS/HR Ceftriaxone Sodium (Rocephin) 1 gm Q24H 02/21/21 20:00 03/12/21 10:27 DC 03/11/21 20:16 1 GM Chlorhexidine Gluconate (Peridex) 15 ml BID 03/12/21 21:00 03/13/21 07:40 DC 03/12/21 21:23 15 ML Dexmedetomidine HCl 400 mcg/ Sodium Chloride 100 ml @ 0 mls/hr CONT PRN 03/12/21 17:00 UNV Dextrose (Dextrose 50%-Water Syringe) 25 gm 1X ONCE 03/17/21 09:30 03/17/21 09:31 DC 03/17/21 09:28 25 GM Docusate Sodium (Colace Solution) 100 mg PRN DAILY PRN 03/15/21 09:15 03/16/21 07:45 100 MG Doxycycline Hyclate (Vibra-Tab) 100 mg BID 03/01/21 09:00 03/04/21 09:18 DC 03/04/21 08:59 100 MG Doxycycline Hyclate 100 mg/ Dextrose 100 ml @ 50 mls/hr Q12HR 03/04/21 21:00 03/07/21 22:59 DC 03/07/21 21:00 50 MLS/HR Enoxaparin Sodium (Lovenox 40mg Syringe) 40 mg Q24H 02/21/21 20:00 03/16/21 20:35 40 MG Etomidate (Amidate) 20 mg STK-MED ONCE 03/12/21 17:00 03/13/21 08:58 DC Famotidine (Pepcid Vial) 20 mg BID 03/12/21 21:00 03/17/21 08:43 20 MG Fentanyl Citrate 55 ml @ 0 mls/hr CONT PRN PRN 03/12/21 23:15 03/17/21 05:29 1.5 MLS/HR Glycerin/ Hypromellose/ Polyethylene (Artificial Tears) 1 drop PRN Q1HR PRN 03/12/21 17:00 Guaifenesin (Robitussin Dm) 10 ml PRN Q6HRS PRN 03/04/21 09:15 Guaifenesin/ Codeine Phosphate (Robitussin Ac) 5 ml PRN Q6HRS PRN 02/21/21 19:45 14/22 09:18 DC 02/25/21 00:54 5 ML Info (CONTRAST GIVEN -- Rx MONITORING) 1 each PRN DAILY PRN 02/21/21 13:45 02/23/21 13:44 DC Info (Tpn Per Pharmacy) 1 each PRN DAILY PRN 03/05/21 14:00 03/13/21 11:35 DC 03/12/21 12:14 1 EACH Insulin Glargine (Lantus Syringe) 15 unit QHS 03/12/21 21:00 03/15/21 20:59 15 UNIT Insulin Human Lispro (HumaLOG) 5 units Q6HRS 03/09/21 12:00 03/12/21 12:06 DC 03/11/21 23:44 5 UNITS Insulin Human Regular (HumuLIN R VIAL) 10 unit 1X ONCE 03/17/21 09:30 03/17/21 09:31 DC 03/17/21 09:29 10 UNIT Iohexol (Omnipaque 350 Mg/ml) 100 ml 1X ONCE 02/21/21 14:15 02/21/21 14:16 DC Lactobacillus Rhamnosus (Culturelle) 1 cap BID 02/22/21 21:00 03/07/21 10:29 DC 03/07/21 09:57 1 CAP Lorazepam (Ativan Inj) 0.5 mg PRN Q6HRS PRN 03/08/21 16:30 03/12/21 15:26 0.5 MG Methylprednisolone Sodium Succinate (SOLU-Medrol 40MG VIAL) 40 mg BID 02/21/21 20:00 03/10/21 12:23 DC 03/10/21 08:59 40 MG Midazolam HCl (Versed) 5 mg PRN 1X PRN 03/12/21 17:00 03/13/21 16:59 DC Multivitamins (Thera M Plus) 1 tab DAILY 02/22/21 09:00 03/07/21 08:44 DC 03/06/21 09:20 1 TAB Nitroglycerin (Nitrostat) 0.4 mg PRN Q5MIN PRN 02/21/21 16:00 02/22/21 15:59 DC Norepinephrine Bitartrate 32 mg/ Dextrose 250 ml @ 3.384 mls/ hr CONT PRN 03/17/21 03:00 03/17/21 03:18 27.075 MLS/HR Norepinephrine Bitartrate 8 mg/ Dextrose 258 ml @ 13.448 mls/ hr CONT PRN 03/12/21 17:00 03/17/21 03:00 DC 03/16/21 23:26 44.379 MLS/HR Nystatin (Nystatin Oral Susp) 5 ml [id number] 02/28/21 13:00 03/10/21 17:40 DC 03/09/21 20:32 5 ML Piperacillin Sod/ Tazobactam Sod (Zosyn Per Pharmacy) 1 each PRN DAILY PRN 03/14/21 16:45 Piperacillin Sod/ Tazobactam Sod 4.5 gm/Dextrose 100 ml @ 200 mls/hr Q6HRS 03/17/21 18:00 Piperacillin Sod/ Tazobactam Sod 4.5 gm/Sodium Chloride 100 ml @ 200 mls/hr Q6HRS 03/16/21 17:07 03/17/21 17:06 03/17/21 05:54 200 MLS/HR Propofol 100 ml @ 2.085 mls/ hr CONT PRN 03/12/21 17:00 Sennosides (Senna) 17.2 mg PRN BID PRN 03/15/21 09:15 03/16/21 07:44 17.2 MG Sodium Bicarbonate (Sodium Bicarb Adult 8.4% Syr) 50 meq 1X ONCE 03/17/21 09:15 03/17/21 09:16 DC 03/17/21 09:27 50 MEQ Sodium Chloride 500 ml @ 500 mls/hr 1X PRN PRN 03/12/21 17:00 UNV Sodium Chloride 90 meq/Potassium Chloride 50 meq/ Potassium Phosphate 13.6 mmol/Magnesium Sulfate 10 meq/ Calcium Gluconate 10 meq/ Multivitamins 10 ml/Zinc/Copper/ Manganese/ Selenium 1 ml/ Total Parenteral Nutrition/Amino Acids/Dextrose/ Fat Emulsion Intravenous 1,512 ml @ 63 mls/hr TPN CONT 03/09/21 22:00 03/10/21 21:59 DC 03/09/21 21:59 63 MLS/HR Sodium Chloride 120 meq/Potassium Chloride 50 meq/ Potassium Phosphate 13.6 mmol/Magnesium Sulfate 10 meq/ Calcium Gluconate 10 meq/ Multivitamins 10 ml/Zinc/Copper/ Manganese/ Selenium 1 ml/ Total Parenteral Nutrition/Amino Acids/Dextrose/ Fat Emulsion Intravenous 1,512 ml @ 63 mls/hr TPN CONT 03/12/21 22:00 03/13/21 21:59 DC 03/12/21 21:24 63 MLS/HR Sterile Water (WATER for RESP) 2,000 ml CONT PRN 02/21/21 14:30 03/11/21 17:25 2,000 ML Succinylcholine Chloride (Anectine) 200 mg STK-MED ONCE 03/12/21 17:00 03/13/21 08:58 DC Vancomycin HCl (Vanco Per Pharmacy) 1 each PRN DAILY PRN 03/14/21 16:45 03/16/21 17:47 1 EACH Vancomycin HCl (Vancomycin Trough Level) 1 each 1X ONCE 03/18/21 05:30 03/18/21 05:31 Vancomycin HCl 1.5 gm/Sodium Chloride 500 ml @ 250 mls/hr 1X ONCE 03/14/21 18:00 03/14/21 19:59 DC 03/14/21 20:53 250 MLS/HR Vancomycin HCl 1 gm/Sodium Chloride 250 ml @ 250 mls/hr Q12H 03/16/21 18:00 03/17/21 06:43 250 MLS/HR Vasopressin 20 unit/Dextrose 101 ml @ 12 mls/hr CONT PRN 03/17/21 03:00 03/17/21 03:02 12 MLS/HR Vecuronium [place] 50 mg/ Sodium Chloride 50 ml @ 3.336 mls/ hr CONT PRN 03/12/21 17:00 03/17/21 03:20 2.919 MLS/HR Vecuronium [place] (Norcuron Bolus) 6 mg PRN 1X PRN 03/12/21 17:00 03/12/21 19:30 DC 03/12/21 19:30 6 MG Lab Laboratory Tests Test 03/16/21 11:32 03/16/21 17:00 03/16/21 17:01 03/16/21 23:33 Glucose (Fingerstick) 148 mg/dL (70-99) 106 mg/dL (70-99) 151 mg/dL (70-99) Vancomycin Level Trough 9.5 mcg/mL (10.0-20.0) Vancomycin Last Dose Date 01/15/22 Vancomycin Last Dose Time 1800 Test 03/17/21 05:35 03/17/21 05:50 03/17/21 08:00 Sodium Level 126 mmol/L (136-145) Potassium Level 6.2 mmol/L (3.5-5.1) Chloride Level 96 mmol/L (98-107) Carbon Dioxide Level 19 mmol/L (21-32) Anion Gap 11 (6-14) Blood Urea Nitrogen 62 mg/dL (8-26) Creatinine 3.0 mg/dL (0.7-1.3) Estimated GFR (Cockcroft-Gault) 22.5 Glucose Level 217 mg/dL (70-99) Calcium Level 7.3 mg/dL (8.5-10.1) Glucose (Fingerstick) 203 mg/dL (70-99) O2 Saturation 88 % (92-99) Arterial Blood pH 7.09 (7.35-7.45) Arterial Blood pCO2 at Patient Temp 42 mmHg (35-46) Arterial Blood pO2 at Patient Temp 65 mmHg (75-108) Arterial Blood HCO3 13 mmol/L (21-28) Arterial Blood Base Excess -17 mmol/L (-3-3) FiO2 100% ac 32 420 6 Results All relevant outside records, renal labs, imaging studies, telemetry/EKG's were reviewed. Justicifation of Admission Dx: Justifications for Admission: Justification of Admission Dx: N/A SHIVA NICHOLS MD Mar 17, 2021 09:57
--- NOTE | 2021-03-17 10:21 | NUR ---
SS following up with discharge planning. SS reviewed pt chart and discussed with pt RN. Pt is currently on the vent at 100%. COVID19 positive. Pt on IV Zosyn and IV Vancomycin. Pt on Vasopressin, Levophed, Vec, Versed, Fentanyl, and Levophed. Not stable. Hemodialysis to start. Self pay. Med Assist following. SS will continue to follow for discharge planning.
[2021-03-17] MEDS ORDERED: DIALYSIS PATIENT. MC PRN (10:30)
[2021-03-17] MEDS ORDERED: IV NORMAL SALINE 1000ML BAG 1,000 ML IV PRN ×2 (10:30)
--- NOTE | 2021-03-17 11:53 | PDOC ---
[employer] PROGRESS NOTE Date of Service DOS: DATE: 03/17/21 TIME: 11:52 Chief Complaint Chief Complaint Acute hypoxic respiratory failure secondary to Covid pneumonia History of diabetes mellitus type 2 [facility]- acute respiratory distress syndrome. Possible bacterial pneumonia - likely gram negative History of Present Illness History of Present Illness 03/17/2021 Patient seen and examined in the [place] [address] ICU Chart reviewed Discussed with RN He is still on the vent AC/32/420/1 100% with 6 of PEEP Sedated with Dex and fentanyl and VAC Has IV vasopressin and IV Levophed He remains very critically ill 03/16/2021 Patient seen and examined in the [place] [address] ICU He is still on the ventilator AC/32/420/1 her percent with 6 of PEEP Chavez bedside drainage SCDs in place Sedated with fentanyl and Versed and Dex Has IV Levophed hanging Discussed with RN Chart reviewed 03/15/2021 Patient seen and examined in the [place] [address] ICU He remains on the vent AC/32/420/1 100% with 6 of PEEP Has Chavez to bedside drainage On IV Levophed Sedated with Dex fentanyl Has IV Zosyn hanging Discussed with RN Chart reviewed He remains very critically ill 03/14/2021 Patient seen and examined in the [place] [address] ICU Discussed with RN Chart reviewed He remains on the ventilator AC/30/400/90 percent with 6 of PEEP His potassium still little high Creatinine running little high Patient is sedated with Dex fentanyl vecuronium and Versed Has IV Levophed hanging He remains very critically ill 03/13/2021 Patient seen and examined in the [place] [address] ICU He had to be intubated last night Discussed with RN chart reviewed Current vent settings are AC/30/400 with 100% FiO2 and 6 of PEEP Discussed with RN Chart reviewed He is sedated with fentanyl and Versed Dex and vecuronium On IV Levophed drip OG feeds running Has Chavez to bedside drainage Extremely critically ill 03/12/2021 Patient seen and examined in the [place] [address] ICU Discussed with RN Chart reviewed He remains on the BiPAP and Vapotherm Has TPN hanging Sedated with Dex Has Chavez to bedside drain Remains critically ill 03/11/2021 Patient seen and examined in the [place] [address] ICU Discussed with RN Chart reviewed He is currently on BiPAP 100% FiO2 and Vapotherm 40 L with 1 high percent FiO2 Sedated with Dex Has TPN pain Remains very critically ill 03/10/2021 Patient seen and examined in the [place] [address] ICU Discussed with RN Chart reviewed He remains on Vapotherm 40 L 100% FiO2 plus BiPAP with 100% FiO2 Has TPN hanging Sedated with Dex Remains extremely critically ill 03/09: In ICU on BiPAP with Vapotherm 100% FiO2 40 L/min with saturations 93%. Still tolerating removal of BiPAP without desaturations into the 80s. Glucose minimally improved will increase schedule. He has no complaints. CC time 31- minute 03/08: Seen in ICU on BiPAP continue vent support on Vapotherm 100% FiO2 40 L/min. Saturations 94%. When BiPAP is removed desaturates to 84% despite Vapotherm. He prefers to avoid intubation. O2 sats improved with BiPAP. Glucose in the 200s. D/w family and friend over the phone. 03/07: Seen in ICU BiPAP 18/8 with supplemental Vapotherm saturations 93% to 96%. He has no complaints. 03/06: Chest radiograph unchanged taking good position, WBC 12.2 glucose in 200s. Tolerating TPN well. O2 saturations 92% on BiPAP 18/8 with supplemental Vapotherm 40 L/min 100% FiO2. 03/05: In ICU. PICC placed. Requiring BiPAP 18/8 with supplemental Vapotherm 40 L/min 100% FiO2 significant saturations with removal of BiPAP unable to take p.o. start TPN tonight 03/04: Transfer to ICU overnight for worsening hypoxia. On BiPAP 18/8 with supplemental Vapotherm 40 L/min 100% FiO2. Significant desaturation with attempted to eat and drink. cc time 32 min 03/03: No acute events overnight. Saturating 89-90% on Vapotherm and NRB 15L. Not dyspneic but doesnt feel better. Will DC chavez today and today will be his last day of steroids. Encouraged patient to get OOBTC ad pierre. 03/02: No acute events overnight. Patient seen and examined bedside. Increased work of breathing. But still saturating 90% on 40 L Vapotherm. Patient's chart, labs, images were reviewed and discussed with RN 02/28: Patient seen and examined bedside. Still on Vapotherm 40 L and saturating 96%. Not more short of breath than usual. Feels actually better today. Speaking full sentences. Given nystatin due to some white buildup in the oral cavity. Likely due to steroids. 02/27: Pt seen and examined bedside. Saturating 86% on Vapotherm and required BiPAP overnight. Pulmonology consulted and to continue with current management for COVID. Pending ICU transfer when possible 02/26: Patient seen and examined bedside. Saturating 89% on Vapotherm and 15 L nonrebreather. Continue with IV steroids and IV antibiotics. Patient's chart, labs, images were reviewed and discussed with RN 02/25: No acute events overnight. Patient seen examined bedside. Patient saturating 91% on 4 L Vapotherm. Continue with IV steroids and IV antibiotics. Patient's chart, labs, images were reviewed and discussed with RN 02/24: No acute events overnight. Patient seen examined bedside. Patient saturating 93 to 95% on Vapotherm at 40 L. Not dyspneic at this time. Patient's chart, labs, images were reviewed and discussed with RN 02/23: Patient seen and examined. He is still on Vapotherm 40 L and 100% nonrebreather. His third Covid test finally came back positive. I spoke with pharmacy he is still not a candidate for remdesivir because he has had the disease for more than 10 days 02/22: Patient seen and examined. He is on Vapotherm 40 L with 100% FiO2 plus nonrebreather. His Covid testing by PCR is surprisingly negative Vitals/I&O Vitals/I&O: Vital Signs Date Time Temp Pulse Resp B/P (MAP) Pulse Ox O2 Delivery O2 Flow Rate FiO2 03/17/21 11:42 96 Ventilator 03/17/21 06:00 120 32 03/17/21 04:00 97.8 97.8 I & O 03/16/21 03/16/21 03/17/21 15:00 23:00 07:00 Intake Total 230 ml 746 ml 1321.05 ml Output Total 400 ml 375 ml 80 ml Balance -170 ml 371 ml 1241.05 ml Physical Exam General: mild distress, Other (Resting on Vapotherm) Heart: Regular rate Lungs: Crackles Abdomen: Other (Distended no bowel movements per RN) Extremities: No clubbing Skin: No rashes Labs Labs: Laboratory Tests Test 03/16/21 17:00 03/16/21 17:01 03/16/21 23:33 03/17/21 05:35 Vancomycin Level Trough 9.5 mcg/mL (10.0-20.0) Vancomycin Last Dose Date 03/15/21 Vancomycin Last Dose Time 1800 Glucose (Fingerstick) 106 mg/dL (70-99) 151 mg/dL (70-99) Sodium Level 126 mmol/L (136-145) Potassium Level 6.2 mmol/L (3.5-5.1) Chloride Level 96 mmol/L (98-107) Carbon Dioxide Level 19 mmol/L (21-32) Anion Gap 11 (6-14) Blood Urea Nitrogen 62 mg/dL (8-26) Creatinine 3.0 mg/dL (0.7-1.3) Estimated GFR (Cockcroft-Gault) 22.5 Glucose Level 217 mg/dL (70-99) Calcium Level 7.3 mg/dL (8.5-10.1) Test 03/17/21 05:50 03/17/21 08:00 Glucose (Fingerstick) 203 mg/dL (70-99) O2 Saturation 88 % (92-99) Arterial Blood pH 7.09 (7.35-7.45) Arterial Blood pCO2 at Patient Temp 42 mmHg (35-46) Arterial Blood pO2 at Patient Temp 65 mmHg (75-108) Arterial Blood HCO3 13 mmol/L (21-28) Arterial Blood Base Excess -17 mmol/L (-3-3) FiO2 100% ac 32 420 6 Assessment and Plan Assessmemt and Plan Problems Medical Problems: (1) Acute respiratory failure with hypoxia Status: Acute (2) Sepsis due to pneumonia Status: Acute Severe respiratory failure secondary to COVID-19 Diabetes Possible bacterial pneumonia likely gram-negative Abdominal distention Plan ICU monitoring Vent weaning COVID protocol Continue sedation with VAC Dex and fentanyl Trying to wean off the vasopressor Holding OG feeds due to distention and no BM Continue Chavez to bedside drainage Home meds DVT prophylaxis Trend labs Full code Appreciate subspecialist input Prognosis extremely guarded at best we are concerned he will likely not survive CC time 31 Comment Review of Relevant I have reviewed the following items elmer (where applicable) has been applied. Medications: Current Medications Medications (Trade) Dose Ordered Sig/Kalina Route PRN Reason Start Time Stop Time Status Last Admin Dose Admin Vancomycin HCl (Vancomycin Trough Level) 1 each 1X ONCE MC 03/16/21 17:30 03/16/21 17:31 DC 03/16/21 17:02 Piperacillin Sod/ Tazobactam Sod 4.5 gm/Sodium Chloride 100 ml @ 200 mls/hr Q6HRS IV 03/16/21 17:07 03/17/21 10:09 DC 03/17/21 05:54 Vancomycin HCl 1 gm/Sodium Chloride 250 ml @ 250 mls/hr Q12H IV 03/16/21 18:00 03/17/21 06:43 Vasopressin 20 unit/Dextrose 101 ml @ 12 mls/hr CONT PRN IV SEE I/O RECORD 03/17/21 03:00 03/17/21 03:02 Norepinephrine Bitartrate 32 mg/ Dextrose 250 ml @ 3.384 mls/ hr CONT PRN IV SEE I/O RECORD 03/17/21 03:00 03/17/21 03:18 Insulin Human Regular (HumuLIN R VIAL) 10 unit 1X ONCE IV 03/17/21 09:30 03/17/21 09:31 DC 03/17/21 09:29 Calcium Gluconate 1000 mg/Sodium Chloride 110 ml @ 220 mls/hr 1X ONCE IV 03/17/21 09:30 03/17/21 09:59 DC 03/17/21 09:27 Dextrose (Dextrose 50%-Water Syringe) 25 gm 1X ONCE IV 03/17/21 09:30 03/17/21 09:31 DC 03/17/21 09:28 Sodium Bicarbonate (Sodium Bicarb Adult 8.4% Syr) 50 meq 1X ONCE IV 03/17/21 09:15 03/17/21 09:16 DC 03/17/21 09:27 Justifications for Admission Other Justification LILA RODRIGUEZ III DO Mar 17, 2021 11:53
[2021-03-17] MEDS ORDERED: LIDOCAINE WITH 8.4% SOD BICARB 3 ML DISP.SYRIN. ONE (11:58)
[2021-03-17] MEDS ORDERED: PIPERACILLIN/TAZOBACTAM 3.375 GM in IV NORMAL SALINE 50ML 50 ML IV SCH (12:00)
--- NOTE | 2021-03-17 12:27 | RAD ---
XR CHEST 1V History: Reason: POST LINE PLACEMENT / Spl. Instructions: / History: Comparison: March 17, 2021 Findings: Diffuse infiltrates bilaterally most prominent within the lung bases, unchanged. No pleural effusion. Interval placement right IJ central line with tip projecting over the right atrium. No pneumothorax. Stable right PICC, endotracheal tube and enteric tube. Impression: 1. Interval placement right IJ central line with tip projecting over the right atrium. No pneumothor ax. Electronically signed by: Anselmo Whitfield DO (03/17/2021 12:24 PM) [id number]
[2021-03-17] MEDS ORDERED: SODIUM BICARBONATE VIAL 150 MEQ in IV STERILE WATER 1,000 ML IV SCH (13:00)
--- NOTE | 2021-03-17 13:15 | RAD ---
Procedure: Temporary hemodialysis catheter placement with ultrasound guidance Clinical Indication: Renal failure Sterility: All elements of maximal sterile barrier technique including the use of a cap, mask, steril e gown, sterile gloves, large sterile sheet, appropriate hand hygiene, and 2% chlorhexidine for cutan eous antisepsis (or acceptable alternative antiseptic per current guidelines) were followed for this procedure. Consent: The procedure was explained in its entirety to the patient or the patients designated repres entative by a member of the treatment team, including a discussion of the risks, benefits and commonl y accepted alternatives to the procedure, as well as the expected consequences of no therapy whatsoev er. Discussion of the risks included, but was not limited to, those that are most frequent and thos e that are rare but possibly severe or life-threatening, as well as the possibility of unforeseen com plications. Technique and Findings: Following informed consent, the patient was prepped and draped in the usual s terile fashion. Ultrasound interrogation of the right neck revealed patency and compressibility of t he right internal jugular vein. A 21-gauge micropuncture needle was used to gain access to this vein after 1% Lidocaine was used to achieve local anesthesia. A hardcopy ultrasound image was recorded. The needle was exchanged over a wire for serial dilators followed by a temporary hemodialysis alex ter .The catheter flow rates were assessed manually and found to be normal. Impression: Ultrasound-guided placement of right internal jugular temporary dialysis catheter Electronically signed by: Darek Woods MD (03/17/2021 1:12 PM) [id number]
[2021-03-17] MEDS: SODIUM BICARBONATE VIAL 150 MEQ in IV DEXTROSE 5% 1,000 ML IV SCH ×2 (13:57→23:21)
[2021-03-17] MEDS: ALBUMIN HUMAN 25% 100 ML IV PRN ×2 (16:34→16:35)
[2021-03-17] MEDS: VANCOMYCIN PER PHARMACY MC PRN (17:19)
--- NOTE | 2021-03-17 17:19 | NUR ---
BRIEF VANCOMYCIN DOSING NOTE Patient requiring HD today for renal failure, he received vancomycin 1000mg today @ 0600. Will cancel further orders for vancomycin today. Continue with scheduled level to assess accumulation and HD schedule. Plan: 1. HOLD further vancomycin doses 2. Random level 03/18 @ 3748 Kristel Pedro Pharm.D.
[2021-03-17] MEDS ORDERED: PIPERACILLIN/TAZOBACTAM 4.5 GM in IV DEXTROSE 5% 100ML 100 ML IV SCH (18:00)
[2021-03-17] MEDS ORDERED: ENOXAPARIN 30 MG/0.3 ML SYRINGE. SQ SCH (21:00)
[2021-03-17] MEDS: INSULIN GLARGINE SYRINGE. SQ SCH (21:15)
[2021-03-17] MEDS: HEPARIN for SUB-Q USE 5,000 UNIT/ML VIAL. SQ SCH (22:34)
[2021-03-17] MEDS: PIPERACILLIN/TAZOBACTAM 2.25 GM in IV NORMAL SALINE 50ML 50 ML IV SCH (22:38)
[2021-03-18] VITALS (23 sets, daily range): BP systolic 26–140; BP diastolic 22–96
[2021-03-18] MEDS: VASOPRESSIN - VASOSTRICT 20 UNIT in IV DEXTROSE 5% 100ML 100 ML IV PRN ×3 (01:13→17:53)
[2021-03-18] MEDS: DEXMEDETOMIDINE 400 MCG in IV NORMAL SALINE 100ML 96 ML IV PRN ×3 (03:16→15:55)
[2021-03-18] MEDS: NOREPINEPHRINE VIAL 32 MG in IV D5W 250ML IV PRN ×2 (04:10→12:48)
[2021-03-18] MEDS: PIPERACILLIN/TAZOBACTAM 2.25 GM in IV NORMAL SALINE 50ML 50 ML IV SCH ×2 (05:48→15:54)
[2021-03-18] MEDS: HEPARIN for SUB-Q USE 5,000 UNIT/ML VIAL. SQ SCH ×2 (05:50→15:54)
[2021-03-18] MEDS: INSULIN LISPRO 300 UNITS/3 ML VIAL. SQ SCH ×4 (06:00→16:49)
[2021-03-18] MEDS ORDERED: VANCOMYCIN 1 GM in IV NORMAL SALINE 250ML 250 ML IV SCH (06:00)
[2021-03-18 06:16] LABS: ALBUMIN 1.7 g/dL (3.4-5.0); ANION GAP 17 (6-14); BLOOD UREA NITROGEN 38 mg/dL (8-26); CARBON DIOXIDE 21 mmol/L (21-32); CHLORIDE 97 mmol/L (98-107); CREATININE 2.8 mg/dL (0.7-1.3); GFR 24.4; GLUCOSE 134 mg/dL (70-99); POTASSIUM 3.9 mmol/L (3.5-5.1); SODIUM 135 mmol/L (136-145); VANC TR 22.9 mcg/mL (10.0-20.0)
[2021-03-18] MEDS: MIDAZOLAM 100mg/100ml NS BAG 100 ML IV PRN ×2 (07:11→16:04)
[2021-03-18] MEDS: ASPIRIN CHEWABLE 81 MG TABLET. PO SCH (08:00)
[2021-03-18 08:37] LABS: BASE EXCESS ABG -5 mmol/L (-3-3); HCO3 ABG 21 mmol/L (21-28); PCO2 ABG 40 mmHg (35-46); PO2 ABG 65 mmHg (75-108); SAT O2 ABG 90 % (92-99)
[2021-03-18 08:39] LABS: FIO2 ABG 100% AC 32 420 6
[2021-03-18] MEDS ORDERED: FAMOTIDINE 20 MG/2 ML VIAL IVP SCH (09:00)
[2021-03-18] MEDS ORDERED: IV NORMAL SALINE 1000ML BAG 1,000 ML IV PRN ×2 (09:15)
[2021-03-18] MEDS ORDERED: DIALYSIS PATIENT. MC PRN ×2 (09:15)
--- NOTE | 2021-03-18 10:36 | RAD ---
XR ABDOMEN 1V History: Reason: abdomen firm;hypoactive BS / Spl. Instructions: / History: Technique: Supine view the abdomen. Comparison: None. Findings: Mild small bowel gas. Air and stool throughout the colon. Large colonic stool burden. Enteric tube wi th tip projecting over the proximal stomach. Impression: 1. Nonobstructed bowel gas pattern. 2. Large colonic stool burden. Electronically signed by: Anselmo Whitfield DO (03/18/2021 10:32 AM) [id number]
[2021-03-18] MEDS: SODIUM BICARBONATE VIAL 150 MEQ in IV DEXTROSE 5% 1,000 ML IV SCH (10:46)
--- NOTE | 2021-03-18 10:46 | PDOC ---
DATE OF SERVICE DATE: 03/18/21 TIME: 10:39 SUBJECTIVE ROS Remains Intubated /Sedated Currently on 2 Pressors , UOP declining OBJECTIVE Vital Signs Vital Signs Date Time Temp Pulse Resp B/P (MAP) Pulse Ox O2 Delivery O2 Flow Rate FiO2 03/18/21 10:00 114 32 109/79 98 Ventilator 03/18/21 08:00 99.5 99.5 I & 0 Intake and Output 03/18/21 07:00 Intake Total 3543.67 ml Output Total 50 ml Balance 3493.67 ml IV Total 3543.67 ml Output Urine Total 50 ml PHYSICAL EXAM Physical Exam Gen sedated on vent Neck Supple Lungs Decreased BS Cardiovascular: S1, S2 Cantrell + Neuro Sedated, on MV DIAGNOSIS/ASSESSMENT Assessment & Plan Acute Renal failure - ATN , in the setting of COVID-19 , worsening renal function , UOP declining, Initiated on Dialysis 03/17(Unable to do CRRT 2/2 shortage of Dialysate/Replacement solutions per pharmacy). Tolerated HD with Pressor support , IVF , Albumin Dialysis again today , discussed treatment plan with DRHarrison. Seen during treatment , tolerating well. HyperKalemia- hd yesterday, improved K HypoNatremia - Mild, Monitor HypoCa - after correcting for albumin, uese 3 Ca in dialysate . Dw DRn Acidosis- On Bicarb gtt ,Bicarb normal now . monitor, dc if stable. Re- evaluate in am COVID-19, Pneumonia - Unvaccinated Acute on chronic hypoxemic respiratory failure./ARDS intubated 03/13 COMMENT/RELEVANT DATA Meds Current Medications Medications (Trade) Dose Ordered Sig/Kalina Start Time Stop Time Status Last Admin Dose Admin Acetaminophen (Tylenol) 650 mg PRN Q6HRS PRN 03/14/21 08:00 03/16/21 07:45 650 MG Albumin Human 100 ml @ 100 mls/hr PRN DAILY PRN 03/17/21 16:00 03/17/21 16:35 100 MLS/HR Aspirin (Aspirin Chewable) 81 mg [id number] 02/22/21 08:00 03/17/21 08:43 81 MG Atropine Sulfate (ATROPINE 0.5mg SYRINGE) 0.5 mg PRN Q5MIN PRN 03/12/21 17:00 UNV Azithromycin 250 ml @ 250 mls/hr 1X ONCE 02/21/21 15:00 02/21/21 15:59 DC 02/21/21 15:00 250 MLS/HR Calcium Gluconate 1000 mg/Sodium Chloride 110 ml @ 220 mls/hr 1X ONCE 03/17/21 09:30 03/17/21 09:59 DC 03/17/21 09:27 220 MLS/HR Ceftriaxone Sodium (Rocephin) 1 gm Q24H 02/21/21 20:00 03/12/21 10:27 DC 03/11/21 20:16 1 GM Chlorhexidine Gluconate (Peridex) 15 ml BID 03/12/21 21:00 03/13/21 07:40 DC 03/12/21 21:23 15 ML Dexmedetomidine HCl 400 mcg/ Sodium Chloride 100 ml @ 0 mls/hr CONT PRN 03/12/21 17:00 UNV Dextrose (Dextrose 50%-Water Syringe) 25 gm 1X ONCE 03/17/21 09:30 03/17/21 09:31 DC 03/17/21 09:28 25 GM Docusate Sodium (Colace Solution) 100 mg PRN DAILY PRN 03/15/21 09:15 03/16/21 07:45 100 MG Doxycycline Hyclate (Vibra-Tab) 100 mg BID 03/01/21 09:00 03/04/21 09:18 DC 03/04/21 08:59 100 MG Doxycycline Hyclate 100 mg/ Dextrose 100 ml @ 50 mls/hr Q12HR 03/04/21 21:00 03/07/21 22:59 DC 03/07/21 21:00 50 MLS/HR Enoxaparin Sodium (Lovenox 30mg Syringe) 30 mg Q24H 03/17/21 21:00 03/17/21 17:15 DC Enoxaparin Sodium (Lovenox 40mg Syringe) 40 mg Q24H 02/21/21 20:00 03/17/21 10:11 DC 03/16/21 20:35 40 MG Etomidate (Amidate) 20 mg STK-MED ONCE 03/12/21 17:00 03/13/21 08:58 DC Famotidine (Pepcid Vial) 20 mg DAILY 03/18/21 09:00 03/18/21 08:21 20 MG Fentanyl Citrate 55 ml @ 0 mls/hr CONT PRN PRN 03/12/21 23:15 03/17/21 05:29 1.5 MLS/HR Glycerin/ Hypromellose/ Polyethylene (Artificial Tears) 1 drop PRN Q1HR PRN 03/12/21 17:00 Guaifenesin (Robitussin Dm) 10 ml PRN Q6HRS PRN 03/04/21 09:15 Guaifenesin/ Codeine Phosphate (Robitussin Ac) 5 ml PRN Q6HRS PRN 02/21/21 19:45 03/04/21 09:18 DC 02/25/21 00:54 5 ML Heparin Sodium (Porcine) (Heparin Sodium) 5,000 unit Q8HRS 03/17/21 22:00 03/18/21 05:50 5,000 UNIT Info (CONTRAST GIVEN -- Rx MONITORING) 1 each PRN DAILY PRN 02/21/21 13:45 02/23/21 13:44 DC Info (PHARMACY MONITORING -- do not chart) 1 each PRN DAILY PRN 03/18/21 09:15 UNV Info (Tpn Per Pharmacy) 1 each PRN DAILY PRN 03/05/21 14:00 03/13/21 11:35 DC 03/12/21 12:14 1 EACH Insulin Glargine (Lantus Syringe) 15 unit QHS 03/12/21 21:00 03/17/21 21:15 15 UNIT Insulin Human Lispro (HumaLOG) 5 units Q6HRS 03/09/21 12:00 03/12/21 12:06 DC 03/11/21 23:44 5 UNITS Insulin Human Regular (HumuLIN R VIAL) 10 unit 1X ONCE 03/17/21 09:30 03/17/21 09:31 DC 03/17/21 09:29 10 UNIT Iohexol (Omnipaque 350 Mg/ml) 100 ml 1X ONCE 02/21/21 14:15 02/21/21 14:16 DC Lactobacillus Rhamnosus (Culturelle) 1 cap BID 02/22/21 21:00 03/07/21 10:29 DC 03/07/21 09:57 1 CAP Lidocaine HCl (Buffered Lidocaine 1%) 3 ml STK-MED ONCE 03/17/21 11:58 03/17/21 15:17 DC Lorazepam (Ativan Inj) 0.5 mg PRN Q6HRS PRN 03/08/21 16:30 03/12/21 15:26 0.5 MG Methylprednisolone Sodium Succinate (SOLU-Medrol 40MG VIAL) 40 mg BID 02/21/21 20:00 03/10/21 12:23 DC 03/10/21 08:59 40 MG Midazolam HCl (Versed) 5 mg PRN 1X PRN 03/12/21 17:00 03/13/21 16:59 DC Multivitamins (Thera M Plus) 1 tab DAILY 02/22/21 09:00 03/07/21 08:44 DC 03/06/21 09:20 1 TAB Nitroglycerin (Nitrostat) 0.4 mg PRN Q5MIN PRN 02/21/21 16:00 02/22/21 15:59 DC Norepinephrine Bitartrate 32 mg/ Dextrose 250 ml @ 3.384 mls/ hr CONT PRN 03/17/21 03:00 03/18/21 04:10 20.306 MLS/HR Norepinephrine Bitartrate 8 mg/ Dextrose 258 ml @ 13.448 mls/ hr CONT PRN 03/12/21 17:00 03/17/21 03:00 DC 03/16/21 23:26 44.379 MLS/HR Nystatin (Nystatin Oral Susp) 5 ml [id number] 02/28/21 13:00 03/10/21 17:40 DC 03/09/21 20:32 5 ML Piperacillin Sod/ Tazobactam Sod (Zosyn Per Pharmacy) 1 each PRN DAILY PRN 03/14/21 16:45 Piperacillin Sod/ Tazobactam Sod 2.25 gm/Sodium Chloride 50 ml @ 100 mls/hr Q8HRS 03/17/21 22:00 03/18/21 05:48 100 MLS/HR Piperacillin Sod/ Tazobactam Sod 3.375 gm/Sodium Chloride 50 ml @ 100 mls/hr Q6HRS 03/17/21 12:00 03/17/21 17:13 DC 03/17/21 12:00 100 MLS/HR Piperacillin Sod/ Tazobactam Sod 4.5 gm/Dextrose 100 ml @ 200 mls/hr Q6HRS 03/17/21 18:00 03/17/21 10:08 DC Piperacillin Sod/ Tazobactam Sod 4.5 gm/Sodium Chloride 100 ml @ 200 mls/hr Q6HRS 03/16/21 17:07 03/17/21 10:09 DC 03/17/21 05:54 200 MLS/HR Propofol 100 ml @ 2.085 mls/ hr CONT PRN 03/12/21 17:00 Sennosides (Senna) 17.2 mg PRN BID PRN 03/15/21 09:15 03/16/21 07:44 17.2 MG Sodium Bicarbonate 150 meq/Dextrose 1,150 ml @ 100 mls/hr [id number] 03/17/21 13:30 03/17/21 23:21 100 MLS/HR Sodium Bicarbonate 150 meq/Sterile Water 1,150 ml @ 125 mls/hr Q8H 03/17/21 13:00 Cancel Sodium Bicarbonate (Sodium Bicarb Adult 8.4% Syr) 50 meq 1X ONCE 03/17/21 09:15 03/17/21 09:16 DC 03/17/21 09:27 50 MEQ Sodium Chloride 1,000 ml @ 400 mls/hr Q2H30M PRN 03/18/21 09:15 03/18/21 21:14 Sodium Chloride 90 meq/Potassium Chloride 50 meq/ Potassium Phosphate 13.6 mmol/Magnesium Sulfate 10 meq/ Calcium Gluconate 10 meq/ Multivitamins 10 ml/Zinc/Copper/ Manganese/ Selenium 1 ml/ Total Parenteral Nutrition/Amino Acids/Dextrose/ Fat Emulsion Intravenous 1,512 ml @ 63 mls/hr TPN CONT 03/09/21 22:00 03/10/21 21:59 DC 03/09/21 21:59 63 MLS/HR Sodium Chloride 120 meq/Potassium Chloride 50 meq/ Potassium Phosphate 13.6 mmol/Magnesium Sulfate 10 meq/ Calcium Gluconate 10 meq/ Multivitamins 10 ml/Zinc/Copper/ Manganese/ Selenium 1 ml/ Total Parenteral Nutrition/Amino Acids/Dextrose/ Fat Emulsion Intravenous 1,512 ml @ 63 mls/hr TPN CONT 03/12/21 22:00 03/13/21 21:59 DC 03/12/21 21:24 63 MLS/HR Sterile Water (WATER for RESP) 2,000 ml CONT PRN 02/21/21 14:30 03/17/21 17:16 DC 03/11/21 17:25 2,000 ML Succinylcholine Chloride (Anectine) 200 mg STK-MED ONCE 03/12/21 17:00 03/13/21 08:58 DC Vancomycin HCl (Vanco Per Pharmacy) 1 each PRN DAILY PRN 03/14/21 16:45 03/17/21 17:19 1 EACH Vancomycin HCl (Vancomycin Trough Level) 1 each 1X ONCE 03/18/21 05:30 03/18/21 05:31 DC 03/18/21 05:30 1 EACH Vancomycin HCl 1.5 gm/Sodium Chloride 500 ml @ 250 mls/hr 1X ONCE 03/14/21 18:00 03/14/21 19:59 DC 03/14/21 20:53 250 MLS/HR Vancomycin HCl 1 gm/Sodium Chloride 250 ml @ 250 mls/hr Q24H 03/18/21 06:00 03/17/21 17:16 DC Vasopressin 20 unit/Dextrose 101 ml @ 12 mls/hr CONT PRN 03/17/21 03:00 03/18/21 08:38 12 MLS/HR Vecuronium Cook 50 mg/ Sodium Chloride 50 ml @ 3.336 mls/ hr CONT PRN 03/12/21 17:00 03/17/21 22:54 2.919 MLS/HR Vecuronium Cook (Norcuron Bolus) 6 mg PRN 1X PRN 03/12/21 17:00 03/12/21 19:30 DC 03/12/21 19:30 6 MG Lab Laboratory Tests Test 03/17/21 14:20 03/17/21 21:11 03/18/21 00:06 03/18/21 05:30 Glucose (Fingerstick) 148 mg/dL (70-99) 142 mg/dL (70-99) 151 mg/dL (70-99) Sodium Level 135 mmol/L (136-145) Potassium Level 3.9 mmol/L (3.5-5.1) Chloride Level 97 mmol/L (98-107) Carbon Dioxide Level 21 mmol/L (21-32) Anion Gap 17 (6-14) Blood Urea Nitrogen 38 mg/dL (8-26) Creatinine 2.8 mg/dL (0.7-1.3) Estimated GFR (Cockcroft-Gault) 24.4 Glucose Level 134 mg/dL (70-99) Calcium Level 6.0 mg/dL (8.5-10.1) Phosphorus Level 5.0 mg/dL (2.6-4.7) Albumin 1.7 g/dL (3.4-5.0) Vancomycin Level Trough 22.9 mcg/mL (10.0-20.0) Vancomycin Last Dose Date 03/17/21 Vancomycin Last Dose Time 1800 Test 03/18/21 08:30 O2 Saturation 90 % (92-99) Arterial Blood pH 7.34 (7.35-7.45) Arterial Blood pCO2 at Patient Temp 40 mmHg (35-46) Arterial Blood pO2 at Patient Temp 65 mmHg (75-108) Arterial Blood HCO3 21 mmol/L (21-28) Arterial Blood Base Excess -5 mmol/L (-3-3) FiO2 100% ac 32 420 6 Results All relevant outside records, renal labs, imaging studies, telemetry/EKG's were reviewed. Justicifation of Admission Dx: Justifications for Admission: Justification of Admission Dx: N/A SHIVA NICHOLS MD Mar 18, 2021 10:46
--- NOTE | 2021-03-18 11:05 | PDOC ---
[employer] PROGRESS NOTE Date of Service DOS: DATE: 03/18/21 TIME: 11:03 Chief Complaint Chief Complaint Acute hypoxic respiratory failure secondary to Covid pneumonia History of diabetes mellitus type 2 [facility]- acute respiratory distress syndrome. Possible bacterial pneumonia - likely gram negative History of Present Illness History of Present Illness 03/18/2021 Patient seen and examined in the ICU He remains on the vent AC/32/420 with 100% FiO2 and 6 of PEEP Has IV Levophed hanging Sedated with fentanyl Has IV vasopressin hanging as well Chavez to bedside drainage SCDs in place He is going to have dialysis today We are going to check a KUB (discussed with RN we hope to resume tube feeds) He remains very critically ill we are concerned he may not survive 03/17/2021 Patient seen and examined in the [place] [address] ICU Chart reviewed Discussed with RN He is still on the vent AC/32/420/1 100% with 6 of PEEP Sedated with Dex and fentanyl and VAC Has IV vasopressin and IV Levophed He remains very critically ill 03/16/2021 Patient seen and examined in the [place] [address] ICU He is still on the ventilator AC/32/420/1 her percent with 6 of PEEP Chavez bedside drainage SCDs in place Sedated with fentanyl and Versed and Dex Has IV Levophed hanging Discussed with RN Chart reviewed 03/15/2021 Patient seen and examined in the [place] [address] ICU He remains on the vent AC/32/420/1 100% with 6 of PEEP Has Chavez to bedside drainage On IV Levophed Sedated with Dex fentanyl Has IV Zosyn hanging Discussed with RN Chart reviewed He remains very critically ill 03/14/2021 Patient seen and examined in the [place] [address] ICU Discussed with RN Chart reviewed He remains on the ventilator AC/30/400/90 percent with 6 of PEEP His potassium still little high Creatinine running little high Patient is sedated with Dex fentanyl vecuronium and Versed Has IV Levophed hanging He remains very critically ill 03/13/2021 Patient seen and examined in the [place] [address] ICU He had to be intubated last night Discussed with RN chart reviewed Current vent settings are AC/30/400 with 100% FiO2 and 6 of PEEP Discussed with RN Chart reviewed He is sedated with fentanyl and Versed Dex and vecuronium On IV Levophed drip OG feeds running Has Chavez to bedside drainage Extremely critically ill 03/12/2021 Patient seen and examined in the [place] [address] ICU Discussed with RN Chart reviewed He remains on the BiPAP and Vapotherm Has TPN hanging Sedated with Dex Has Chavez to bedside drain Remains critically ill 03/11/2021 Patient seen and examined in the [place] [address] ICU Discussed with RN Chart reviewed He is currently on BiPAP 100% FiO2 and Vapotherm 40 L with 1 high percent FiO2 Sedated with Dex Has TPN pain Remains very critically ill 03/10/2021 Patient seen and examined in the [place] [address] ICU Discussed with RN Chart reviewed He remains on Vapotherm 40 L 100% FiO2 plus BiPAP with 100% FiO2 Has TPN hanging Sedated with Dex Remains extremely critically ill 03/09: In ICU on BiPAP with Vapotherm 100% FiO2 40 L/min with saturations 93%. Still tolerating removal of BiPAP without desaturations into the 80s. Glucose minimally improved will increase schedule. He has no complaints. CC time 31- minute 03/08: Seen in ICU on BiPAP continue vent support on Vapotherm 100% FiO2 40 L/min. Saturations 94%. When BiPAP is removed desaturates to 84% despite Vapotherm. He prefers to avoid intubation. O2 sats improved with BiPAP. Glucose in the 200s. D/w family and friend over the phone. 03/07: Seen in ICU BiPAP 18/8 with supplemental Vapotherm saturations 93% to 96%. He has no complaints. 03/06: Chest radiograph unchanged taking good position, WBC 12.2 glucose in 200s. Tolerating TPN well. O2 saturations 92% on BiPAP 18/8 with supplemental Vapotherm 40 L/min 100% FiO2. 03/05: In ICU. PICC placed. Requiring BiPAP 18/8 with supplemental Vapotherm 40 L/min 100% FiO2 significant saturations with removal of BiPAP unable to take p.o. start TPN tonight 03/04: Transfer to ICU overnight for worsening hypoxia. On BiPAP 18/8 with supplemental Vapotherm 40 L/min 100% FiO2. Significant desaturation with attempted to eat and drink. cc time 32 min 03/03: No acute events overnight. Saturating 89-90% on Vapotherm and NRB 15L. Not dyspneic but doesnt feel better. Will DC chavez today and today will be his last day of steroids. Encouraged patient to get OOBTC ad pierre. 03/02: No acute events overnight. Patient seen and examined bedside. Increased work of breathing. But still saturating 90% on 40 L Vapotherm. Patient's chart, labs, images were reviewed and discussed with RN 02/28: Patient seen and examined bedside. Still on Vapotherm 40 L and saturating 96%. Not more short of breath than usual. Feels actually better today. Speaking full sentences. Given nystatin due to some white buildup in the oral cavity. Likely due to steroids. 02/27: Pt seen and examined bedside. Saturating 86% on Vapotherm and required BiPAP overnight. Pulmonology consulted and to continue with current management for COVID. Pending ICU transfer when possible 02/26: Patient seen and examined bedside. Saturating 89% on Vapotherm and 15 L nonrebreather. Continue with IV steroids and IV antibiotics. Patient's chart, labs, images were reviewed and discussed with RN 02/25: No acute events overnight. Patient seen examined bedside. Patient saturating 91% on 4 L Vapotherm. Continue with IV steroids and IV antibiotics. Patient's chart, labs, images were reviewed and discussed with RN 02/24: No acute events overnight. Patient seen examined bedside. Patient sat urating 93 to 95% on Vapotherm at 40 L. Not dyspneic at this time. Patient's chart, labs, images were reviewed and discussed with RN 02/23: Patient seen and examined. He is still on Vapotherm 40 L and 100% nonrebreather. His third Covid test finally came back positive. I spoke with pharmacy he is still not a candidate for remdesivir because he has had the disease for more than 10 days 02/22: Patient seen and examined. He is on Vapotherm 40 L with 100% FiO2 plus nonrebreather. His Covid testing by PCR is surprisingly negative Vitals/I&O Vitals/I&O: Vital Signs Date Time Temp Pulse Resp B/P (MAP) Pulse Ox O2 Delivery O2 Flow Rate FiO2 03/18/21 10:00 114 32 109/79 98 Ventilator 03/18/21 08:00 99.5 99.5 I & O 03/17/21 03/17/21 03/18/21 15:00 23:00 07:00 Intake Total 110 ml 1275 ml 2158.67 ml Output Total 35 ml 15 ml 0 ml Balance 75 ml 1260 ml 2158.67 ml Physical Exam General: mild distress, Other (Resting on Vapotherm) Heart: Regular rate Lungs: Crackles Abdomen: Other (Distended no bowel movements per RN) Extremities: No clubbing Skin: No rashes Labs Labs: Laboratory Tests Test 03/17/21 14:20 03/17/21 21:11 03/18/21 00:06 03/18/21 05:30 Glucose (Fingerstick) 148 mg/dL (70-99) 142 mg/dL (70-99) 151 mg/dL (70-99) Sodium Level 135 mmol/L (136-145) Potassium Level 3.9 mmol/L (3.5-5.1) Chloride Level 97 mmol/L (98-107) Carbon Dioxide Level 21 mmol/L (21-32) Anion Gap 17 (6-14) Blood Urea Nitrogen 38 mg/dL (8-26) Creatinine 2.8 mg/dL (0.7-1.3) Estimated GFR (Cockcroft-Gault) 24.4 Glucose Level 134 mg/dL (70-99) Calcium Level 6.0 mg/dL (8.5-10.1) Phosphorus Level 5.0 mg/dL (2.6-4.7) Albumin 1.7 g/dL (3.4-5.0) Vancomycin Level Trough 22.9 mcg/mL (10.0-20.0) Vancomycin Last Dose Date 03/17/21 Vancomycin Last Dose Time 1800 Test 03/18/21 08:30 O2 Saturation 90 % (92-99) Arterial Blood pH 7.34 (7.35-7.45) Arterial Blood pCO2 at Patient Temp 40 mmHg (35-46) Arterial Blood pO2 at Patient Temp 65 mmHg (75-108) Arterial Blood HCO3 21 mmol/L (21-28) Arterial Blood Base Excess -5 mmol/L (-3-3) FiO2 100% ac 32 420 6 Assessment and Plan Assessmemt and Plan Problems Medical Problems: (1) Acute respiratory failure with hypoxia Status: Acute (2) Sepsis due to pneumonia Status: Acute Severe respiratory failure secondary to COVID-19 Diabetes Possible bacterial pneumonia likely gram-negative Abdominal distention Plan ICU monitoring Vent weaning COVID protocol Checking a KUB to hopefully resume his OG feeds Continue sedation Trying to wean off the vasopressor Continue Chavez to bedside drainage Home meds DVT prophylaxis Trend labs Full code Appreciate subspecialist input Prognosis extremely guarded at best we are concerned he will likely not survive CC time 33 Comment Review of Relevant I have reviewed the following items elmer (where applicable) has been applied. Medications: Current Medications Medications (Trade) Dose Ordered Sig/Kalina Route PRN Reason Start Time Stop Time Status Last Admin Dose Admin Vancomycin HCl (Vancomycin Trough Level) 1 each 1X ONCE 03/18/21 05:30 03/18/21 05:31 DC 03/18/21 05:30 Piperacillin Sod/ Tazobactam Sod 3.375 gm/Sodium Chloride 50 ml @ 100 mls/hr Q6HRS IV 03/17/21 12:00 03/17/21 17:13 DC 03/17/21 12:00 Sodium Bicarbonate 150 meq/Dextrose 1,150 ml @ 100 mls/hr [id number] IV 03/17/21 13:30 03/18/21 10:46 Albumin Human 100 ml @ 100 mls/hr PRN DAILY PRN IV SEE ADMIN INSTRUCTIONS 03/17/21 16:00 03/17/21 16:35 Famotidine (Pepcid Vial) 20 mg DAILY IVP 03/18/21 09:00 03/18/21 08:21 Piperacillin Sod/ Tazobactam Sod 2.25 gm/Sodium Chloride 50 ml @ 100 mls/hr Q8HRS IV 03/17/21 22:00 03/18/21 05:48 Heparin Sodium (Porcine) (Heparin Sodium) 5,000 unit Q8HRS SQ 03/17/21 22:00 03/18/21 05:50 Justifications for Admission Other Justification LILA RODRIGUEZ III DO Mar 18, 2021 11:05
--- NOTE | 2021-03-18 11:24 | PDOC ---
PULMONARY PROGRESS NOTES DATE: 03/18/21 TIME: 11:12 Subjective Patient remains on assist control mode. Sedated fentanyl, versed, and vec gtt . on levo and vasopressin. bicarb drip. Currently on 100% FiO2 6 of PEEP, Vitals Vital Signs Date Time Temp Pulse Resp B/P (MAP) Pulse Ox O2 Delivery O2 Flow Rate FiO2 03/18/21 10:00 114 32 109/79 98 Ventilator 03/18/21 08:00 99.5 99.5 Comments ros unable to obtain sedated on vent nc at no distress no accessory muscle use abd obese no rash Lungs: Crackles Cardiovascular: S1, S2 Extremities: No Edema Skin: No Rashes Labs Laboratory Tests Test 03/16/21 11:32 03/16/21 17:00 03/16/21 17:01 03/16/21 23:33 Glucose (Fingerstick) 148 mg/dL (70-99) 106 mg/dL (70-99) 151 mg/dL (70-99) Vancomycin Level Trough 9.5 mcg/mL (10.0-20.0) Vancomycin Last Dose Date 03/15/21 Vancomycin Last Dose Time 1800 Test 03/17/21 05:35 03/17/21 05:50 03/17/21 08:00 03/17/21 14:20 Sodium Level 126 mmol/L (136-145) Potassium Level 6.2 mmol/L (3.5-5.1) Chloride Level 96 mmol/L (98-107) Carbon Dioxide Level 19 mmol/L (21-32) Anion Gap 11 (6-14) Blood Urea Nitrogen 62 mg/dL (8-26) Creatinine 3.0 mg/dL (0.7-1.3) Estimated GFR (Cockcroft-Gault) 22.5 Glucose Level 217 mg/dL (70-99) Calcium Level 7.3 mg/dL (8.5-10.1) Hepatitis B Surface Antigen Nonreactive (Nonreactive) Hepatitis B Surface Antibody Nonreactive Glucose (Fingerstick) 203 mg/dL (70-99) 148 mg/dL (70-99) O2 Saturation 88 % (92-99) Arterial Blood pH 7.09 (7.35-7.45) Arterial Blood pCO2 at Patient Temp 42 mmHg (35-46) Arterial Blood pO2 at Patient Temp 65 mmHg (75-108) Arterial Blood HCO3 13 mmol/L (21-28) Arterial Blood Base Excess -17 mmol/L (-3-3) FiO2 100% 32 420 6 Test 03/17/21 21:11 03/18/21 00:06 03/18/21 05:30 03/18/21 08:30 Glucose (Fingerstick) 142 mg/dL (70-99) 151 mg/dL (70-99) Sodium Level 135 mmol/L (136-145) Potassium Level 3.9 mmol/L (3.5-5.1) Chloride Level 97 mmol/L (98-107) Carbon Dioxide Level 21 mmol/L (21-32) Anion Gap 17 (6-14) Blood Urea Nitrogen 38 mg/dL (8-26) Creatinine 2.8 mg/dL (0.7-1.3) Estimated GFR (Cockcroft-Gault) 24.4 Glucose Level 134 mg/dL (70-99) Calcium Level 6.0 mg/dL (8.5-10.1) Phosphorus Level 5.0 mg/dL (2.6-4.7) Albumin 1.7 g/dL (3.4-5.0) Vancomycin Level Trough 22.9 mcg/mL (10.0-20.0) Vancomycin Last Dose Date 03/17/21 Vancomycin Last Dose Time 1800 O2 Saturation 90 % (92-99) Arterial Blood pH 7.34 (7.35-7.45) Arterial Blood pCO2 at Patient Temp 40 mmHg (35-46) Arterial Blood pO2 at Patient Temp 65 mmHg (75-108) Arterial Blood HCO3 21 mmol/L (21-28) Arterial Blood Base Excess -5 mmol/L (-3-3) FiO2 100% 32 420 6 Laboratory Tests Test 03/17/21 14:20 03/17/21 21:11 03/18/21 00:06 03/18/21 05:30 Glucose (Fingerstick) 148 mg/dL (70-99) 142 mg/dL (70-99) 151 mg/dL (70-99) Sodium Level 135 mmol/L (136-145) Potassium Level 3.9 mmol/L (3.5-5.1) Chloride Level 97 mmol/L (98-107) Carbon Dioxide Level 21 mmol/L (21-32) Anion Gap 17 (6-14) Blood Urea Nitrogen 38 mg/dL (8-26) Creatinine 2.8 mg/dL (0.7-1.3) Estimated GFR (Cockcroft-Gault) 24.4 Glucose Level 134 mg/dL (70-99) Calcium Level 6.0 mg/dL (8.5-10.1) Phosphorus Level 5.0 mg/dL (2.6-4.7) Albumin 1.7 g/dL (3.4-5.0) Vancomycin Level Trough 22.9 mcg/mL (10.0-20.0) Vancomycin Last Dose Date 03/17/21 Vancomycin Last Dose Time 1800 Test 03/18/21 08:30 O2 Saturation 90 % (92-99) Arterial Blood pH 7.34 (7.35-7.45) Arterial Blood pCO2 at Patient Temp 40 mmHg (35-46) Arterial Blood pO2 at Patient Temp 65 mmHg (75-108) Arterial Blood HCO3 21 mmol/L (21-28) Arterial Blood Base Excess -5 mmol/L (-3-3) FiO2 100% ac 32 420 6 Medications Active Scripts Medications Dose Route/Sig Max Daily Dose Days Date Category [no home meds] 02/21/21 Reported Comments Chest x-ray reviewed 03/17. Bilateral small pulmonary infiltrates. Stable Impression . IMPRESSION: 1. Acute on chronic hypoxemic respiratory failure./ARDS intubated 03/13 2. COVID-19 viral pneumonia/acute respiratory distress syndrome. 3. Abnormal x-ray. 4. Possible bacterial pneumonia. 5. Protein malnutrition present upon admission 6. ARF. Renal consulted.. Plan . 03/18 Continue present assist-control mode. setting reviewed Wean FiO2 peep as tolerated cont abx pepcid lovenox for DVT and stress ulcer prophylaxis. elevate hob Continue current supportive care Avoid barotrauma by maintaining PEEP less than 10, currently on six of PEEP. Labs and Chest x-ray reviewed Enteral nutrition Dialysis per Renal. Discussed with RN and RT 03/16 Continue present assist-control mode. setting reviewed Wean FiO2 peep as tolerated cont abx pepcid lovenox for DVT and stress ulcer prophylaxis. elevate hob Continue current supportive Avoid barotrauma by maintaining PEEP less than 10, currently on six of PEEP. Chest x-ray reviewed Enteral nutrition Discussed with RN and RT 03/15 Continue present assist-control mode. setting reviewed Wean FiO2 peep as tolerated elevate hob Continue current supportive Avoid barotrauma by maintaining PEEP less than 10, currently on six of PEEP. Chest x-ray reviewed Enteral nutrition DVT and stress ulcer prophylaxis. Discussed with RN and RT Updated 03/14 Continue present assist-control mode. Wean FiO2. Keep saturations 92% and above. Continue current supportive Avoid barotrauma by maintaining PEEP less than 10, currently on six of PEEP. Chest x-ray reviewed Enteral nutrition DVT and stress ulcer prophylaxis. Discussed with RN and RT CCT of 30 minutes Updated 03/13 Patient intubated on last evening, 113 Continue current supportive Avoid barotrauma by maintaining PEEP less than 10 ABG noted, PaO2 62 pH was 7.2 and 4 Chest x-ray reviewed Discussed with RN and RT CCT of 30 minutes Updated 03/12 Continue current supportive Patient continues to continue with Vapotherm and BiPAP No need for intubation at this time Awake alert follows commands Nutritional support Precedex Labs and chest x-ray reviewed FRANCES CONDE MD Mar 18, 2021 11:24
[2021-03-18] MEDS: VANCOMYCIN PER PHARMACY MC PRN (11:37)
--- NOTE | 2021-03-18 11:41 | NUR ---
Pharmacy Vancomycin Dosing Note S: Consulted to monitor and dose vancomycin started 03/14/21. O: ROWDY LOVE is a 46 year old M with Sepsis Other Antibiotics: ZOSYN 2.25G IV Q8HRS LABS: Last BUN: 38 Last Creatinine: 2.8 Creatinine Clearance: HD started Last WBC: 6.4 Last Procalcitonin: Tmax (past 24 hours): 100.1 Microbiology: BLOOD CX (03/14): NGTD I/O: 3544/50 Drug Levels: Last Random level: 22.9 on 03/18/21 at 0530 Last dose given 03/17/21 at 0600 Vancomycin Dosing: Dosing Weight: Actual Target Trough: 15-20 A: Based on: random pre-HD level P: 1. No vanc dose needed today; will re-assess per future HD schedule 2. Follow up levels and doses to be ordered as needed 3. Pharmacy will continue to monitor, follow and adjust therapy as needed. Tanya Campbell RPH, 03/18/21 [id number]
[2021-03-18] MEDS: ALBUMIN HUMAN 25% 100 ML IV PRN ×2 (13:49→13:51)
[2021-03-18] MEDS: fentaNYL HIGH DOSE PCA 55 ML IV PRN (16:05)
[2021-03-18 16:22] LABS: BASE EXCESS ABG 0 mmol/L (-3-3); HCO3 ABG 27 mmol/L (21-28); PCO2 ABG 56 mmHg (35-46); SAT O2 ABG 79 % (92-99)
[2021-03-18 16:32] LABS: PO2 ABG 50 mmHg (75-108)
[2021-03-18 16:33] LABS: FIO2 ABG 100% AC 32 420 6
--- NOTE | 2021-03-18 19:45 | NUR ---
Casing Puller here to give patient the Anointing of the Sick per family request. Multiple family members in room at that time. Patients SBP 51 and Sat is 39% at this time.
--- NOTE | 2021-03-18 20:48 | NUR ---
Patient now with no pulse, no readable oxygen saturation, and no respirations with the vent paused. Dara Serrato and Aniya Escoto, RNs examined patient and did not find a pulse, 0 respirations, and pupils were unreactive and 6. Dr. Pérez was notified and patients family was called. They are on their way back in.
--- NOTE | 2021-03-18 21:45 | NUR ---
Patient's family here. Very tearful at this time. Patient's niece, Arlen, collapsed in the chair and other family members called her doctor, Dr. Banuelos, to get her an antidepressent. Niece's sister said her sister was under a lot of stress with Miller being sick and needed to be medicated. Other family members in room appear to be coping well. Family members talking about taking patient back to [place] and wanted assistance with the arrangements. They were referred to the home for guidance with that.
--- NOTE | 2021-03-18 23:15 | NUR ---
Last 3 family members, including patient's brother, left and took all of patients clothes, cellphone and air tester, Bible, and Roserie with them. They were very grateful for the care that Miller received while here.
== END 2021-03-18 20:48 | DRG 870 ==
LOC: ER 12:30 → ED HOLD 17:07 → 6 SOUTH 18:37 → 1 WEST ICU 03-03 10:20 → 6 SOUTH 03-03 11:09 → 1 WEST ICU 03-03 16:13
PROVIDERS: ADMIT Internal Medicine; ATTEND Internal Medicine
PROC: 5A0935A Assistance with Respiratory Ventilation, Less than 24 Consecutive Hours, High Flow/Velocity Cannula (ICD-10-PCS; principal; 2021-02-21)
PROC: 02H633Z Insertion of Infusion Device into Right Atrium, Percutaneous Approach (ICD-10-PCS; 2021-02-21)
PROC: B548ZZA Ultrasonography of Superior Vena Cava, Guidance (ICD-10-PCS; 2021-02-21)
PROC: 0BH17EZ Insertion of Endotracheal Airway into Trachea, Via Natural or Artificial Opening (ICD-10-PCS; 2021-02-21)
PROC: 5A09357 Assistance with Respiratory Ventilation, Less than 24 Consecutive Hours, Continuous Positive Airway Pressure (ICD-10-PCS; 2021-02-25)
PROC: 5A09357 Assistance with Respiratory Ventilation, Less than 24 Consecutive Hours, Continuous Positive Airway Pressure (ICD-10-PCS; 2021-02-26)
PROC: 5A1955Z Respiratory Ventilation, Greater than 96 Consecutive Hours (ICD-10-PCS; 2021-03-12)
PROC: 5A09557 Assistance with Respiratory Ventilation, Greater than 96 Consecutive Hours, Continuous Positive Airway Pressure (ICD-10-PCS; 2021-03-12)
DX: A41.89 Other specified sepsis (principal); U07.1 COVID-19; J96.21 Acute and chronic respiratory failure with hypoxia; J12.82 Pneumonia due to coronavirus disease 2019; N17.0 Acute kidney failure with tubular necrosis; E46 Unspecified protein-calorie malnutrition; E11.9 Type 2 diabetes mellitus without complications; T38.0X5A Adverse effect of glucocorticoids and synthetic analogues, initial encounter; Z78.9 Other specified health status; Z83.3 Family history of diabetes mellitus; Y92.89 Other specified places as the place of occurrence of the external cause; Z28.3 Underimmunization status; Z68.29 Body mass index [BMI] 29.0-29.9, adult
CPT/HCPCS: 36415; 36556; 36569; 36600; 71045; 71275; 74018; 76937; 80048; 80053; 80069; 80202; 82805; 82962; 83605; 83735; 83880; 84100; 84145; 84478; 84484; 85025; 85610; 85730; 86706; 87040; 87340; 87426; 87804; 93005; 94002; 94003; 94640; 94660; 94760; 96361; 96365; 96375; C1892; J0330; J0456; J0610; J0696; J1644; J1650; J1815; J2060; J2250; J2543; J2920; J3010; J3370; J3475; J3480; J3490; J7030; J7040; J7050; J7060; P9046; Q9967; U0003; U0005; 99285-25; G0378